=== PATIENT | male | born 1960 | race Caucasian/White ===

== ENCOUNTER 2023-06-09 15:14 | Outpatient (AMB) | payer MEDICARE, MEDICAID, SELFPAY ==
--- NOTE | 2023-06-09 16:18 | HO.SPINEOV ---
Intake Intake Visit Reasons: lower back pain Intake Note: Mr. Smith is here today c/o low back pain. 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 Smith is here today as a follow-up patient carried over from [facility]. He is s/p L5-S1 ALIF performed by Dr. Duvall on 02/05/2022. He reports that he has been attending PT, and is concerned that he continues to have right-sided footdrop. He states that he had shoulder surgery 1 month ago, and fell while ambulating 2 weeks ago. He is concerned that he will re-injury shoulder he continues to fall. He was informed that his previous MRI performed on 06/04/[address] Duvall who suggested the option of a spinal cord stimulator if he continues to have symptoms, as there was no continued nerve compression seen. The patient is agreeable to having a spinal cord stimulator trial, and states that he does not currently see a pain document management consultant. He did state that he is seeing a project management professor at the moment, and has a cardiac ablation surgery scheduled to treat his AFib in July. He stated that he would be agreeable to seeing someone from pain management post cardiac surgery. He was encouraged to reach out to our office for referral to Dr. Ojeda after his cardiac concerns are met. Total amount of time spent in this visit was 35 minutes in discussion of symptoms, MRI imaging results and subsequent plan of care. Dain Duvall MD,PhD [facility] Coding Level of Care Code Tele Est Pt Level 4 (28108) Diagnoses Lumbar radiculopathy M54.16 Time Spent (min) 35
== END 2023-06-09 16:39 | disposition home or self-care (01) ==
PROVIDERS: PCP Family Medicine; Visit Provider Physician Assistant
DX: M54.16 Radiculopathy, lumbar region (principal)
CPT/HCPCS: 99214

== ENCOUNTER → 2023-06-09 15:14 | Outpatient (BNVA) | payer MEDICARE, MEDICAID, SELFPAY | PROVIDERS: PCP Family Medicine; Visit Provider Physician Assistant | DX: M54.16 Radiculopathy, lumbar region (principal) | CPT/HCPCS: 99212 ==

== ENCOUNTER 2023-09-11 14:08 | Outpatient (AMB) | payer MEDICARE, MEDICAID, SELFPAY ==
--- NOTE | 2023-09-11 14:19 | A.SPINEOV_ITS ---
Intake Intake Visit Reasons: follow up from 06/2022 visit Intake Note: Mr Smith is here today for a follow up. Imaging Analyst Required: No Assessment & Plan Assessment & Plan (1) Lumbar radiculopathy: Code(s): M54.16 - Radiculopathy, lumbar region Plan MR Smith is a gentleman well known to us from an L5-S1 fusion done a few years ago. He has had a persistent radiculopathy going down his right leg into his outer thigh, outer calf with weakness of dorsiflexion that never really improved after surgery. Postoperative MRIs have shown no evidence of recurrent compression. He is frustrated with the lack of progress or any progress since his surgery. We had previously discussed the idea of a spinal cord stimulator. Currently he is in the middle of a cardiac workup and is on blood thinners for what sounds like rapid AFib. They cardioverted but it was unsuccessful so now the plan is for some kind of interventional electrophysiology procedure. On my exam he remains about the same with a 4-5 dorsiflexion weakness and hypersensitivity along the L5 dermatome. I will order a new MRI just to evaluate if anything has changed over the last year and a half since his last MRI but I suspect it will not be any different. If this is negative, I can send him for an EMG to confirm chronic radiculopathy suggestive of nerve injury. At that point, we can send him to our interventional specialist who do spinal cord stimulators. Total amount of time spent in this visit was 20 minutes in discussion of symptoms, discussed ordering imaging and subsequent plan of care Bin Duvall MD,PhD [facility] Orders: Orders MR lumbar spine wo/w con Today M54.16 - Radiculopathy, lumbar region Coding Level of Care Code Est Pt Level 3 (37833) Diagnoses Lumbar radiculopathy M54.16
== END 2023-09-11 14:34 | disposition home or self-care (01) ==
PROVIDERS: PCP Family Medicine; Visit Provider Physician Assistant
DX: M54.16 Radiculopathy, lumbar region (principal)
CPT/HCPCS: 99213

== ENCOUNTER → 2023-09-11 14:08 | Outpatient (BNVA) | payer MEDICARE, MEDICAID, SELFPAY | PROVIDERS: PCP Family Medicine; Visit Provider Physician Assistant | DX: M54.16 Radiculopathy, lumbar region (principal) | CPT/HCPCS: 99212 ==

== ENCOUNTER 2023-10-23 08:14 | Outpatient (REF) | payer MEDICARE, MEDICAID, SELFPAY ==
--- NOTE | ~2023-10-23 | MR_ITS ---
EXAMINATION: MR LUMBAR SPINE WITHOUT AND WITH CONTRAST CLINICAL INFORMATION: Radiculopathy COMPARISON: MRI lumbar spine 06/04/2022 TECHNIQUE: MRI of the lumbar spine was obtained using routine sequences before and after intravenous administration of 10 mL Gadavist. FINDINGS: Transitional lumbosacral anatomy with lumbarization of S1 and well-formed S1-S2 disc space. For the purposes of this examination the L5-S1 disc space will be referred to on image 24, series 6. Redemonstrated postsurgical changes following posterior decompression and instrumented posterior interbody fusion at L5-S1. Nondiagnostic assessment of the hardware would be better evaluated on CT. Mild upper lumbar dextrocurvature and lower lumbar levocurvature. Retrolisthesis at L4-L5. Stable mild chronic height loss of several lower thoracic/upper lumbar vertebral bodies. Mild scattered endplate Schmorl's nodes and type II Modic endplate changes. Increased type I Modic endplate changes at L4-L5 and eccentric to the left at L2-L3. Disc desiccation with stable disc height loss, most pronounced and moderate to severe at L1-L2. Multilevel anterior osteophytic spurring is seen.There are multilevel degenerative changes with level by level detail as follows: L1-L2: Annular disc bulge without spinal canal or neural foraminal stenosis. L2-L3: Annular disc bulge with redemonstrated left foraminal/far lateral disc protrusion. Mild bilateral facet arthrosis. No spinal canal stenosis. Stable mild left without right neural foraminal stenosis. L3-L4: Annular disc bulge and mild bilateral facet arthrosis. Prominent left lateral disc osteophyte impinging upon the undersurface of the left psoas muscle. No spinal canal or neural foraminal stenosis. L4-L5: Annular disc bulge with redemonstrated broad-based left paracentral/subarticular disc protrusion. Stable mild spinal canal stenosis and left subarticular zone narrowing impinging upon the traversing left L5 nerve root. Unchanged mild right without left neural foraminal encroachment. L5-S1: Postsurgical changes following right L5 hemilaminectomy/partial facetectomy and instrumented fusion as above. Osteophytic ridging projects into the right greater than left neural foramina. Mild facet arthrosis. There is mild enhancing granulation/scar tissue in the laminectomy bed, right aspect of the spinal canal and right lateral recess encircling the traversing right S1 nerve root. No spinal canal stenosis. Stable presumed severe right neural foraminal stenosis with impingement upon the exiting right L5 nerve root. No left neural foraminal stenosis. S1-S2: No spinal canal or neural foraminal stenosis. The conus medullaris terminates at the level of L2. The distal spinal cord and cauda equina nerve roots appear normal. No pathologic intrathecal enhancement. No epidural fluid collection, hematoma, or mass. Severe fatty atrophy and denervation edema of the lower paraspinal musculature. Limited evaluation of the intra-abdominal structures without significant abnormalities. The abdominal aorta is of normal contour and caliber. MR/MR lumbar spine wo/w con IMPRESSION: 1. Transitional lumbosacral anatomy with lumbarization of S1. 2. Redemonstrated postsurgical changes following posterior decompression and instrumented posterior interbody fusion at L5-S1. Osteophytic ridging projects into the right greater than left neural foramina resulting in stable severe right neural foraminal stenosis with impingement upon the exiting right L5 nerve root. Mild enhancing granulation/scar tissue in the laminectomy bed, right aspect of the spinal canal and right lateral recess encircling the traversing right S1 nerve root. 3. At L4-L5, a broad-based left paracentral/subarticular disc protrusion results in stable mild spinal canal stenosis and left subarticular zone narrowing impinging upon the traversing left L5 nerve root.
[2023-10-23] MEDS: gadobutroL 10 ML VIAL IVPUSH (09:12)
== END 2023-10-23 08:15 | disposition home or self-care (01) ==
LOC: HO.MRI 08:14
PROVIDERS: PCP Family Medicine; Visit Provider Physician Assistant
DX: M54.16 Radiculopathy, lumbar region (principal)
CPT/HCPCS: 72158; A9585

== ENCOUNTER 2024-06-27 13:23 | Outpatient (AMB) | payer OTHER, MEDICAID, SELFPAY ==
--- NOTE | 2024-06-27 13:26 | A.SPINEOV_ITS ---
Intake Visit Reasons: back pain Intake Note: Mr. Smith is here today c/o back pain. Talent Acquisition Project Manager Required: No Allergies No Known Allergies Allergy (Verified 06/27/24 13:44) Assessment & Plan Assessment & Plan (1) Lumbar radiculopathy: Code(s): M54.16 - Radiculopathy, lumbar region Category: Medical Plan Mr Smith is here in follow-up today. This is a gentleman known to us from an L4-5 fusion a number of years ago. He had some decent success in terms of back pain and leg pain but has had residual symptoms that have just never quite gone away. He has a neuropathy in his feet as well as persistent back pain along the paraspinal region the in the lumbar spine. We have seen him numerous times in the office postoperatively in his imaging always shows there is no residual compression of the nerves but there is diffuse spondylosis, Modic endplate changes and facet arthropathy throughout the lumbar spine. His last MRI was done here at [place]. Unfortunately we have no further surgery to offer him. We had been discussing sending him to our interventional pain team for consideration of a spinal cord stimulator. He was in the middle of having a cardiac workup and apparently those issues have been settled and he is here today to ask if he can be referred to the [place] pain management team. I arranged the referral. We would be happy to see him back down the road if anything changes. Total amount of time spent in this visit was 20 minutes in discussion of symptoms, lumbar imaging results and subsequent plan of care Bin Duvall MD,PhD [facility] Orders: Referrals Pain Management Referral M54.16 - Radiculopathy, lumbar region Coding Level of Care Code Est Pt Level 3 (05406) Diagnoses Lumbar radiculopathy M54.16
== END 2024-06-27 14:26 | disposition home or self-care (01) ==
PROVIDERS: PCP Family Medicine; Visit Provider Physician Assistant
DX: M54.16 Radiculopathy, lumbar region (principal)
CPT/HCPCS: 99213

== ENCOUNTER → 2024-06-27 13:23 | Outpatient (BNVA) | payer OTHER, MEDICAID, SELFPAY | PROVIDERS: PCP Family Medicine; Visit Provider Physician Assistant ==

== ENCOUNTER 2024-08-01 09:00 | Outpatient (AMB) | payer OTHER, MEDICAID, SELFPAY ==
--- NOTE | 2024-08-01 09:27 | A.OFFVIS_ITS ---
Vital Signs 08/01/24 09:28 Height 6 ft 2 in Weight 280 lb BMI 35.9 BP 140/94 H Blood Pressure Location Rt brachial Position Sitting Respiration 16 Pulse 67 Pulse Source Pulse Oximeter Pulse Oximetry (%) 97 Oxygen Delivery Method Room Air Intake Visit Reasons: Radiculopathy, lumbar region Allergies No Known Allergies Allergy (Verified 08/01/24 09:30) Medication List - Last Reconciled 08/01/24 by Gege Burgess LPN empagliflozin (Jardiance) 10 mg PO DAILY metoprolol succinate ER 50 mg PO DAILY metronidazole 0.75% appl topical rosuvastatin 10 mg PO BEDTIME sacubitril-valsartan 49-51 mg (Entresto) 1 tab PO BID HPI HPI Radiculopathy, lumbar region: Details: 64-year-old male who presents today to the office for evaluation of lumbar radiculopathy. The patient underwent L4-5 fusion a number of years ago. He had some decent success in terms of back pain and leg pain but has had residual symptoms that have just never quite gone away. He reports neuropathy in his feet as well as persistent back pain along the paraspinal region the in the lumbar spine. He has had a persistent radiculopathy going down his right leg into his outer thigh, outer calf with weakness of dorsiflexion that never really improved after surgery. He has difficulty climbing stairs. His postoperatively imaging always shows there is no residual compression of the nerves but there is diffuse spondylosis, Modic endplate changes and facet arthropathy throughout the lumbar spine. He was taking Eliquis but stopped it. He has no history of DM. [facility] Medical History (Updated 08/29/24 @ 13:15 by Jett Ojeda MD) Lumbar radiculopathy Surgical History (Updated 08/01/24 @ 05:39 by Ronni Vergara) History of lumbar fusion Review of Systems Const All systems reviewed & are unremarkable except as noted in HPI and below Physical Exam Vital Signs: Last Vital Signs Pulse 67 08/01/24 09:28 Resp 16 08/01/24 09:28 BP 140/94 H 08/01/24 09:28 Pulse Ox 97 08/01/24 09:28 Oxygen Delivery Method Room Air 08/01/24 09:28 BMI result Body Mass Index 35.9 General: Appears afebrile. Alert and oriented. Mood and affect appropriate. Follows and participates in conversation appropriately. Respiratory effort is unlabored. Able to transition from sit to stand unassisted. Ambulates with bilaterally normal heel strike and toe off. Results Reviewed Results Reviewed: No imaging is available for review. Assessment & Plan Assessment & Plan (1) Lumbar radiculopathy: Code(s): M54.16 - Radiculopathy, lumbar region Category: Medical (2) Lumbar post-laminectomy syndrome: Code(s): M96.1 - Postlaminectomy syndrome, not elsewhere classified Category: Medical Plan Discussed spinal cord stimulator vs. pain pump as possible treatment options with the patient for post-laminectomy syndrome. Will place a referral for psychology clearance. Once we have received psychology clearance, we will plan for trial of spinal cord stimulator device. The patient will receive a call from [facility] for the psychology assessment. Scribed for Dr. Ojeda by Ronni Vergara, medical and health services manager, on 08/01/2024. I, Dr. Ojeda, have personally reviewed and agree with the information entered by the scribe. Coding Level of Care Code New Pt Level 4 (67010) Diagnoses Lumbar radiculopathy M54.16 Lumbar post-laminectomy syndrome M96.1
[2024-08-01 09:28] VITALS: BP 140/94; PULSE 67; RESP 16; O2SAT 97; BMI 35.9
== END 2024-08-01 09:54 | disposition home or self-care (01) ==
PROVIDERS: PCP Nurse Practitioner Family; Visit Provider Internal Medicine
DX: M54.16 Radiculopathy, lumbar region (principal); M96.1 Postlaminectomy syndrome, not elsewhere classified
CPT/HCPCS: 99204

== ENCOUNTER → 2024-08-01 09:00 | Outpatient (BNVA) | payer OTHER, MEDICAID, SELFPAY | PROVIDERS: PCP Nurse Practitioner Family; Visit Provider Internal Medicine ==

== ENCOUNTER → 2024-08-31 09:20 | Outpatient (BNVA) | payer OTHER, MEDICAID, SELFPAY | PROVIDERS: PCP Nurse Practitioner Family; Visit Provider Internal Medicine | DX: Z01.89 Encounter for other specified special examinations (principal) | CPT/HCPCS: 99211 ==

== ENCOUNTER 2024-09-06 08:28 | Outpatient (AMB) | payer OTHER, MEDICAID, SELFPAY ==
--- NOTE | 2024-09-06 08:35 | MHC.PC.OV ---
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 Germination Testing Manager Required: No Allergies No Known Allergies Allergy (Verified 09/06/24 09:05) Medication List - Last Reconciled 09/06/24 by Jc Myrick CNP empagliflozin (Jardiance) 10 mg PO DAILY metoprolol succinate ER 50 mg PO DAILY metronidazole 0.75% appl topical rosuvastatin 10 mg PO BEDTIME sacubitril-valsartan 49-51 mg (Entresto) 1 tab PO BID testosterone 1 tube topical ONCE Tobacco use date assessed: 09/06/24 Fall risk assessment: 1 Fall in past year Last assessed Fall Risk: 09/06/24 Dental Screening Dental Screen Date: 09/06/24 Did you have a dental visit in the last 12 months?: Yes Did you have a dental problem in the last 6 months where you did not have access to dental care?: No Was dental information given to patient?: Patient has dentist HPI HPI Comments History of Present Illness Details New patient Prior PCP:?[facility] Last office visit/CPE: About 1 year Acute issue(s): HTN -He is on metoprolol succinate ER 50 mg daily, sacubitril-valsartan 49-51 mg 1 tab twice daily, and jardiance daily HLD -He is on rosuvastatin 10 mg at bedtime Low testosterone -He is on transdermal testosterone and followed by Urology Lumbar radiculopathy and bilateral lower extremity neuropathy -He reports chronic low back pain and neuropathy to his lower extremities, right worse than left. He usually uses a cane but did not bring it today. Followed by Dr. Duvall, [facility] [place]. Several nonnarcotic medications, including gabapentin, have not been effective. His water treatment specialist does not want him to be on narcotics He notes that he has not been making healthy dietary choices. He does not exercise. He generally sleeps well PMHx: A-fib, HTN, HLD, Lumbar radiculopathy, BPH, rosacea SurgHx: Lumbar fusion L4-L5, right shoulder rotator cuff repair, cataract surgery both eyes FHx: None SocHx: Nonsmoker. Does not drink alcohol. No recreation drugs Last colonoscopy was in 2008. History of benign polyps. Due for a colonoscopy He has not been vaccinated for pneumonia He is up-to-date on the shingles vaccines He is not up-to-date on COVID and flu vaccines. He does not want to be vaccinated for covid or influenza Last tetanus vaccine was 2 years ago Last eye exam was 2 years ago with [facility]. He will call his eye doctor to schedule an eye exam He is followed by Dr Funk at [facility]iology, Dr Duvall at [facility] neuro spine, Dr Alba at [facility]rology, and [facility]at[facility] Medical History (Updated 09/06/24 @ 10:07 by Jc Myrick CNP) Neuropathy A-fib Lumbar radiculopathy Surgical History (Updated 09/06/24 @ 09:45 by Janneth Nguyen MA) H/O eye surgery History of bladder surgery History of shoulder surgery History of lumbar fusion Social History Housing: House Patient Tobacco Use Status: Never used Tobacco e-Cigarette/Vaping Use: Never Used Second Hand Smoke Exposure: No service: No Current occupational status: retired and disabled Current occupational exposures/hazards: No Cognitive needs: No Hearing needs: No Vision needs: No Questionnaire PHQ-9 Over the last 2 weeks, how often have you been bothered by any of the following problems? 1. Little interest or pleasure in doing things: not at all 2. Feeling down, depressed, or hopeless: not at all 3. Trouble falling or staying asleep, or sleeping too much: not at all 4. Feeling tired or having little energy: not at all 5. Poor appetite or overeating: not at all 6. Feeling bad about yourself - or that you are a failure or have let yourself or your family down: not at all 7. Trouble concentrating on things, such as reading the newspaper or watching television: not at all 8. Moving or speaking so slowly that other people could have noticed. Or the opposite - being so fidgety or restless that you have been moving around a lot more than usual: not at all 9. Thoughts that you would be better off or of hurting yourself in some way: not at all Total score: 0 Depression Screening Interpretation: Negative Depression Screening Done: Yes 53544 - PHQ-9 Billing: Yes Source: Developed by Drs. Juan Toribio, Sheri Colunga, Micheal Escobar and colleagues, with an educational maynor from [employer]. Thrive Questionnaire Date Thrive assessed: 09/06/24 I am a: Patient What is your living situation today?: I have a steady place to live Within the past 12 months, did the food you bought not last and you didn't have the money to get more?: Never true Within the past 12 months, did you worry whether your food would run out before you got money to buy more?: Never true Do you have trouble paying for medicines?: No Do you have trouble getting transportation to medical appointments?: No Do you have trouble paying your heating and electricity bill?: No Do you have trouble taking care of your child, family member or friend?: No Do you have trouble with day-to-day activities such as bathing, preparing meals, shopping, managing finances, etc.?: No Are you currently unemployed and looking for a job?: I choose not to answer this question Are you interested in more education?: No Please select the resources that you would like help with: None Currently or been in a relationship where the following occur: No concerns reported THRIVE Score: 0 AUDIT C Alcohol Use Questionnaire (AUDIT-C) 1. How often do you have a drink containing alcohol?: Never Total Score: 0 Score Reviewed/Action Taken: Yes LESLIE-7 AMB Questionnaire LESLIE-7 Date LESLIE - 7 assessed: 09/06/24 Feeling nervous, anxious, or on edge: 0 = Not at all Not being able to stop or control worryin = Not at all Worrying too much about different things: 0 = Not at all Trouble relaxin = Not at all Being so restless that it is hard to sit still: 0 = Not at all Becoming easily annoyed or irritable: 0 = Not at all Feeling afraid as if something awful might happen: 0 = Not at all Total LESLIE-7 score (0-4 normal; 5-9 mild; 10-14 moderate; 15-21 severe): 0 Source: Developed by Sheri Slade B.W. Keanu, Micheal Escobar and colleagues, with an educational maynor from [employer]. LESLIE-7 Assessment Billing LESLIE-7 Assessment Tool: LESLIE-7 Assessment 08692 Review of Systems Const Details: Denies chills, Denies fatigue, Denies fever(s), Denies headache(s) and Denies weakness HEENT Denies change in vision, Denies dizziness, Denies headache(s), Denies hearing loss, Denies nasal congestion, Denies sinus pain, Denies sinus pressure and Denies sore throat Card Denies chest pain, Denies lightheadedness, Denies dyspnea and Denies other (palpitations) Resp Denies cough, Denies dyspnea and Denies wheezing GI Denies abdominal pain, Denies melena, Denies hematochezia, Denies change in bowel habits, Denies dyspepsia and Denies nausea Denies hematuria and Denies dysuria Musc Reports abnormal gait, Reports low back pain, Reports numbness and tingling both lower extremity Skin/Breast Denies rash, Denies unusual bruising and Denies wounds Neuro Report abnormal gait, Denies dizziness, Denies headache(s), Denies memory loss, Denies numbness, Denies Sensory deficit (Neuro), Denies tingling and Denies weakness Psych Denies anxiety, Denies depression and Denies memory loss Endo Denies cold intolerance, Denies fatigue, Denies heat intolerance, Denies polydipsia and Denies polyuria Danilo/Lymph Denies easy bleeding and Denies easy bruising Aller/Immun Denies wheezing Physical exam (Primary Care) Vital Signs: Last Vital Signs Temp 97.9 F 09/06/24 08:43 Pulse 92 09/06/24 08:43 Resp 16 09/06/24 08:43 BP 120/78 09/06/24 08:43 Pulse Ox 100 09/06/24 08:43 Oxygen Delivery Method Room Air 09/06/24 08:43 BMI result Body Mass Index 35.2 Tobacco/Smoking Status: Tobacco use Status Tobacco use date assessed 09/06/24 09/06/24 08:42 Patient Tobacco Use Status Never used Tobacco 09/06/24 08:42 e-Cigarette/Vaping Use Never Used 09/06/24 08:42 PHQ-9: PHQ-9 Score PHQ-9: Total score 0 09/06/24 14:46 Depression Screening Interpretation: Negative Thrive Assessment: Date of Thrive Assessment Date Thrive assessed 09/06/24 09/06/24 08:42 Currently or been in a relationship where the following occur: No concerns reported Const Other: General: no acute distress, well developed, alert and awake Nutritional Appearance: well nourished Orientation/consciousness: patient oriented x3 HENMT Head: Yes normocephalic and Yes atraumatic Ears: hearing grossly normal bilaterally and TM's normal bilaterally General nose exam: Normal external nose present and Normal nares present Mouth: Normal oral and palatal mucosa present and moist mucous membranes Teeth and gingiva: dentition normal Throat: Yes oropharynx normal Eyes Pupils: Equal, round and reactive pupils present and Pupil accommodation reflex normal EOM: EOMs intact bilaterally Neck Neck: Yes normal visual inspection, Yes no lymphadenopathy and Yes trachea midline Thyroid: Thyroid normal Carotids: no bruits Lymphatic: no lymphadenopathy noted Chest Chest palpation & inspection: normal inspection of the chest Resp Effort & Inspection: normal respiratory effort Auscultation: clear to auscultation bilaterally Cardio Rate: regular rate Rhythm: regular rhythm Heart sounds: S1 normal heart sound present, S2 normal heart sound present, no gallops, no murmurs and no rubs Bruits: no abdominal aortic bruits and no carotid bruits GI Palpation (GI): No Abdominal aortic bruit present, Soft to palpation, nontender, No hepatosplenomegaly present and No Rebound tenderness present Auscultation: normal bowel sounds General: Yes no CVA tenderness Back/Spine/Pelvis Back: no CVA tenderness Cervical Spine: cervical ROM normal and No Cervical spine tenderness Thoracic/Lumbar Spine: thoraco-lumbar ROM normal, No pain with thoraco-lumbar ROM, No thoracic spinal tenderness and No lumbar spinal tenderness Skin General: warm and dry. Normal skin color. Normal skin turgor Lesions: no lesions Rashes: no rashes Trauma: no lacerations or abrasions Wounds: no wounds Nails: normal Neuro General: patient oriented x3, unsteady gait and CN's II-XI intact bilaterally Cranial nerves: Yes Equal, round and reactive pupils present Cognition (Neuro): normal cognition Gait exam (Neuro): Unsteady gait present Motor exam (neuro): 5/5 motor strength present throughout Sensory Exam: No Sensory deficit (Neuro) Deep tendon reflexes (DTR's): Right patellar reflex intensity grade: 2+ and Left patellar reflex intensity grade: 2+ Extrem General: Yes normal to inspection, No edema and No calf tenderness Psych Appearance: grossly normal Affect: normal affect Attitude: cooperative Thought process: Normal thought process present Coding Level of Care Code New Pt Prev Care >65yr (46072) Diagnoses Encounter for routine adult physical exam with abnormal findings Z00.01 Hypertension I10 Lumbar radiculopathy M54.16 Neuropathy involving both lower extremities G57.93 Low testosterone R79.89 Colon cancer screening Z12.11 Obesity (BMI 30-39.9) E66.9 Vaccine counseling Z71.85 Laboratory tests ordered as part of a complete physical exam (CPE) Z00.00 Additional Codes LESLIE-7 Assessment Billing - LESLIE-7 Assessment Tool: LESLIE-7 Assessment 63506 ([id number]) Assessment & Plan Assessment & Plan (1) Encounter for routine adult physical exam with abnormal findings: Code(s): Z00.01 - Encounter for general adult medical examination with abnormal findings Category: Medical Plan: Significant functional limitation with range of motion and ambulation due to chronic lumbar spine pain and neuropathy of his lower extremities Continue current treatment regimen Healthy diet and routine exercise encouraged Continue to follow-up with Cardiology, neuro spine, Urology, and Dermatology as planned Encouraged to get lab work done and follow-up in 1 month for hypertension and labs review Return sooner with symptoms or concerns Verbalized understanding and agreed with the treatment plan (2) Hypertension: Code(s): I10 - Essential (primary) hypertension Category: Medical Plan: Blood pressure is 120/78, within goal of less than 130/80 Continue current treatment regimen Low-sodium diet and routine exercise encouraged Follow-up in 1 month Verbalized understanding and agreed with the treatment plan (3) Lumbar radiculopathy: Code(s): M54.16 - Radiculopathy, lumbar region Category: Medical Plan: Reports chronic low back pain and neuropathy to his lower extremities, right worse than left. He usually uses a cane but did not bring it today Lumbar spine nontender with palpation. He is ambulatory with a limp favoring his right lower extremity He is followed by Dr. Duvall, [facility] neuro spine. Several nonnarcotic medications, including gabapentin, have not been effective. His water treatment specialist does not want him to be on narcotics. Encouraged to use his cane for ambulation at all times. Follow-up with neuro water treatment specialist as planned. Verbalized understanding and agreed with treatment plan. (4) Neuropathy involving both lower extremities: Code(s): G57.93 - Unspecified mononeuropathy of bilateral lower limbs Category: Medical Plan: Plan as above (5) Low testosterone: Code(s): R79.89 - Other specified abnormal findings of blood chemistry Category: Medical Plan: History of low testosterone. On transdermal testosterone. Will check testosterone level. Followed by urology (6) Colon cancer screening: Code(s): Z12.11 - Encounter for screening for malignant neoplasm of colon Category: Medical Plan: Last colonoscopy was in 2008. History of benign polyps. Due for a colonoscopy Referred to [facility] gastroenterology for a colonoscopy (7) Obesity (BMI 30-39.9): Code(s): E66.9 - Obesity, unspecified Category: Medical Plan: He currently weighs 174 lb, BMI is 35.2. He has not been making healthy dietary choices, nor has he been exercising. Healthy diet and routine exercise encouraged. Referred to [facility] dietitian. Follow-up as needed. Verbalized understanding and agreed with the plan (8) Vaccine counseling: Code(s): Z71.85 - Encounter for immunization safety counseling Category: Medical Plan: He has not been vaccinated for pneumonia Instructed on importance of vaccination and encouraged to get vaccinated for pneumonia and influenza. He may get the vaccine from the local pharmacy. Verbalized understanding and agreed with the plan (9) Laboratory tests ordered as part of a complete physical exam (CPE): Code(s): Z00.00 - Encounter for general adult medical examination without abnormal findings Category: Medical Plan: Fasting labs ordered as part of a complete physical exam. Advised to fast for at least 10 hours before getting labs drawn. May drink water Verbalized understanding and agreed with treatment plan. Orders: Orders Complete Blood Count Auto Diff 09/06/24 Z00.00 - Encounter for general adult medical examination without abnormal findings Comprehensive Atkins. Panel Fast 09/06/24 Z00.00 - Encounter for general adult medical examination without abnormal findings TSH reflex Free T4 09/06/24 Z00.00 - Encounter for general adult medical examination without abnormal findings UA CC w/rflx Micro + Cult 09/06/24 Z00.00 - Encounter for general adult medical examination without abnormal findings PSA, Ultra Sensitive 09/06/24 Z00.00 - Encounter for general adult medical examination without abnormal findings Testosterone, Free/Total 09/06/24 R79.89 - Other specified abnormal findings of blood chemistry Lipid Panel 09/06/24 Z00.00 - Encounter for general adult medical examination without abnormal findings Microalbumin, Random (w Creat) Today Z00.00 - Encounter for general adult medical examination without abnormal findings Referrals Nutrition/Dietitian Referral E66.9 - Obesity, unspecified Gastroenterology Referral Z12.11 - Encounter for screening for malignant neoplasm of colon
[2024-09-06 08:43] VITALS: BP 120/78; PULSE 92; RESP 16; TEMP 36.6; O2SAT 100; BMI 35.2
== END 2024-09-06 09:44 | disposition home or self-care (01) ==
LOC: HO.HMCFM 08:29
PROVIDERS: PCP Nurse Practitioner Family; Visit Provider Nurse Practitioner Family
DX: Z00.00 Encounter for general adult medical examination without abnormal findings (principal); I10 Essential (primary) hypertension; E66.9 Obesity, unspecified; Z68.35 Body mass index [BMI] 35.0-35.9, adult; M54.16 Radiculopathy, lumbar region; G57.93 Unspecified mononeuropathy of bilateral lower limbs; R79.89 Other specified abnormal findings of blood chemistry; Z12.11 Encounter for screening for malignant neoplasm of colon; Z71.85 Encounter for immunization safety counseling

== ENCOUNTER → 2024-09-06 08:28 | Outpatient (BNVA) | payer OTHER, MEDICAID, SELFPAY | PROVIDERS: PCP Nurse Practitioner Family; Visit Provider Nurse Practitioner Family | DX: Z00.01 Encounter for general adult medical examination with abnormal findings (principal); I10 Essential (primary) hypertension; M54.16 Radiculopathy, lumbar region; G57.93 Unspecified mononeuropathy of bilateral lower limbs; E29.1 Testicular hypofunction; E66.9 Obesity, unspecified; Z68.35 Body mass index [BMI] 35.0-35.9, adult; Z71.85 Encounter for immunization safety counseling | CPT/HCPCS: 96127 ==

== ENCOUNTER → 2024-09-07 09:54 | Outpatient (BNVA) | payer OTHER, MEDICAID, SELFPAY | PROVIDERS: PCP Nurse Practitioner Family; Visit Provider Internal Medicine ==

== ENCOUNTER 2024-09-07 10:29 | Outpatient (REF) | payer OTHER, SELFPAY ==
[2024-09-07 11:01] LABS: MANUAL DIFF FLAG NO
[2024-09-07 11:22] LABS: Basophils Percent Auto 0.9 % (0-2); Eosinophils Absolute Auto 0.1 X10*3/uL (0.0-0.4); Eosinophils Percent Auto 3.3 % (0-4); Hematocrit 50.3 % (42.0-52.0); Hemoglobin 16.9 g/dl (14.0-18.0); Imm Gran Abs Auto 0.01 X10*3/uL (0.00-0.03); Imm Gran Pct Auto 0.3 % (0.0-0.4); Lymphocytes Absolute Auto 0.9 X10*3/uL (1.2-4.9); Lymphocytes Percent Auto 25.8 % (20-40); Mean Corpuscular HGB Conc 33.6 g/dl (31.0-36.0); Mean Corpuscular Hemoglobin 32.7 pg (27.0-33.0); Mean Corpuscular Volume 97.3 fL (80.0-98.0); Monocytes Absolute Auto 0.3 X10*3/uL (0.1-1.2); Monocytes Percent Auto 9.7 % (2-11); Platelet Count 182 X10*3/uL (160-400); Red Blood Count 5.17 X10*6/uL (4.60-5.80); Red Cell Distribution Width 13.2 % (11.0-16.0); White Blood Count 3.3 X10*3/uL (4.8-10.8)
[2024-09-07 11:53] LABS: Appearance Urine Clear; Color Urine Yellow; Glucose Urine UA >=1000 mg/dL (Negative); Leukocyte Esterase Urine Negative (Negative); Nitrite Urine Negative (Negative); PH 5.5 (5.0-9.0); Specific Gravity - Urine 1.025 (1.005-1.025); UMIC TRIGGER UACC YES; Urine Blood Negative (Negative); Urine Ketones Trace mg/dL (Negative); Urine Protein Trace mg/dL (Neg-Trace)
[2024-09-07 11:55] LABS: Bacteria Urine None Seen (None Seen); RBC Urine 0-2 /HPF (0-2); Squamous Epithelial Cell Urine 0-2 /HPF (0-2); WBC Urine 0-5 /HPF (0-5)
[2024-09-07 12:19] LABS: Creatinine Urine 192.77 mg/dL; Microalbum/Creatinine Ratio Ur 7.7 ug/mg cr (<30)
[2024-09-07 12:56] LABS: Alanine Aminotransferase 18 U/L (0-40); Albumin Level 4.1 g/dL (3.5-5.0); Alkaline Phosphatase 64 U/L (39-117); Anion Gap 16 (12-20); Aspartate Amino Transferase 25 U/L (5-37); Blood Urea Nitrogen 21 mg/dL (9-16); Calcium 9.7 mg/dL (8.4-10.2); Carbon Dioxide 24 mmol/L (22-29); Chloride 104 mmol/L (96-108); Cholesterol 262 mg/dL (<200); Estimated Glomerular Filt Rate > 60; Glucose Fasting 86 mg/dL (60-99); HDL Cholesterol 34 mg/dL (>40); LDL Cholesterol Calculated 195 mg/dL (<100); Potassium 4.6 mmol/L (3.3-5.1); Sodium 139 mmol/L (135-145); Total Protein 7.4 g/dL (6.5-8.0); Triglycerides 166 mg/dL (<150)
[2024-09-07 13:16] LABS: TSH reflex Free T4 0.86 uIU/mL (0.32-4.0)
[2024-09-11 15:48] LABS: Testosterone, Total 306 ng/dL (250-1100)
[2024-09-20 21:33] LABS: PSA, Ultra Sensitive 0.32 ng/mL
== END 2024-09-07 10:30 | disposition home or self-care (01) ==
LOC: HO.LAB 10:29
PROVIDERS: PCP Nurse Practitioner Family; Visit Provider Nurse Practitioner Family
DX: Z00.00 Encounter for general adult medical examination without abnormal findings (principal); R79.89 Other specified abnormal findings of blood chemistry; Z12.5 Encounter for screening for malignant neoplasm of prostate
CPT/HCPCS: 36415; 80053; 80061; 81001; 82043; 82570; 84153; 84402; 84403; 84443; 85025

== ENCOUNTER 2024-09-19 12:23 | Outpatient (AMB) | payer OTHER, MEDICAID, SELFPAY ==
--- NOTE | 2024-09-19 12:35 | A.OFFVIS_ITS ---
VS Expanded 09/19/24 12:36 Height 6 ft 2 in Weight 271 lb 13.279 oz BMI 34.9 Intake Visit Reasons: Obesity Allergies No Known Allergies Allergy (Verified 09/06/24 09:05) Nutrition Presentation Details: Pt presents for MNT for Obesity food frequency fish: 1x/wk fruits not including dairy : 3- 4/day starches > 25/dayf fluids: water/coffee, juices etoh/smoking:denies Pt reports working on reduction to promote weight loss physical activity: sedentary , walks with cane for support, BS Monitoring Most Recent Diabetes Results: Microalb/Creat Ratio 7.7 ug/mg cr (<30) 09/07/24 Cholesterol 262 mg/dL (<200) H 09/07/24 HDL Cholesterol 34 mg/dL (>40) L 09/07/24 Triglycerides 166 mg/dL (<150) H 09/07/24 Creatinine 1.18 mg/dL (0.5-1.4) 09/07/24 Blood Urea Nitrogen 21 mg/dL (9-16) H 09/07/24 Sodium 139 mmol/L (135-145) 09/07/24 Potassium 4.6 mmol/L (3.3-5.1) 09/07/24 Chloride 104 mmol/L (96-108) 09/07/24 Carbon Dioxide 24 mmol/L (22-29) 09/07/24 Calcium 9.7 mg/dL (8.4-10.2) 09/07/24 AST 25 U/L (5-37) 09/07/24 ALT 18 U/L (0-40) 09/07/24 Total Protein 7.4 g/dL (6.5-8.0) 09/07/24 Albumin 4.1 g/dL (3.5-5.0) 09/07/24 FXF-Ripzbjy-At.Jeor Equation Height: 6 ft 2 in Weight: 274 lb Resting Metabolic Rate: 2096.63 Calculated Activity Level: Sedentary Calories Needed to Maintain Weight: 2515.96 Diagnosis Nutrition problem #1: excessive energy intake As related to (etiology) #1: diagnosis As evidenced by (sign/symptom) #1: knowledge deficit of diet [facility] Medical History (Updated 09/09/24 @ 16:15 by Jc Myrick CNP) Neuropathy A-fib Lumbar radiculopathy Surgical History (Updated 09/06/24 @ 09:45 by Janneth Nguyen MA) H/O eye surgery History of bladder surgery History of shoulder surgery History of lumbar fusion Social History Housing: House Patient Tobacco Use Status: Never used Tobacco e-Cigarette/Vaping Use: Never Used Second Hand Smoke Exposure: No service: No Current occupational status: retired and disabled Current occupational exposures/hazards: No Cognitive needs: No Hearing needs: No Vision needs: No Assessment & Plan Assessment & Plan (1) Obesity (BMI 30-39.9): Code(s): E66.9 - Obesity, unspecified Category: Medical Plan: Wt: 124 Kg ( 10/02 ) Est kcal needs as per MSJ: 2500 (40% carb, 30% protein/fat) Est fluid needs as per 25-30 ml/d: 3700 Est prot per day as per 1 g/kg bw: 124 Recommend fiber intake : 8-10 g per day and gradually increase to 25-28 g per day for women and 35-38 g for men or as tolerated Recommend sodium intake per day : g less than 2300 mg Educated patient on: ( R = reviewed V = verbalizes understanding N/R = needs review N/A = not applicable * Food sources of carbohydrate, adequate serving sizes and its role in various health conditions: R * Differences between complex carbohydrates a simple carbohydrates, role of fiber in diet: R * Lean protein sources of foods: R * Differences between types of fats and role in diet (mono on saturated fat fatty acids, saturated fatty acids, trans fats): R V N/R * Food sources of sodium in salt and healthy modifications for heart health in kidney health: R V R/V * Vitamins and minerals: R V N/R * Healthy plate method concept: R V N/R * Physical activity: Benefits a precaution: R V N/R Patient Instructions: Work on reducing on starches by following healthy plate method Choose fiber rich foods (whole grains, vegetables, fruit in place of juices) Drink water with meals/snacks, keeping ydrated Coding Level of Care Code Nutr Indiv Intake (34426) Diagnoses Obesity (BMI 30-39.9) E66.9 Time Spent (min) 30
[2024-09-19 12:36] VITALS: BMI 34.9
[2024-09-20 12:56] VITALS: BMI 35.2
== END 2024-09-19 13:21 | disposition home or self-care (01) ==
PROVIDERS: PCP Nurse Practitioner Family; Visit Provider Dietitian, Registered
DX: E66.9 Obesity, unspecified (principal)

== ENCOUNTER → 2024-09-19 12:23 | Outpatient (BNVA) | payer OTHER, MEDICAID, SELFPAY | PROVIDERS: PCP Nurse Practitioner Family; Visit Provider Dietitian, Registered | DX: E66.9 Obesity, unspecified (principal); Z68.34 Body mass index [BMI] 34.0-34.9, adult; Z71.3 Dietary counseling and surveillance | CPT/HCPCS: 97802 ==

== ENCOUNTER 2024-10-11 09:51 | Outpatient (AMB) | payer OTHER, MEDICAID, SELFPAY ==
--- NOTE | 2024-10-11 09:53 | A.OFFPC_ITS ---
Vital Signs 10/11/24 10:01 Height 6 ft 2 in Weight 276 lb 2 oz BMI 35.4 BP 113/73 Blood Pressure Location Rt brachial Position Sitting Respiration 16 Pulse 78 Pulse Source Pulse Oximeter Temp 97.2 F Temp Source Temporal Artery Scan Pulse Oximetry (%) 98 Oxygen Delivery Method Room Air Intake Visit Reasons: FU HTN, labs review - see comments Intake Note: patient here for follow up on HTN and lab review. Scrummaster Required: No Allergies No Known Allergies Allergy (Verified 10/11/24 10:10) Medication List - Last Reconciled 10/11/24 by Jc Myrick CNP empagliflozin (Jardiance) 10 mg PO DAILY metoprolol succinate ER 50 mg PO DAILY metronidazole 0.75% appl topical rosuvastatin 20 mg PO DAILY 30 days sacubitril-valsartan 49-51 mg (Entresto) 1 tab PO BID testosterone 1 tube topical ONCE Tobacco use date assessed: 10/11/24 Fall risk assessment: No Falls in past year Last assessed Fall Risk: 10/11/24 Dental Screening Dental Screen Date: 10/11/24 Did you have a dental visit in the last 12 months?: Yes Did you have a dental problem in the last 6 months where you did not have access to dental care?: No Was dental information given to patient?: Patient has dentist HPI HPI Comments History of Present Illness Details The patient is a 64-year-old male presenting with a follow-up for hypertension and laboratory review. He has a history of essential hypertension and is actively managing it. His blood pressure was well controlled at the time of the visit, recorded as 113/73 mmHg. The patient's target blood pressure is below 130/80 mmHg. He has leukopenia, with a current white blood cell count of 3.3. The normal range is between 4.8 and 10.8. This is of concern as the patient is a new patient; hence, previous trends are unknown. There is a plan for a repeat complete blood count. If the white blood cell count remains low, the patient will be referred to hematology/oncology for further evaluation. The patient has a history of hyperlipidemia. Recent cholesterol levels indicate triglycerides at 166 mg/dL (desired <150 mg/dL), total cholesterol at 262 mg/dL (desired <200 mg/dL), LDL at 195 mg/dL (desired <100 mg/dL), and HDL at 34 mg/dL (desired >40 mg/dL). The patient's regimen includes rosuvastatin 20 mg daily, which was started in 09/09/2024. There is a history of low back pain, primarily on the right side. The patient describes persistent numbness and pain, exacerbated by certain movements. He is currently awaiting approval for a spinal stimulator procedure. He occasionally uses Tylenol for pain management when necessary. He experiences hypogonadism, currently managed with testosterone cream. His recent testosterone levels was 34.0. The patient also reports having developed varicose veins, especially noticeable in the right leg. Compression stockings modestly help alleviate discomfort. He is inquiring about potential further evaluation due to the growth and associated aching of these varicose veins. Social History - The patient follows a modified diet an d is receiving guidance from a dietitian. - Currently utilizing a low-sodium diet and making dietary changes to lower cholesterol, including limiting red meat, saturated fats, and avoiding trans fats. - Exercise is limited due to back pain a nd pending pain management intervention. - Sees a plastic parts designer annually and antonio huerta regular contact with a urologist for hypogonadism management. PFS Medical History (Updated 10/11/24 @ 10:35 by Jc Myrick CNP) Neuropathy A-fib Lumbar radiculopathy Surgical History (Updated 09/06/24 @ 09:45 by Janneth Nguyen MA) H/O eye surgery History of bladder surgery History of shoulder surgery History of lumbar fusion Social History Housing: House Patient Tobacco Use Status: Never used Tobacco e-Cigarette/Vaping Use: Never Used Second Hand Smoke Exposure: No service: No Current occupational status: retired and disabled Current occupational exposures/hazards: No Cognitive needs: No Hearing needs: No Vision needs: No Questionnaire Thrive Questionnaire Date Thrive assessed: 09/06/24 I am a: Patient What is your living situation today?: I have a steady place to live Within the past 12 months, did the food you bought not last and you didn't have the money to get more?: Never true Within the past 12 months, did you worry whether your food would run out before you got money to buy more?: Never true Do you have trouble paying for medicines?: No Do you have trouble getting transportation to medical appointments?: No Do you have trouble paying your heating and electricity bill?: No Do you have trouble taking care of your child, family member or friend?: No Do you have trouble with day-to-day activities such as bathing, preparing meals, shopping, managing finances, etc.?: No Are you currently unemployed and looking for a job?: I choose not to answer this question Are you interested in more education?: No Please select the resources that you would like help with: None Currently or been in a relationship where the following occur: No concerns reported THRIVE Score: 0 LESLIE-7 AMB Questionnaire LESLIE-7 Date LESLIE - 7 assessed: 09/06/24 Becoming easily annoyed or irritable: 0 = Not at all Source: Developed by Drs. Juan Toribio, Sheri Colunga, Micheal Escobar and colleagues, with an educational maynor from [employer]. Review of Systems Const Details: Const Denies chills, Denies fatigue, Denies fever(s), Denies headache(s) and Denies weakness ENT Denies dizziness and Denies headache(s) Card Denies chest pain, Denies lightheadedness, Denies dyspnea and Denies other (Palpitations) Resp Denies cough, Denies dyspnea, Denies wheezing and Denies other ( shortness of breath) GI Denies abdominal pain, Denies melena, Denies hematochezia, Denies change in bowel habits, Denies dyspepsia and Denies nausea Denies hematuria and Denies dysuria Musc Reports as per HPI Skin/Breast Denies rash, Denies unusual bruising and Denies wounds Neuro Denies abnormal gait, Denies dizziness, Denies headache(s), Denies memory loss, Denies numbness, Denies Sensory deficit (Neuro), Denies tingling and Denies weakness Psych Denies anxiety, Denies depression, Denies memory loss Endo Denies cold intolerance, Denies fatigue, Denies heat intolerance, Denies polydipsia and Denies polyuria Aller/Immun Denies wheezing Physical exam (Primary Care) Vital Signs: Last Vital Signs Temp 97.2 F 10/11/24 10:01 Pulse 78 10/11/24 10:01 Resp 16 10/11/24 10:01 BP 113/73 10/11/24 10:01 Pulse Ox 98 10/11/24 10:01 Oxygen Delivery Method Room Air 10/11/24 10:01 BMI result Body Mass Index 35.4 Tobacco/Smoking Status: Tobacco use Status Tobacco use date assessed 10/11/24 10/11/24 10:04 Patient Tobacco Use Status Never used Tobacco 10/11/24 09:55 e-Cigarette/Vaping Use Never Used 10/11/24 09:55 Thrive Assessment: Date of Thrive Assessment Date Thrive assessed 09/06/24 10/11/24 09:55 Currently or been in a relationship where the following occur: No concerns reported Const Other: General: no acute distress and well developed Nutritional Appearance: well nourished Orientation/consciousness: patient oriented x3 HENMT Head: Yes normocephalic and Yes atraumatic Eyes General: appearance normal, both eyes and all related structures Pupils: Equal, round and reactive pupils present EOM: EOMs intact bilaterally Resp Effort & Inspection: normal respiratory effort Auscultation: clear to auscultation bilaterally Cardio Rate: regular rate Rhythm: regular rhythm Heart sounds: S1 normal heart sound present, S2 normal heart sound present, no gallops, no murmurs and no rubs GI Palpation (GI): No Abdominal aortic bruit present, Soft to palpation, nontender, No hepatosplenomegaly present and No Rebound tenderness present Auscultation: normal bowel sounds General: Yes no CVA tenderness Back/Spine/Pelvis Back: no CVA tenderness Cervical Spine: cervical ROM normal and No Cervical spine tenderness Thoracic/Lumbar Spine: thoraco-lumbar ROM normal, No pain with thoraco-lumbar ROM, No thoracic spinal tenderness and No lumbar spinal tenderness Extrem General: Yes normal to inspection, No edema and No calf tenderness Skin General: warm and dry. Normal skin color. Normal skin turgor. Enlarged vericose veins of bilateral lower extremity, right worse that left Neuro General: patient oriented x3, gait normal and no focal neuro deficit Cranial nerves: Yes Equal, round and reactive pupils present Cognition (Neuro): normal cognition Gait exam (Neuro): Normal gait present Sensory Exam: No Sensory deficit (Neuro) Psych Appearance: grossly normal Affect: normal affect Attitude: cooperative Thought process: Normal thought process present Coding Level of Care Code Est Pt Level 4 (41117) Complex EM visit Add On G2211 Diagnoses Hypertension I10 Hyperlipidemia E78.5 Leukopenia D72.819 Lumbar radiculopathy M54.16 Hypogonadism in male E29.1 Varicose veins of bilateral lower extremities with pain I83.813 Assessment & Plan Assessment & Plan (1) Hypertension: Code(s): I10 - Essential (primary) hypertension Category: Medical Plan: Continue current anti-hypertensive regimen; BP target remains <130/80 mmHg. (2) Hyperlipidemia: Code(s): E78.5 - Hyperlipidemia, unspecified Category: Medical Plan: Continue rosuvastatin 20 mg daily. Recheck fasting lipid profile in one month, two to three days before next follow-up. (3) Leukopenia: Code(s): D72.819 - Decreased white blood cell count, unspecified Category: Medical Plan: Repeat CBC today. If persistently low, referral to hematology/oncology to be considered. (4) Lumbar radiculopathy: Code(s): M54.16 - Radiculopathy, lumbar region Category: Medical Plan: Await spinal stimulator procedure; utilize non-opioid measures such as Tylenol and warm compresses as needed. (5) Hypogonadism in male: Code(s): E29.1 - Testicular hypofunction Category: Medical Plan: Continue testosterone cream as prescribed; follow up with urology as scheduled. (6) Varicose veins of bilateral lower extremities with pain: Code(s): I83.813 - Varicose veins of bilateral lower extremities with pain Category: Medical Plan: Continue wearing compression stockings. Monitor for increased pain or swelling; consider vascular referral if symptoms persist. Plan Today, we discussed the management plan for optimizing hypertension control with the current regimen and maintaining the target blood pressure. I emphasized the importance of monitoring leukopenia through repeated CBC to determine any need for further specialist evaluation. We reviewed lipid management and the importance of dietary modifications alongside continued statin use. The patient will have a fasting lipid re-evaluation at the next appointment. For his chronic low back pain, we discussed non-opioid pain management strategies, considering the pending spinal stimulator procedure. Advised continuation of testosterone cream and urology follow up for hypogonadism. We acknowledged the current non-invasive management of varicose veins with compression stockings and agreed to revisit specialist involvement should symptoms escalate. Orders: Orders Lipid Panel Today E78.5 - Hyperlipidemia, unspecified WBC ONLY Today D72.819 - Decreased white blood cell count, unspecified Patient Instructions: - Continue taking blood pressure and cholesterol medications as prescribed. - Follow dietary recommendations from the dietitian to manage cholesterol levels. - Recheck CBC today and lipid panel two to three days before the next visit. - Use Tylenol and warm compresses for back pain. - Wear compression stockings for varicose veins and monitor symptoms. - Follow up in one month for cholesterol check. Patient was informed and verbally consented to the use of an ambient scribe for clinic note documentation during this visit.
[2024-10-11 10:01] VITALS: BP 113/73; PULSE 78; RESP 16; TEMP 36.2; O2SAT 98; BMI 35.4
== END 2024-10-11 10:26 | disposition home or self-care (01) ==
PROVIDERS: PCP Nurse Practitioner Family; Visit Provider Nurse Practitioner Family
DX: I10 Essential (primary) hypertension (principal); E78.5 Hyperlipidemia, unspecified; D72.819 Decreased white blood cell count, unspecified; M54.16 Radiculopathy, lumbar region; E29.1 Testicular hypofunction; I83.813 Varicose veins of bilateral lower extremities with pain

== ENCOUNTER → 2024-10-11 09:51 | Outpatient (BNVA) | payer OTHER, MEDICAID, SELFPAY | PROVIDERS: PCP Nurse Practitioner Family; Visit Provider Nurse Practitioner Family ==

== ENCOUNTER 2024-10-11 10:31 | Outpatient (REF) | payer OTHER, MEDICAID, SELFPAY ==
[2024-10-11 14:32] LABS: Appearance Urine Clear; Color Urine Yellow; Glucose Urine UA >=1000 mg/dL (Negative); Leukocyte Esterase Urine Negative (Negative); Nitrite Urine Negative (Negative); PH 5.5 (5.0-9.0); Specific Gravity - Urine >= 1.030 (1.005-1.025); UMIC TRIGGER UACC YES; Urine Blood Negative (Negative); Urine Ketones Negative (Negative); Urine Protein Negative (Neg-Trace)
[2024-10-11 14:32] LABS: Neutrophils Absolute Auto 3.3 x10*3/uL (2.0-8.3)
[2024-10-11 14:40] LABS: Bacteria Urine None Seen (None Seen); Hyaline Casts Urine 0-2 /LPF (0-2); RBC Urine 0-2 /HPF (0-2); Squamous Epithelial Cell Urine 0-2 /HPF (0-2); WBC Urine 0-5 /HPF (0-5)
[2024-10-11 15:01] LABS: Cholesterol 168 mg/dL (<200); HDL Cholesterol 51 mg/dL (>40); LDL Cholesterol Calculated 98 mg/dL (<100); Triglycerides 96 mg/dL (<150)
== END 2024-10-11 10:32 | disposition home or self-care (01) ==
LOC: HO.WFDLDS 10:31
PROVIDERS: Visit Provider Nurse Practitioner Family
DX: E78.5 Hyperlipidemia, unspecified (principal); D72.819 Decreased white blood cell count, unspecified
CPT/HCPCS: 36415; 80061; 81001; 85048

== ENCOUNTER 2024-10-24 12:15 | Outpatient (AMB) | payer OTHER, MEDICAID, SELFPAY ==
[2024-10-24 12:23] VITALS: BMI 35.4
--- NOTE | 2024-10-24 12:23 | A.OFFVIS_ITS ---
VS Expanded 10/24/24 12:23 Height 6 ft 2 in Weight 275 lb 12.772 oz BMI 35.4 Intake Visit Reasons: obesity/Confirmed Allergies No Known Allergies Allergy (Verified 10/11/24 10:10) Nutrition Presentation Details: Pt presents for MNT f/u for hyperlipidemia. Pt reports doing well, working on choosing lower fat/high fiber foods. BS Monitoring Most Recent Diabetes Results: Microalb/Creat Ratio 7.7 ug/mg cr (<30) 09/07/24 Cholesterol 168 mg/dL (<200) 10/11/24 HDL Cholesterol 51 mg/dL (>40) 10/11/24 Triglycerides 96 mg/dL (<150) 10/11/24 Creatinine 1.18 mg/dL (0.5-1.4) 09/07/24 Blood Urea Nitrogen 21 mg/dL (9-16) H 09/07/24 Sodium 139 mmol/L (135-145) 09/07/24 Potassium 4.6 mmol/L (3.3-5.1) 09/07/24 Chloride 104 mmol/L (96-108) 09/07/24 Carbon Dioxide 24 mmol/L (22-29) 09/07/24 Calcium 9.7 mg/dL (8.4-10.2) 09/07/24 AST 25 U/L (5-37) 09/07/24 ALT 18 U/L (0-40) 09/07/24 Total Protein 7.4 g/dL (6.5-8.0) 09/07/24 Albumin 4.1 g/dL (3.5-5.0) 09/07/24 [facility] Medical History (Updated 10/11/24 @ 10:35 by Jc Myrick CNP) Neuropathy A-fib Lumbar radiculopathy Surgical History (Updated 09/06/24 @ 09:45 by Janneth Nguyen MA) H/O eye surgery History of bladder surgery History of shoulder surgery History of lumbar fusion Social History Housing: House Patient Tobacco Use Status: Never used Tobacco e-Cigarette/Vaping Use: Never Used Second Hand Smoke Exposure: No service: No Current occupational status: retired and disabled Current occupational exposures/hazards: No Cognitive needs: No Hearing needs: No Vision needs: No Assessment & Plan Assessment & Plan (1) Obesity (BMI 30-39.9): Code(s): E66.9 - Obesity, unspecified Category: Medical Plan: Wt: 124 Kg ( 10/02 ) Est kcal needs as per MSJ: 2500 (40% carb, 30% protein/fat) Est fluid needs as per 25-30 ml/d: 3700 Est prot per day as per 1 g/kg bw: 124 Recommend fiber intake : 8-10 g per day and gradually increase to 25-28 g per day for women and 35-38 g for men or as tolerated Recommend sodium intake per day : g less than 2300 mg Educated patient on: ( R = reviewed V = verbalizes understanding N/R = needs review N/A = not applicable * Food sources of carbohydrate, adequate serving sizes and its role in various health conditions: R * Differences between complex carbohydrates a simple carbohydrates, role of fiber in diet: R * Lean protein sources of foods: R * Differences between types of fats and role in diet (mono on saturated fat fatty acids, saturated fatty acids, trans fats): R * Food sources of sodium in salt and healthy modifications for heart health in kidney health: R V R/V * Vitamins and minerals: R V N/R * Healthy plate method concept: R * Physical activity: Benefits a precaution: R V N/R Patient Instructions: Continue working on diet modifications, high fiber/low saturated fats Try plant base protein foods (tofu/beans as example) see recipes keep hydrated to prevent constipation as you increase in fiber intake. Coding Level of Care Code Nutr Indiv Subseq (63307) Diagnoses Obesity (BMI 30-39.9) E66.9 Time Spent (min) 30
== END 2024-10-24 12:44 | disposition home or self-care (01) ==
PROVIDERS: PCP Nurse Practitioner Family; Visit Provider Dietitian, Registered
DX: E66.9 Obesity, unspecified (principal)

== ENCOUNTER 2024-11-11 08:40 | Outpatient (REF) | payer OTHER, MEDICAID, SELFPAY ==
[2024-11-11 11:13] LABS: Appearance Urine Clear; Color Urine Dark Yellow; Glucose Urine UA >=1000 mg/dL (Negative); Leukocyte Esterase Urine Negative (Negative); Nitrite Urine Negative (Negative); PH 5.5 (5.0-9.0); Specific Gravity - Urine >= 1.030 (1.005-1.025); UMIC TRIGGER UACC YES; Urine Blood Negative (Negative); Urine Ketones Trace mg/dL (Negative); Urine Protein Trace mg/dL (Neg-Trace)
[2024-11-11 11:32] LABS: Cholesterol 192 mg/dL (<200); HDL Cholesterol 46 mg/dL (>40); LDL Cholesterol Calculated 124 mg/dL (<100); Triglycerides 110 mg/dL (<150)
[2024-11-11 11:35] LABS: Bacteria Urine None Seen (None Seen); Hyaline Casts Urine 0-2 /LPF (0-2); RBC Urine 0-2 /HPF (0-2); Squamous Epithelial Cell Urine 0-2 /HPF (0-2); WBC Urine 0-5 /HPF (0-5)
== END 2024-11-11 08:41 | disposition home or self-care (01) ==
LOC: HO.WFDLDS 08:40
PROVIDERS: Visit Provider Nurse Practitioner Family
DX: E78.5 Hyperlipidemia, unspecified (principal)
CPT/HCPCS: 36415; 80061; 81001

== ENCOUNTER 2024-11-15 08:27 | Outpatient (AMB) | payer OTHER, MEDICAID, SELFPAY ==
--- NOTE | 2024-11-15 08:33 | A.OFFPC_ITS ---
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 Allergies No Known Allergies Allergy (Verified 11/15/24 08:53) Medication List - Last Reconciled 11/15/24 by Jc Myrick CNP empagliflozin (Jardiance) 10 mg PO DAILY metoprolol succinate ER 50 mg PO DAILY metronidazole 0.75% appl topical rosuvastatin 20 mg PO DAILY 30 days sacubitril-valsartan 49-51 mg (Entresto) 1 tab PO BID testosterone 1 tube topical ONCE Tobacco use date assessed: 11/15/24 Fall risk assessment: No Falls in past year Last assessed Fall Risk: 11/15/24 Dental Screening Dental Screen Date: 11/15/24 Did you have a dental visit in the last 12 months?: Yes Did you have a dental problem in the last 6 months where you did not have access to dental care?: No Was dental information given to patient?: Patient has dentist HPI HPI Comments History of Present Illness Details 64-year-old male presents for hyperlipid emia follow-up. He admits to taking his medications as prescribed without adverse reactions. His only symptom today is chronic persistent low back pain. His health plan recently approved a spinal stimulator for his lower back. He is followed by [facility] [place] [place] pain management and is awaiting to be contacted to schedule surgery for spinal stimulator procedure. He is not currently taking any medication for his back pain. [facility] Medical History (Updated 10/11/24 @ 10:35 by Jc Myrick CNP) Neuropathy A-fib Lumbar radiculopathy Surgical History (Updated 09/06/24 @ 09:45 by Janneth Nguyen MA) H/O eye surgery History of bladder surgery History of shoulder surgery History of lumbar fusion Social History Housing: House Patient Tobacco Use Status: Never used Tobacco e-Cigarette/Vaping Use: Never Used Second Hand Smoke Exposure: No service: No Current occupational status: retired and disabled Current occupational exposures/hazards: No Cognitive needs: No Hearing needs: No Vision needs: No Questionnaire PHQ-9 Over the last 2 weeks, how often have you been bothered by any of the following problems? 1. Little interest or pleasure in doing things: not at all 2. Feeling down, depressed, or hopeless: not at all 3. Trouble falling or staying asleep, or sleeping too much: not at all 4. Feeling tired or having little energy: not at all 5. Poor appetite or overeating: not at all 6. Feeling bad about yourself - or that you are a failure or have let yourself or your family down: not at all 7. Trouble concentrating on things, such as reading the newspaper or watching television: not at all 8. Moving or speaking so slowly that other people could have noticed. Or the opposite - being so fidgety or restless that you have been moving around a lot more than usual: not at all 9. Thoughts that you would be better off or of hurting yourself in some way: not at all Total score: 0 Depression Screening Interpretation: Negative Depression Screening Done: Yes Source: Developed by Drs. Juan Toribio, Sheri Colunga, Micheal Escobar and colleagues, with an educational maynor from [employer]. Thrive Questionnaire Date Thrive assessed: 09/06/24 I am a: Patient What is your living situation today?: I have a steady place to live Within the past 12 months, did the food you bought not last and you didn't have the money to get more?: Never true Within the past 12 months, did you worry whether your food would run out before you got money to buy more?: Never true Do you have trouble paying for medicines?: No Do you have trouble getting transportation to medical appointments?: No Do you have trouble paying your heating and electricity bill?: No Do you have trouble taking care of your child, family member or friend?: No Do you have trouble with day-to-day activities such as bathing, preparing meals, shopping, managing finances, etc.?: No Are you currently unemployed and looking for a job?: No Are you interested in more education?: No Please select the resources that you would like help with: None Currently or been in a relationship where the following occur: No concerns reported THRIVE Score: 0 AUDIT C Alcohol Use Questionnaire (AUDIT-C) 1. How often do you have a drink containing alcohol?: Never Total Score: 0 LESLIE-7 AMB Questionnaire LESLIE-7 Date LESLIE - 7 assessed: 09/06/24 Feeling nervous, anxious, or on edge: 0 = Not at all Not being able to stop or control worryin = Not at all Worrying too much about different things: 0 = Not at all Trouble relaxin = Not at all Being so restless that it is hard to sit still: 0 = Not at all Becoming easily annoyed or irritable: 0 = Not at all Feeling afraid as if something awful might happen: 0 = Not at all Total LESLIE-7 score (0-4 normal; 5-9 mild; 10-14 moderate; 15-21 severe): 0 Source: Developed by Drs. Juan Toribio, Sheri Colunga, Micheal Escobar and colleagues, with an educational maynor from [employer]. Review of Systems Const Details: Const Denies chills, Denies fatigue, Denies fever(s), Denies headache(s) and Denies weakness ENT Denies dizziness and Denies headache(s) Card Denies chest pain, Denies lightheadedness, Denies dyspnea and Denies other (Palpitations) Resp Denies cough, Denies dyspnea, Denies wheezing and Denies other ( shortness of br eath) GI Denies abdominal pain, Denies melena, Denies hematochezia, Denies change in bowel habits, Denies dyspepsia and Denies nausea Denies hematuria and Denies dysuria Musc Reports chronic low back pain, Denies abnormal gait, Denies numbness and Denies tingling Skin/Breast Denies rash, Denies unusual bruising and Denies wounds Neuro Denies abnormal gait, Denies dizziness, Denies headache(s), Denies memory loss, Denies numbness, Denies Sensory deficit (Neuro), Denies tingling and Denies weakness Psych Denies anxiety, Denies depression, Denies memory loss Endo Denies cold intolerance, Denies fatigue, Denies heat intolerance, Denies polydipsia and Denies polyuria Aller/Immun Denies wheezing Physical exam (Primary Care) Vital Signs: Last Vital Signs Temp 98.4 F 11/15/24 08:36 Pulse 70 11/15/24 08:36 Resp 16 11/15/24 08:36 BP 116/71 11/15/24 08:36 Pulse Ox 98 11/15/24 08:36 Oxygen Delivery Method Room Air 11/15/24 08:36 BMI result Body Mass Index 35.0 Tobacco/Smoking Status: Tobacco use Status Tobacco use date assessed 11/15/24 11/15/24 08:39 Patient Tobacco Use Status Never used Tobacco 11/15/24 08:39 e-Cigarette/Vaping Use Never Used 11/15/24 08:39 PHQ-9: PHQ-9 Score PHQ-9: Total score 0 11/15/24 08:39 Depression Screening Interpretation: Negative Thrive Assessment: Date of Thrive Assessment Date Thrive assessed 09/06/24 11/15/24 08:39 Currently or been in a relationship where the following occur: No concerns reported Const Other: General: no acute distress and well developed Nutritional Appearance: well nourished Orientation/consciousness: patient oriented x3 HENMT Head: Yes normocephalic and Yes atraumatic Eyes General: appearance normal, both eyes and all related structures Pupils: Equal, round and reactive pupils present EOM: EOMs intact bilaterally Resp Effort & Inspection: normal respiratory effort Auscultation: clear to auscultation bilaterally Cardio Rate: regular rate Rhythm: regular rhythm Heart sounds: S1 normal heart sound present, S2 normal heart sound present, no gallops, no murmurs and no rubs GI Palpation (GI): No Abdominal aortic bruit present, Soft to palpation, nontender, No hepatosplenomegaly present and No Rebound tenderness present Auscultation: normal bowel sounds General: Yes no CVA tenderness Back/Spine/Pelvis Back: no CVA tenderness Cervical Spine: cervical ROM normal and No Cervical spine tenderness Thoracic/Lumbar Spine: thoraco-lumbar ROM normal, No pain with thoraco-lumbar ROM, No thoracic spinal tenderness and + lumbar spinal tenderness Extrem General: Yes normal to inspection, No edema and No calf tenderness Skin General: warm and dry. Normal skin color. Normal skin turgor Neuro General: patient oriented x3, gait normal and no focal neuro deficit Cranial nerves: Yes Equal, round and reactive pupils present Cognition (Neuro): normal cognition Gait exam (Neuro): Normal gait present Sensory Exam: No Sensory deficit (Neuro) Psych Appearance: grossly normal Affect: normal affect Attitude: cooperative Thought process: Normal thought process present Coding Level of Care Code Est Pt Level 4 (57681) Diagnoses Hyperlipidemia E78.5 Hypertension I10 Leukopenia D72.819 Lumbar radiculopathy M54.16 Assessment & Plan Assessment & Plan (1) Hyperlipidemia: Code(s): E78.5 - Hyperlipidemia, unspecified Category: Medical Plan: Recent lipid panel level with significant improvement. LDL level is slightly elevated, 124. Triglycerides, total cholesterol and HDL levels are normal. Continue current treatment regimen. Advised to limit foods high in saturated fat and avoid foods high in trans fat. Continue follow-up with [facility] [place] [place] dietitian. Fast for 10-12 hours, may drink water, and get blood work done 2-3 days before next visit. Follow-up in 3 months or sooner with symptoms or concerns. Verbalized understanding and agreed with treatment plan. (2) Hypertension: Code(s): I10 - Essential (primary) hypertension Category: Medical Plan: Blood pressure is 160/71, within goal of less than 140/90. Continue current treatment regimen. Follow-up in 3 months. Verbalized understanding and agreed with treatment plan. (3) Leukopenia: Code(s): D72.819 - Decreased white blood cell count, unspecified Category: Medical Plan: Recent WBC is normal, 5.0. (4) Lumbar radiculopathy: Code(s): M54.16 - Radiculopathy, lumbar region Category: Medical Plan: Chronic, persistent low back pain. Lumbar spine tenderness to palpation. Spinal stimulator was recently approved by his health plan. Is awaiting for management for spinal stimulator procedure by [facility] [place] [place] pain management. May take Tylenol ibuprofen for pain or discomfort. Warm or cold compresses encouraged follow-up with worsening or new symptoms. Verbalized understanding and agreed with treatment plan. Orders: Orders Lipid Panel 3 Months E78.5 - Hyperlipidemia, unspecified
[2024-11-15 08:36] VITALS: BP 116/71; PULSE 70; RESP 16; TEMP 36.9; O2SAT 98; BMI 35.0
== END 2024-11-15 09:00 | disposition home or self-care (01) ==
PROVIDERS: PCP Nurse Practitioner Family; Visit Provider Nurse Practitioner Family
DX: E78.5 Hyperlipidemia, unspecified (principal); I10 Essential (primary) hypertension; D72.819 Decreased white blood cell count, unspecified; M54.16 Radiculopathy, lumbar region

== ENCOUNTER 2024-11-23 12:08 | Day surgery (SDC) | payer OTHER, MEDICAID, SELFPAY ==
--- NOTE | 2024-11-21 15:41 | HO.ANESPROP2 ---
Documented by User: Dariela Flynn NP 11/22/24 12:55 HPI - Anesthesia Eval Consult details Narrative: 64yo M for Spinal Cord Stimulation Trial Follows [facility] for afib (no anticoag), dilated CMP (nml LV function), AAA @ 4.4cm (requested recent echo). Stable at 10/2024 office visit Anesthesia Pre-Procedure Meds Is the patient on any of the following meds?: SGLT2 Inhib PMFSH Active Problems Active Problems: All Active Problems Varicose veins of bilateral lower extremities with pain (Acute) Hypogonadism in male (Acute) Leukopenia (Acute) Hyperlipidemia (Acute) Low testosterone (Acute) Vaccine counseling (Acute) Obesity (BMI 30-39.9) (Acute) Colon cancer screening (Acute) Neuropathy involving both lower extremities (Acute) Hypertension (Acute) Encounter for routine adult physical exam with abnormal findings (Acute) Laboratory tests ordered as part of a complete physical exam (CPE) (Acute) Lumbar post-laminectomy syndrome (Acute) Lumbar radiculopathy (Acute) Past Medical History Medical History (Updated 10/11/24 @ 10:35 by Jc Myrick CNP) Neuropathy A-fib Lumbar radiculopathy Surgical History Surgical History (Updated 09/06/24 @ 09:45 by Janneth Nguyen MA) H/O eye surgery History of bladder surgery History of shoulder surgery History of lumbar fusion Social History Social History Housing: House Patient Tobacco Use Status: Never used Tobacco e-Cigarette/Vaping Use: Never Used Second Hand Smoke Exposure: No Use of substances other than those prescribed or required for medical reasons: No Advance Directives: No Advance Directives Information Provided: Yes service: No Current occupational status: retired and disabled Current occupational exposures/hazards: No Cognitive needs: No Hearing needs: No Vision needs: No Meds Allergies Allergy/AdvReac Type Severity Reaction Status Date / Time No Known Allergies Allergy Verified 11/15/24 08:53 Home Medications ?Medication ?Instructions ?Recorded ?Confirmed ?Last Taken ?Type empagliflozin 10 mg tablet 10 mg PO DAILY 08/01/24 11/23/24 11/19/24 History (Jardiance) metoprolol succinate 50 mg 50 mg PO DAILY 08/01/24 11/23/24 11/23/24 History tablet,extended release 24 hr metronidazole 0.75 % topical cream appl topical 08/01/24 11/15/24 Unknown History sacubitril 49 mg-valsartan 51 mg 1 tab PO BID 08/01/24 11/23/24 Unknown History tablet (Entresto) testosterone 1 % (50 mg/5 gram) 1 tube topical ONCE 09/06/24 11/23/24 Unknown History transdermal gel packet Exam Pertinent Lab Results Pertinent Lab Results: Laboratory Tests 09/07/24 10/11/24 10:59 10:32 WBC 5.0 Hgb 16.9 Hct 50.3 Plt Count 182 Sodium 139 Potassium 4.6 Chloride 104 Carbon Dioxide 24 BUN 21 H Creatinine 1.18 Narrative Narrative: ECHO 07/2024 Contrast used Nml LV chamber size. Borderline conc LVH. Low nml LV sys function. LVEF 50-55%. No focal regional wall motion abnormalities. Nml LV diastolic function. RV is nml in size and sys function. PASP not elevated Mildly dilated LA No hemodynamically signif valve disease Aortic sinus 4.3cm. Asc aorta 4.4cm C/W 2022, aorta similar in size Assessment and Plan Assessment Anesthesia Assessment: Chart Reviewed Documented by User: Carole Vazquez MD 11/23/24 13:45 PMFSH Past Medical History Medical History (Updated 10/11/24 @ 10:35 by Jc Myrick CNP) Neuropathy A-fib Lumbar radiculopathy Family History Family history of problems with anesthesia: No Surgical History Surgical History (Updated 09/06/24 @ 09:45 by Janneth Nguyen MA) H/O eye surgery History of bladder surgery History of shoulder surgery History of lumbar fusion History of Problems with Anesthesia: No Social History Social History Housing: House Patient Tobacco Use Status: Never used Tobacco e-Cigarette/Vaping Use: Never Used Second Hand Smoke Exposure: No Use of substances other than those prescribed or required for medical reasons: No Advance Directives: No Advance Directives Information Provided: Yes service: No Current occupational status: retired and disabled Current occupational exposures/hazards: No Cognitive needs: No Hearing needs: No Vision needs: No Meds Allergies Allergy/AdvReac Type Severity Reaction Status Date / Time No Known Allergies Allergy Verified 11/15/24 08:53 Home Medications ?Medication ?Instructions ?Recorded ?Confirmed ?Last Taken ?Type empagliflozin 10 mg tablet 10 mg PO DAILY 08/01/24 11/23/24 11/19/24 History (Jardiance) metoprolol succinate 50 mg 50 mg PO DAILY 08/01/24 11/23/24 11/23/24 History tablet,extended release 24 hr metronidazole 0.75 % topical cream appl topical 08/01/24 11/15/24 Unknown History sacubitril 49 mg-valsartan 51 mg 1 tab PO BID 08/01/24 11/23/24 Unknown History tablet (Entresto) testosterone 1 % (50 mg/5 gram) 1 tube topical ONCE 09/06/24 11/23/24 Unknown History transdermal gel packet Exam Airway Mallampati Class: II TM Dist: >3cm Neck ROM: Full Partial: Upper and Lower Heart: rrr Lungs: cta Assessment and Plan Assessment Anesthesia Assessment: Anesthesia Plan Discussed Final Anesthetic Review Family History of Problems with Anesthesia: No History of Problems with Anesthesia: No NPO: Yes ASA Class: II Final Preanesthetic Review: No Changes in Pt Med Stat, Meds/Allgs Chart Reviewed and Consent Obtained/Reviewed Patient Risk: Intermediate Procedure Risk: Low Anesthetic Plan Anesthetic Plan: MAC: Disposition: Standard PACU
--- NOTE | ~2024-11-23 | FL_ITS ---
EXAMINATION: FL GUIDANCE ONLY HISTORY: SPINAL CORD STIM TRIAL COMPARISON: None available. TECHNIQUE: Fluoroscopy time: 2 minutes, 19.7 seconds. Cumulative Dose: 85.643 mGy. DAP: 16.063 uGy-m2 (microgray-meter squared). Images: 2. FINDINGS: Images demonstrate placement of a neural stimulator. It is difficult to determine the exact level on the basis of this examination. FL/FL guidance in OR IMPRESSION: Fluoroscopy during procedure. Please see procedure report for additional information. Electronically signed by: Juan Davis MD 11/25/2024 01:33 PM [facility] [place]
[2024-11-23 13:12] VITALS: BMI 34.9
[2024-11-23 13:23] VITALS: BP 134/88; PULSE 75; RESP 16; TEMP 36.4; O2SAT 98
--- NOTE | 2024-11-23 13:37 | MHC.SHP ---
Pre-Procedural Eval Section A - 24 Hr Update-Section A only Date of Service: 11/23/24 The patient is an INPATIENT: No Changes since office visit: Yes Patient answered all questions The patient has been examined within 24 hours of the surgical procedure. The History & Physical has been completed within 30 days and I have reviewed it.: No Section B - Complete if H&P > 30 days Chief Complaint: Postlaminectomy syndrome,Radiculopathy, lumbar reg Relevant Family History (Specify if Yes): No Relevant Social History: None Present Medications: see Short Stay Collaborative assessment Medical History: No relevant PMH History of Previous Operations: No relevant previous surgery Allergies: Allergies Allergy/AdvReac Type Severity Reaction Status Date / Time No Known Allergies Allergy Verified 11/15/24 08:53 Review of Systems Sugical H&P ROS: Negative: Constitution, Cardiovascular and Respiratory Exam Surgical H&P Exam: Normal: HEENT, Normal: Heart and Normal: Lungs Plan Diagnosis/Plan: Unchanged I have reviewed the history and physical and performed a pertinent physical examination on my patient. No changes have occurred unless specified. Proceed with Medtronic lumbar SCS trial. Time Spent With Patient Time: Total time managing care of this patient today ____ minutes.
[2024-11-23] MEDS: Lactated Ringers 1,000 ML 100 ML IVCONT (13:50)
[2024-11-23 15:03] VITALS: BP 104/64; PULSE 64; RESP 16; TEMP 36.4; O2SAT 94
--- NOTE | 2024-11-23 15:04 | P.BOP_ITS ---
Brief Operative Note Date of Service: 11/23/24 Pre-op diagnosis: Postlaminectomy syndrome Post-op diagnosis: same Procedure: Lumbar SCS trial [employer] Surgeon: Jett Ojeda MD Anesthesia: MAC Was an Char Belt Operator used for this Procedure?: No Estimated blood loss (mL): 2 Pathology: none sent Condition: stable Disposition: PACU
--- NOTE | 2024-11-23 15:06 | P.OP_ITS ---
Operative Note Operative Note Date of Service: 11/23/24 Narrative: Percutaneous Spinal Cord Stimulator Trial, Lumbar After obtaining written consent, pre-procedure blood pressure and heart rate were recorded and are in the nursing record for review. A peripheral IV was started. Antibiotics, cefazolin 2 gram, were given intraoperatively. The patient was placed in a prone position.? The patient was sedated by the anesthesiologist. The thoracolumbar area was widely prepped with ChloraPrep, allowed to dry and draped in sterile fashion. Fluoroscopy was used to identify the target interlaminar spaces and appropriate needle insertion sites. The skin and subcutaneous tissue was anesthetized with 0.5% lidocaine. Two separate 14 gauge Epimed epidural needles were then advanced from this point in a paramedian approach to the epidural space opening at T12/L1 interspace, where lost of resistance was found using air. No paresthesias were elicited with needle placement. No CSF or heme was present upon needle placement. A guide wire was then used to confirm placement into the epidural space at each level under live fluoroscopy. The 1x8 stimulator lead wire was then threaded to the top of T8 in the right parasagittal position and bottom of T7 in the left parasagittal posi tion under live fluoroscopy. The leads advanced midline. The patient was woken up and appropriate coverage was confirmed.? The needles were then completely removed under live fluoroscopy. The stimulator wires were then secured with Steri-Strips, gauze and tegaderm for skin dressing. The patient tolerated the procedure well and no complications were encountered. Following the procedure the patient's vital signs were stable. The patient was discharged home in good condition after being given discharge instructions. Time Out: Immediately prior to the procedure, the following was verbally confirm ed that there is a signed consent form and that the correct patient, planned procedure, site and side are consistent with documentation and that necessary equipment and/or blood products are available prior to the start of the case. Complications: none EBL: <2 cc
[2024-11-23 15:18] VITALS: BP 110/77; PULSE 57; RESP 16; O2SAT 97
[2024-11-23 15:33] VITALS: BP 112/70; PULSE 67; RESP 16; O2SAT 97
[2024-11-23 15:48] VITALS: BP 106/76; PULSE 67; RESP 16; TEMP 36.3; O2SAT 99
[2024-11-23 16:15] LABS: MRSA Nasal PCR NEGATIVE (Negative); SA Nasal PCR NEGATIVE (Negative)
== END 2024-11-23 16:12 | disposition home or self-care (01) ==
PROVIDERS: Registered Nurse Emergency; PCP Nurse Practitioner Family; Visit Provider Internal Medicine
PROC: (CPT 63650; principal; 2024-11-23 14:10)
DX: M96.1 Postlaminectomy syndrome, not elsewhere classified (principal); M54.16 Radiculopathy, lumbar region; G62.9 Polyneuropathy, unspecified; I42.8 Other cardiomyopathies; E78.5 Hyperlipidemia, unspecified; I48.19 Other persistent atrial fibrillation; G47.33 Obstructive sleep apnea (adult) (pediatric); Z79.899 Other long term (current) drug therapy
CPT/HCPCS: 63650 ×2; 87640; 87641; C1897; J0690; J2003; J2250; J2371; J2704; J3010

== ENCOUNTER → 2024-11-23 12:08 | Outpatient (BNV) | payer OTHER, MEDICAID, SELFPAY | PROVIDERS: PCP Nurse Practitioner Family; Visit Provider Internal Medicine | DX: M96.1 Postlaminectomy syndrome, not elsewhere classified (principal) | CPT/HCPCS: 63650 ==

== ENCOUNTER → 2024-11-25 09:58 | Outpatient (BNVA) | payer OTHER, MEDICAID, SELFPAY | PROVIDERS: PCP Nurse Practitioner Family; Visit Provider Internal Medicine ==

== ENCOUNTER 2024-11-30 10:51 | Outpatient (AMB) | payer OTHER, MEDICAID, SELFPAY ==
[2024-11-30 10:56] VITALS: BP 114/68; PULSE 78; RESP 16; O2SAT 97; BMI 34.8
--- NOTE | 2024-11-30 10:56 | MHC.OFFVIS ---
Vital Signs 11/30/24 10:56 Height 6 ft 2 in Weight 271 lb BMI 34.8 BP 114/68 Blood Pressure Location Lt brachial Position Sitting Respiration 16 Pulse 78 Pulse Source Pulse Oximeter Pulse Oximetry (%) 97 Oxygen Delivery Method Room Air Intake Visit Reasons: S/p Medtronic SCS Trial 11/23/24 Allergies No Known Allergies Allergy (Verified 11/30/24 10:57) Medication List - Last Reconciled 11/30/24 by Gege Burgess LPN empagliflozin (Jardiance) 10 mg PO DAILY metoprolol succinate ER 50 mg PO DAILY metronidazole 0.75% appl topical rosuvastatin 20 mg PO DAILY 30 days sacubitril-valsartan 49-51 mg (Entresto) 1 tab PO BID testosterone 1 tube topical ONCE HPI HPI S/p Medtronic SCS Trial 11/23/24: Details: History of Present Illness The patient is a 64-year-old male presenting with follow-up after a Medtronic Spinal Cord Stimulator trial. He has a history of postlaminectomy pain syndrome and peripheral neuropathy. The neuropathy is still present, particularly in the right foot, although not as severe as before. The patient reports significant improvement with no pain in the left leg and no pain in the back except at the surgical site. Arthritic pain previously experienced in the upper body has also resolved. He underwent a trial with DTM programming using the bottom two contacts on both leads, experiencing 90% relief from his symptoms. There are no reports of parasthesia in the feet, but a buzz was felt in the lower extremities. The chronic pain mainly impacts his right foot, which continues to have some degree of numbness attributed to nerve damage, possibly due to spinal cord compression. The patient is considering proceeding with a permanent implant given the benefits experienced from the trial. Pain Description - Onset and Timing: Persistent since post-surgery with regular daily pain prior to the trial; significant relief with the SCS trial - Quality and Character: Neuropathic pain and occasional buzzing sensation in lower extremities - Primary Location: Right foot - Areas of Radiation: Experienced a buzz down both legs and to the neck - Exacerbating Factors: Presence of pre-existing nerve damage may affect sensation response - Relieving Factors: SCS trial providing 90% overall relief - Impact on Activities: Previously had difficulty wiggling toes on the right foot, now able to do so following trial Physical Exam Results - Diagnostic tests of impedance measures during trial revealed some fluctuation necessitating adjustments to anodal and cathodal settings Pain Management - Affect: Neuropathy impacting well-being, but improved sense of relief and satisfaction observed - Analgesia: Achieved with SCS trial, significant reduction in pain levels (90% overall relief), no additional pain medications noted - Adverse Effects: None mentioned from the trial - Activities of Daily Living: Improvement in functionality such as toe movement, daily pain relief noted - Aberrant Drug Related Behaviors: None observed PFSH Medical History (Updated 10/11/24 @ 10:35 by Jc Myrick CNP) Neuropathy A-fib Lumbar radiculopathy Surgical History (Updated 09/06/24 @ 09:45 by Janneth Nguyen MA) H/O eye surgery History of bladder surgery History of shoulder surgery History of lumbar fusion Social History Housing: House Patient Tobacco Use Status: Never used Tobacco e-Cigarette/Vaping Use: Never Used Second Hand Smoke Exposure: No service: No Current occupational status: retired and disabled Current occupational exposures/hazards: No Cognitive needs: No Hearing needs: No Vision needs: No Physical Exam Vital Signs: Last Vital Signs Pulse 78 11/30/24 10:56 Resp 16 11/30/24 10:56 BP 114/68 11/30/24 10:56 Pulse Ox 97 11/30/24 10:56 Oxygen Delivery Method Room Air 11/30/24 10:56 BMI result Body Mass Index 34.8 Assessment & Plan Assessment & Plan (1) Lumbar post-laminectomy syndrome: Code(s): M96.1 - Postlaminectomy syndrome, not elsewhere classified Category: Medical Plan Plan Patient was informed and verbally consented to the use of an ambient scribe for clinic note documentation during this visit. I discussed with the patient the favorable outcome from the SCS trial, noting more than 90% relief from his postlaminectomy pain syndrome. We talked about the management and treatment options, including proceeding to a permanent implantation of the SCS device. The procedural risks and benefits were reviewed, and the patient expressed understanding and agreement with the plan. I addressed his concerns regarding potential sensory feedback inconsistencies and explained typical expectations from the device. We will await scheduling from the OR and confirmed existing treatment regimens during interim. Patient Instructions - Continue with current activities as usual, particularly taking showers - Can drive starting today - Await the phone call from the office to schedule implant surgery - Contact the office with any new questions or concerns prior to the next appointment Coding Level of Care Code Est Pt Level 3 (09726) Diagnoses Lumbar post-laminectomy syndrome M96.1
--- OUTSIDE RECORDS SUMMARY | 2024-11-30 12:15 | XMS_ITS | Clinical Summary ---
Author Organization [facility], Address [address] [place] [address] Phone Care Team Providers Care Youtuber Name Role Phone Unavailable Primary Care Provider Unavailabl e Allergies No known active allergies Medications ketorolac (ACULAR) 0.5 % ophthalmic solution INSTILL 1 DROP INTO OPERATIVE EYE THREE TIMES DAILY STARTING TWO DAYS PRIOR TO EACH SURGERY 1 Active testosterone (ANDROGEL) 25 MG/2.5GM (1%) gel Apply daily as directed 8 Active testosterone (ANDROGEL) 50 MG/5GM (1%) gel 2 Active Active Problems Problem Noted Date Diagnosed Date Esophageal dysmotility 05/24/2019 Migraine variants 04/12/2019 Overview (01/07/2022): On propronolol Obese class II 03/14/2019 Obstructive sleep apnea 12/17/2018 Overview (01/07/2022): [facility] Home Polysomnogram: Date 12/14/2018; AHI 19, Unclassified apneas 8; Obstructive apneas 17; Central apneas 3; Mixed apneas 0; hypopneas 43; average oxygen saturation 93% (lowest 79% without saturations <88% for 5% or more of study) - Obstructive Sleep Apnea - moderate; mostly hypopneas and obstructive apneas; without sleep related hypoventilation by 2019 home polysomnogram. Spinal stenosis of cervical region 03/19/2018 Hyperlipidemia 01/04/2018 Overview (01/07/2022): Intol to simvastatin. Prescribed Pravastatin History of polyp of colon 12/25/2017 Lumbar disc prolapse with radiculopathy 09/24/20 17 Overview (01/07/2022): S/p discectomy 2017- Dr Fritz 2019-rtL5- S1-rt laminotomy,discectomy and posterolateral fusion Fibromyalgia 08/06/2017 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 Benign prostatic hyperplasia 07/09/2017 Overview (01/07/2022): S/p TURP 2018- Dr Castillo Neuropathy of lower limb 07/09/2017 Overview (01/07/2022): Worked up by neurologist Neuropathy of upper limb 07/09/2017 Overview (01/07/2022): Bilateral hands, less than feet Immunizations Name Administration Dates Next Due Influenza, MDCK, PF, Quadrivalent 08/09/2020,07/2018 Influenza, MDCK, Quadrivalent, with preservative 08/06/2017 Influenza, Unspecified 08/18/2019 Tdap 08/06/2017 Social History Tobacco Use Types Packs/Day Years Used Date Smoking Tobacco: Never Assessed Sex and Gender Information Value Date Recorded Sex Assigned at Not on file Legal Sex Male 2:47 PM EST Gender Identity Not on file Sexual Orientation Not on file Last Filed Vital Signs Vital Sign Reading Time Taken Comments Blood Pressure 173/114 01/07/2022 2:47 PM EST Pulse 85 01/07/2022 2:47 PM EST Temperature 36 ??C (96.8 ??F) 01/07/2022 2:47 PM EST Respiratory Rate - - Oxygen Saturation - - Inhaled Oxygen Concentration - - Weight 122 kg (270 lb) 01/07/2022 2:47 PM EST Height 188 cm (6' 2 ) 01/07/2022 2:47 PM EST Body Mass Index 34.67 01/07/2022 2:47 PM EST Plan of Treatment Health Maintenance Due Date Last Done Comments Colorectal Cancer Screening: Annual FOBT 2007 Colorectal Cancer Screening: Colonoscopy 2007 Colorectal Cancer Screening: Sigmoidoscopy 2007 Pneumococcal Vaccine: 65+ Years (1 of 1 - PCV) 2023 Influenza Vaccine (#1) 2024 0, 08/18/2019, 09/17/2018, Additional history exists Hepatitis B Vaccine Aged Out No longe r eligible based on patient's age to complete this topic Insurance MEDICARE [place]ICAID [place]
--- OUTSIDE RECORDS SUMMARY | 2024-11-30 12:15 | XMS_ITS | Clinical Summary ---
Author Organization [address] [place] [address] Address [address] [place] [address] Phone Care Team Providers Care Automation Qa Analyst Name Role Phone Jc Myrick RENETTA Primary Care Provider [phone] Allergies No known active allergies Medications Medication Sig Dispensed Refills Start Date End Date Status acetaminophen (TYLENOL 8 HOUR) 650 mg 8 hr tablet Take 1 Tablet by mouth every 8 hours as needed for Pain for up to 30 days. 03/30/2023 Active empagliflozin (Jardiance) 10 mg tablet TAKE 1 TABLET BY MOUTH DAILY 03/22/2024 Active metoprolol succinate (TOPROL-XL) 50 mg 24 hr tablet Take 1 Tablet by mouth daily. 07/08/2024 Active metroNIDAZOLE (METROCREAM) 0.75 % cream Apply topically 2 times daily. Active rosuvastatin (CRESTOR) 10 mg tablet Take 0.5 Tablets by mouth daily. 03/09/2024 Active sacubitriL-valsartan (Entresto) 97-103 mg per tablet Take 1 Tablet by mouth 2 times daily. 12/25/2023 Active testosterone 50 mg/5 gram (1 %) gel Apply daily as directed 09/24/2018 Active Active Problems Problem Noted Date Diagnosed Date Elevated LDL cholesterol level 08/11/2023 Overview (08/24/2024): total cholesterol 272 with an LDL of 206 HDL of 50 and triglycerides of 82 Last Assessment & Plan: Continue efforts at weight loss and improve diet. Try and increase rosuvastatin as tolerated or consider alternatives. Nonischemic cardiomyopathy 04/27/2023 Overview (08/24/2024): Last Assessment & Plan: Nonischemic cardiomyopathy with moderate reduced LVEF. He does have peripheral volume overload inadequately controlled with his current dose of Lasix. He does appear to be mildly volume overloaded and will continue to follow a low-sodium diet. I will reassess his LVEF with intracardiac echocardiography at the time of his ablation. If his LVEF is reduced I will evaluate whether to start him on Entresto and/or spironolactone after discussion with his primary apple thinner. Abnormal EKG 03/11/2023 Persistent atrial fibrillation 03/11/2023 Overview (08/24/2024): Last Assessment & Plan: 63-year-old male with symptomatic persistent atrial fibrillation currently rate controlled with metoprolol and anticoagulated with Eliquis. I went through the pros and cons of ablation. He very much wants to proceed. I discussed the rationale for pulmonary vein isolation and the potential need for substrate modification. I discussed risks of the procedure which include but not limited to venous access complications, cardiac perforation tamponade, phrenic nerve injury, pulmonary vein stenosis, esophageal injury and catheter thrombus related stroke or ND. He understands that he may not necessarily build to come off of anticoagulation even if successful we will base that decision on his [id number] score. I encouraged him to continue efforts at weight loss although he is limited in his activity based on his back pain. I will likely start him on sotalol or Multaq depending on the QT interval at the time of his ablation after we convert him to sinus rhythm. Esophageal dysmotility 05/24/2019 Migraine equivalent syndrome 04/12/2019 Overview (08/24/2024): On propronolol Class 2 obesity 03/14/2019 Obstructive sleep apnea 12/17/2018 Overview (08/24/2024): [facility] Home Polysomnogram: Date 12/14/2018; AHI 19, Unclassified apneas 8; Obstructive apneas 17; Central apneas 3; Mixed apneas 0; hypopneas 43; average oxygen saturation 93% (lowest 79% without saturations <88% for 5% or more of study) - Obstructive Sleep Apnea - moderate; mostly hypopneas and obstructive apneas; without sleep related hypoventilation by 2018 home polysomnogram. Cervical stenosis of spine 03/19/2018 Hyperlipidemia 01/04/2018 Overview (08/24/2024): Intol to simvastatin. Prescribed Pravastatin Lumbar disc disease with radiculopathy 7 Overview (08/24/2024): S/p discectomy 2017- Dr Fritz 2019-rtL5- S1-rt laminotomy,discectomy and posterolateral fusion Last Assessment & Plan: Patient is 1 month s/p L5-S1 ALIF and posterior fusion with pedicle screw fixation, and he had previous noninstrumented fusion??and right L5 decompression in 2019. He came in today for a wound check of the left posterior incision, it is healing well, small scab at the top of the incision, no surrounding erythema, no drainage with palpating the wound. He describes similar right >left leg symptoms as last week. He states the right leg bothers him all day night, is not sleeping well, the left leg flares up by the end of the day. He is trying to wean off the oxycodone, takes approximately 4 pills a day. He denies any fevers, wound drainage. Patient has a follow-up appointment with Dr. Duvall in 1 month with lumbar spine x-rays. We talked about considering gabapentin at bedtime to help with the radiculopathy and sleeping issues. At this time he is not interested in any additional medications. All questions answered. He will call with any concerns prior to his next appointment. Fibromyalgia 08/06/2017 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 Benign prostatic hyperplasia 07/09/2017 Overview (08/24/2024): S/p TURP 2018- Dr Castillo Neuropathy of both feet 07/09/2017 Overview (08/24/2024): Worked up by neurologist Neuropathy of hand 07/09/2017 Overview (08/24/2024): Bilateral hands, less than feet Encounters Date Type Department Care Team Description 10/10/2024 2:30 PM EST Office Visit [facility] [address] [facility] [address] [place] [address] Amador Funk MD Atrial fibrillation, unspecified type (CMS/HCC) (Primary Dx) from Last 3 Months Immunizations Name Administration Dates Next Due Influenza Quadravalent, MDCK , 0.5ml, preservative free (Flucelvax) 6mo and older 08/09/2020,09/17/2018 Influenza Quadravalent, MDCK , 0.5ml, with preservative (Flucelvax) 6mo and older 08/06/2017 Influenza trivalent, 0.5mL, preservative free (Fluarix; FluLaval; Fluzone) ages 6mo and older (Afluria) 3 years and older 08/18/2019 Tdap Tetanus diptheria acell ular pertussis (Boostrix; Adacel) 7yo and older 08/06/2017 Zoster recombinant (Shingrix) 19yo and older 04/2021,11/12/2020 Surgical History Surgery Date Site/Laterality Comments COLONOSCOPY 10/19/2007 PROCEDURE: HISTORICAL COLONOSCOPY; COMMENT: [facility]; [place]; multiple small tubular adenomas. COLONOSCOPY 02/02/2018 PROCEDURE: HISTORICAL COLONOSCOPY; COMMENT: Diminutive colonic polyps ? 3 : all tubular adenomas. OTHER SURGICAL HISTORY 08/2017 PROCEDURE: DECOMPRESS DISC RF LUMBAR; COMMENT: microlumbar discectomy L4-5 Lam TURP / TRANSURETHRAL INCISIO N / DRAINAGE PROSTATE 2017 PROCEDURE: HISTORICAL TURP UPPER GASTROINTESTINAL ENDOSCOPY 04/12/2020 PROCEDURE: MD UPPER GI ENDOSCOPY PERFORMED; COMMENT: normal on famotidine rx. OTHER SURGICAL HISTORY 02/05/2022 PROCEDURE: MD ARTHRODESIS POSTERIOR INTERBODY 1 NTRSPC LUMBAR; COMMENT: L5-S1 ALIF, posterior fusion with pedicle screw fixation, Dr. Duvall ROTATOR CUFF REPAIR 03/30/2023 Right PROCEDURE: HISTORICAL ROTATOR CUFF REPAIR; COMMENT: RCR, subacromial decompression, distal clavicle resection and labral debridement Medical History Medical History Date Comments Benign prostatic hyperplasia 07/09/2017 DX: Benign prostatic hyperplasia Cervical stenosis of spine 03/19/2018 DX:Ce rvical stenosis of spine Fibromyalgia 08/06/2017 DX:Fibromyalgia History of colon polyps 12/25/2017 DX:Histo ry of colon polyps Hyperlipidemia 01/04/2018 DX:Hyperlipidemi a Lumbar disc disease with radiculopathy 7 DX:Lumbar disc disease with radiculopathy; COMMENT: S/p discectomy 2016- Dr Fritz Neuropathy of both feet 07/09/2017 DX:Neuro nathalie of both feet; COMMENT: Worked up by neurologist Neuropathy of hand 07/09/2017 DX:Neuropathy of hand; COMMENT: Bilateral hands, less than feet 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 DX:Psychog enic impotence Esophageal dysmotility 05/24/2019 DX:Esopha geal dysmotility New onset a-fib (CMS/HCC) 03/11/2023 DX:New onset a-fib (HCC) Family History Medical History Relation Name Comments No Known Problems Aunt No Known Problems Brother Colon cancer Father valve disease Macular degeneration Father Other: Other Father tumor behind ey e No Known Problems Maternal Grandfather No Known Problems Maternal Grandmother No Known Problems Mother No Known Problems Other No Known Problems Paternal Grandfather No Known Problems Paternal Grandmother No Known Problems Sister No Known Problems Uncle Blindness Neg Hx Cataracts Neg Hx Glaucoma Neg Hx Strabismus Neg Hx Relation Name Status Comments Aunt Brother Father (Age 83) Maternal Grandfather Maternal Grandmother Mother Alive Other Paternal Grandfather Paternal Grandmother Sister Uncle Social History Tobacco Use Types Packs/Day Years Used Date Smoking Tobacco: Never Smokeless Tobacco: Never Alcohol Use Standard Drinks/Week Comments Not Currently 0 (1 standard drink = 0.6 oz pur e alcohol) Sex and Gender Information Value Date Recorded Sex Assigned at Not on file Gender Identity Not on file Sexual Orientation Not on file Obstetrics History Last Filed Vital Signs Vital Sign Reading Time Taken Comments Blood Pressure 130/76 10/10/2024 2:34 PM EST Pulse 74 10/10/2024 2:34 PM EST Temperature - - Respiratory Rate - - Oxygen Saturation 95% 10/10/2024 2:34 PM EST Inhaled Oxygen Concentration - - Weight 125 kg (275 lb) 10/10/2024 2:34 PM EST Height 188 cm (6' 2 ) 10/10/2024 2:34 PM EST Body Mass Index 35.31 10/10/2024 2:34 PM EST Plan of Treatment Health Maintenance Due Date Last Done Comments RSV Immunization Patients 60+ Years Old (1 - Risk 60-74 years 1-dose series) 2018 Depression Screening 10/18/2022 Medicare Annual Wellness Visit 10/18/2022 Social Influencers of Health Screening 10/18/2022 Colorectal Cancer Screening: Colonoscopy 02/02/2023 02/02/2018 Falls Risk Assessment 2023 COVID-19 Vaccine ( - season) 2024 05/02/2021 Influenza Vaccine (#1) 2024 0, 08/18/2019, 09/17/2018, Additional history exists DTaP,Tdap,and Td Vaccines (2 - Td or Tdap) 08/06/2027 08/06/2017 Cholesterol Screening (Lipid Panel) 12/25/2028 12/25/2023 Hepatitis C Screening Completed 12/25/2017 Zoster Vaccines Completed 01/12/2021, 11/12/2020 Pneumococcal Vaccine: 65+ Years Completed 09/28/2024 HIB Vaccines Aged Out No longer eligi ble based on patient's age to complete this topic HPV Vaccines Aged Out No longer eligi ble based on patient's age to complete this topic Hepatitis A Vaccines Aged Out No long er eligible based on patient's age to complete this topic Hepatitis B Vaccines Aged Out No long er eligible based on patient's age to complete this topic IPV Vaccines Aged Out No longer eligi ble based on patient's age to complete this topic MMR Vaccines Aged Out No longer eligi ble based on patient's age to complete this topic Meningococcal ACWY Vaccine Aged Out N o longer eligible based on patient's age to complete this topic RSV Immunization Patients Under 20 months Aged Out No longer eligible based on patient's age to complete this topic Varicella Vaccines Aged Out No longer eligible based on patient's age to complete this topic Procedures Procedure Name Priority Date/Time Associated Diagnosis Comments LIPID PANEL Routine 12/25/2023 COLONOSCOPY Routine 02/02/2018 HEPATITIS C SCREENING Routine 12/25/2017 from Last 3 Months or Most Recently Relevant to Health Maintenance Results * (ABNORMAL) Lipid panel (12/25/2023) LDL/HDL Ratio 4 0 - 4 Triglycerides 77 0 - 150 mg/dL Cholesterol 207(A) 0 - 200 mg/dL HDL 53 40 mg/dL LDL Cholesterol 139(A) 0 - 100 mg/dL Blood Venous blood specimen / Unknown Historical Provider LAB BLOOD ORDERAB LES * Colonoscopy (02/02/2018) Pathologist [facility] Colonoscopy No Interpretation , Abstracted Anatomical Region Laterality Modality Other Historical Provider HEALTH MAINTENANC E * Hepatitis C Screening (12/25/2017) Pathologist [facility] Hepatitis C Screening Abstracted Historical Provider HEALTH MAINTENANC E from Last 3 Months or Most Recently Relevant to Health Maintenance Care Teams Automation Qa Analyst Relationship Specialty Start Date End Date Jc Myrick FNP [address] [place] [id number] PCP - General Family Medicine 10/10/24
--- OUTSIDE RECORDS SUMMARY | 2024-11-30 12:15 | XMS_ITS | Encounter Summary ---
Author Organization [email or web address] Address [address] [place] [address] 7 [place] [address] Care Team Providers Care Assembler Name Role Phone Unavailable Primary Care Provider Unavailabl e Reason for Visit * Reason Comments Routine Cleaning Dental Exam Encounter Details Date Type Department Care Team (Latest Contact Info) Description 10/14/2024 8:30 AM EST Office Visit [facility] DENTAL [address] [place] [address] Yamel Healy Stage 2 grade B generalized periodontitis per AAP/EFP 2017 classification (Primary Dx); Encounter for dental examination Social History Tobacco Use Types Packs/Day Years Used Date Smoking Tobacco: Never Smokeless Tobacco: Never Tobacco Cessation:Counseling Given: Not Answered Alcohol Use Standard Drinks/Week Comments Never 0 (1 standard drink = 0.6 oz pur e alcohol) Sex and Gender Information Value Date Recorded Sex Assigned at Male 11/05/2022 7:56 AM EST Legal Sex Male 5:35 PM EDT Gender Identity Male 11/05/2022 7:56 AM EST Sexual Orientation Choose not to disclose 2022 9:17 AM EDT documented as of this encounter Progress Notes * Yamel Healy - 10/14/2024 8:30 AM EST Subjective: CC: Pt. Presents to the clinic for routine cleaning. MH: no changes since last visit Objective: Extra oral exam: WNL Intra oral exam: Adult OCS: WNL. IOE: See chart Progression of periodontal problems. Perio Case Type: Type II Generalized. Grade B Oral Hygiene: Fair. Generalized moderate plaque and calculus. X-Rays: None taken Assessment and plan: Light scaling with hand instruments and Cavitron. ultrasonic with Releaf high speed suction Polishing done with handpiece and prophy angle with paste. OHI:tooth brushing with Justice technique and flossing instruction. Advised pt. On brushing habits, use of waterpik and flossing Educational material dispensed: None dispensed. Advised pt. On extraction of #5 and getting a new set of partial dentures since his dentures have been almost 10 years old. Pt. Verbalized understanding of the tx. Plan. Exam by MS TX plan presented with risks, recommendations and alternatives. Referral (s): None given. NV: Extraction?, Hygiene recall NOTES: Patient did great!! Dr. Yamel Healy documented in this encounter Plan of Treatment Upcoming Encounters Date Type Department Care Team (Late st Contact Info) Description 07/26/2025 8:30 AM EDT Office Visit [facility] D[facility]AL [address] [place] [address] Ramandeep Machado Scheduled Orders Name Type Priority Associated Diagnoses Orde r Schedule 5 5 EXTRACTION, ERUPTED TOOTH OR EXPOSED ROOT (ELEVATION AND/OR FORCEPS REMOVAL) Dental Routine 1 Occurrences s tarting 10/14/2024 2,3,4,12,13,14 2,3,4,12,13,14 MAXILLARY PARTIAL DENTURE - RESIN BASE (INCLUDING, RETENTIVE/CLASPING MATERIALS, RESTS, AND TEETH) Dental Routine [address] arting 11/08/2024 19,29,30 19,29,30 MANDIBULAR PARTIAL DENTURE - RESIN BASE (INCLUDING, RETENTIVE/CLASPING MATERIALS, RESTS, AND TEETH) Dental Routine [address] arting 11/08/2024 documented as of this encounter Procedures Procedure Name Priority Date/Time Associated Diagnosis Comments Full PROPHYLAXIS - ADULT Routine 024 8:30 AM EST PERIODIC ORAL EVALUATION - ESTABLISHED PATIENT Routine 10/14/2024 8:30 AM EST ORAL HYGIENE INSTRUCTIONS Routine 2023 8:30 AM EST 19,29,30 PARTIAL DENTURE - RESIN Routine 10/14/2024 12:00 AM EST 2,3,4,12,13,14 PARTIAL DENTURE - RESIN Routine 10/14/2024 12:00 AM EST documented in this encounter Visit Diagnoses Diagnosis Stage 2 grade B generalized periodontitis per AAP/EFP 2017 classification- Primary Encounter for dental examination documented in this encounter
--- OUTSIDE RECORDS SUMMARY | 2024-11-30 12:15 | XMS_ITS | Encounter Summary ---
Author Organization [employer] Address 75 [facility] 7 [place] [address] Care Team Providers Care Nursing Home Director Name Role Phone Unavailable Primary Care Provider Unavailabl e Encounter Details Date Type Department Care Team (Latest Contact Info) Description 12/19/2021 [facility] CONVERSIONS Dental, Provider, DDS Social History Tobacco Use Types Packs/Day Years Used Date Smoking Tobacco: Never Assessed Sex and Gender Information Value Date Recorded Sex Assigned at Male 11/05/2022 7:56 AM EST Legal Sex Male 5:35 PM EDT Gender Identity Male 11/05/2022 7:56 AM EST Sexual Orientation Choose not to disclose 2022 9:17 AM EDT documented as of this encounter Plan of Treatment Upcoming Encounters Date Type Department Care Team (Late st Contact Info) Description 07/26/2025 8:30 AM EDT Office Visit [facility] DENTAL [address] [place] [address] Ramandeep Machado documented as of this encounter Visit Diagnoses Not on filedocumented in this encounter
--- OUTSIDE RECORDS SUMMARY | 2024-11-30 12:15 | XMS_ITS | Encounter Summary ---
Author Organization [employer] Address [address] [facility] 7 [place] [address] Care Team Providers Care Semaphore Operator Name Role Phone Unavailable Primary Care Provider Unavailabl e Encounter Details Date Type Department Care Team (Latest Contact Info) Description 06/03/2019 [facility] CONVERSION[facility] Dental, Provider, DDS Social [...] 07/26/2025 8:30 AM EDT Office Visit [facility] DENTAL [address] [place] [address] Ramandeep Machado documented as of this encounter Visit Diagnoses Not on filedocumented in this encounter
--- OUTSIDE RECORDS SUMMARY | 2024-11-30 12:15 | XMS_ITS | Encounter Summary ---
Author Organization [employer] Address [address] [place] [address] Care Team Providers Care Spearer Name Role Phone Unavailable Primary Care Provider Unavailabl e Encounter Details Date Type Department Care Team (Latest Contact Info) Description 12/09/2019 [facility] CONVERSION[facility] Dental, Provider, DDS Social [...] Description 07/26/2025 8:30 AM EDT Office Visit [facility] DENTAL [address] [place] [address] Ramandeep Machado documented as of this encounter Visit Diagnoses Not on filedocumented in this encounter
--- OUTSIDE RECORDS SUMMARY | 2024-11-30 12:15 | XMS_ITS | Encounter Summary ---
Author Organization [employer] Address 75 [facility] 7 [place] [address] Care Team Providers Care Cadd Drafter Name Role Phone Unavailable Primary Care Provider Unavailabl e Encounter Details Date Type Department Care Team (Latest Contact Info) Description 06/13/2021 [facility] CONVERSION[facility] Dental, Provider, DDS Social [...] Description 07/26/2025 8:30 AM EDT Office Visit [facility] DENTAL [address] [place] [address] Ramandeep Machado documented as of this encounter Visit Diagnoses Not on filedocumented in this encounter
--- OUTSIDE RECORDS SUMMARY | 2024-11-30 12:15 | XMS_ITS | Clinical Summary ---
Author Organization [employer] [facility] Address [address] [facility] 7 [place] [address] Care Team Providers Care Registered Private Duty Nurse Name Role Phone Unavailable Primary Care Provider Unavailabl e Allergies No known active allergies Medications metroNIDAZOLE (Metrocream) 0.75 % cream APPLY TOPICALLY TO FACE TWICE DAILY 3 Active testosterone (Androgel) 25 MG/2.5GM (1%) gel Apply daily as directed 8 Active Encounters Date Type Department Care Team Description 10/14/2024 8:30 AM EST Office Visit [facility] DENTAL [address] [place] [address] Yamel Healy Stage 2 grade B generalized periodontitis per AAP/EFP 2017 classification (Primary Dx); Encounter for dental examination from Last 3 Months Social History Tobacco Use Types Packs/Day Years [...] not to disclose 2022 9:17 AM EDT Plan of Treatment Upcoming Encounters Date Type Department Care Team (Late st Contact Info) Description 07/26/2025 8:30 AM EDT Office Visit [facility] DENTAL [address] [place] [address] Ramandeep Machado Health Maintenance Due Date Last Done Comments CT Colonography 1958 Colonoscopy 1958 Colorectal Cancer Screening 1958 Depression Screening 1958 FIT DNA/Cologuard 1958 FIT 1958 FOBT 1958 Lipid Panel 1958 SDOH Screening 1958 Sigmoidoscopy 1958 Alcohol/Substance Use Screening 1970 Hepatitis C Screening 1976 RSV Patients and Patients Aged 60 years or older (1 - Risk 60-74 years 1-dose series) 2018 Dental X-Ray: Bitewings 06/21/2023 06/20/20, 06/13/2021, 06/03/2019 COVID-19 Vaccine (2 - season) 2024 05/02/2021 Influenza Vaccine (#1) 2024 , 08/18/2019, 09/17/2018, Additional history exists Dental Oral Exam 04/15/2025 10/14/2024, , 01/26/2023, Additional history exists Dental Prophylaxis 04/15/2025 10/14/2024, 0 02/26/2024, 01/26/2023, Additional history exists Dental X-Ray: Full Mouth 06/21/2025 06/20/2022, 05/10 Tobacco Screening 10/14/2025 10/14/2024 DTaP/Tdap/Td Vaccines (2 - Td or Tdap) 08/06/2027 08/06/2017 Zoster Vaccines Completed 01/12/2021, 11/12/2020 Pneumococcal Vaccine: [...] patient's age to complete this topic Meningococcal Vaccine Aged Out No mirtha rocco eligible based on patient's age to complete this topic RSV under 20 months Aged Out No longe r eligible based on patient's age to complete this topic Rotavirus Vaccines Aged Out No longer eligible based on patient's age to complete this topic Procedures Procedure Name Priority Date/Time Associated Diagnosis Comments ORAL HYGIENE INSTRUCTIONS Routine 2023 8:30 AM EST Full PROPHYLAXIS - ADULT Routine 024 8:30 AM EST PERIODIC ORAL EVALUATION - ESTABLISHED PATIENT Routine 10/14/2024 8:30 AM EST 19,29,30 PARTIAL DENTURE - RESIN Routine 10/14/2024 12:00 AM EST 2,3,4,12,13,14 PARTIAL DENTURE - RESIN Routine 10/14/2024 12:00 AM EST DIAGNOSTIC - DIAGNOSTIC IMAGING - INTRAORAL - COMPREHENSIVE SERIES OF RADIOGRAPHIC IMAGES Routine 06/20/2022 12:00 AM EDT from Last 3 Months or Most Recently Relevant to Health Maintenance Insurance [facility] MEDICAID STAND ADULT
== END 2024-11-30 11:20 | disposition home or self-care (01) ==
PROVIDERS: PCP Nurse Practitioner Family; Visit Provider Internal Medicine
DX: M96.1 Postlaminectomy syndrome, not elsewhere classified (principal)
CPT/HCPCS: 99024

== ENCOUNTER → 2024-12-12 12:14 | Outpatient (BNVA) | payer OTHER, MEDICAID, SELFPAY | PROVIDERS: PCP Nurse Practitioner Family; Visit Provider Dietitian, Registered | DX: E66.9 Obesity, unspecified (principal); Z71.3 Dietary counseling and surveillance; Z68.34 Body mass index [BMI] 34.0-34.9, adult | CPT/HCPCS: 97803 ==

== ENCOUNTER 2025-02-02 10:44 | Outpatient (AMB) | payer OTHER, MEDICAID, SELFPAY ==
--- NOTE | 2025-02-02 10:54 | MHC.PC.OV ---
Vital Signs 02/02/25 11:01 Height 6 ft 2 in Weight 276 lb BMI 35.4 BP 119/77 Blood Pressure Location Rt brachial Position Sitting Respiration 16 Pulse 89 Pulse Source Pulse Oximeter Temp 97.9 F Temp Source Oral Pulse Oximetry (%) 97 Oxygen Delivery Method Room Air Intake Visit Reasons: EST/ANKLE PAIN RIGHT Intake Note: patient here c/o ankle pain since Thursday night. Slip Tender Required: No Allergies No Known Allergies Allergy (Verified 02/02/25 11:21) Medication List - Last Reconciled 02/02/25 by Jc Myrick CNP empagliflozin (Jardiance) 10 mg PO DAILY metoprolol succinate ER 50 mg PO DAILY metronidazole 0.75% appl topical rosuvastatin 20 mg PO DAILY 30 days testosterone 1 tube topical ONCE Tobacco use date assessed: 02/02/25 Fall risk assessment: No Falls in past year Last assessed Fall Risk: 02/02/25 Dental Screening Dental Screen Date: 11/15/24 Did you have a dental visit in the last 12 months?: Yes Did you have a dental problem in the last 6 months where you did not have access to dental care?: No Was dental information given to patient?: Patient has dentist HPI HPI Comments History of Present Illness Details 64-year-old male presents with complaints of right lateral malleolus which has been ongoing for the past 4 days. The pain radiates anteriorly and posteriorly to the ankle. He has been applying ice without relief. The pain intensifies with ROM of the ankle. He is able to bear weight on the ankle and has been using his cane. He notes that he woke up with the pain. He denies fall, injury, or trauma. He denies constitutional symptoms. He denies history of gout. [facility] Medical History (Updated 02/02/25 @ 11:35 by Jc Myrick CNP) Neuropathy A-fib Lumbar radiculopathy Surgical History (Updated 09/06/24 @ 09:45 by Janneth Nguyen MA) H/O eye surgery History of bladder surgery History of shoulder surgery History of lumbar fusion Social History Housing: House Patient Tobacco Use Status: Never used Tobacco e-Cigarette/Vaping Use: Never Used Second Hand Smoke Exposure: No service: No Current occupational status: retired and disabled Current occupational exposures/hazards: No Cognitive needs: No Hearing needs: No Vision needs: No Questionnaire Thrive Questionnaire Date Thrive assessed: 11/15/24 LESLIE-7 AMB Questionnaire LESLIE-7 Date LESLIE - 7 assessed: 09/06/24 Source: Developed by Drs. Juan Toribio, Sheri Colunga, Micheal Escobar and colleagues, with an educational maynor from [employer]. Review of Systems Const Details: Const Denies chills, Denies fatigue, Denies fever(s), Denies headache(s) and Denies weakness ENT Denies dizziness and Denies headache(s) Card Denies chest pain, Denies lightheadedness, Denies dyspnea and Denies other (Palpitations) Resp Denies cough, Denies dyspnea, Denies wheezing and Denies other ( shortness of breath) GI Denies abdominal pain, Denies melena, Denies hematochezia, Denies change in bowel habits, Denies dyspepsia and Denies nausea Denies hematuria and Denies dysuria Musc Reports as per HPI Skin/Breast Denies rash, Denies unusual bruising and Denies wounds Neuro Denies abnormal gait, Denies dizziness, Denies headache(s), Denies memory loss, Denies numbness, Denies Sensory deficit (Neuro), Denies tingling and Denies weakness Psych Denies anxiety, Denies depression, Denies memory loss Endo Denies cold intolerance, Denies fatigue, Denies heat intolerance, Denies polydipsia and Denies polyuria Aller/Immun Denies wheezing Physical exam (Primary Care) Vital Signs: Last Vital Signs Temp 97.9 F 02/02/25 11:01 Pulse 89 02/02/25 11:01 Resp 16 02/02/25 11:01 BP 119/77 02/02/25 11:01 Pulse Ox 97 02/02/25 11:01 Oxygen Delivery Method Room Air 02/02/25 11:01 BMI result Body Mass Index 35.4 Tobacco/Smoking Status: Tobacco use Status Tobacco use date assessed 02/02/25 02/02/25 11:02 Patient Tobacco Use Status Never used Tobacco 02/02/25 10:56 e-Cigarette/Vaping Use Never Used 02/02/25 10:56 Thrive Assessment: Date of Thrive Assessment Date Thrive assessed 11/15/24 02/02/25 10:56 Const Other: General: no acute distress and well developed Nutritional Appearance: well nourished Orientation/consciousness: patient oriented x3 [facility] Head: Yes normocephalic and Yes atraumatic Eyes General: appearance normal, both eyes and all related structures Pupils: Equal, round and reactive pupils present EOM: EOMs intact bilaterally Resp Effort & Inspection: normal respiratory effort Auscultation: clear to auscultation bilaterally Cardio Rate: regular rate Rhythm: regular rhythm Heart sounds: S1 normal heart sound present, S2 normal heart sound present, no gallops, no murmurs and no rubs GI Palpation (GI): No Abdominal aortic bruit present, Soft to palpation, nontender, No hepatosplenomegaly present and No Rebound tenderness present Auscultation: normal bowel sounds General: Yes no CVA tenderness Back/Spine/Pelvis Back: no CVA tenderness Cervical Spine: cervical ROM normal and No Cervical spine tenderness Thoracic/Lumbar Spine: thoraco-lumbar ROM normal, No pain with thoraco-lumbar ROM, No thoracic spinal tenderness and No lumbar spinal tenderness Extrem General: Yes normal to inspection, No edema and No calf tenderness. Right malleolus with significant tenderness and moderate erythema and edema, skin is intact, normal sensation, Limited ROM of the ankle joint due to pain Skin General: warm and dry. Normal skin color. Normal skin turgor Neuro General: patient oriented x3, gait normal and no focal neuro deficit Cranial nerves: Yes Equal, round and reactive pupils present Cognition (Neuro): normal cognition Gait exam (Neuro): Normal gait present Sensory Exam: No Sensory deficit (Neuro) Psych Appearance: grossly normal Affect: normal affect Attitude: cooperative Thought process: Normal thought process present Coding Level of Care Code Est Pt Level 3 (84262) Diagnoses Right ankle pain M25.571 Assessment & Plan Assessment & Plan (1) Right ankle pain: Code(s): M25.571 - Pain in right ankle and joints of right foot Category: Medical Plan: Patient presents with right ankle pain x4 days. Right malleolus with significant tenderness and moderate erythema and edema, skin is intact, normal sensation, Limited ROM of the ankle joint due to pain Likely gout Ibuprofen 600 mg every 8 hours as needed ordered; advised to take as prescribed and with food; instructed on the risks, benefits, and potential adverse reactions of the medication. RICE encouraged. Uric acid lab ordered. Will review results and make changes as needed. Follow-up with worsening or new symptoms. Verbalized understanding and agreed with treatment plan. Orders: Orders Uric Acid Today M25.571 - Pain in right ankle and joints of right foot Medications: New ibuprofen Take with food 600 mg PO Q8H PRN 30 tabs 1RF pain
[2025-02-02 11:01] VITALS: BP 119/77; PULSE 89; RESP 16; TEMP 36.6; O2SAT 97; BMI 35.4
--- OUTSIDE RECORDS SUMMARY | 2025-02-02 14:04 | XMS_ITS | Encounter Summary ---
Author Organization [facility] Address [address] [place] [address] Care Team Providers Care Electrical Accessories Ii Assembler Name Role Phone Amy Wilkerson MD Primary Care Provider + [phone] Thierno Duvall MD, PHD Unavailable Unava ilable Lizbeth Parikh PA-C Unavailable [phone] Bin Fowler PA-C Unavailable [phone] Vinicius Fonseca Unavailable Unavailable Amador Funk MD Unavailable [phone] Daryl Dunn NP Unavailable [phone] Timoteo Mcfarland MD Unavailable [phone] Marco Hunt MD Unavailable [phone] Joy Brand NP Unavailable [phone] [facility], Pcp Primary Care Provider Unavailabl e Reason for Visit * Reason Onset Date Comments Hospital Procedure 05/05/2023 Cardioversion .08.31 Encounter Details Date Type Department Care Team Description 05/05/2023 Telephone Cardio PVC POC [address] [place] [address] Daryl Dunn NP [address] [place], [place] [id number] Hospital Procedure (Cardioversion 05.18.23) Social History Tobacco Use Types Packs/Day Years Used Date Smoking Tobacco: Never Passive Smoke Exposure: Never Smokeless Tobacco: Never Alcohol Use Standard Drinks/Week Comments Not Currently 0 (1 standard drink = 0.6 oz pur e alcohol) Sex Assigned at Date Recorded Not on file Job Start Date Occupation Industry Not on file Not on file Not on file COVID-19 Exposure Response Date Recorded In the last 10 days, have yo u been in contact with someone who was confirmed or suspected to have Coronavirus/COVID-19? Unable to assess 05/01/2023 12:19 PM EDT documented as of this encounter Miscellaneous Notes * Telephone Encounter - Maximilian Morfin C.M.A. - 05/06/2023 9:00 AM EDT Spoke with patient about procedure. Scheduled on 05.18.[address] Funk at [facility] at 1pm Mailing packet to patient today Packet mailed to patient includes instructions with medications, follow-up, lab orders, pre/post procedural care and pamphlet for procedure. Confirmed address on file Arrival time 12pm Medication instructions are to hold: LASIX morning of procedure You can take all other medications with some water These instructions are given verbal and written and understood Patient aware of importance of NOT missing any anticoagulation for 4 weeks. Patient aware if they do NOT follow these instructions or show up to procedure they will have to berescheduled to next available which could take up to 6 to 10 weeks Patient will have to be fasting from midnight night before procedure. Patient made aware that they will need to make arrangements for someone to drive to and from the hospital for the procedure Patient is to report to [facility] to the 3rd floor Patient agreed to all inst and date, time and location above via phone while booking procedure. Booking sheet and confirmation received. documented in this encounter Plan of Treatment Not on file documented as of this encounter Visit Diagnoses Not on filedocumented in this encounter Care Teams Electrical Accessories Ii Assembler Relationship Specialty Start Date End Date Amy Wilkerson MD [address] [place] [address] PCP - General Internal Medicine 11/11/21 09/05/24 [facility], Pcp 300 [facility] [address] [place] [address] PCP - General Internal Medicine 09/06/24 Thierno Duvall MD, PHD [address] [place] [address] Surgeon Neurosurgery 02/25/22 Lizbeth Parikh PA-C 175 [facility] [address] [place] [address] Specialist Neurosurgery 02/25/22 Bin Fowler PA-C 175 [facility] [address] [place] [address] Specialist Neurosurgery 02/25/22 Vinicius Fonseca 175 [facility] [address] [place] [address] Dermatology 03/10/23 Amador Funk MD 300 [facility] [address] [place] [address] Ethnoarchaeology Professor Cardiovascular Disease 03/10/23 Daryl Dunn NP 300 [facility] [address] [place] [address] Nurse Practitioner Cardiology 04/27/23 10/19/23 Timoteo Mcfarland MD 175 [facility] [address] [place] [address] ORTHOPEDIC SURGERY 08/24/23 Marco Hunt MD 175 [facility] [address] [place] [address] Specialist Cardiology 10/09/23 Joy Brand NP 300 [facility] [address] [place] [address] Cardiology 10/09/23 [facility] urology Specialist Urology 08/24/23 documented as of this encounter
--- OUTSIDE RECORDS SUMMARY | 2025-02-02 14:04 | XMS_ITS | Encounter Summary ---
Author Organization [facility] Address [address] [place] [address] Care Team Providers Care Finisher Cold Rolling Name Role Phone Papito Mann MD Primary Care Provider Unavailable Amy Wilkerson MD Primary Care Provider [phone] Thierno Duvall MD, PHD Unavailable Unava ilable Lizbeth Parikh PA-C Unavailable [phone] Bin Fowler PA-C Unavailable [phone] Vinicius Fonseca Unavailable Unavailable Amador Funk MD Unavailable [phone] Daryl Dunn NP Unavailable [phone] Timoteo Mcfarland MD Unavailable [phone] Marco Hunt MD Unavailable [phone] Joy Brand NP Unavailable [phone] [facility], Pcp Primary Care Provider Unavailabl e Encounter Details Date Type Department Care Team Description 04/29/2019 Dining Room Tables Set Up Attendant Report Medical Records [address] [place] [address] Rehab., Preet Social History Tobacco Use Types Packs/Day Years Used Date Smoking Tobacco: Never Smokeless Tobacco: Never Alcohol Use Standard Drinks/Week Comments Yes 0 (1 standard drink = 0.6 oz pur e alcohol) occasional beer Sex Assigned at Date Recorded Not on file Job Start Date Occupation Industry Not on file Not on file Not on file documented as of this encounter Plan of Treatment Not on file documented as of this encounter Visit Diagnoses Not on filedocumented in this encounter Care Teams Finisher Cold Rolling Relationship Specialty Start Date End Date Papito Mann MD PCP - General Internal Medicine 06/24/17 11/10/21 Amy Wilkerson MD [address] [place] [address] PCP - General Internal Medicine 11/11/21 09/05/24 [facility], Pcp [address] [address] PCP - General Internal Medicine 09/06/24 Thierno Duvall MD, PHD [address] [place] [address] Surgeon Neurosurgery 02/25/22 Lizbeth Parikh PA-C [address] [address] Specialist Neurosurgery 02/25/22 Bin Fowler PA-C [address] [address] Specialist Neurosurgery 02/25/22 Vinicius Fonseca [address] [address] Dermatology 03/10/23 Amador Funk MD [address] [address] Certified Medical Assistant Cardiovascular Disease 03/10/23 Daryl Dunn NP [address] [address] Nurse Practitioner Cardiology 04/27/23 10/19/23 Timoteo Mcfarland MD [address] [address] ORTHOPEDIC SURGERY 08/24/23 Marco Hunt MD [address] [address] Specialist Cardiology 10/09/23 Joy Brand NP [address] [id number] Cardiology 10/09/23 [facility] urology Specialist Urology 08/24/23 documented as of this encounter
--- OUTSIDE RECORDS SUMMARY | 2025-02-02 14:04 | XMS_ITS | Encounter Summary ---
Author Organization [facility] Address [address] [place] [address] Care Team Providers Care Supervisor Benzene Refining Name Role Phone Amy Wilkerson MD Primary Care Provider + [phone] Thierno Duvall MD, PHD Unavailable Unava ilable Lizbeth Parikh PA-C Unavailable [phone] Bin Fowler PA-C Unavailable [phone] Vinicius Fonseca Unavailable Unavailable Amador Funk MD Unavailable [phone] Daryl Dunn NP Unavailable [phone] Timoteo Mcfarland MD Unavailable [phone] Marco Hunt MD Unavailable [phone] Joy Brand NP Unavailable [phone] [facility], Pcp Primary Care Provider Unavailabl e Encounter Details Date Type Department Care Team Description 11/04/2022 Telephone Internal Medicine [address], [address] [place] [address] Dimitry Silva MD [address] [place] [phone] Social History Tobacco Use Types Packs/Day Years [...] was confirmed or suspected to have Coronavirus/COVID-19? No / Unsure 11/04/2022 2:38 PM EST documented as of this encounter Miscellaneous Notes * Telephone Encounter - Arturo Waterman M.A. - 11/04/2022 3:39 PM EST Called patient regarding dermatology referral that was sent over for patient. No answer did leave amessage with the two offices for dermatology and phone numbers as well. * Telephone Encounter - Dimitry Silva MD - 11/04/2022 3:11 PM EST Please call referal for the dermatology appointment. Ref already made in his last visit. documented in this encounter Plan of Treatment Not on file documented as of this encounter Visit Diagnoses Not on filedocumented in this encounter Care Teams Supervisor Benzene Refining Relationship Specialty Start Date End Date Amy Wilkerson MD [address] [place] [address] PCP - General Internal Medicine 11/11/21 09/05/24 [facility], Pcp [address] [address] PCP - General Internal Medicine 09/06/24 Thierno Duvall MD, PHD [address] [place] [address] Surgeon Neurosurgery 02/25/22 Lizbeth Parikh PA-C [address] [address] Specialist Neurosurgery 02/25/22 Bin Fowler PA-C [address] [address] Specialist Neurosurgery 02/25/22 Vinicius Fonseca [address] [address] Dermatology 03/10/23 Amador Funk MD [address] [address] Director Of Event Marketing Cardiovascular Disease 03/10/23 Daryl Dunn NP 300 [facility] 154 [place] [address] Nurse Practitioner Cardiology 04/27/23 10/19/23 Timoteo Mcfarland MD 175 [facility] 250 [place] [address] ORTHOPEDIC SURGERY 08/24/23 Marco Hunt MD 175 [facility] 250 [place] [address] Specialist Cardiology 10/09/23 Joy Brand, MAREK [address] [place] [address] Cardiology 10/09/23 [facility] urology Specialist Urology 08/24/23 documented as of this encounter
--- OUTSIDE RECORDS SUMMARY | 2025-02-02 14:04 | XMS_ITS | Encounter Summary ---
Author Organization [facility] Address [address] [place] [address] Care Team Providers Care Turkey Pinner Name Role Phone Amy Wilkerson MD Primary Care Provider + [phone] Thierno Duvall MD, PHD Unavailable Unava ilable Lizbeth Parikh PA-C Unavailable [phone] Bin Fowler PA-C Unavailable [phone] Vinicius Fonseca Unavailable Unavailable Amador Funk MD Unavailable [phone] Daryl Dunn NP Unavailable [phone] Timoteo Mcfarland MD Unavailable [phone] Marco Hunt MD Unavailable [phone] Joy Brand NP Unavailable [phone] [facility], Pcp Primary Care Provider Unavailabl e Encounter Details Date Type Department Care Team Description 03/12/2023 SCAN Medical Records [address] [place] [address] [facility] Social History Tobacco Use Types Packs/Day Years [...] suspected to have Coronavirus/COVID-19? No / Unsure 03/12/2023 8:03 AM EDT documented as of this encounter Plan of Treatment Not on file documented as of this encounter Visit Diagnoses Not on filedocumented in this encounter Care Teams Turkey Pinner Relationship Specialty Start Date End Date Amy Wilkerson MD 230 [place] [address] PCP - General Internal Medicine 11/11/21 09/05/24 [facility], Pcp [address] [address] PCP - General Internal Medicine 09/06/24 Thierno Duvall MD, PHD [address] [place] [address] Surgeon Neurosurgery 02/25/22 Lizbeth Parikh PA-C [address] [address] Specialist Neurosurgery 02/25/22 Bin Fowler PA-C [address] [address] Specialist Neurosurgery 02/25/22 Vinicius Fonseca [address] [address] Dermatology 03/10/23 Amador Funk MD [address] [address] Wildlife Conservation Professor Cardiovascular Disease 03/10/23 Daryl Dunn NP [address] [address] Nurse Practitioner Cardiology 04/27/23 10/19/23 Timoteo Mcfarland MD [address] [address] ORTHOPEDIC SURGERY 08/24/23 Marco Hunt MD [address] [address] Specialist Cardiology 10/09/23 Joy Brand NP [address] [phone] Cardiology 10/09/23 [facility] urology Specialist Urology 08/24/23 documented as of this encounter
--- OUTSIDE RECORDS SUMMARY | 2025-02-02 14:04 | XMS_ITS | Encounter Summary ---
Author Organization [facility] Address [address] [place] [address] Care Team Providers Care Fitter Tacker Name Role Phone Amy Wilkerson MD Primary Care Provider + [phone] Thierno Duvall MD, PHD Unavailable Unava ilable Lizbeth Parikh PA-C Unavailable [phone] Bin Fowler PA-C Unavailable [phone] Vinicius Fonseca Unavailable Unavailable Amador Funk MD Unavailable [phone] Daryl Dunn NP Unavailable [phone] Timoteo Mcfarland MD Unavailable [phone] Marco Hunt MD Unavailable [phone] Joy Brand NP Unavailable [phone] [facility], Pcp Primary Care Provider Unavailabl e Reason for Visit * Reason Onset Date Comments Advice 01/13/2023 Fall back/legs, pain/weakness Encounter Details Date Type Department Care Team Description 01/13/2023 Telephone [facility] Neurosurgery [place] [address] [address] Bin Fowler PA-C [address] [address] Advice (Fall back/legs, pain/weakness) Social History Tobacco Use Types Packs/Day Years [...] Recorded In the last 10 days, have naye juares been in contact with someone who was confirmed or suspected to have Coronavirus/COVID-19? No / Unsure 01/16/2023 10:43 AM EST documented as of this encounter Miscellaneous Notes * Telephone Encounter - Leatha Coley - 01/27/2023 3:44 PM EDT Lois, think I already gave you Daren's message to schedule an appmt, but sending this just in case I didn't. * Telephone Encounter - Leatha Coley - 01/13/2023 4:54 PM EST Previous patient, was told if anything was to change to let us know. Had a fall due to back/legs pain/weakness.. Had 3 previous surgeries, last one in February with Dr. Duvall. Will probably have shoulder surgery with Dr. Mcfarland. documented in this encounter Plan of Treatment Not on file documented as of this encounter Visit Diagnoses Not on filedocumented in this encounter Care Teams Fitter Tacker Relationship Specialty Start Date End Date Amy Wilkerson MD 230 [place] [address] PCP - General Internal Medicine 11/11/21 09/05/24 [facility], [address] [address] PCP - General Internal Medicine 09/06/24 Thierno Duvall MD, PHD 230 [place] [address] Surgeon Neurosurgery 02/25/22 Lizbeth Parikh PA-C 175 [facility] [address] [place] [address] Specialist Neurosurgery 02/25/22 Bin Fowler PA-C 175 [facility] [address] [place] [address] Specialist Neurosurgery 02/25/22 Vinicius Fonseca 175 [facility] [address] [place] [address] Dermatology 03/10/23 Amador Funk MD [address] [place] [address] Golf Club Manager Cardiovascular Disease 03/10/23 Daryl Dunn NP 300 [facility] [address] [place] [address] Nurse Practitioner Cardiology 04/27/23 10/19/23 Timoteo Mcfarland MD 175 [facility] [address] [place] [address] ORTHOPEDIC SURGERY 08/24/23 Marco Hunt MD 175 [facility] 250 [place] [address] Specialist Cardiology 10/09/23 Joy Brand NP [address] [place] [address] Cardiology 10/09/23 [facility] urology Specialist Urology 08/24/23 documented as of this encounter
--- OUTSIDE RECORDS SUMMARY | 2025-02-02 14:04 | XMS_ITS | Encounter Summary ---
Author Organization [facility] Address [address] [place] [address] Care Team Providers Care Photographic Supervisor Name Role Phone Papito Mann MD Primary Care Provider Unavailable Amy Wilkerson MD Primary Care Provider + [phone] Thierno Duvall MD, PHD Unavailable Unava ilable Lizbeth Parikh PA-C Unavailable [phone] Bin Fowler PA-C Unavailable [phone] Vinicius Fonseca Unavailable Unavailable Amador Funk MD Unavailable [phone] Daryl Dunn NP Unavailable [phone] Timoteo Mcfarland MD Unavailable Marco Hunt MD Unavailable [phone] Joy Brand NP Unavailable [phone] [facility], [facility] Primary Care Provider Unavailabl e Encounter Details Date Type Department Care Team Description 05/03/2019 Hospital Medical Records [address] [place] [address] Bin Fowler PA-C 175 [facility] [address] [place] [address] Social History Tobacco Use Types Packs/Day Years [...] on filedocumented in this encounter Care Teams Photographic Supervisor Relationship Specialty Start Date End Date Papito Mann MD PCP - General Internal Medicine 06/24/17 11/10/21 Amy Wilkerson MD [address] [place] [address] PCP - General Internal Medicine 11/11/21 09/05/24 [facility], Pcp [address] [address] PCP - General Internal Medicine 09/06/24 Thierno Duvall MD, PHD [address] [place] [address] Surgeon Neurosurgery 02/25/22 Lizbeth Parikh PA-C [address] [address] Specialist Neurosurgery 02/25/22 Bin Fowler PA-C [address] [address] Specialist Neurosurgery 02/25/22 Vinicius Fonseca [address] [address] Dermatology 03/10/23 Amador Funk MD [address] [address] Instructional Systems Designer Cardiovascular Disease 03/10/23 Daryl Dunn NP [address] [address] Nurse Practitioner Cardiology 04/27/23 10/19/23 Timoteo Mcfarland MD [address] [address] ORTHOPEDIC SURGERY 08/24/23 Marco Hunt MD [address] [address] Specialist Cardiology 10/09/23 Joy Brand NP [address] [phone] Cardiology 10/09/23 [facility] urology Specialist Urology 08/24/23 documented as of this encounter
--- OUTSIDE RECORDS SUMMARY | 2025-02-02 14:04 | XMS_ITS | Encounter Summary ---
Author Organization [facility] Address [address] [place] [address] Care Team Providers Care Silk Trimmer Name Role Phone Amy Wilkerson MD Primary Care Provider + [phone] Thierno Duvall MD, PHD Unavailable Unava ilable Lizbeth Parikh PA-C Unavailable [phone] Bin Fowler PA-C Unavailable [phone] Vinicius Fonseca Unavailable Unavailable Amador Funk MD Unavailable Timoteo Mcfarland MD Unavailable [phone] Marco Hunt MD Unavailable [phone] Joy Brand NP Unavailable [phone] [facility], Pcp Primary Care Provider Unavailabl e Reason for Visit * Reason Onset Date Comments LAB WORK 06/07/2024 Encounter Details Date Type Department Care Team Description 06/07/2024 Telephone Cardio PVC POC 154 300 [facility] [address] [place] [address] Joy Brand, MAREK [address] [place] [address] LAB WORK Social History Tobacco Use Types Packs/Day Years Used Date Smoking Tobacco: Never Passive Smoke Exposure: Never Smokeless Tobacco: Never Alcohol Use Standard Drinks/Week Comments Not Currently 0 (1 standard drink = 0.6 oz pur e alcohol) Sex Assigned at Date Recorded Not on file Job Start Date Occupation Industry Not on file Not on file Not on file documented as of this encounter Miscellaneous Notes * Telephone Encounter - Ivonne Sparks - 06/08/2024 8:48 AM EDT I called Kev and informed him of Jose Brand's message below. He verbalized understanding. * Telephone Encounter - Joy Brand NP - 06/07/2024 5:05 PM EDT No Labs thank you * Telephone Encounter - Ivonne Sparks - 06/07/2024 4:49 PM EDT Pt last seen 03/09/24 Pending OV with you 06/15/24 He has a standing order for BMP Last BMP drawn 03/04/24 Would you like him to have any labs drawn prior to the visit? * Telephone Encounter - Meseret Franklin - 06/07/2024 4:21 PM EDT Patient would like to know if he needs to get any blood work done before his appointment on 06/15/24? documented in this encounter Plan of Treatment Not on file documented as of this encounter Visit Diagnoses Not on filedocumented in this encounter Care Teams Silk Trimmer Relationship Specialty Start Date End Date Amy Wilkerson MD [address] [place], [place] PCP - General Internal Medicine 11/11/21 09/05/24 [facility], Pcp [address] [place] [address] [address] [place] [address] PCP - General Internal Medicine 09/06/24 Thierno Duvall MD, PHD [address] [place], [place] Surgeon Neurosurgery 02/25/22 Lizbeth Parikh PA-C [address] [address] Specialist Neurosurgery 02/25/22 Bin Fowler PA-C [address] [address] Specialist Neurosurgery 02/25/22 Vinicius Fonseca 175 [facility] 300 [place] [address] Dermatology 03/10/23 Amador Funk MD 300 [facility] [address] [place] [address] Engineer Remote Control Diesel Cardiovascular Disease 03/10/23 Timoteo Mcfarland MD 175 [facility] 250 [place] [address] ORTHOPEDIC SURGERY 08/24/23 Marco Hunt MD 175 [facility] 250 [place] [address] Specialist Cardiology 10/09/23 Joy Brand NP 300 [facility] [address] [place] [address] Cardiology 10/09/23 [facility] urology Specialist Urology 08/24/23 documented as of this encounter
--- OUTSIDE RECORDS SUMMARY | 2025-02-02 14:04 | XMS_ITS | Clinical Summary ---
Author Organization [facility], Address [address] [place] [address] Phone Care Team Providers Care Mass Spectroscopist Name Role Phone Unavailable Primary Care Provider [...] 03/14/2019 Obstructive sleep apnea 12/17/2018 Overview (01/07/2022): [facility] Home Polysomnogram: Date 12/14/2018; AHI 19, Unclassified [...]
--- OUTSIDE RECORDS SUMMARY | 2025-02-02 14:04 | XMS_ITS | Encounter Summary ---
Author Organization [facility] Address [address] [place] [address] Care Team Providers Care Messenger Copy Name Role Phone Amy Wilkerson MD Primary Care Provider [phone] Thierno Duvall MD, PHD Unavailable Unava ilable Lizbeth Parikh PA-C Unavailable [phone] Bin Fowler PA-C Unavailable [phone] Vinicius Fonseca Unavailable Unavailable Amador Funk MD Unavailable Timoteo Mcfarland MD Unavailable [phone] Marco Hunt MD Unavailable Joy Brand NP Unavailable [phone] [facility], Pcp Primary Care Provider Unavailabl e Encounter Details Date Type Department Care Team Description 05/24/2024 SCAN Medical Records 444 [place] [address] Joy Brand, MAREK [address] [address] Social History Tobacco Use Types Packs/Day Years [...] on filedocumented in this encounter Care Teams Messenger Copy Relationship Specialty Start Date End Date Amy Wilkerson MD 230 [place] [address] PCP - General Internal Medicine 11/11/21 09/05/24 [facility], Pcp [address] [address] PCP - General Internal Medicine 09/06/24 Thierno Duvall MD, PHD [address] [place] [address] Surgeon Neurosurgery 02/25/22 Lizbeth Parikh PA-C [address] [address] Specialist Neurosurgery 02/25/22 Bin Fowler PA-C [address] [address] Specialist Neurosurgery 02/25/22 Vinicius Fonseca [address] [address] Dermatology 03/10/23 Amador Funk MD [address] [address] Product Tester Cardiovascular Disease 03/10/23 Timoteo Mcfarland MD [address] [address] ORTHOPEDIC SURGERY 08/24/23 Marco Hunt MD [address] [address] Specialist Cardiology 10/09/23 Joy Brand, MAREK [address] [phone] Cardiology 10/09/23 [facility] urology Specialist Urology 08/24/23 documented as of this encounter
--- OUTSIDE RECORDS SUMMARY | 2025-02-02 14:04 | XMS_ITS | Encounter Summary ---
Author Organization [facility] Address [address] [place] [address] Care Team Providers Care Accounting System Expert Name Role Phone Amy Wilkerson MD Primary Care Provider + [phone] Thierno Duvall MD, PHD Unavailable Unava ilable Lizbeth Parikh PA-C Unavailable [phone] Bin Fowler PA-C Unavailable [phone] Vinicius Fonseca Unavailable Unavailable Amador Funk MD Unavailable [phone] Daryl Dunn NP Unavailable [phone] Timoteo Mcfarland MD Unavailable [phone] Marco Hunt MD Unavailable [phone] Joy Brand NP Unavailable [phone] [facility], Pcp Primary Care Provider Unavailabl e Encounter Details Date Type Department Care Team Description 12/30/2022 Orders Only Medical Records [address] [place] [address] Abstract, Provider Social History Tobacco Use Types Packs/Day Years [...] suspected to have Coronavirus/COVID-19? No / Unsure 12/10/2022 10:58 AM EST documented as of this encounter Plan of Treatment Not on file documented as of this encounter Visit Diagnoses Not on filedocumented in this encounter Care Teams Accounting System Expert Relationship Specialty Start Date End Date Amy Wilkerson MD 230 [place] [address] PCP - General Internal Medicine 11/11/21 09/05/24 [facility], Pcp [address] [address] PCP - General Internal Medicine 09/06/24 Thierno Duvall MD, PHD 230 [place] [address] Surgeon Neurosurgery 02/25/22 Lizbeth Parikh PA-C [address] [address] Specialist Neurosurgery 02/25/22 Bin Fowler PA-C [address] [address] Specialist Neurosurgery 02/25/22 Vinicius Fonseca [address] [address] Dermatology 03/10/23 Amador Funk MD [address] [address] Commutator Assembler Cardiovascular Disease 03/10/23 Daryl Dunn NP [address] [address] Nurse Practitioner Cardiology 04/27/23 10/19/23 Timoteo Mcfarland MD [address] [address] ORTHOPEDIC SURGERY 08/24/23 Marco Hunt MD [address] [address] Specialist Cardiology 10/09/23 Joy Brand NP [address] [phone] Cardiology 10/09/23 [facility] urology Specialist Urology 08/24/23 documented as of this encounter
--- OUTSIDE RECORDS SUMMARY | 2025-02-02 14:05 | XMS_ITS | Encounter Summary ---
Author Organization [employer] Address [address] [place] [address] Care Team Providers Care Industrial Relations Officer Name Role Phone Unavailable Primary Care Provider [...] Description 07/26/2025 8:30 AM EDT Office Visit [facility] [address] [place] [address] Ramandeep Machado documented as of this encounter Visit Diagnoses Not on filedocumented in this encounter
--- OUTSIDE RECORDS SUMMARY | 2025-02-02 14:05 | XMS_ITS | Encounter Summary ---
Author Organization [facility] Address [address] [place] [address] Care Team Providers Care Food Science Professor Name Role Phone Papito Mann MD Primary Care Provider Unavailable Amy Wilkerson MD Primary Care Provider + [phone] Thierno Duvall MD, PHD Unavailable Unava ilable Lizbeth Parikh PA-C Unavailable [phone] Bin Fowler PA-C Unavailable [phone] Vinicius Fonseca Unavailable Unavailable Amador Funk MD Unavailable [phone] Daryl Dunn NP Unavailable [phone] Timoteo Mcfarland MD Unavailable [phone] Marco Hunt MD Unavailable [phone] Joy Brand NP Unavailable [phone] [facility], Pcp Primary Care Provider Unavailabl e Encounter Details Date Type Department Care Team Description 08/18/2019 Banana Handler Report Medical Records [address] [place] [address] Rehab., Preet Social History Tobacco Use Types [...] on filedocumented in this encounter Care Teams Food Science Professor Relationship Specialty Start Date End Date Papito Mann MD PCP - General Internal Medicine 06/24/17 11/10/21 Amy Wilkerson MD 230 [place] [address] PCP - General Internal Medicine 11/11/21 09/05/24 [facility], Pcp [address] [address] PCP - General Internal Medicine 09/06/24 Thierno Duvall MD, PHD 230 [place] [address] Surgeon Neurosurgery 02/25/22 Lizbeth Parikh PA-C [address] [address] Specialist Neurosurgery 02/25/22 Bin Fowler PA-C [address] [address] Specialist Neurosurgery 02/25/22 Vinicius Fonseca [address] [address] Dermatology 03/10/23 Amador Funk MD [address] [address] Shotgun Shell Assembly Machine Operator Cardiovascular Disease 03/10/23 Daryl Dunn NP [address] [address] Nurse Practitioner Cardiology 04/27/23 10/19/23 Timoteo Mcfarland MD [address] [address] ORTHOPEDIC SURGERY 08/24/23 Marco Hunt MD [address] [address] Specialist Cardiology 10/09/23 Joy Brand NP [address] [phone] Cardiology 10/09/23 [facility] urology Specialist Urology 08/24/23 documented as of this encounter
--- OUTSIDE RECORDS SUMMARY | 2025-02-02 14:05 | XMS_ITS | Encounter Summary ---
Author Organization [facility] Address [address] [place] [address] Care Team Providers Care Ophthalmic Technician Name Role Phone Papito Mann MD Primary Care Provider Unavailable Amy Wilkerson MD Primary Care Provider + [phone] Thierno Duvall MD, PHD Unavailable Unava ilable Lizbeth Parikh PA-C Unavailable [phone] Bin Fowler PA-C Unavailable [phone] Vinicius Fonseca Unavailable Unavailable Amador Funk MD Unavailable [phone] Daryl Dunn NP Unavailable [phone] Timoteo Mcfarland MD Unavailable [phone] Marco Hunt MD Unavailable [phone] Joy Brand NP Unavailable [phone] [facility], Pcp Primary Care Provider Unavailabl e Encounter Details Date Type Department Care Team Description 07/14/2019 Examination Grader Report Medical Records [address] [place] [address] Thierno Duavll MD, PHD Social History Tobacco Use Types Packs/Day Years [...] on filedocumented in this encounter Care Teams Ophthalmic Technician Relationship Specialty Start Date End Date Papito Mann MD PCP - General Internal Medicine 06/24/17 11/10/21 Amy Wilkerson MD [address] [place] [address] PCP - General Internal Medicine 11/11/21 09/05/24 Replaced By [facility], Pcp [address] [address] PCP - General Internal Medicine 09/06/24 Thierno Duvall MD, PHD [address] [place] [address] Surgeon Neurosurgery 02/25/22 Lizbeth Parikh PA-C [address] [address] Specialist Neurosurgery 02/25/22 Bin Fowler PA-C [address] [address] Specialist Neurosurgery 02/25/22 Vinicius Fonseca [address] [address] Dermatology 03/10/23 Amador Funk MD [address] [address] Foreign Service Officer Cardiovascular Disease 03/10/23 Daryl Dunn NP [address] [address] Nurse Practitioner Cardiology 04/27/23 10/19/23 Timoteo Mcfarland MD [address] [address] ORTHOPEDIC SURGERY 08/24/23 Marco Hunt MD [address] [address] Specialist Cardiology 10/09/23 Joy Brand NP [address] [phone] Cardiology 10/09/23 [facility] urology Specialist Urology 08/24/23 documented as of this encounter
--- OUTSIDE RECORDS SUMMARY | 2025-02-02 14:05 | XMS_ITS | Encounter Summary ---
Author Organization [employer] Address 75 [facility] 7 [place] [address] Care Team Providers Care Nurse Quality Name Role Phone Unavailable Primary Care Provider [...] 8:30 AM EDT Office Visit [facility] DENTAL [address] [place] [address] Ramandeep Machado documented as of this encounter Visit Diagnoses Not on filedocumented in this encounter
--- OUTSIDE RECORDS SUMMARY | 2025-02-02 14:05 | XMS_ITS | Encounter Summary ---
Author Organization [facility] Address [address] [place] [address] Care Team Providers Care Machine Stuffer Automatic Name Role Phone Amy Wilkerson MD Primary Care Provider + [phone] Thierno Duvall MD, PHD Unavailable Unava ilable Lizbeth Parikh PA-C Unavailable [phone] Bin Fowler PA-C Unavailable [phone] Vinicius Fonseca Unavailable Unavailable Amador Funk MD Unavailable [phone] Daryl Dunn NP Unavailable [phone] Timoteo Mcfarland MD Unavailable [phone] Marco Hunt MD Unavailable [phone] Joy Brand NP Unavailable [phone] [facility], Pcp Primary Care Provider Unavailabl e Encounter Details Date Type Department Care Team Description 05/18/2023 [facility] Medical Records [address] [place], [place] [address] [place] [address] Social History Tobacco Use Types Packs/Day Years [...] PM EDT documented as of this encounter Plan of Treatment Not on file documented as of this encounter Visit Diagnoses Not on filedocumented in this encounter Care Teams Machine Stuffer Automatic Relationship Specialty Start Date End Date Amy Wilkerson MD 230 [place] [address] PCP - General Internal Medicine 11/11/21 09/05/24 [facility], Pcp [address] [address] PCP - General Internal Medicine 09/06/24 Thierno Duvall MD, PHD 230 [place] [address] Surgeon Neurosurgery 02/25/22 Lizbeth Parikh PA-C [address] [address] Specialist Neurosurgery 02/25/22 Bin Fowler PA-C [address] [address] Specialist Neurosurgery 02/25/22 Vinicius Fonseca [address] [address] Dermatology 03/10/23 Amador Funk MD [address] [address] [facility] Director Cardiovascular Disease 03/10/23 Daryl Dunn NP [address] [address] Nurse Practitioner Cardiology 04/27/23 10/19/23 Timoteo Mcfarland MD [address] [address] ORTHOPEDIC SURGERY 08/24/23 Marco Hunt MD [address] [address] Specialist Cardiology 10/09/23 Joy Brand NP [address] [phone] Cardiology 10/09/23 [facility] urology Specialist Urology 08/24/23 documented as of this encounter
--- OUTSIDE RECORDS SUMMARY | 2025-02-02 14:05 | XMS_ITS | Encounter Summary ---
Author Organization [facility] Address [address] [place] [address] Care Team Providers Care Forestry Fire Aid Name Role Phone Amy Wilkerson MD Primary Care Provider + [phone] Thierno Duvall MD, PHD Unavailable Unava ilable Lizbeth Parikh PA-C Unavailable [phone] Bin Fowler PA-C Unavailable [phone] Vinicius Fonseca Unavailable Unavailable Amador Funk MD Unavailable [phone] Daryl Dunn NP Unavailable [phone] Timoteo Mcfarland MD Unavailable [phone] Marco Hunt MD Unavailable [phone] Joy Brand NP Unavailable [phone] [facility], Pcp Primary Care Provider Unavailabl e Encounter Details Date Type Department Care Team Description 07/08/2023 SCAN [facility] 175 [facility] [address] [place] [address] Timoteo Mcfarland MD 175 [facility] [address] [place], [place] [id number] Social History Tobacco Use Types Packs/Day Years [...] suspected to have Coronavirus/COVID-19? No / Unsure 06/30/2023 11:03 AM EDT documented as of this encounter Plan of Treatment Not on file documented as of this encounter Visit Diagnoses Not on filedocumented in this encounter Care Teams Forestry Fire Aid Relationship Specialty Start Date End Date Amy Wilkerson MD 230 [place] [address] PCP - General Internal Medicine 11/11/21 09/05/24 [facility], Pcp [address] [address] PCP - General Internal Medicine 09/06/24 Thierno Duvall MD, PHD [address] [place] [address] Surgeon Neurosurgery 02/25/22 Lizbeth Parikh PA-C [address] [address] Specialist Neurosurgery 02/25/22 Bin Fowler PA-C [address] [address] Specialist Neurosurgery 02/25/22 Vinicius Fonseca [address] [address] Dermatology 03/10/23 Amador Funk MD [address] [address] Paste Up Worker Cardiovascular Disease 03/10/23 Daryl Dunn NP [address] [address] Nurse Practitioner Cardiology 04/27/23 10/19/23 Timoteo Mcfarland MD [address] [address] ORTHOPEDIC SURGERY 08/24/23 Marco Hunt MD [address] [address] Specialist Cardiology 10/09/23 Joy Brand NP [address] [phone] Cardiology 10/09/23 [facility] urology Specialist Urology 08/24/23 documented as of this encounter
--- OUTSIDE RECORDS SUMMARY | 2025-02-02 14:05 | XMS_ITS | Encounter Summary ---
Author Organization [facility] Address [address] [place] [address] Care Team Providers Care High School Biology Teacher Name Role Phone Amy Wilkerson MD Primary Care Provider + [phone] Thierno Duvall MD, PHD Unavailable Unava ilable Lizbeth Parikh PA-C Unavailable [phone] Bin Fowler PA-C Unavailable [phone] Vinicius Fonseca Unavailable Unavailable Amador Funk MD Unavailable Timoteo Mcfarland MD Unavailable [phone] Marco Hunt MD Unavailable [phone] Joy Brand NP Unavailable [phone] [facility], Pcp Primary Care Provider Unavailabl e Encounter Details Date Type Department Care Team Description 11/04/2023 Orders Only Medical Records [address] [place] [address] Bin Fowler PA-C 175 [facility] [address] [place] [address] Social History Tobacco Use Types Packs/Day Years [...] on file documented as of this encounter Procedures Procedure Name Priority Date/Time Associated Diagnosis Comments OUTSIDE MRI/MRA Routine 10/23/2023 documented in this encounter Results * OUTSIDE MRI/MRA (10/23/2023) Bin Fowler PA-C RADIOLOGY documented in this encounter Visit Diagnoses Not on filedocumented in this encounter Care Teams High School Biology Teacher Relationship Specialty Start Date End Date Amy Wilkerson MD 230 [place] [address] PCP - General Internal Medicine 11/11/21 09/05/24 [facility], Pcp 300 [facility] [address] [place] [address] PCP - General Internal Medicine 09/06/24 Thierno Duvall MD, PHD 230 [place] [address] Surgeon Neurosurgery 02/25/22 Lizbeth Parikh PA-C [address] [address] Specialist Neurosurgery 02/25/22 Bin Fowler PA-C [address] [address] Specialist Neurosurgery 02/25/22 Vinicius Fonseca [address] [address] Dermatology 03/10/23 Amador Funk MD 300 [facility] [address] [place] [address] Rhythmic Gymnastics Coach Cardiovascular Disease 03/10/23 Timoteo Mcfarland MD [address] [address] ORTHOPEDIC SURGERY 08/24/23 Marco Hunt MD [address] [address] Specialist Cardiology 10/09/23 Joy Brand NP 300 [facility] 154 [place] [phone] Cardiology 10/09/23 [facility] urology Specialist Urology 08/24/23 documented as of this encounter
--- OUTSIDE RECORDS SUMMARY | 2025-02-02 14:05 | XMS_ITS | Encounter Summary ---
Author Organization [facility] [place] [facility] Address [address] [place] [address] Care Team Providers Care Remediation Project Engineer Name Role Phone Amy Wilkerson MD Primary Care Provider + [phone] Thierno Duvall MD, PHD Unavailable Unava ilable Lizbeth Parikh PA-C Unavailable [phone] Bin Fowler PA-C Unavailable [phone] Vinicius Fonseca Unavailable Unavailable Amador Funk MD Unavailable [phone] Daryl Dunn NP Unavailable [phone] Timoteo Mcfarland MD Unavailable [phone] Marco Hunt MD Unavailable [phone] Joy Brand NP Unavailable [phone] [facility], Pcp Primary Care Provider Unavailabl e Reason for Visit * Reason Onset Date Comments Hospital Procedure 08/12/2023 Cryo Afib Abl ation 09.23.23 Encounter Details Date Type Department Care Team Description 08/12/2023 Telephone Cardio PVC POC [address] [place] [address] Marco Hunt MD 4 [place], [place] [phone] Hospital Procedure (Cryo Afib Ablation 09.23.23) Social History Tobacco Use Types Packs/Day Years [...] suspected to have Coronavirus/COVID-19? No / Unsure 08/11/2023 9:57 AM EDT documented as of this encounter Miscellaneous Notes * Telephone Encounter - Maximilian Morfin C.M.A. - 08/17/2023 2:17 PM EDT Spoke with patient about procedure. Scheduled on 09.23.[address] Hunt at [facility] at 7:30am Mailing packet to patient today Packet mailed to patient includes instructions with medications, follow-up, lab orders, pre/post procedural care and pamphlet for procedure. Confirmed address on file Arrival time 6:30am Bloodwork to be done week of 09.07.23 at any lab of choice (Labs are not fasting) Patient understands bloodwork needs to be done prior to CTA CTA is on 09/16/23 at 9am at Radiology department 1st floor at [facility] Main Entrance Instructions for CTA at [facility] are fasting 4 hours prior to CTA and arrive 30 min early Medication instructions are to hold: ELIQUIS and LASIX morning of procedure You can take [...] could take up to 6 to 10 weeks. Patient will have to be fasting from midnight night before procedure. Patient made aware that they will need to make arrangements for someone to drive to and from the hospital for the procedure Patient is to report to [facility] to the 3rd floor Patient agreed to all inst and date, time and location above via phone while booking procedure. Booking sheet and confirmation received. documented in this encounter Plan of Treatment Not on file documented as of this encounter Visit Diagnoses Diagnosis Atrial fibrillation, unspecified type (HCC)- Primary documented in this encounter Care Teams Remediation Project Engineer Relationship Specialty Start Date End Date Amy Wilkerson MD [facility] [place] [address] PCP - General Internal Medicine 11/11/21 09/05/24 [facility], Pcp [address] [address] PCP - General Internal Medicine 09/06/24 Thierno Duvall MD, PHD 230 [place] [address] Surgeon Neurosurgery 02/25/22 Lizbeth Parikh PA-C [address] [address] Specialist Neurosurgery 02/25/22 Bin Fowler PA-C [address] [address] Specialist Neurosurgery 02/25/22 Vinicius Fonseca [address] [address] Dermatology 03/10/23 Amador Funk MD [address] [address] [place] [employer] Cardiovascular Disease 03/10/23 Daryl Dunn NP [address] [address] Nurse Practitioner Cardiology 04/27/23 10/19/23 Timoteo Mcfarland MD [address] [address] ORTHOPEDIC SURGERY 08/24/23 Marco Hunt MD [address] [address] Specialist Cardiology 10/09/23 Joy Brand NP [address] [phone] Cardiology 10/09/23 [facility] urology Specialist Urology 08/24/23 documented as of this encounter
--- OUTSIDE RECORDS SUMMARY | 2025-02-02 14:05 | XMS_ITS | Clinical Summary ---
Author Organization [address] [place] [address] Address 300 [place] [address] Phone Care Team Providers Care Wet Cleaner Machine Name Role Phone Jc Myrick RENETTA Primary Care Provider [phone] Allergies No known active allergies Medications acetaminophen (TYLENOL 8 HOUR) 650 mg 8 hr tablet Take 1 Tablet by mouth every 8 hours as needed for Pain for up to 30 days. 3 Active empagliflozin (Jardiance) 10 mg tablet TAKE 1 TABLET BY MOUTH DAILY 4 Active metoprolol succinate (TOPROL-XL) 50 mg 24 hr tablet Take 1 Tablet by mouth daily. 4 Active metroNIDAZOLE (METROCREAM) 0.75 % cream Apply topically 2 times daily. Active rosuvastatin (CRESTOR) 10 mg tablet Take 0.5 Tablets by mouth daily. 4 Active sacubitriL-vals melva (Entresto) 97-103 mg per tablet Take 1 Tablet by mouth 2 times daily. 4 Active testosterone 50 mg/5 gram (1 %) gel Apply daily as directed 8 Active Active Problems Problem Noted Date Diagnosed [...] and/or spironolactone after discussion with his primary etl bi developer. Abnormal EKG 03/11/2023 Persistent atrial fibrillation 03/11/2023 [...] injury and catheter thrombus related stroke or [place]. He understands that he may not necessarily build to come off of anticoagulation even if successful we will base that decision on his [id number] score. 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 [address] [place] [address] Jc Myrick FNP Medical Records from Last 3 Months Immunizations Name Administration [...] Comments COLONOSCOPY 10/19/2007 PROCEDURE: HISTORICAL COLONOSCOPY; COMMENT: [facility]; [place]; multiple small tubular adenomas. COLONOSCOPY 02/02/2018 PROCEDURE: HISTORICAL COLONOSCOPY; COMMENT: Diminutive colonic polyps ? 3 : all tubular adenomas. OTHER SURGICAL HISTORY 08/2017 PROCEDURE: DECOMPRESS DISC RF LUMBAR; COMMENT: microlumbar discectomy L4-5 Lam TURP / TRANSURETHRAL INCISIO N / DRAINAGE PROSTATE 2017 PROCEDURE: HISTORICAL TURP UPPER GASTROINTESTINAL ENDOSCOPY 04/12/2020 PROCEDURE: MS UPPER GI ENDOSCOPY PERFORMED; COMMENT: normal on famotidine rx. OTHER SURGICAL HISTORY 02/05/2022 PROCEDURE: MS ARTHRODESIS POSTERIOR INTERBODY 1 NTRSPC LUMBAR; COMMENT: [...] disc disease with radiculopathy; COMMENT: S/p discectomy 2017- Dr Fritz Neuropathy of both feet 07/09/2017 [...] at Not on file Legal Sex Male 1:35 AM EST Gender Identity Not on file Sexual [...] Falls Risk Assessment 2023 COVID-19 Vaccine ( season) 2024 05/02/2021 Influenza Vaccine (#1) 2024 0, 08/18/2019, 09/17/2018, Additional history exists DTaP,Tdap,and Td Vaccines (2 - Td or Tdap) 08/06/2027 08/06/2017 Cholesterol Screening (Lipid Panel) 12/25/2028 12/25/2023 Hepatitis C Screening Completed 12/25/2017 Zoster Vaccines Completed 01/12/2021, 11/12/2020 Pneumococcal Vaccine: 50+ Years Completed 09/28/2024 HIB Vaccines Aged Out [...] patient's age to complete this topic Meningococcal B Vacine Aged Out No lo nger eligible based on patient's age to complete [...] 207(A) 0 - 200 mg/dL HDL 53 >=40 mg/dL LDL Cholesterol 139(A) 0 - 100 mg/dL Blood Venous blood specimen / Unknown Historical Provider LAB BLOOD ORDERABLES Natalya l Result * Colonoscopy (02/02/2018) Colonoscopy No Interpretation , Abstracted Anatomical Region Laterality Modality Other Historical Provider HEALTH MAINTENANCE Final Result * Hepatitis C Screening (12/25/2017) Hepatitis C Screening Abstracted Historical Provider HEALTH MAINTENANCE Final Result from Last 3 Months or Most Recently Relevant to Health Maintenance Insurance [employer] MEDICARE Care Teams Wet Cleaner Machine Relationship Specialty Start Date End Date Jc Myrick FNP PCP - General Family Medicine 10/10/24
--- OUTSIDE RECORDS SUMMARY | 2025-02-02 14:05 | XMS_ITS | Encounter Summary ---
Author Organization [facility] Address [address] [place] [address] Care Team Providers Care Nursing Scheduler Name Role Phone Amy Wilkerson MD Primary Care Provider + [phone] Thierno Duvall MD, PHD Unavailable Unava ilable Lizbeth Parikh PA-C Unavailable [phone] Bin Fowler PA-C Unavailable [phone] Vinicius Fonseca Unavailable Unavailable Amador Funk MD Unavailable [phone] Daryl Dunn NP Unavailable [phone] Timoteo Mcfarland MD Unavailable [phone] Marco Hunt MD Unavailable [phone] Joy Brand NP Unavailable [phone] [facility], Pcp Primary Care Provider Unavailabl e Encounter Details Date Type Department Care Team Description 04/29/2023 SCAN [facility] 175 [facility] [address] [place] [address] Timoteo Mcfarland MD 175 [facility] [address] [place], [place] [id number] Social History Tobacco Use Types Packs/Day Years [...] on filedocumented in this encounter Care Teams Nursing Scheduler Relationship Specialty Start Date End Date Amy Wilkerson MD 230 [place] [address] PCP - General Internal Medicine 11/11/21 09/05/24 [facility], Pcp [address] [address] PCP - General Internal Medicine 09/06/24 Thierno Duvall MD, PHD 230 [place] [address] Surgeon Neurosurgery 02/25/22 Lizbeth Parikh PA-C [address] [address] Specialist Neurosurgery 02/25/22 Bin Fowler PA-C [address] [address] Specialist Neurosurgery 02/25/22 Vinicius Fonseca [address] [address] Dermatology 03/10/23 Amador Funk MD [address] [address] Experienced Truck Driver Cardiovascular Disease 03/10/23 Daryl Dunn NP [address] [address] Nurse Practitioner Cardiology 04/27/23 10/19/23 Timoteo Mcfarland MD [address] [address] ORTHOPEDIC SURGERY 08/24/23 Marco Hunt MD [address] [address] Specialist Cardiology 10/09/23 Joy Brand NP [address] [phone] Cardiology 10/09/23 [facility] urology Specialist Urology 08/24/23 documented as of this encounter
--- OUTSIDE RECORDS SUMMARY | 2025-02-02 14:05 | XMS_ITS | Encounter Summary ---
Author Organization [employer] Address 75 [facility] 7 [place] [address] Care Team Providers Care Astronomy Professor Name Role Phone Unavailable Primary Care Provider [...] Upcoming Encounters Date Type Department Care Team ( st Contact Info) Description 07/26/2025 8:30 AM EDT Office Visit [facility] DENTAL [address] [place] [address] Ramandeep Machado documented as of this encounter Visit Diagnoses Not on filedocumented in this encounter
--- OUTSIDE RECORDS SUMMARY | 2025-02-02 14:05 | XMS_ITS | Encounter Summary ---
Author Organization [facility] Address [address] [place] [address] Care Team Providers Care Spinner Continuous Name Role Phone Papito Mann MD Primary Care Provider Unavailable Amy Wilkerson MD Primary Care Provider + [phone] Thierno Duvall MD, PHD Unavailable Unava ilable Lizbeth Parikh PA-C Unavailable [phone] Bin Fowler PA-C Unavailable [phone] Vinicius Fonseca Unavailable Unavailable Amador Funk MD Unavailable [phone] Daryl Dunn NP Unavailable [phone] Timoteo Mcfarland MD Unavailable [phone] Marco Hunt MD Unavailable [phone] Joy Brand NP Unavailable [phone] [facility], Pcp Primary Care Provider Unavailabl e Encounter Details Date Type Department Care Team Description 04/12/2020 Hospital Medical Records [address] [place] [address] Timoteo Lopez MD Social History Tobacco Use Types Packs/Day Years [...] on filedocumented in this encounter Care Teams Spinner Continuous Relationship Specialty Start Date End Date Papito Mann MD PCP - General Internal Medicine 06/24/17 11/10/21 Amy Wilkerson MD [address] [place] [address] PCP - General Internal Medicine 11/11/21 09/05/24 [facility], Pcp [address] [address] PCP - General Internal Medicine 09/06/24 Thierno Duvall MD, PHD [address] [place] [address] Surgeon Neurosurgery 02/25/22 Lizbeth Parikh PA-C [address] [address] Specialist Neurosurgery 02/25/22 Bin Fowler PA-C [address] [address] Specialist Neurosurgery 02/25/22 Vinicius Fonseca [address] [address] Dermatology 03/10/23 Amador Funk MD [address] [address] Wire Spinner Cardiovascular Disease 03/10/23 Daryl Dunn NP [address] [address] Nurse Practitioner Cardiology 04/27/23 10/19/23 Timoteo Mcfarland MD [address] [address] ORTHOPEDIC SURGERY 08/24/23 Marco Hunt MD [address] [address] Specialist Cardiology 10/09/23 Joy Brand NP [address] [phone] Cardiology 10/09/23 [facility] urology Specialist Urology 08/24/23 documented as of this encounter
--- OUTSIDE RECORDS SUMMARY | 2025-02-02 14:05 | XMS_ITS | Encounter Summary ---
Author Organization [facility] Address [address] [place] [address] Care Team Providers Care Process Trainer Name Role Phone Papito Mann MD Primary Care Provider Unavailable Amy Wilkerson MD Primary Care Provider + [phone] Thierno Duvall MD, PHD Unavailable Unava ilable Lizbeth ParikhC Unavailable [phone] Bin Fowler PA-C Unavailable [phone] Vinicius Fonseca Unavailable Unavailable Amador Funk MD Unavailable [phone] Daryl Dunn NP Unavailable [phone] Timoteo Mcfarland MD Unavailable [phone] Marco Hunt MD Unavailable [phone] Joy Brand NP Unavailable [phone] [facility], Pcp Primary Care Provider Unavailabl e Reason for Visit * Reason Onset Date Comments Medication 01/14/2018 Encounter Details Date Type Department Care Team Description 01/14/2018 Telephone Gastroenterology - [address] [phone] Timoteo Lopez MD Medication Social History Tobacco Use Types Packs/Day Years Used Date Smoking Tobacco: Never Alcohol Use Standard Drinks/Week Comments Yes 0 (1 standard drink = 0.6 oz pur e alcohol) occasional beer Sex Assigned at Date Recorded Not on file Job Start Date Occupation Industry Not on file Not on file Not on file documented as of this encounter Miscellaneous Notes * Telephone Encounter - Dexter Ugalde MD - 01/14/2018 4:15 PM EST Prescribed * Telephone Encounter - Leatha Silva - 01/14/2018 4:13 PM EST Patient has scheduled a procedure, please prescribe prep in Dr Serrano absence. Thank you! documented in this encounter Plan of Treatment Not on file documented as of this encounter Visit Diagnoses Not on filedocumented in this encounter Care Teams Process Trainer Relationship Specialty Start Date End Date Papito Mann MD PCP - General Internal Medicine 06/24/17 11/10/21 Amy Wilkerson MD 230 [place] [address] PCP - General Internal Medicine 11/11/21 09/05/24 [facility], Pcp [address] [address] PCP - General Internal Medicine 09/06/24 Thierno Duvall MD, PHD 230 [place] [address] Surgeon Neurosurgery 02/25/22 Lizbeth Parikh PA-C [address] [address] Specialist Neurosurgery 02/25/22 Bin Fowler PA-C [address] [address] Specialist Neurosurgery 02/25/22 Vinicius Fonseca 175 [facility] 300 [place] [address] Dermatology 03/10/23 Amador Funk MD 300 [facility] [address] [place] [address] Tank Tender Cardiovascular Disease 03/10/23 Daryl Dunn NP 300 [facility] [address] [place] [address] Nurse Practitioner Cardiology 04/27/23 10/19/23 Timoteo Mcfarland MD [address] [address] ORTHOPEDIC SURGERY 08/24/23 Marco Hunt MD 175 [facility] [address] [place] [address] Specialist Cardiology 10/09/23 Joy Brand NP 300 [facility] [address] [place] [address] Cardiology 10/09/23 [facility] urology Specialist Urology 08/24/23 documented as of this encounter
--- OUTSIDE RECORDS SUMMARY | 2025-02-02 14:05 | XMS_ITS | Encounter Summary ---
Author Organization [facility] Address [address] [place] [address] Care Team Providers Care Geoscience Technician Name Role Phone Papito Mann MD Primary Care Provider Unavailable Amy Wilkerson MD Primary Care Provider + [phone] Thierno Duvall MD, PHD Unavailable Unava ilable Lizbeth Parikh PA-C Unavailable [phone] Bin Fowler PA-C Unavailable [phone] Vinicius Fonseca Unavailable Unavailable Amador Funk MD Unavailable [phone] Daryl Dunn NP Unavailable [phone] Timoteo Mcfarland MD Unavailable [phone] Marco Hunt MD Unavailable [phone] Joy Brand NP Unavailable [phone] [facility], Pcp Primary Care Provider Unavailabl e Encounter Details Date Type Department Care Team Description 07/29/2017 [employer] Sales Representative Report Medical Records [address] [place] [address] Saul Fritz MD Social History Tobacco Use Types Packs/Day [...] on filedocumented in this encounter Care Teams Geoscience Technician Relationship Specialty Start Date End Date Papito Mann MD PCP - General Internal Medicine 06/24/17 11/10/21 Amy Wilkerson MD 230 [place], [place] [id number] PCP - General Internal Medicine 11/11/21 09/05/24 [facility], Pcp [address] [address] PCP - General Internal Medicine 09/06/24 Thierno Duvall MD, PHD [address] [place] [address] Surgeon Neurosurgery 02/25/22 Lizbeth Parikh PA-C [address] [address] Specialist Neurosurgery 02/25/22 Bin Fowler PA-C [address] [address] Specialist Neurosurgery 02/25/22 Vinicius Fonseca [address] [address] Dermatology 03/10/23 Amador Funk MD [address] [address] Assistant Chief Nursing Officer Cardiovascular Disease 03/10/23 Daryl Dunn NP [address] [address] Nurse Practitioner Cardiology 04/27/23 10/19/23 Timoteo Mcfarland MD [address] [address] ORTHOPEDIC SURGERY 08/24/23 Marco Hunt MD [address] [address] Specialist Cardiology 10/09/23 Joy Brand NP [address] [phone] Cardiology 10/09/23 [facility] urology Specialist Urology 08/24/23 documented as of this encounter
--- OUTSIDE RECORDS SUMMARY | 2025-02-02 14:05 | XMS_ITS | Encounter Summary ---
Author Organization [facility] Address [address] [place] [address] Care Team Providers Care Button Tufter Name Role Phone Amy Wilkerson MD Primary Care Provider + [phone] Thierno Duvall MD, PHD Unavailable Unava ilable Lizbeth Parikh PA-C Unavailable [phone] Bin Fowler PA-C Unavailable [phone] Vinicius Fonseca Unavailable Unavailable Amador Funk MD Unavailable Daryl Dunn NP Unavailable [phone] Timoteo Mcfarland MD Unavailable [phone] Marco Hunt MD Unavailable Joy Brand NP Unavailable [phone] [facility], Pcp Primary Care Provider Unavailabl e Encounter Details Date Type Department Care Team Description 04/30/2023 SCAN [facility] 175 [facility] [address] [place] [address] Timoteo Mcfarland MD 175 [facility] [address] [place], [place] [id number] Social History Tobacco Use Types Packs/Day Years [...] on filedocumented in this encounter Care Teams Button Tufter Relationship Specialty Start Date End Date Amy Wilkerson MD 230 [place] [address] PCP - General Internal Medicine 11/11/21 09/05/24 [facility], Pcp [address] [address] PCP - General Internal Medicine 09/06/24 Thierno Duvall MD, PHD 230 [place] [address] Surgeon Neurosurgery 02/25/22 Lizbeth Parikh PA-C [address] [address] Specialist Neurosurgery 02/25/22 Bin Fowler PA-C [address] [address] Specialist Neurosurgery 02/25/22 Vinicius Fonseca [address] [address] Dermatology 03/10/23 Amador Funk MD [address] [address] Community Arts Officer Cardiovascular Disease 03/10/23 Daryl Dunn NP [address] [address] Nurse Practitioner Cardiology 04/27/23 10/19/23 Timoteo Mcfarland MD [address] [address] ORTHOPEDIC SURGERY 08/24/23 Marco Hunt MD [address] [address] Specialist Cardiology 10/09/23 Joy Brand NP [address] [phone] Cardiology 10/09/23 [facility] urology Specialist Urology 08/24/23 documented as of this encounter
--- OUTSIDE RECORDS SUMMARY | 2025-02-02 14:05 | XMS_ITS | Encounter Summary ---
Author Organization [facility] Address [address] [place] [address] Care Team Providers Care Sausage Smoker Name Role Phone Amy Wilkerson MD Primary Care Provider + [phone] Thierno Duvall MD, PHD Unavailable Unava ilable Lizbeth Parikh PA-C Unavailable [phone] Bin Fowler PA-C Unavailable [phone] Vinicius Fonseca Unavailable Unavailable Amador Funk MD Unavailable [phone] Daryl Dunn NP Unavailable [phone] Timoteo Mcfarland MD Unavailable [phone] Marco Hunt MD Unavailable [phone] Joy Brand NP Unavailable [phone] [facility], Pcp Primary Care Provider Unavailabl e Encounter Details Date Type Department Care Team Description 09/10/2023 SCAN Medical Records [address] [place] [address] Abstract, Provider Social History Tobacco Use Types [...] suspected to have Coronavirus/COVID-19? No / Unsure 09/01/2023 6:42 AM EDT documented as of this encounter Plan of Treatment Not on file documented as of this encounter Procedures Procedure Name Priority Date/Time Associated Diagnosis Comments OUTSIDE LAB Routine 09/10/2023 documented in this encounter Results * OUTSIDE LAB (09/10/2023) Provider Default LAB documented in this encounter Visit Diagnoses Not on filedocumented in this encounter Care Teams Sausage Smoker Relationship Specialty Start Date End Date Amy Wilkerson MD 230 [place] [address] PCP - General Internal Medicine 11/11/21 09/05/24 [facility], Pcp [address] [address] PCP - General Internal Medicine 09/06/24 Thierno Duvall MD, PHD [address] [place] [address] Surgeon Neurosurgery 02/25/22 Lizbeth Parikh PA-C [address] [address] Specialist Neurosurgery 02/25/22 Bin Fowler PA-C [address] [address] Specialist Neurosurgery 02/25/22 Vinicius Fonseca [address] [address] Dermatology 03/10/23 Amador Funk MD [address] [address] Panelboard Operator Cardiovascular Disease 03/10/23 Daryl Dunn NP [address] [address] Nurse Practitioner Cardiology 04/27/23 10/19/23 Timoteo Mcfarland MD [address] [address] ORTHOPEDIC SURGERY 08/24/23 Marco Hunt MD [address] [address] Specialist Cardiology 10/09/23 Joy Brand NP 300 [facility] [address] [place] [phone] Cardiology 10/09/23 [facility] urology Specialist Urology 08/24/23 documented as of this encounter
--- OUTSIDE RECORDS SUMMARY | 2025-02-02 14:05 | XMS_ITS | Encounter Summary ---
Author Organization [facility] Address [address] [place] [address] Care Team Providers Care Raisin Separator Operator Name Role Phone Amy Wilkerson MD Primary Care Provider + [phone] Thierno Duvall MD, PHD Unavailable Unava ilable Lizbeth Parikh PA-C Unavailable [phone] Bin Fowler PA-C Unavailable [phone] Vinicius Fonseca Unavailable Unavailable Amador Funk MD Unavailable [phone] Daryl Dunn NP Unavailable [phone] Timoteo Mcfarland MD Unavailable [phone] Marco Hunt MD Unavailable [phone] Joy Brand NP Unavailable [phone] [facility], Pcp Primary Care Provider Unavailabl e Encounter Details Date Type Department Care Team Description 06/09/2023 Cinder Man Report Medical Records [address] [place] [address] Bin Fowler PA-C 175 [facility] [address] [place], [place] [id number] Social History Tobacco Use Types Packs/Day Years [...] on filedocumented in this encounter Care Teams Raisin Separator Operator Relationship Specialty Start Date End Date Amy Wilkerson MD 230 [place] [address] PCP - General Internal Medicine 11/11/21 09/05/24 [facility], Pcp [address] [address] PCP - General Internal Medicine 09/06/24 Thierno Duvall MD, PHD [address] [place] [address] Surgeon Neurosurgery 02/25/22 Lizbeth Parikh PA-C [address] [address] Specialist Neurosurgery 02/25/22 Bin Fowler PA-C [address] [address] Specialist Neurosurgery 02/25/22 Vinicius Fonseca [address] [address] Dermatology 03/10/23 Amador Funk MD [address] [address] Transportation Supervisor Cardiovascular Disease 03/10/23 Daryl Dunn NP [address] [address] Nurse Practitioner Cardiology 04/27/23 10/19/23 Timoteo Mcfarland MD [address] [address] ORTHOPEDIC SURGERY 08/24/23 Marco Hunt MD [address] [address] Specialist Cardiology 10/09/23 Joy Brand NP [address] [phone] Cardiology 10/09/23 [facility] urology Specialist Urology 08/24/23 documented as of this encounter
--- OUTSIDE RECORDS SUMMARY | 2025-02-02 14:05 | XMS_ITS | Encounter Summary ---
Author Organization [facility] Address [address] [place] [address] Care Team Providers Care Plumber Assistant Name Role Phone Papito Mann MD Primary Care Provider Unavailable Amy Wilkerson MD Primary Care Provider + [phone] Thierno Duvall MD, PHD Unavailable Unava ilable Lizbeth Parikh PA-C Unavailable [phone] Bin FowlerC Unavailable [phone] Vinicius Fonseca Unavailable Unavailable Amador Funk MD Unavailable [phone] Daryl Dunn NP Unavailable Timoteo Mcfarland MD Unavailable [phone] Marco Hunt MD Unavailable Joy Brand NP Unavailable [phone] [facility], Pcp Primary Care Provider Unavailabl e Reason for Referral * EXTERNAL (Urgent) - Authorized/Booked Specialty Diagnoses / Procedures Referred By Contac t Referred To Contact Physical Therapy Procedures REFERRAL TO PHYSICAL THERAPY Papito Mann MD 230 [place], [place] [address] Referral ID Status Reason Start Date Expiration Date V isits Requested Visits Authorized SEE NOTE Authorized/B ooked 10/06/2017 01/06/2018 1 1 Reason for Visit * Reason Onset Date Comments Master Automotive Glass Technician Feedback 10/06/2017 Physical Therapy Encounter Details Date Type Department Care Team Description 10/06/2017 Telephone Adult Medicine - [place] [facility] [address] [place] [address] Papito Mann MD Master Automotive Glass Technician Feedback (Physical Therapy) Social History Tobacco Use Types Packs/Day Years Used Date Smoking Tobacco: Never Alcohol Use Standard Drinks/Week Comments Yes 0 (1 standard drink = 0.6 oz pur e alcohol) occasional beer Sex Assigned at Date Recorded Not on file Job Start Date Occupation Industry Not on file Not on file Not on file documented as of this encounter Miscellaneous Notes * Telephone Encounter - Emiliano Lewis - 10/06/2017 10:59 AM EST Please review this patients new referral request. The referral has been pended. Please complete thefollowing: If approved> sign order If denied>please give instructions and route to your practice nursing pool. Practice nurse should inform referrals and the patient if denied. * Telephone Encounter - Francia Guzman - 10/06/2017 10:52 AM EST Patient has appt 10/06/17 at [facility] * Telephone Encounter - Dariela Alarcon - 10/06/2017 10:32 AM EST What insurance does the patient have today? [employer] Effective 08/09/09: [facility] will not retro referral requests over 90 days. If request is for this please instruct patient to call the 800# on their insurance card to appeal. Do not submit a request. Referrals cannot be processed if the insurance is not accurate. If the insurance listed above in red is NO BILLING INFORMATION FOUND FOR THIS ENCOUTNER The patients correct insurance must be obtained and registered in [facility] or their referral can not be processed. Is this a retro request? NO. If yes for what date of service do you need the retro referral? N/A Who is calling to request this referral? Patient If the caller is not the patient, what is their name? N/A Ask the patient WHO referred them to this specialty: Patient was seen by external specialst Saul Fritz who has now referred them to this specialty FIRST and LAST NAME of SPECIALIST PATIENT is seeing: [facility] What specialty is this? Physical Therapy DIAGNOSIS Patient is being seen for (Not a body part or a procedure): Back and Neck pain Have you seen this SPECIALIST for this PROBLEM/DX before?NO If YES, when: Have you checked REVIEW or the APPT DESK to see if this referral has already been done or has visits left? YES Is this visit:Initial Visit Address of Specialist:[address] [facility] [address] Phone # of Specialist:[phone] Fax #: (if applicable):[phone] Does patient have an appointment scheduled?: YES Date of appointment- (including a retro-request): Is this appointment related to: Not MVA, WC or Surgery related documented in this encounter Plan of Treatment Not on file documented as of this encounter Visit Diagnoses Not on filedocumented in this encounter Care Teams Plumber Assistant Relationship Specialty Start Date End Date Papito Mann MD PCP - General Internal Medicine 06/24/17 11/10/21 Amy Wilkerson MD [address] [place] [address] PCP - General Internal Medicine 11/11/21 09/05/24 [facility], Pcp [address] [place] [address] PCP - General Internal Medicine 09/06/24 Thierno Duvall MD, PHD [address] [place] [address] Surgeon Neurosurgery 02/25/22 Lizbeth Parikh PA-C [address] [address] Specialist Neurosurgery 02/25/22 Bin Fowler PA-C [address] [address] Specialist Neurosurgery 02/25/22 Vinicius Fonseca [address] [address] Dermatology 03/10/23 Amador Funk MD 300 [facility] [address] [place] [address] Delivery Truck Driver Heavy Cardiovascular Disease 03/10/23 Daryl Dunn NP [address] [place] [address] Nurse Practitioner Cardiology 04/27/23 10/19/23 Timoteo Mcfarland MD 175 [facility] [address] [place] [address] ORTHOPEDIC SURGERY 08/24/23 Marco Hunt MD 175 [facility] [address] [place] [address] Specialist Cardiology 10/09/23 Joy Brand NP [address] [facility] [address] [place] [address] Cardiology 10/09/23 [facility] urology Specialist Urology 08/24/23 documented as of this encounter
--- OUTSIDE RECORDS SUMMARY | 2025-02-02 14:05 | XMS_ITS | Encounter Summary ---
Author Organization [employer] Address [address] [facility] 7 [place] [address] Care Team Providers Care Laminator Hand Name Role Phone Unavailable Primary Care Provider [...] Description 07/26/2025 8:30 AM EDT Office Visit [facility] DENTAL [address] [place] [address] Ramandeep Machado documented as of this encounter Visit Diagnoses Not on filedocumented in this encounter
--- OUTSIDE RECORDS SUMMARY | 2025-02-02 14:05 | XMS_ITS | Encounter Summary ---
Author Organization [facility] Address [address] [place] [address] Care Team Providers Care Human Resources Operations Manager Name Role Phone [facility], Pcp Primary Care Provider Unavailabl e Papito Mann MD Primary Care Provider Unavailable Amy Wilkerson MD Primary Care Provider Thierno Duvall MD, PHD Unavailable Unava ilable Lizbeth ParikhC Unavailable [phone] Bin FowlerC Unavailable [phone] Vinicius Fonseca Unavailable Unavailable Amador Funk MD Unavailable [phone] Daryl Dunn NP Unavailable [phone] Timoteo Mcfarland MD Unavailable [phone] Marco Hunt MD Unavailable Joy Brand NP Unavailable [phone] [facility], Pcp Primary Care Provider Unavailabl e Encounter Details Date Type Department Care Team Description 06/19/2010 SCAN Medical Records [address] [place] [address] Abstract, Provider Social History Tobacco Use Types Packs/Day Years Used Date Smoking Tobacco: Never Assessed Sex Assigned at Date Recorded Not on file Job Start Date Occupation Industry Not on file Not on file Not on file documented as of this encounter Plan of Treatment Not on file documented as of this encounter Procedures Procedure Name Priority Date/Time Associated Diagnosis Comments OUTSIDE VASCULAR STUDY Routine 06/19/2010 documented in this encounter Results * OUTSIDE VASCULAR STUDY (06/19/2010) Provider Default CARDIOLOGY documented in this encounter Visit Diagnoses Not on filedocumented in this encounter Care Teams Human Resources Operations Manager Relationship Specialty Start Date End Date [facility], Pcp PCP - General Internal Medicine 06/23/17 06/23/17 Papito Mann MD PCP - General Internal Medicine 06/24/17 11/10/21 Amy Wilkerson MD 230 [place] [address] PCP - General Internal Medicine 11/11/21 09/05/24 [facility], Pcp PCP - General Internal Medicine 09/06/24 Thierno Duvall MD, PHD [address] [place] [address] Surgeon Neurosurgery 02/25/22 Lizbeth Parikh PA-C [address] [address] Specialist Neurosurgery 02/25/22 Bin Fowler PA-C [address] [address] Specialist Neurosurgery 02/25/22 Vinicius Fonseca [address] [address] Dermatology 03/10/23 Amador Funk MD 300 [facility] [address] [place] [address] Hot Room Attendant Cardiovascular Disease 03/10/23 Daryl Dunn NP 300 [facility] [address] [place] [address] Nurse Practitioner Cardiology 04/27/23 10/19/23 Timoteo Mcfarland MD 175 [facility] [address] [place] [address] ORTHOPEDIC SURGERY 08/24/23 Marco Hunt MD [address] [address] Specialist Cardiology 10/09/23 Joy Brand NP [address] [facility] [address] [place] [address] Cardiology 10/09/23 [facility] urology Specialist Urology 08/24/23 documented as of this encounter
--- OUTSIDE RECORDS SUMMARY | 2025-02-02 14:05 | XMS_ITS | Encounter Summary ---
Author Organization [facility] Address [address] [place] [address] Care Team Providers Care Dough Sheeter Name Role Phone Amy Wilkerson MD Primary Care Provider + [phone] Thierno Duvall MD, PHD Unavailable Unava ilable Lizbeth Parikh PA-C Unavailable [phone] Bin Fowler PA-C Unavailable [phone] Vinicius Fonseca Unavailable Unavailable Amador Funk MD Unavailable [phone] Daryl Dunn NP Unavailable [phone] Timoteo Mcfarland MD Unavailable [phone] Marco Hunt MD Unavailable [phone] Joy Brand NP Unavailable [phone] [facility], Pcp Primary Care Provider Unavailabl e Encounter Details Date Type Department Care Team Description 05/25/2023 Orders Only Medical Records [address] [place] [address] Abstract, Provider Social History Tobacco Use Types [...] Name Priority Date/Time Associated Diagnosis Comments OUTSIDE SLEEP STUDY Routine 05/04/2023 documented in this encounter Results * OUTSIDE SLEEP STUDY (05/04/2023) Provider Abstract PULMONOLOGY documented in this encounter Visit Diagnoses Not on filedocumented in this encounter Care Teams Dough Sheeter Relationship Specialty Start Date End Date Amy Wilkerson MD 230 [place] [address] PCP - General Internal Medicine 11/11/21 09/05/24 [facility], Pcp [address] [address] PCP - General Internal Medicine 09/06/24 Thierno Duvall MD, PHD [address] [place] [address] Surgeon Neurosurgery 02/25/22 Lizbeth Parikh PA-C [address] [address] Specialist Neurosurgery 02/25/22 Bin Fowler PA-C [address] [address] Specialist Neurosurgery 02/25/22 Vinicius Fonseca [address] [address] Dermatology 03/10/23 Amador Funk MD [address] [address] Relish Blender Cardiovascular Disease 03/10/23 Daryl Dunn NP [address] [address] Nurse Practitioner Cardiology 04/27/23 10/19/23 Timoteo Mcfarland MD [address] [address] ORTHOPEDIC SURGERY 08/24/23 Marco Hunt MD [address] [address] Specialist Cardiology 10/09/23 Joy Brand NP 300 [facility] 154 [place] [address] Cardiology 10/09/23 [facility] urology Specialist Urology 08/24/23 documented as of this encounter
--- OUTSIDE RECORDS SUMMARY | 2025-02-02 14:05 | XMS_ITS | Encounter Summary ---
Author Organization [facility] Address [address] [place] [address] Care Team Providers Care Aquarium Specialist Name Role Phone Papito Mann MD Primary Care Provider Unavailable Amy Wilkerson MD Primary Care Provider + [phone] Thierno Duvall MD, PHD Unavailable Unava ilable Lizbeth Parikh PA-C Unavailable [phone] Bin Fowler PA-C Unavailable [phone] Vinicius Fonseca Unavailable Unavailable Amador Funk MD Unavailable Daryl Dunn NP Unavailable [phone] Timoteo Mcfarland MD Unavailable [phone] Marco Hunt MD Unavailable Joy Brand NP Unavailable [phone] [facility], Pcp Primary Care Provider Unavailabl e Encounter Details Date Type Department Care Team Description 08/05/2017 Release of Information Medical Records [address] [place] [address] Abstract, Provider Social History Tobacco Use Types [...] on filedocumented in this encounter Care Teams Aquarium Specialist Relationship Specialty Start Date End Date Papito Mann MD PCP - General Internal Medicine 06/24/17 11/10/21 Amy Wilkerson MD 230 [place], [place] [phone] PCP - General Internal Medicine 11/11/21 09/05/24 [facility], Pcp [address] [address] PCP - General Internal Medicine 09/06/24 Thierno Duvall MD, PHD 230 [place] [address] Surgeon Neurosurgery 02/25/22 Lizbeth Parikh PA-C [address] [address] Specialist Neurosurgery 02/25/22 Bin Fowler PA-C [address] [address] Specialist Neurosurgery 02/25/22 Vinicius Fonseca [address] [address] Dermatology 03/10/23 Amador Funk MD [address] [address] Shampooer Cardiovascular Disease 03/10/23 Daryl Dunn NP [address] [address] Nurse Practitioner Cardiology 04/27/23 10/19/23 Timoteo Mcfarland MD [address] [address] ORTHOPEDIC SURGERY 08/24/23 Marco Hunt MD [address] [address] Specialist Cardiology 10/09/23 Joy Brand NP [address] [phone] Cardiology 10/09/23 [facility] urology Specialist Urology 08/24/23 documented as of this encounter
--- OUTSIDE RECORDS SUMMARY | 2025-02-02 14:06 | XMS_ITS | Clinical Summary ---
Author Organization [employer] Address [address] [facility] 7 [place] [address] Care Team Providers Care River Captain Name Role Phone Unavailable Primary Care Provider Unavailabl e Allergies No known active allergies Medications metroNIDAZOLE (Metrocream) 0.75 % cream APPLY TOPICALLY TO FACE TWICE DAILY 3 Active testosterone (Androgel) 25 MG/2.5GM (1%) gel Apply daily as directed 8 Active Social History Tobacco Use Types Packs/Day Years [...] Description 07/26/2025 8:30 AM EDT Office Visit [facility] DENTAL [address] [place] [address] Ramandeep Machado Health Maintenance Due Date Last Done Comments CT Colonography 1958 Colonoscopy 1958 Colorectal Cancer Screening 1958 Depression Screening 1958 FIT DNA/Cologuard 1958 FIT 1958 FOBT 1958 Lipid Panel 1958 SDOH Screening 1958 Sigmoidoscopy 1958 Alcohol/Substance Use Screening 1970 Hepatitis C Screening 1976 Dental X-Ray: Bitewings 06/21/2023 06/20/20 22, 06/13/2021, 06/03/2019 COVID-19 Vaccine ( season) 2024 05/02/2021 Influenza Vaccine (#1) 2024 , 08/18/2019, 09/17/2018, Additional history exists Dental Oral Exam 04/15/2025 10/14/2024, , 01/26/2023, Additional history exists Dental Prophylaxis 04/15/2025 10/14/2024, 0 02/26/2024, 01/26/2023, Additional history exists Dental X-Ray: Full Mouth 06/21/2025 06/20/2022, 05/10 Tobacco Screening 10/14/2025 10/14/2024 DTaP/Tdap/Td Vaccines (2 - Td or Tdap) 08/06/2027 08/06/2017 RSV Patients and Patients Aged 60 years or older (1 - 1-dose 75+ series) 2033 Zoster Vaccines Completed 01/12/2021, 11/12/2020 Pneumococcal Vaccine: [...] ESTABLISHED PATIENT Routine 10/14/2024 8:30 AM EST INTRAORAL - COMPLETE SERIES OF RADIOGRAPHIC IMAGES Routine 06/20/2022 12:00 AM EDT from Last 3 Months or Most Recently Relevant to Health Maintenance Insurance [place]
--- OUTSIDE RECORDS SUMMARY | 2025-02-02 14:06 | XMS_ITS | Encounter Summary ---
Author Organization [facility] Address [address] [place] [address] Care Team Providers Care Comic Artist Name Role Phone Papito Mann MD Primary Care Provider Unavailable Amy Wilkerson MD Primary Care Provider + [phone] Thierno Duvall MD, PHD Unavailable Unava ilable Lizbeth Parikh PA-C Unavailable [phone] Bin Fowler PA-C Unavailable +[phone] Vinicius Fonseca Unavailable Unavailable Amador Funk MD Unavailable [phone] Daryl Dunn NP Unavailable [phone] Timoteo Mcfarland MD Unavailable [phone] Marco Hunt MD Unavailable [phone] Joy Brand NP Unavailable [phone] [facility], Pcp Primary Care Provider Unavailabl e Encounter Details Date Type Department Care Team Description 07/05/2021 Consulting Services Associate Report Medical Records [address] [place] [address] Elbert Alba Social History Tobacco Use Types Packs/Day Years [...] on filedocumented in this encounter Care Teams Comic Artist Relationship Specialty Start Date End Date Papito Mann MD PCP - General Internal Medicine 06/24/17 11/10/21 Amy Wilkerson MD 230 [place], [place] [id number] PCP - General Internal Medicine 11/11/21 09/05/24 [facility], Pcp [address] [phone] PCP - General Internal Medicine 09/06/24 Thierno Duvall MD, PHD 230 [place] [address] Surgeon Neurosurgery 02/25/22 Lizbeth Parikh PA-C [address] [address] Specialist Neurosurgery 02/25/22 Bin Fowler PA-C [address] [address] Specialist Neurosurgery 02/25/22 Vinicius Fonseca [address] [address] Dermatology 03/10/23 Amador Funk MD [address] [address] Research Test Engine Evaluator Cardiovascular Disease 03/10/23 Daryl Dunn NP [address] [address] Nurse Practitioner Cardiology 04/27/23 10/19/23 Timoteo Mcfarland MD [address] [address] ORTHOPEDIC SURGERY 08/24/23 Marco Hunt MD [address] [address] Specialist Cardiology 10/09/23 Joy Brand NP [address] [phone] Cardiology 10/09/23 [facility] urology Specialist Urology 08/24/23 documented as of this encounter
--- OUTSIDE RECORDS SUMMARY | 2025-02-02 14:06 | XMS_ITS | Encounter Summary ---
Author Organization [facility] Address [address] [place] [address] Care Team Providers Care Lease Operator Name Role Phone Amy Wilkerson MD Primary Care Provider + [phone] Thierno Duvall MD, PHD Unavailable Unava ilable Lizbeth Parikh PA-C Unavailable +[phone] Bin Fowler PA-C Unavailable [phone] Vinicius Fonseca Unavailable Unavailable Amador Funk MD Unavailable [phone] Daryl Dunn NP Unavailable [phone] Timoteo Mcfarland MD Unavailable [phone] Marco Hunt MD Unavailable Joy Brand NP Unavailable [phone] [facility], Pcp Primary Care Provider Unavailabl e Encounter Details Date Type Department Care Team Description 02/06/2022 [facility] Neurosurgery [address] [place] [address] Thierno Duvall MD, PHD Social History Tobacco Use Types [...] on filedocumented in this encounter Care Teams Lease Operator Relationship Specialty Start Date End Date Amy Wilkerson MD 230 [place] [address] PCP - General Internal Medicine 11/11/21 09/05/24 [facility], Pcp 300 [facility] [address] [place] [address] PCP - General Internal Medicine 09/06/24 Thierno Duvall MD, PHD 230 [place] [address] Surgeon Neurosurgery 02/25/22 Lizbeth Parikh PA-C [address] [address] Specialist Neurosurgery 02/25/22 Bin Fowler PA-C [address] [address] Specialist Neurosurgery 02/25/22 Vinicius Fonseca [address] [address] Dermatology 03/10/23 Amador Funk MD [address] [address] Cyber Instructor Cardiovascular Disease 03/10/23 Daryl Dunn NP [address] [address] Nurse Practitioner Cardiology 04/27/23 10/19/23 Timoteo Mcfarland MD [address] [address] ORTHOPEDIC SURGERY 08/24/23 Marco Hunt MD [address] [address] Specialist Cardiology 10/09/23 Joy Brand NP [address] [phone] Cardiology 10/09/23 [facility] urology Specialist Urology 08/24/23 documented as of this encounter
--- OUTSIDE RECORDS SUMMARY | 2025-02-02 14:06 | XMS_ITS | Encounter Summary ---
Author Organization [facility] Address [address] [place] [address] Care Team Providers Care Charter [employer] Executive Director Name Role Phone Amy Wilkerson MD Primary Care Provider + [phone] Thierno Duvall MD, PHD Unavailable Unava ilable Lizbeth Parikh PA-C Unavailable [phone] Bin Fowler PA-C Unavailable [phone] Vinicius Fonseca Unavailable Unavailable Amador Funk MD Unavailable Timoteo Mcfarland MD Unavailable [phone] Marco Hunt MD Unavailable [phone] Joy Brand NP Unavailable [phone] [facility], Pcp Primary Care Provider Unavailabl e Reason for Visit * Reason Comments E-prescribe Rx Request Jardiance Encounter Details Date Type Department Care Team Description 02/23/2024 Refill Cardio PVC POC 154 300 [facility] [address] [place] [address] Joy Brand NP [address] [facility] [address] [place] [address] E-prescribe Rx Request (Jardiance ) Social History Tobacco Use Types Packs/Day Years [...] * Telephone Encounter - Ivonne Sparks - 02/24/2024 11:45 AM EDT PADMAJA 10/20/23. Pending OV 03/09/24. Labs 01/01/24. Jardiance 10 mg daily was prescribed 01/29/24. Would you like him to have a BMP drawn prior to sending additional refills for Jardiance? documented in this encounter Plan of Treatment Not on file documented as of this encounter Visit Diagnoses Not on filedocumented in this encounter Care Teams Charter [employer] Executive Director Relationship Specialty Start Date End Date Amy Wilkerson MD 230 [place] [address] PCP - General Internal Medicine 11/11/21 09/05/24 [facility], Pcp [address] [address] PCP - General Internal Medicine 09/06/24 Thierno Duvlal MD, PHD [address] [place] [address] Surgeon Neurosurgery 02/25/22 Lizbeth Parikh PA-C [address] [address] Specialist Neurosurgery 02/25/22 Bin Fowler PA-C [address] [address] Specialist Neurosurgery 02/25/22 Vinicius Fonseca 175 [facility] 300 [place] [address] Dermatology 03/10/23 Amador Funk MD 300 [facility] 154 [place] [address] Health And Human Performance Professor Cardiovascular Disease 03/10/23 Timoteo Mcfarland MD 175 [facility] 250 [place] [address] ORTHOPEDIC SURGERY 08/24/23 Marco Hunt MD 175 [facility] 250 [place] [address] Specialist Cardiology 10/09/23 Joy Brand NP [address] [address] Cardiology 10/09/23 [facility] urology Specialist Urology 08/24/23 documented as of this encounter
--- OUTSIDE RECORDS SUMMARY | 2025-02-02 14:06 | XMS_ITS | Encounter Summary ---
Author Organization [facility] Address [address] [place] [address] Care Team Providers Care Magician/Illusionist Name Role Phone Papito Mann MD Primary Care Provider Unavailable Amy Wilkerson MD Primary Care Provider + [phone] Thierno Duvall MD, PHD Unavailable Unava ilable Lizbeth Parikh PA-C Unavailable [phone] Bin Fowler PA-C Unavailable [phone] Vinicius Fonseca Unavailable Unavailable Amador Funk MD Unavailable [phone] Daryl Dunn NP Unavailable [phone] Timoteo Mcfarland MD Unavailable [phone] Marco Hunt MD Unavailable [phone] Joy Brand NP Unavailable [phone] [facility], Pcp Primary Care Provider Unavailabl e Encounter Details Date Type Department Care Team Description 08/23/2018 Transfer Records Medical Records [address] [place] [address] [facility] Social History Tobacco Use Types Packs/Day [...] on filedocumented in this encounter Care Teams Magician/Illusionist Relationship Specialty Start Date End Date Papito Mann MD PCP - General Internal Medicine 06/24/17 11/10/21 Amy Wilkerson MD [address] [place] [id number] PCP - General Internal Medicine 11/11/21 09/05/24 [facility], Pcp [address] [phone] PCP - General Internal Medicine 09/06/24 Thierno Duvall MD, PHD 230 [place] [address] Surgeon Neurosurgery 02/25/22 Lizbeth Parikh PA-C [address] [address] Specialist Neurosurgery 02/25/22 Bin Fowler PA-C [address] [address] Specialist Neurosurgery 02/25/22 Vinicius Fonseca [address] [address] Dermatology 03/10/23 Amador Funk MD [address] [address] Food Crops Farm Hand Cardiovascular Disease 03/10/23 Daryl Dunn NP [address] [address] Nurse Practitioner Cardiology 04/27/23 10/19/23 Timoteo Mcfarland MD [address] [address] ORTHOPEDIC SURGERY 08/24/23 Marco Hunt MD [address] [address] Specialist Cardiology 10/09/23 Joy Brand NP [address] [phone] Cardiology 10/09/23 [facility] urology Specialist Urology 08/24/23 documented as of this encounter
--- OUTSIDE RECORDS SUMMARY | 2025-02-02 14:06 | XMS_ITS | Encounter Summary ---
Author Organization [facility] Address [address] [place] [address] Care Team Providers Care Supervisor In Charge Name Role Phone Papito Mann MD Primary Care Provider Unavailable Amy Wilkerson MD Primary Care Provider + [phone] Thierno Duvall MD, PHD Unavailable Unava ilable Lizbeth Parikh PA-C Unavailable [phone] Bin Fowler PA-C Unavailable [phone] Vinicius Fnoseca Unavailable Unavailable Amador Funk MD Unavailable [phone] Daryl Dunn NP Unavailable [phone] Timoteo Mcfarland MD Unavailable [phone] Marco Hunt MD Unavailable [phone] Joy Brand NP Unavailable [phone] [facility], Pcp Primary Care Provider Unavailabl e Encounter Details Date Type Department Care Team Description 01/08/2021 Old Medical Records Medical Records [address] [place] [address] Abstract, Provider Social History Tobacco Use Types [...] filedocumented in this encounter Care Teams Supervisor In Charge Relationship Specialty Start Date End Date Papito Mann MD PCP - General Internal Medicine 06/24/17 11/10/21 Amy Wilkerson MD [address] [place] [id number] PCP - General Internal Medicine 11/11/21 09/05/24 [facility], Pcp [address] [address] PCP - General Internal Medicine 09/06/24 Thierno Duvall MD, PHD 230 [place] [address] Surgeon Neurosurgery 02/25/22 Lizbeth Parikh PA-C [address] [address] Specialist Neurosurgery 02/25/22 Bin Fowler PA-C [address] [address] Specialist Neurosurgery 02/25/22 Vinicius Fonseca [address] [address] Dermatology 03/10/23 Amador Funk MD [address] [address] Auto Repair Technician Cardiovascular Disease 03/10/23 Daryl Dunn NP [address] [address] Nurse Practitioner Cardiology 04/27/23 10/19/23 Timoteo Mcfarland MD [address] [address] ORTHOPEDIC SURGERY 08/24/23 Marco Hunt MD [address] [address] Specialist Cardiology 10/09/23 Joy Brand NP [address] [phone] Cardiology 10/09/23 [facility] urology Specialist Urology 08/24/23 documented as of this encounter
--- OUTSIDE RECORDS SUMMARY | 2025-02-02 14:06 | XMS_ITS | Encounter Summary ---
Author Organization [facility] Address [address] [place] [address] Care Team Providers Care Rehabilitation Coordinator Name Role Phone Amy Wilkerson MD Primary Care Provider + [phone] Thierno Duvall MD, PHD Unavailable Unava ilable Lizbeth Parikh PA-C Unavailable +[phone] Bin Fowler PA-C Unavailable [phone] Vinicius Fonseca Unavailable Unavailable Amador Funk MD Unavailable [phone] Daryl Dunn NP Unavailable [phone] Timoteo Mcfarland MD Unavailable [phone] Marco Hunt MD Unavailable [phone] Joy Brand NP Unavailable [phone] [facility], [facility] Primary Care Provider Unavailabl e Encounter Details Date Type Department Care Team Description 02/05/2022 [facility] Medical Records [address] [place] [address] Thierno Duvall MD, PHD Social History Tobacco [...] on filedocumented in this encounter Care Teams Rehabilitation Coordinator Relationship Specialty Start Date End Date Amy Wilkerson MD 230 [place] [address] PCP - General Internal Medicine 11/11/21 09/05/24 [facility] Pcp [address] [address] PCP - General Internal Medicine 09/06/24 Thierno Duvall MD, PHD [address] [place] [address] Surgeon Neurosurgery 02/25/22 Lizbeth Parikh PA-C [address] [address] Specialist Neurosurgery 02/25/22 Bin Fowler PA-C [address] [address] Specialist Neurosurgery 02/25/22 Vinicius Fonseca [address] [address] Dermatology 03/10/23 Amador Funk MD [address] [address] Overlock Hemmer Cardiovascular Disease 03/10/23 Daryl Dunn NP [address] [address] Nurse Practitioner Cardiology 04/27/23 10/19/23 Timoteo Mcfarland MD [address] [address] ORTHOPEDIC SURGERY 08/24/23 Marco Hunt MD [address] [address] Specialist Cardiology 10/09/23 Joy Brand NP [address] [phone] Cardiology 10/09/23 [facility] urology Specialist Urology 08/24/23 documented as of this encounter
--- OUTSIDE RECORDS SUMMARY | 2025-02-02 14:06 | XMS_ITS | Encounter Summary ---
Author Organization [facility] Address [address] [place] [address] Care Team Providers Care Steam Gigger Name Role Phone Papito Mann MD Primary Care Provider Unavailable Amy Wilkerson MD Primary Care Provider + [phone] Thierno Duvall MD, PHD Unavailable Unava ilable Lizbeth Parikh PA-C Unavailable [phone] Bin Fowler PA-C Unavailable [phone] Vinicius Fonseca Unavailable Unavailable Amador Funk MD Unavailable [phone] Daryl Dunn NP Unavailable [phone] Timoteo Mcfarland MD Unavailable [phone] Marco Hunt MD Unavailable [phone] Joy Brand NP Unavailable [phone] [facility], Pcp Primary Care Provider Unavailabl e Encounter Details Date Type Department Care Team Description 12/17/2018 Orders Only Medical Records [address] [place] [address] Papito Mann MD Social History Tobacco Use Types Packs/Day [...] Associated Diagnosis Comments OUTSIDE SLEEP STUDY Routine 12/14/2018 documented in this encounter Results * OUTSIDE SLEEP STUDY (12/14/2018) Papito Mann MD PULMONOLOGY documented in this encounter Visit Diagnoses Not on filedocumented in this encounter Care Teams Steam Gigger Relationship Specialty Start Date End Date Papito Mann MD PCP - General Internal Medicine 06/24/17 11/10/21 Amy Wilkerson MD 230 [place] [address] PCP - General Internal Medicine 11/11/21 09/05/24 [facility], Pcp [address] [address] PCP - General Internal Medicine 09/06/24 Thierno Duvall MD, PHD 230 [place] [address] Surgeon Neurosurgery 02/25/22 Lizbeth Parikh PA-C [address] [address] Specialist Neurosurgery 02/25/22 Bin Fowler PA-C [address] [address] Specialist Neurosurgery 02/25/22 Vinicius Fonseca [address] [address] Dermatology 03/10/23 Amador Funk MD [address] [address] Supervisor Pile Driving Cardiovascular Disease 03/10/23 Daryl Dunn NP 300 [facility] 154 [place] [address] Nurse Practitioner Cardiology 04/27/23 10/19/23 Timoteo Mcfarland MD [address] [address] ORTHOPEDIC SURGERY 08/24/23 Marco Hunt MD [address] [address] Specialist Cardiology 10/09/23 Joy Brand NP 300 [facility] [address] [place] [phone] Cardiology 10/09/23 [facility] urology Specialist Urology 08/24/23 documented as of this encounter
--- OUTSIDE RECORDS SUMMARY | 2025-02-02 14:06 | XMS_ITS | Encounter Summary ---
Author Organization [facility] Address [address] [place] [address] Care Team Providers Care Skate Boarder Name Role Phone Amy Wilkerson MD Primary Care Provider + [phone] Thierno Duvall MD, PHD Unavailable Unava ilable Lizbeth Parikh PA-C Unavailable +[phone] Bin Fowler PA-C Unavailable [phone] Vinicius Fonseca Unavailable Unavailable Amador Funk MD Unavailable Daryl Dunn NP Unavailable [phone] Timoteo Mcfarland MD Unavailable [phone] Marco Hunt MD Unavailable [phone] Joy Brand NP Unavailable [phone] [facility], Pcp Primary Care Provider Unavailabl e Encounter Details Date Type Department Care Team Description 06/05/2022 [facility] Neurosurgery [place] [address] [place] [address] Thierno Duvall MD, PHD Social [...] on filedocumented in this encounter Care Teams Skate Boarder Relationship Specialty Start Date End Date Amy Wilkerson MD 230 [place] [address] PCP - General Internal Medicine 11/11/21 09/05/24 [facility], Pcp [address] [address] PCP - General Internal Medicine 09/06/24 Thierno Duvall MD, PHD [address] [place] [address] Surgeon Neurosurgery 02/25/22 Lizbeth Parikh PA-C [address] [address] Specialist Neurosurgery 02/25/22 Bin Fowler PA-C [address] [address] Specialist Neurosurgery 02/25/22 Vinicius Fonseca [address] [address] Dermatology 03/10/23 Amador Funk MD [address] [address] Crane Hoist Or Lift Operator Cardiovascular Disease 03/10/23 Daryl Dunn NP [address] [address] Nurse Practitioner Cardiology 04/27/23 10/19/23 Timoteo Mcfarland MD [address] [address] ORTHOPEDIC SURGERY 08/24/23 Marco Hunt MD [address] [address] Specialist Cardiology 10/09/23 Joy Brand NP [address] [phone] Cardiology 10/09/23 [facility] urology Specialist Urology 08/24/23 documented as of this encounter
--- OUTSIDE RECORDS SUMMARY | 2025-02-02 14:06 | XMS_ITS | Encounter Summary ---
Author Organization [facility] Address [address] [place] [address] Care Team Providers Care Solvent Process Extractor Operator Name Role Phone Papito Mann MD Primary Care Provider Unavailable Amy Wilkerson MD Primary Care Provider + [phone] Thierno Duvall MD, PHD Unavailable Unava ilable Lizbeth Parikh PA-C Unavailable +[phone] Bin Fowler PA-C Unavailable [phone] Vinicius Fonseca Unavailable Unavailable Amador Funk MD Unavailable [phone] Daryl Dunn NP Unavailable [phone] Timoteo Mcfarland MD Unavailable [phone] Marco Hunt MD Unavailable [phone] Joy Brand NP Unavailable [phone] [facility], Pcp Primary Care Provider Unavailabl e Encounter Details Date Type Department Care Team Description 02/11/2019 Clinical Assistant Report Medical Records [address] [place] [address] Lm Gomez, PA-C Social History Tobacco Use Types Packs/Day Years [...] on filedocumented in this encounter Care Teams Solvent Process Extractor Operator Relationship Specialty Start Date End Date Papito Mann MD PCP - General Internal Medicine 06/24/17 11/10/21 Amy Wilkerson MD 230 [place] [address] PCP - General Internal Medicine 11/11/21 09/05/24 [facility], Pcp [address] [address] PCP - General Internal Medicine 09/06/24 Thierno Duvall MD, PHD 230 [place] [address] Surgeon Neurosurgery 02/25/22 Lizbeth Parikh PA-C [address] [address] Specialist Neurosurgery 02/25/22 Bin Fowler PA-C [address] [address] Specialist Neurosurgery 02/25/22 Vinicius Fonseca [address] [address] Dermatology 03/10/23 Amador Funk MD [address] [address] Recreational Resort Manager Cardiovascular Disease 03/10/23 Daryl Dunn NP [address] [address] Nurse Practitioner Cardiology 04/27/23 10/19/23 Timoteo Mcfarland MD [address] [address] ORTHOPEDIC SURGERY 08/24/23 Marco Hunt MD [address] [address] Specialist Cardiology 10/09/23 Joy Brand NP [address] [phone] Cardiology 10/09/23 [facility] urology Specialist Urology 08/24/23 documented as of this encounter
--- OUTSIDE RECORDS SUMMARY | 2025-02-02 14:06 | XMS_ITS | Encounter Summary ---
Author Organization [facility] Address [address] [place] [address] Care Team Providers Care Veterinary Technician Instructor Name Role Phone Papito Mann MD Primary Care Provider Unavailable Amy Wilkerson MD Primary Care Provider + [phone] Thierno Duvall MD, PHD Unavailable Unava ilable Lizbeth Parikh PA-C Unavailable +[phone] Bin Fowler PA-C Unavailable [phone] Vinicius Fonseca Unavailable Unavailable Amador Funk MD Unavailable [phone] Daryl Dunn NP Unavailable [phone] Timoteo Mcfarland MD Unavailable [phone] Marco Hunt MD Unavailable [phone] Joy Brand NP Unavailable [facility], Pcp Primary Care Provider Unavailabl e Encounter Details Date Type Department Care Team Description 10/27/2018 Program Developer Report Medical Records [address] [place] [address] Alex Baez MD Social History Tobacco Use Types Packs/Day [...] on filedocumented in this encounter Care Teams Veterinary Technician Instructor Relationship Specialty Start Date End Date Papito Mann MD PCP - General Internal Medicine 06/24/17 11/10/21 Amy Wilkerson MD 230 [place] [address] PCP - General Internal Medicine 11/11/21 09/05/24 [facility], Pcp [address] [address] PCP - General Internal Medicine 09/06/24 Thierno Duvall MD, PHD 230 [place] [address] Surgeon Neurosurgery 02/25/22 Lizbeth Parikh PA-C [address] [address] Specialist Neurosurgery 02/25/22 Bin Fowler PA-C [address] [address] Specialist Neurosurgery 02/25/22 Vinicius Fonseca [address] [address] Dermatology 03/10/23 Amador Funk MD [address] [address] Retail Loan Officer Cardiovascular Disease 03/10/23 Daryl Dunn NP [address] [address] Nurse Practitioner Cardiology 04/27/23 10/19/23 Timoteo Mcfarland MD [address] [address] ORTHOPEDIC SURGERY 08/24/23 Marco Hunt MD [address] [address] Specialist Cardiology 10/09/23 Joy Brand NP [address] [phone] Cardiology 10/09/23 [facility] urology Specialist Urology 08/24/23 documented as of this encounter
--- OUTSIDE RECORDS SUMMARY | 2025-02-02 14:06 | XMS_ITS | Encounter Summary ---
Author Organization [facility] Address [address] [place] [address] Care Team Providers Care Concrete Stone Fabricator Name Role Phone Papito Mann MD Primary Care Provider Unavailable Amy Wilkerson MD Primary Care Provider + [phone] Thierno Duvall MD, PHD Unavailable Unava ilable Lizbeth Parikh PA-C Unavailable +[phone] Bin Fowler PA-C Unavailable +[phone] Vinicius Fonseca Unavailable Unavailable Amador Funk MD Unavailable [phone] Daryl Dunn NP Unavailable [phone] Timoteo Mcfarland MD Unavailable [phone] Marco Hunt MD Unavailable [phone] Joy Brand NP Unavailable [phone] [facility], Pcp Primary Care Provider Unavailabl e Encounter Details Date Type Department Care Team Description 03/04/2018 Knife Blade Polisher Report Medical Records [address] [place] [address] Henry Castillo MD Social History Tobacco Use Types Packs/Day [...] on filedocumented in this encounter Care Teams Concrete Stone Fabricator Relationship Specialty Start Date End Date Papito Mann MD PCP - General Internal Medicine 06/24/17 11/10/21 Amy Wilkerson MD 230 [place] [address] PCP - General Internal Medicine 11/11/21 09/05/24 [facility], Pcp [address] [address] PCP - General Internal Medicine 09/06/24 Thierno Duvall MD, PHD 230 [place] [address] Surgeon Neurosurgery 02/25/22 Lizbeth Parikh PA-C [address] [address] Specialist Neurosurgery 02/25/22 Bin Fowler PA-C [address] [address] Specialist Neurosurgery 02/25/22 Vinicius Fonseca [address] [address] Dermatology 03/10/23 Amador Funk MD [address] [address] Rotary Furnace Tender Cardiovascular Disease 03/10/23 Daryl Dunn NP [address] [address] Nurse Practitioner Cardiology 04/27/23 10/19/23 Timoteo Mcfarland MD [address] [address] ORTHOPEDIC SURGERY 08/24/23 Marco Hunt MD [address] [address] Specialist Cardiology 10/09/23 Joy Brand NP [address] [phone] Cardiology 10/09/23 [facility] urology Specialist Urology 08/24/23 documented as of this encounter
--- OUTSIDE RECORDS SUMMARY | 2025-02-02 14:06 | XMS_ITS | Encounter Summary ---
Author Organization [facility] Address [address] [place] [address] Care Team Providers Care Bar Supervisor Name Role Phone Papito Mann MD Primary Care Provider Unavailable Amy Wilkerson MD Primary Care Provider + [phone] Thierno Duvall MD, PHD Unavailable Unava ilable Lizbeth Parikh PA-C Unavailable [phone] Bin Fowler PA-C Unavailable +[phone] Vinicius Fonseca Unavailable Unavailable Amador Funk MD Unavailable +[phone] aDryl Dunn NP Unavailable [phone] Timoteo Mcfarland MD Unavailable [phone] Marco Hunt MD Unavailable [phone] Joy Brand NP Unavailable [facility], Pcp Primary Care Provider Unavailabl e Encounter Details Date Type Department Care Team Description 08/29/2018 Dial Buffer Report Medical Records [address] [place] [address] Henry Castillo MD Social History Tobacco Use [...] on filedocumented in this encounter Care Teams Bar Supervisor Relationship Specialty Start Date End Date Papito Mann MD PCP - General Internal Medicine 06/24/17 11/10/21 Amy Wilkerson MD 230 [place] [address] PCP - General Internal Medicine 11/11/21 09/05/24 [facility], Pcp [address] [address] PCP - General Internal Medicine 09/06/24 Thierno Duvall MD, PHD 230 [place] [address] Surgeon Neurosurgery 02/25/22 Lizbeth Parikh PA-C [address] [address] Specialist Neurosurgery 02/25/22 Bin Fowler PA-C [address] [address] Specialist Neurosurgery 02/25/22 Vinicius Fonseca [address] [address] Dermatology 03/10/23 Amador Funk MD [address] [address] Sausage Linker Cardiovascular Disease 03/10/23 Daryl Dunn NP [address] [address] Nurse Practitioner Cardiology 04/27/23 10/19/23 Timoteo Mcfarland MD [address] [address] ORTHOPEDIC SURGERY 08/24/23 Marco Hunt MD [address] [address] Specialist Cardiology 10/09/23 Joy Brand NP [address] [phone] Cardiology 10/09/23 [facility] urology Specialist Urology 08/24/23 documented as of this encounter
--- OUTSIDE RECORDS SUMMARY | 2025-02-02 14:06 | XMS_ITS | Encounter Summary ---
Author Organization [facility] Address [address] [place] [address] Care Team Providers Care Housekeeping Laundry Worker Name Role Phone Amy Wilkerson MD Primary Care Provider + [phone] Thierno Duvall MD, PHD Unavailable Unava ilable Lizbeth Parikh PA-C Unavailable +[phone] Bin Fowler PA-C Unavailable [phone] Vinicius Fonseca Unavailable Unavailable Amador Funk MD Unavailable Daryl Dunn NP Unavailable Timoteo Mcfarland MD Unavailable Marco Hunt MD Unavailable [phone] Joy Brand NP Unavailable [phone] [facility]cp Primary Care Provider Unavailabl e Encounter Details Date Type Department Care Team Description 02/24/2022 SCAN [facility] Neurosurgery [place] [address] [place] [address] Thierno Duvall MD, PHD Social [...] on filedocumented in this encounter Care Teams Housekeeping Laundry Worker Relationship Specialty Start Date End Date Amy Wilkerson MD 230 [place] [address] PCP - General Internal Medicine 11/11/21 09/05/24 [facility] Pcp [address] [address] PCP - General Internal Medicine 09/06/24 Thierno Duvall MD, PHD [address] [place] [address] Surgeon Neurosurgery 02/25/22 Lizbeth Parikh PA-C [address] [address] Specialist Neurosurgery 02/25/22 Bin Fowler PA-C [address] [address] Specialist Neurosurgery 02/25/22 Vinicius Fonseca [address] [address] Dermatology 03/10/23 Amador Funk MD [address] [address] School Photographs Detailer Cardiovascular Disease 03/10/23 Daryl Dunn NP [address] [address] Nurse Practitioner Cardiology 04/27/23 10/19/23 Timoteo Mcfarland MD [address] [address] ORTHOPEDIC SURGERY 08/24/23 Marco Hunt MD [address] [address] Specialist Cardiology 10/09/23 Joy Brand NP [address] [phone] Cardiology 10/09/23 [facility] urology Specialist Urology 08/24/23 documented as of this encounter
--- OUTSIDE RECORDS SUMMARY | 2025-02-02 14:06 | XMS_ITS | Encounter Summary ---
Author Organization [facility] Address [address] [place] [address] Care Team Providers Care Tender Coordinator Name Role Phone Papito Mann MD Primary Care Provider Unavailable Amy Wilkerson MD Primary Care Provider + [phone] Thierno Duvall MD, PHD Unavailable Unava ilable Lizbeth Parikh PA-C Unavailable [phone] Bin Fowler PA-C Unavailable [phone] Vinicius Fonseca Unavailable Unavailable Amador Funk MD Unavailable [phone] Daryl Dunn NP Unavailable [phone] Timoteo Mcfarland MD Unavailable [phone] Marco Hunt MD Unavailable [phone] Joy Brand NP Unavailable [phone] [facility], Pcp Primary Care Provider Unavailabl e Encounter Details Date Type Department Care Team Description 11/05/2018 Hot Dip Plating Supervisor Report Medical Records [address] [place] [address] Lm Gomez, PA-C Social History Tobacco Use [...] on filedocumented in this encounter Care Teams Tender Coordinator Relationship Specialty Start Date End Date Papito Mann MD PCP - General Internal Medicine 06/24/17 11/10/21 Amy Wilkerson MD [address] [place] [address] PCP - General Internal Medicine 11/11/21 09/05/24 [facility], Pcp [address] [address] PCP - General Internal Medicine 09/06/24 Thierno Duvall MD, PHD [address] [place] [address] Surgeon Neurosurgery 02/25/22 Lizbeth Parikh PA-C [address] [address] Specialist Neurosurgery 02/25/22 Bin Fowler PA-C [address] [address] Specialist Neurosurgery 02/25/22 Vinicius Fonseca [address] [address] Dermatology 03/10/23 Amador Funk MD [address] [address] Mrp Controller Cardiovascular Disease 03/10/23 Daryl Dunn NP [address] [address] Nurse Practitioner Cardiology 04/27/23 10/19/23 Timoteo Mcfarland MD [address] [address] ORTHOPEDIC SURGERY 08/24/23 Marco Hunt MD [address] [address] Specialist Cardiology 10/09/23 Joy Brand NP [address] [phone] Cardiology 10/09/23 [facility] urology Specialist Urology 08/24/23 documented as of this encounter
--- OUTSIDE RECORDS SUMMARY | 2025-02-02 14:06 | XMS_ITS | Encounter Summary ---
Author Organization [facility] Address [address] [place] [address] Care Team Providers Care Egg Producer Name Role Phone Amy Wilkerson MD Primary Care Provider + [phone] Thierno Duvall MD, PHD Unavailable Unava ilable Lizbeth Parikh PA-C Unavailable +[phone] Bin Fowler PA-C Unavailable [phone] Vinicius Fonseca Unavailable Unavailable Amador Funk MD Unavailable [phone] Daryl Dunn NP Unavailable [phone] Timoteo Mcfarland MD Unavailable [phone] Marco Hunt MD Unavailable Joy Brand NP Unavailable [phone] [facility], Pcp Primary Care Provider Unavailabl e Encounter Details Date Type Department Care Team Description 02/06/2022 SCAN [facility] Neurosurgery [place] [address] [place] [address] Thierno Duvall MD, PHD Social [...] on filedocumented in this encounter Care Teams Egg Producer Relationship Specialty Start Date End Date Amy Wilkerson MD 230 [place] [address] PCP - General Internal Medicine 11/11/21 09/05/24 [facility], Pcp [address] [address] PCP - General Internal Medicine 09/06/24 Thierno Duvall MD, PHD [address] [place] [address] Surgeon Neurosurgery 02/25/22 Lizbeth Parikh PA-C [address] [address] Specialist Neurosurgery 02/25/22 Bin Fowler PA-C [address] [address] Specialist Neurosurgery 02/25/22 Vinicius Fonseca [address] [address] Dermatology 03/10/23 Amador Funk MD [address] [address] Program Evaluation Consultant Cardiovascular Disease 03/10/23 Daryl Dunn NP [address] [address] Nurse Practitioner Cardiology 04/27/23 10/19/23 Timoteo Mcfarland MD [address] [address] ORTHOPEDIC SURGERY 08/24/23 Marco Hunt MD [address] [address] Specialist Cardiology 10/09/23 Joy Brand NP [address] [phone] Cardiology 10/09/23 [facility] urology Specialist Urology 08/24/23 documented as of this encounter
--- OUTSIDE RECORDS SUMMARY | 2025-02-02 14:06 | XMS_ITS | Encounter Summary ---
Author Organization [facility] Address [address] [place] [address] Care Team Providers Care Mortgage Operations Manager Name Role Phone Papito Mann MD Primary Care Provider Unavailable Amy Wilkerson MD Primary Care Provider + [phone] Thierno Duvall MD, PHD Unavailable Unava ilable Lizbeth Parikh PA-C Unavailable +[phone] Bin Fowler PA-C Unavailable [phone] Vinicius Fonseca Unavailable Unavailable Amador Funk MD Unavailable [phone] Daryl Dunn NP Unavailable [phone] Timoteo Mcfarland MD Unavailable [phone] Marco Hunt MD Unavailable [phone] Joy Brand NP Unavailable [phone] [facility], Pcp Primary Care Provider Unavailabl e Encounter Details Date Type Department Care Team Description 03/02/2019 Release of Information Medical Records [address] [place] [id number] Abstract, Provider Social History Tobacco Use Types [...] on filedocumented in this encounter Care Teams Mortgage Operations Manager Relationship Specialty Start Date End Date Papito Mann MD PCP - General Internal Medicine 06/24/17 11/10/21 Amy Wilkerson MD [address] [place], [place] [address] PCP - General Internal Medicine 11/11/21 09/05/24 [facility], Pcp [address] [address] PCP - General Internal Medicine 09/06/24 Thierno Duvall MD, PHD [address] [place] [address] Surgeon Neurosurgery 02/25/22 Lizbeth Parikh PA-C [address] [address] Specialist Neurosurgery 02/25/22 Bin Fowler PA-C [address] [address] Specialist Neurosurgery 02/25/22 Vinicius Fonseca [address] [address] Dermatology 03/10/23 Amador Funk MD [address] [address] Cloth Finishing Range Tender Cardiovascular Disease 03/10/23 Daryl Dunn NP [address] [address] Nurse Practitioner Cardiology 04/27/23 10/19/23 Timoteo Mcfarland MD [address] [address] ORTHOPEDIC SURGERY 08/24/23 Marco Hunt MD [address] [address] Specialist Cardiology 10/09/23 Joy Brand NP [address] [phone] Cardiology 10/09/23 [facility] urology Specialist Urology 08/24/23 documented as of this encounter
--- OUTSIDE RECORDS SUMMARY | 2025-02-02 14:06 | XMS_ITS | Encounter Summary ---
Author Organization [facility] Address [address] [place] [address] Care Team Providers Care Geological Manager Name Role Phone Amy Wilkerson MD Primary Care Provider + [phone] Thierno Duvall MD, PHD Unavailable Unava ilable Lizbeth Parikh PA-C Unavailable +[phone] Bin Fowler PA-C Unavailable [phone] Vinicius Fonseca Unavailable Unavailable Amador Funk MD Unavailable [phone] Daryl Dunn NP Unavailable [phone] Timoteo Mcfarland MD Unavailable [phone] Marco Hunt MD Unavailable [phone] Joy Brand NP Unavailable [phone] [facility], Pcp Primary Care Provider Unavailabl e Encounter Details Date Type Department Care Team Description 02/03/2022 [facility] Medical Records [address] [place] [address] Bin Fowler PA-C 175 [facility] [address] [place], [place] [address] Social History Tobacco Use Types Packs/Day Years [...] on filedocumented in this encounter Care Teams Geological Manager Relationship Specialty Start Date End Date Amy Wilkerson MD 230 [place] [address] PCP - General Internal Medicine 11/11/21 09/05/24 [facility], Pcp [address] [address] PCP - General Internal Medicine 09/06/24 Thierno Duvall MD, PHD [address] [place] [address] Surgeon Neurosurgery 02/25/22 Lizbeth Parikh PA-C [address] [address] Specialist Neurosurgery 02/25/22 Bin Fowler PA-C [address] [address] Specialist Neurosurgery 02/25/22 Vinicius Fonseca [address] [address] Dermatology 03/10/23 Amador Funk MD [address] [address] Charm Filter Operator Helper Cardiovascular Disease 03/10/23 Daryl Dunn NP [address] [address] Nurse Practitioner Cardiology 04/27/23 10/19/23 Timoteo Mcfarland MD [address] [address] ORTHOPEDIC SURGERY 08/24/23 Marco Hunt MD [address] [address] Specialist Cardiology 10/09/23 Joy Brand NP [address] [phone] Cardiology 10/09/23 [facility] urology Specialist Urology 08/24/23 documented as of this encounter
--- OUTSIDE RECORDS SUMMARY | 2025-02-02 14:06 | XMS_ITS | Encounter Summary ---
Author Organization [facility] Address [address] [place] [address] Care Team Providers Care Workforce Planner Name Role Phone Amy Wilkerson MD Primary Care Provider + [phone] Thierno Duvall MD, PHD Unavailable Unava ilable Lizbeth Parikh PA-C Unavailable +[phone] Bin Fowler PA-C Unavailable [phone] Vinicius Fonseca Unavailable Unavailable Amador Funk MD Unavailable Timoteo Mcfarland MD Unavailable [phone] Marco Hunt MD Unavailable [phone] oJy Brand NP Unavailable [phone] [facility], Pcp Primary Care Provider Unavailabl e Reason for Visit * Reason Onset Date Comments Testing 03/31/2024 VENOUS BILAT ON 04/19/24 Encounter Details Date Type Department Care Team Description 03/31/2024 Telephone Cardio [facility] Diag Testing 101 300 [facility] [address] [place] [address] Joy Brand NP [address] [facility] [address] [place] [address] Testing (VENOUS BILAT ON 04/19/24) Social History Tobacco Use Types Packs/Day Years [...] encounter Miscellaneous Notes * Telephone Encounter - Joy Brand NP - 04/08/2024 4:25 PM EDT Great, new order entered - I was prohibited from discontinuing the original order * Telephone Encounter - Jannet Abraham - 04/08/2024 12:21 PM EDT Good afternoon, Yes! R60.0 is covered. Please if you can update the current order or place a new order with the updated covered dx please. Thank you! * Telephone Encounter - Joy Brand NP - 04/06/2024 4:59 PM EDT How about R60.0? * Telephone Encounter - Jannet Abrahma - 03/31/2024 8:21 AM EDT I am reaching out because you have placed an order for this patient to have a Venous Ultrasound andthe appointment is scheduled for 04/19/24. The order has an associated diagnosis of Venous insufficiency [I87.2]. This diagnosis is not considered to support medical necessity for the test ordered according to insurance guidelines. Please review to see if there is another diagnosis, including signs/symptoms, that is appropriate to be associated with this test and update the current order, or place a new order. If there is not a covered diagnosis associated with this test, the patient will be notified they will need to sign a waiver accepting responsibility for payment if their insurance denies it. This mayresult in a cancellation. Thank you, [facility] Scheduling documented in this encounter Plan of Treatment Not on file documented as of this encounter Visit Diagnoses Not on filedocumented in this encounter Care Teams Workforce Planner Relationship Specialty Start Date End Date Amy Wilkerson MD [facility] [place] [address] PCP - General Internal Medicine 11/11/21 09/05/24 [facility], Pcp [address] [address] PCP - General Internal Medicine 09/06/24 Thierno Duvall MD, PHD [address] [place] [address] Surgeon Neurosurgery 02/25/22 Lizbeth Parikh PA-C [address] [address] Specialist Neurosurgery 02/25/22 Bin Fowler PA-C [address] [address] Specialist Neurosurgery 02/25/22 Vinicius Fonseca [address] [address] Dermatology 03/10/23 Amador Funk MD [address] [address] Crew Leader Gluing Cardiovascular Disease 03/10/23 Timoteo Mcfarland MD [address] [address] ORTHOPEDIC SURGERY 08/24/23 Marco Hunt MD [address] [address] Specialist Cardiology 10/09/23 Joy Brand, MAREK [address] [phone] Cardiology 10/09/23 [facility] urology Specialist Urology 08/24/23 documented as of this encounter
--- OUTSIDE RECORDS SUMMARY | 2025-02-02 14:06 | XMS_ITS | Encounter Summary ---
Author Organization [facility] Address [address] [place] [address] Care Team Providers Care Light Equipment Operator Name Role Phone Papito Mann MD Primary Care Provider Unavailable Amy Wilkerson MD Primary Care Provider + [phone] Thierno Duvall MD, PHD Unavailable Unava ilable Lizbeth Parikh PA-C Unavailable +[phone] Bin Fowler PA-C Unavailable [phone] Vinicius Fonseca Unavailable Unavailable Amador Funk MD Unavailable [phone] Daryl Dunn NP Unavailable [phone] Timoteo Mcfarland MD Unavailable [phone] Marco Hunt MD Unavailable [phone] Joy Brand NP Unavailable [phone] [facility], Pcp Primary Care Provider Unavailabl e Encounter Details Date Type Department Care Team Description 09/24/2018 Flight Test Supervisor Report Medical Records [address] [place] [address] Lm Gomez, PA-C Social History Tobacco Use [...] on filedocumented in this encounter Care Teams Light Equipment Operator Relationship Specialty Start Date End Date Papito Mann MD PCP - General Internal Medicine 06/24/17 11/10/21 Amy Wilkerson MD 230 [place] [address] PCP - General Internal Medicine 11/11/21 09/05/24 [facility], Pcp [address] [address] PCP - General Internal Medicine 09/06/24 Thierno Duvall MD, PHD 230 [place] [address] Surgeon Neurosurgery 02/25/22 Lizbeth Parikh PA-C [address] [address] Specialist Neurosurgery 02/25/22 Bin Fowler PA-C [address] [address] Specialist Neurosurgery 02/25/22 Vinicius Fonseca [address] [address] Dermatology 03/10/23 Amador Funk MD [address] [address] Cable Assembler And Swager Cardiovascular Disease 03/10/23 Daryl Dunn NP [address] [address] Nurse Practitioner Cardiology 04/27/23 10/19/23 Timoteo Mcfarland MD [address] [address] ORTHOPEDIC SURGERY 08/24/23 Marco Hunt MD [address] [address] Specialist Cardiology 10/09/23 Joy Brand NP [address] [phone] Cardiology 10/09/23 [facility] urology Specialist Urology 08/24/23 documented as of this encounter
== END 2025-02-02 11:39 | disposition home or self-care (01) ==
LOC: HO.HMCFM 10:44
PROVIDERS: PCP Nurse Practitioner Family; Visit Provider Nurse Practitioner Family
DX: M25.571 Pain in right ankle and joints of right foot (principal)

== ENCOUNTER → 2025-02-02 10:44 | Outpatient (BNVA) | payer OTHER, SELFPAY | PROVIDERS: PCP Nurse Practitioner Family; Visit Provider Nurse Practitioner Family ==

== ENCOUNTER 2025-02-02 11:55 | Outpatient (REF) | payer OTHER, SELFPAY ==
[2025-02-02 14:24] LABS: Uric Acid 4.1 mg/dL (3.4-7.0)
== END 2025-02-02 11:56 | disposition home or self-care (01) ==
LOC: HO.WFDLDS 11:55
PROVIDERS: Visit Provider Nurse Practitioner Family
DX: M25.571 Pain in right ankle and joints of right foot (principal)
CPT/HCPCS: 36415; 84550

== ENCOUNTER 2025-02-10 12:54 | Outpatient (REF) | payer OTHER, SELFPAY ==
--- OUTSIDE RECORDS SUMMARY | 2025-02-10 14:44 | XMS_ITS | Clinical Summary ---
Author Organization [employer] Address [address] [facility] 7 [place] [address] Care Team Providers Care Motorized Squad Captain Name Role Phone Unavailable Primary Care [...] 8:30 AM EDT Office Visit [facility] DENTAL [address] [place] [address] Ramandeep Machado Health Maintenance Due Date Last [...]
--- OUTSIDE RECORDS SUMMARY | 2025-02-10 14:44 | XMS_ITS | Encounter Summary ---
Author Organization [employer] Address 75 [facility] 7 [place] [address] Care Team Providers Care Interstate Planner Name Role Phone Unavailable Primary Care Provider [...] Description 07/26/2025 8:30 AM EDT Office Visit [facility] DENTAL [address] [place] [address] Ramandeep Machado documented as of this encounter Visit Diagnoses Not on filedocumented in this encounter
--- OUTSIDE RECORDS SUMMARY | 2025-02-10 14:44 | XMS_ITS | Encounter Summary ---
Author Organization [employer] Address [address] [facility] 7 [place] [address] Care Team Providers Care Bottle Capper Name Role Phone Unavailable Primary Care Provider [...] 07/26/2025 8:30 AM EDT Office Visit [facility] DENTAL [address] [place] [address] Ramandeep Machado documented as of this encounter Visit Diagnoses Not on filedocumented in this encounter
--- OUTSIDE RECORDS SUMMARY | 2025-02-10 14:44 | XMS_ITS | Encounter Summary ---
Author Organization [employer] Address [address] [place] [address] Care Team Providers Care Teller Head Name Role Phone Unavailable Primary Care Provider [...] Description 07/26/2025 8:30 AM EDT Office Visit [facility] DENTAL [address] [place] [address] Ramandeep Machado documented as of this encounter Visit Diagnoses Not on filedocumented in this encounter
--- OUTSIDE RECORDS SUMMARY | 2025-02-10 14:44 | XMS_ITS | Clinical Summary ---
Author Organization [facility], Address [address] [place] [address] Phone Care Team Providers Care Storage Management Consultant Name Role Phone Unavailable Primary Care Provider [...] 03/14/2019 Obstructive sleep apnea 12/17/2018 Overview (01/07/2022): [facility] Home Polysomnogram: Date 12/14/2018; AHI 19, Unclassified [...] of 1 - PCV) 2023 Influenza Vaccine (Season Ended) 2025 08/09/2020, 08/18/2019, 09/17/2018, Additional history exists Hepatitis B Vaccine Aged Out No longe r eligible based on patient's age to complete this topic Insurance MEDICARE [place]ICAID [place]
--- OUTSIDE RECORDS SUMMARY | 2025-02-10 14:44 | XMS_ITS | Encounter Summary ---
Author Organization [employer] Address [address] [facility] 7 [place] [address] Care Team Providers Care Ibm Bpm Developer Name Role Phone Unavailable Primary Care Provider [...] 8:30 AM EDT Office Visit [facility] DENTAL [address] [place] [address] Ramandeep Machado documented as of this encounter Visit Diagnoses Not on filedocumented in this encounter
--- OUTSIDE RECORDS SUMMARY | 2025-02-10 14:44 | XMS_ITS | Clinical Summary ---
Author Organization [address] [place] [address] Address [address] [place] [address] Phone Care Team Providers Care Leaf Stamper Name Role Phone Jc Myrick RENETTA Primary Care Provider [phone] Allergies No known active allergies Medications acetaminophen [...] and/or spironolactone after discussion with his primary career technical education teacher. Abnormal EKG 03/11/2023 Persistent atrial fibrillation 03/11/2023 [...] injury and catheter thrombus related stroke or NV. He understands that he may not necessarily build to come off of anticoagulation even if successful we will base that decision on his [id number] score. I encouraged him to continue efforts [...] 03/14/2019 Obstructive sleep apnea 12/17/2018 Overview (08/24/2024): [facility] Home Polysomnogram: Date 12/14/2018; AHI 19, [...] Type Department Care Team Description 11/21/2024 Telephone [facility] Cardiology [facility] Dr [address] [facility] [address] [place] [address] Jc Myrick FNP Medical Records [...] Comments COLONOSCOPY 10/19/2007 PROCEDURE: HISTORICAL COLONOSCOPY; COMMENT: [facility]; [place]; multiple small tubular adenomas. COLONOSCOPY 02/02/2018 PROCEDURE: HISTORICAL COLONOSCOPY; COMMENT: Diminutive colonic polyps ? 3 : all tubular adenomas. OTHER SURGICAL HISTORY 08/2017 PROCEDURE: DECOMPRESS DISC RF LUMBAR; COMMENT: microlumbar discectomy L4-5 Lam TURP / TRANSURETHRAL INCISIO N / DRAINAGE PROSTATE 2017 PROCEDURE: HISTORICAL TURP UPPER GASTROINTESTINAL ENDOSCOPY 04/12/2020 PROCEDURE: [place] UPPER GI ENDOSCOPY PERFORMED; COMMENT: normal on famotidine rx. OTHER SURGICAL HISTORY 02/05/2022 PROCEDURE: NM ARTHRODESIS POSTERIOR INTERBODY 1 NTRSPC LUMBAR; COMMENT: [...] Due Date Last Done Comments RSV Immunization Adult Patients (1 - Risk 60-74 years 1-dose series) 2018 Depression Screening 10/18/2022 Medicare Annual Wellness Visit 10/18/2022 Social Influencers of Health Screening 10/18/2022 Colorectal Cancer Screening: Colonoscopy 02/02/2023 02/02/2018 Falls Risk Assessment 2023 COVID-19 Vaccine (2 - season) 2024 05/02/2021 [...] Maintenance Insurance [employer] MEDICARE Care Teams Leaf Stamper Relationship Specialty Start Date End Date Jc Myrick FNP PCP - General Family Medicine 10/10/24
[2025-02-10 14:49] LABS: Cholesterol 156 mg/dL (<200); HDL Cholesterol 50 mg/dL (>40)
[2025-02-10 15:16] LABS: LDL Cholesterol Calculated 92 mg/dL (<100); Triglycerides 74 mg/dL (<150)
== END 2025-02-10 12:55 | disposition home or self-care (01) ==
LOC: HO.WFDLDS 12:54
PROVIDERS: Visit Provider Nurse Practitioner Family
DX: E78.5 Hyperlipidemia, unspecified (principal)
CPT/HCPCS: 36415; 80061

== ENCOUNTER 2025-02-14 08:34 | Outpatient (AMB) | payer OTHER, MEDICAID, SELFPAY ==
--- NOTE | 2025-02-14 08:35 | A.OFFPC_ITS ---
Vital Signs 02/14/25 08:43 Height 6 ft 2 in Weight 274 lb 4 oz BMI 35.2 BP 118/68 Blood Pressure Location Rt brachial Position Sitting Respiration 14 Pulse 68 Pulse Source Pulse Oximeter Temp 98.2 F Temp Source Oral Pulse Oximetry (%) 98 Oxygen Delivery Method Room Air Intake Visit Reasons: 3 mos HLD, HTN Intake Note: Luis presents in the office this moring for a follow up to hyperlipidemia and hypertension. Heating Fixture Tender Required: No Allergies No Known Allergies Allergy (Verified 02/14/25 08:50) Medication List - Last Reconciled 02/14/25 by Jc Myrick CNP empagliflozin (Jardiance) 10 mg PO DAILY ibuprofen 600 mg PO Q8H PRN metoprolol succinate ER 50 mg PO DAILY metronidazole 0.75% appl topical rosuvastatin 20 mg PO DAILY 30 days sacubitril-valsartan 97-103 mg (Entresto) 1 tab PO BID testosterone 1 tube topical ONCE Tobacco use date assessed: 02/14/25 Fall risk assessment: No Falls in past year Last assessed Fall Risk: 02/14/25 Dental Screening Dental Screen Date: 02/14/25 Did you have a dental visit in the last 12 months?: Yes Did you have a dental problem in the last 6 months where you did not have access to dental care?: No Was dental information given to patient?: Patient has dentist HPI HPI Comments History of Present Illness Details 64-year-old male presents for hypertensi on and hyperlipidemia follow- up. He admits to taking his medications as prescribed without adverse reactions. He is excited that he has surgery schedule for a spinal stimulator for chronic low back pain and bilateral lower extremity pain. No acute symptoms at this time. [facility] Medical History (Updated 02/02/25 @ 11:35 by Jc Myrick CNP) Neuropathy A-fib Lumbar radiculopathy Surgical History (Updated 09/06/24 @ 09:45 by Janneth Nguyen MA) H/O eye surgery History of bladder surgery History of shoulder surgery History of lumbar fusion Social History (Updated 02/14/25 @ 08:40 by Sofy Martines MA) Housing: House Alcohol intake: former Patient Tobacco Use Status: Never used Tobacco e-Cigarette/Vaping Use: Never Used Second Hand Smoke Exposure: No service: No Current occupational status: retired and disabled Current occupational exposures/hazards: No Cognitive needs: No Hearing needs: No Vision needs: No Questionnaire PHQ-9 Over the last 2 weeks, how often have you been bothered by any of the following problems? 1. Little interest or pleasure in doing things: not at all 2. Feeling down, depressed, or hopeless: not at all 3. Trouble falling or staying asleep, or sleeping too much: several days 4. Feeling tired or having little energy: not at all 5. Poor appetite or overeating: several days 6. Feeling bad about yourself - or that you are a failure or have let yourself or your family down: not at all 7. Trouble concentrating on things, such as reading the newspaper or watching television: not at all 8. Moving or speaking so slowly that other people could have noticed. Or the opposite - being so fidgety or restless that you have been moving around a lot more than usual: not at all 9. Thoughts that you would be better off or of hurting yourself in some way: not at all Total score: 2 Depression Screening Interpretation: Negative Depression Screening Done: Yes [address]4300 - PHQ-9 Billing: Patient declined-do not bill Source: Developed by Drs. Juan Toribio, Sheri Colunga, Micheal Escobar and colleagues, with an educational maynor from [facility]. Thrive Questionnaire Date Thrive assessed: 02/14/25 What is your living situation today?: I have a steady place to live Within the past 12 months, did the food you bought not last and you didn't have the money to get more?: Never true Within the past 12 months, did you worry whether your food would run out before you got money to buy more?: Never true Do you have trouble paying for medicines?: No Do you have trouble getting transportation to medical appointments?: No Do you have trouble paying your heating and electricity bill?: No Do you have trouble taking care of your child, family member or friend?: No Do you have trouble with day-to-day activities such as bathing, preparing meals, shopping, managing finances, etc.?: I choose not to answer this question Are you currently unemployed and looking for a job?: I choose not to answer this question Are you interested in more education?: I choose not to answer this question Please select the resources that you would like help with: None THRIVE Score: 0 LESLIE-7 AMB Questionnaire LESLIE-7 Date LESLIE - 7 assessed: 02/14/25 Feeling nervous, anxious, or on edge: 0 = Not at all Not being able to stop or control worryin = Not at all Worrying too much about different things: 0 = Not at all Trouble relaxin = Not at all Being so restless that it is hard to sit still: 0 = Not at all Becoming easily annoyed or irritable: 0 = Not at all Feeling afraid as if something awful might happen: 0 = Not at all Total LESLIE-7 score (0-4 normal; 5-9 mild; 10-14 moderate; 15-21 severe): 0 Source: Developed by Drs. Juan Toribio, Sheri Colunga, Micheal Escobar and colleagues, with an educational maynor from [facility]. LESLIE-7 Assessment Billing LESLIE-7 Assessment Tool: LESLIE-7 Assessment 04429 Review of Systems Const Details: Const Denies chills, Denies fatigue, Denies fever(s), Denies headache(s) and Denies weakness ENT Denies dizziness and Denies headache(s) Card Denies chest pain, Denies lightheadedness, Denies dyspnea and Denies other (Palpitations) Resp Denies cough, Denies dyspnea, Denies wheezing and Denies other ( shortness of breath) GI Denies abdominal pain, Denies melena, Denies hematochezia, Denies change in bowel habits, Denies dyspepsia and Denies nausea Denies hematuria and Denies dysuria Musc Reports chronic back pain and bilateral lower extremity pain Skin/Breast Denies rash, Denies unusual bruising and Denies wounds Neuro Denies abnormal gait, Denies dizziness, Denies headache(s), Denies memory loss, Denies numbness, Denies Sensory deficit (Neuro), Denies tingling and Denies weakness Psych Denies anxiety, Denies depression, Denies memory loss Endo Denies cold intolerance, Denies fatigue, Denies heat intolerance, Denies polydipsia and Denies polyuria Aller/Immun Denies wheezing Physical exam (Primary Care) Vital Signs: Last Vital Signs Temp 98.2 F 02/14/25 08:43 Pulse 68 02/14/25 08:43 Resp 14 02/14/25 08:43 BP 118/68 02/14/25 08:43 Pulse Ox 98 02/14/25 08:43 Oxygen Delivery Method Room Air 02/14/25 08:43 BMI result Body Mass Index 35.2 Tobacco/Smoking Status: Tobacco use Status Tobacco use date assessed 02/14/25 02/14/25 08:46 Patient Tobacco Use Status Never used Tobacco 02/14/25 08:40 e-Cigarette/Vaping Use Never Used 02/14/25 08:40 PHQ-9: PHQ-9 Score PHQ-9: Total score 2 02/14/25 09:05 Depression Screening Interpretation: Negative Thrive Assessment: Date of Thrive Assessment Date Thrive assessed 11/15/24 02/14/25 11:05 Const Other: General: no acute distress and well developed Nutritional Appearance: well nourished Orientation/consciousness: patient oriented x3 HENMT Head: Yes normocephalic and Yes atraumatic Eyes General: appearance normal, both eyes and all related structures Pupils: Equal, round and reactive pupils present EOM: EOMs intact bilaterally Resp Effort & Inspection: normal respiratory effort Auscultation: clear to auscultation bilaterally Cardio Rate: regular rate Rhythm: regular rhythm Heart sounds: S1 normal heart sound present, S2 normal heart sound present, no gallops, no murmurs and no rubs GI Palpation (GI): No Abdominal aortic bruit present, Soft to palpation, nontender, No hepatosplenomegaly present and No Rebound tenderness present Auscultation: normal bowel sounds General: Yes no CVA tenderness Back/Spine/Pelvis Back: no CVA tenderness Cervical Spine: cervical ROM normal and No Cervical spine tenderness Thoracic/Lumbar Spine: thoraco-lumbar ROM normal, No pain with thoraco-lumbar ROM, No thoracic spinal tenderness and No lumbar spinal tenderness Extrem General: Yes normal to inspection, No edema and No calf tenderness Skin General: warm and dry. Normal skin color. Normal skin turgor Neuro General: patient oriented x3, gait normal and no focal neuro deficit Cranial nerves: Yes Equal, round and reactive pupils present Cognition (Neuro): normal cognition Gait exam (Neuro): Normal gait present Sensory Exam: No Sensory deficit (Neuro) Psych Appearance: grossly normal Affect: normal affect Attitude: cooperative Thought process: Normal thought process present Coding Level of Care Code Est Pt Level 3 (01166) Diagnoses Hypertension I10 Hyperlipidemia E78.5 Lumbar radiculopathy M54.16 Neuropathy involving both lower extremities G57.93 Additional Codes LESLIE-7 Assessment Billing - LESLIE-7 Assessment Tool: LESLIE-7 Assessment 49200 ([id number]) Assessment & Plan Assessment & Plan (1) Hypertension: Code(s): I10 - Essential (primary) hypertension Category: Medical Plan: Blood pressure is 118/68, within goal of less than 140/90. Continue current treatment regimen. Follow-up in 3 months or sooner with symptoms or concerns. Verbalized understanding and agreed with the plan. (2) Hyperlipidemia: Code(s): E78.5 - Hyperlipidemia, unspecified Category: Medical Plan: Recent lipid panel level is normal. Continue to take rosuvastatin as prescribed. Advised to limit foods high in saturated fat and avoid foods high in trans fat. Routine exercise encouraged. Will recheck lipid panel levels in 3 months. Verbalized understanding and agreed with the plan. (3) Lumbar radiculopathy: Code(s): M54.16 - Radiculopathy, lumbar region Category: Medical Plan: He is followed by [facility] neuro spine and pain management and has surgery for a spinal stimulator schedule later this month. (4) Neuropathy involving both lower extremities: Code(s): G57.93 - Unspecified mononeuropathy of bilateral lower limbs Category: Medical Plan: Plan as above. Orders: Orders Lipid Panel 3 Months E78.5 - Hyperlipidemia, unspecified
[2025-02-14 08:43] VITALS: BP 118/68; PULSE 68; RESP 14; TEMP 36.8; O2SAT 98; BMI 35.2
--- OUTSIDE RECORDS SUMMARY | 2025-02-14 08:53 | XMS_ITS | Encounter Summary ---
Author Organization [employer] Address [address] [facility] 7 [place] [address] Care Team Providers Care Graphotype Operator Name Role Phone Unavailable Primary Care [...] Description 07/26/2025 8:30 AM EDT Office Visit [facility] DENTAL [address] [place] [address] Ramandeep Machado documented as of this encounter Visit Diagnoses Not on filedocumented in this encounter
--- OUTSIDE RECORDS SUMMARY | 2025-02-14 08:53 | XMS_ITS | Encounter Summary ---
Author Organization [employer] Address [address] [facility] 7 [place] [address] Care Team Providers Care Branch Credit Counselor Name Role Phone Unavailable Primary Care Provider [...] Description 07/26/2025 8:30 AM EDT Office Visit [facility] DENTAL [address] [place] [address] Ramandeep Machado documented as of this encounter Visit Diagnoses Not on filedocumented in this encounter
--- OUTSIDE RECORDS SUMMARY | 2025-02-14 08:53 | XMS_ITS | Clinical Summary ---
Author Organization [employer] Address [address] [facility] 7 [place] [address] Care Team Providers Care Pug Machine Operator Name Role Phone Unavailable Primary Care [...] Description 07/26/2025 8:30 AM EDT Office Visit [facility] DENTAL [address] [place] [address] Ramandeep Machado Health Maintenance Due Date Last [...]
--- OUTSIDE RECORDS SUMMARY | 2025-02-14 08:53 | XMS_ITS | Clinical Summary ---
Author Organization [address] [place] [address] Address [address] [place] [address] Phone Care Team Providers Care Drain Technician Name Role Phone Jc Myrick RENETTA Primary Care Provider [phone] Allergies No known active allergies Medications acetaminophen [...] and/or spironolactone after discussion with his primary division roadmaster. Abnormal EKG 03/11/2023 Persistent atrial fibrillation 03/11/2023 [...] injury and catheter thrombus related stroke or ID. He understands that he may not necessarily build to come off of anticoagulation even if successful we will base that decision on his [id number] score. I encouraged him to continue efforts [...] 03/14/2019 Obstructive sleep apnea 12/17/2018 Overview (08/24/2024): [facility] Home Polysomnogram: Date 12/14/2018; AHI 19, [...] Type Department Care Team Description 11/21/2024 Telephone [facility] Cardiology [facility] Dr Rosales [facility] Center [address] [place] [address] Jc Myrick FNP Medical Records [...] Comments COLONOSCOPY 10/19/2007 PROCEDURE: HISTORICAL COLONOSCOPY; COMMENT: [facility]; [place]; multiple small tubular adenomas. COLONOSCOPY 02/02/2018 PROCEDURE: HISTORICAL COLONOSCOPY; COMMENT: Diminutive colonic polyps ? 3 : all tubular adenomas. OTHER SURGICAL HISTORY 08/2017 PROCEDURE: DECOMPRESS DISC RF LUMBAR; COMMENT: microlumbar discectomy L4-5 Lam TURP / TRANSURETHRAL INCISIO N / DRAINAGE PROSTATE 2017 PROCEDURE: HISTORICAL TURP UPPER GASTROINTESTINAL ENDOSCOPY 04/12/2020 PROCEDURE: [place] UPPER GI ENDOSCOPY PERFORMED; COMMENT: normal on famotidine rx. OTHER SURGICAL HISTORY 02/05/2022 PROCEDURE: [place] ARTHRODESIS POSTERIOR INTERBODY 1 NTRSPC LUMBAR; COMMENT: [...] ( - season) 2024 05/02/2021 Influenza Vaccine (Season Ended) 2025 08/09/2020, 08/18/2019, 09/17/2018, Additional history exists DTaP,Tdap,and Td [...] age to complete this topic Meningococcal B Vaccine Aged Out No l onger eligible based on patient's age to complete [...] to Health Maintenance Insurance [employer] [address] Care Teams Drain Technician Relationship Specialty Start Date End Date Jc Myrick FNP PCP - General Family Medicine 10/10/24
--- OUTSIDE RECORDS SUMMARY | 2025-02-14 08:53 | XMS_ITS | Encounter Summary ---
Author Organization [employer] Address [address] [facility] 7 [place] [address] Care Team Providers Care Sign Out Clerk Name Role Phone Unavailable Primary Care Provider [...] 07/26/2025 8:30 AM EDT Office Visit [facility] DENTAL [address] [place] [address] Ramandeep Machado documented as of this encounter Visit Diagnoses Not on filedocumented in this encounter
--- OUTSIDE RECORDS SUMMARY | 2025-02-14 08:53 | XMS_ITS | Encounter Summary ---
Author Organization [employer] Address [address] [facility] 7 [place] [address] Care Team Providers Care Property Technician Name Role Phone Unavailable Primary Care Provider [...] Office Visit [facility] DENTAL [address] [place] [address] Ramandeep Machado documented as of this encounter Visit Diagnoses Not on filedocumented in this encounter
--- OUTSIDE RECORDS SUMMARY | 2025-02-14 08:53 | XMS_ITS | Clinical Summary ---
Author Organization [facility], Address [address] [place] [address] Phone Care Team Providers Care Team Otr Truck Driver Name Role Phone Unavailable Primary Care Provider [...] 03/14/2019 Obstructive sleep apnea 12/17/2018 Overview (01/07/2022): [facility] Home Polysomnogram: Date 12/14/2018; AHI 19, [...]
== END 2025-02-14 08:57 | disposition home or self-care (01) ==
LOC: HO.HMCFM 08:34
PROVIDERS: PCP Nurse Practitioner Family; Visit Provider Nurse Practitioner Family
DX: I10 Essential (primary) hypertension (principal); E78.5 Hyperlipidemia, unspecified; M54.16 Radiculopathy, lumbar region; G57.93 Unspecified mononeuropathy of bilateral lower limbs

== ENCOUNTER → 2025-02-14 08:34 | Outpatient (BNVA) | payer OTHER, SELFPAY | PROVIDERS: PCP Nurse Practitioner Family; Visit Provider Nurse Practitioner Family | DX: I10 Essential (primary) hypertension (principal); E78.5 Hyperlipidemia, unspecified; M54.16 Radiculopathy, lumbar region; M79.662 Pain in left lower leg; M79.661 Pain in right lower leg; G89.29 Other chronic pain; Z79.899 Other long term (current) drug therapy | CPT/HCPCS: 96127 ==

== ENCOUNTER 2025-03-01 10:12 | Day surgery (SDC) | payer OTHER, MEDICAID, SELFPAY ==
[2025-02-24 09:38] VITALS: BMI 35.2
--- NOTE | 2025-02-24 13:20 | P.CONAN_ITS ---
Documented by User: Dariela Flynn NP 02/24/25 13:25 HPI - Anesthesia Eval Consult details Narrative: 64yo M for Spinal Cord Stimulation Implant s/p trial 11/2024 with TIVA Follows [facility] for afib (no anticoag), dilated CMP (nml LV function), AAA @ 4.4cm (requested recent echo). Stable at 10/2024 office visit Anesthesia Pre-Procedure Meds Is the patient on any of the following meds?: SGLT2 Inhib PMFSH Active Problems Active Problems: All Active Problems Right ankle pain (Acute) Varicose veins of bilateral lower extremities with pain (Acute) Hypogonadism in male (Acute) Leukopenia (Acute) Hyperlipidemia (Acute) Low testosterone (Acute) Vaccine counseling (Acute) Obesity (BMI 30-39.9) (Acute) Colon cancer screening (Acute) Neuropathy involving both lower extremities (Acute) Hypertension (Acute) Encounter for routine adult physical exam with abnormal findings (Acute) Laboratory tests ordered as part of a complete physical exam (CPE) (Acute) Lumbar post-laminectomy syndrome (Acute) Lumbar radiculopathy (Acute) Past Medical History Medical History (Updated 02/24/25 @ 11:22 by Rosalva Pollard RN) Neuropathy Lumbar disc disease Cervical spinal stenosis BPH (benign prostatic hyperplasia) Ascending aorta dilation Hyperlipidemia HTN (hypertension) NELLY (obstructive sleep apnea) Dilated cardiomyopathy Neuropathy A-fib Lumbar radiculopathy Family History Family history of problems with anesthesia: No Surgical History Surgical History (Updated 02/24/25 @ 11:22 by Rosalva Pollard RN) Status post cryoablation S/P placement of nerve stimulator H/O eye surgery History of bladder surgery History of shoulder surgery History of lumbar fusion History of Problems with Anesthesia: No Social History Social History (Updated 02/14/25 @ 08:40 by Sofy Martines MA) Housing: House Alcohol intake: former Patient Tobacco Use Status: Never used Tobacco e-Cigarette/Vaping Use: Never Used Second Hand Smoke Exposure: No Use of substances other than those prescribed or required for medical reasons: No Are you DNR?: No Advance Directives: No Advance Directives Information Provided: Yes Poor oral hygiene: No service: No Current occupational status: retired and disabled Current occupational exposures/hazards: No Cognitive needs: No Hearing needs: No Vision needs: No Meds Allergies Allergy/AdvReac Type Severity Reaction Status Date / Time No Known Allergies Allergy Verified 02/14/25 08:50 Home Medications ?Medication ?Instructions ?Recorded ?Confirmed ?Last Taken ?Type empagliflozin 10 mg tablet 10 mg PO DAILY 08/01/24 03/01/25 02/26/25 History (Jardiance) metoprolol succinate 50 mg 50 mg PO DAILY 08/01/24 02/24/25 03/01/25 History tablet,extended release 24 hr metronidazole 0.75 % topical cream 1 appl topical DAILY 08/01/24 02/24/25 Unknown History testosterone 1 % (50 mg/5 gram) 1 tube topical ONCE 09/06/24 02/24/25 Unknown History transdermal gel packet sacubitril 97 mg-valsartan 103 mg 1 tab PO BID 02/14/25 02/24/25 Unknown History tablet (Entresto) Exam Height,Weight and Vital Signs: Height 6 ft 2 in Weight 124.284 kg Pertinent Lab Results Pertinent Lab Results: Laboratory Tests 09/07/24 10/11/24 10:59 10:32 WBC 5.0 Hgb 16.9 Hct 50.3 Plt Count 182 Sodium 139 Potassium 4.6 Chloride 104 Carbon Dioxide 24 BUN 21 H Creatinine 1.18 Narrative Narrative: ECHO 07/2024 Contrast used Nml LV chamber size. Borderline conc LVH. Low nml LV sys function. LVEF 50-55%. No focal regional wall motion abnormalities. Nml LV diastolic function. RV is nml in size and sys function. PASP not elevated Mildly dilated LA No hemodynamically signif valve disease Aortic sinus 4.3cm. Asc aorta 4.4cm C/W 2022, aorta similar in size Assessment and Plan Assessment Anesthesia Assessment: Chart Reviewed Final Anesthetic Review Family History of Problems with Anesthesia: No History of Problems with Anesthesia: No Documented by User: Kleber Sheldon MD 03/01/25 11:02 [facility] Past Medical History Medical History (Updated 02/24/25 @ 11:22 by Rosalva Pollard RN) Neuropathy Lumbar disc disease Cervical spinal stenosis BPH (benign prostatic hyperplasia) Ascending aorta dilation Hyperlipidemia HTN (hypertension) NELLY (obstructive sleep apnea) Dilated cardiomyopathy Neuropathy A-fib Lumbar radiculopathy Surgical History Surgical History (Updated 02/24/25 @ 11:22 by Rosalva Pollard RN) Status post cryoablation S/P placement of nerve stimulator H/O eye surgery History of bladder surgery History of shoulder surgery History of lumbar fusion Social History Social History (Updated 02/14/25 @ 08:40 by Sofy Martines MA) Housing: House Alcohol intake: former Patient Tobacco Use Status: Never used Tobacco e-Cigarette/Vaping Use: Never Used Second Hand Smoke Exposure: No Use of substances other than those prescribed or required for medical reasons: No Are you DNR?: No Advance Directives: No Advance Directives Information Provided: Yes Poor oral hygiene: No service: No Current occupational status: retired and disabled Current occupational exposures/hazards: No Cognitive needs: No Hearing needs: No Vision needs: No Meds Allergies Allergy/AdvReac Type Severity Reaction Status Date / Time No Known Allergies Allergy Verified 02/14/25 08:50 Home Medications ?Medication ?Instructions ?Recorded ?Confirmed ?Last Taken ?Type empagliflozin 10 mg tablet 10 mg PO DAILY 08/01/24 03/01/25 02/26/25 History (Jardiance) metoprolol succinate 50 mg 50 mg PO DAILY 08/01/24 02/24/25 03/01/25 History tablet,extended release 24 hr metronidazole 0.75 % topical cream 1 appl topical DAILY 08/01/24 02/24/25 Unknown History testosterone 1 % (50 mg/5 gram) 1 tube topical ONCE 09/06/24 02/24/25 Unknown History transdermal gel packet sacubitril 97 mg-valsartan 103 mg 1 tab PO BID 02/14/25 02/24/25 Unknown History tablet (Entresto) Exam Narrative Narrative: nECHO 07/2024 Contrast used Nml LV chamber size. Borderline conc LVH. Low nml LV sys function. LVEF 50-55%. No focal regional wall motion abnormalities. Nml LV diastolic function. RV is nml in size and sys function. PASP not elevated Mildly dilated LA No hemodynamically signif valve disease Aortic sinus 4.3cm. Asc aorta 4.4cm C/W 2022, aorta similar in size Airway Mallampati Class: III TM Dist: >3cm Neck ROM: Full Assessment and Plan Assessment Anesthesia Assessment: Anesthesia Plan Discussed Final Anesthetic Review NPO: Yes ASA Class: III Final Preanesthetic Review: No Changes in Pt Med Stat, Meds/Allgs Chart Reviewed, Consent Obtained/Reviewed and Anes Risks/Benef Reviewed Patient Risk: Intermediate Procedure Risk: Low Anesthetic Plan Anesthetic Plan: TIVA Disposition: Standard PACU
--- NOTE | ~2025-03-01 | FL_ITS ---
EXAMINATION: FL GUIDANCE ONLY HISTORY: spinal cord stim implant COMPARISON: None available. TECHNIQUE: Fluoroscopy time: 4 minutes, 35 seconds. Cumulative Dose: 102.89 mGy. DAP: 15.908 mGym2 Images: 6. FINDINGS: This demonstrate placement of a spinal cord stimulator with the tip of the lead at the T8 level. FL/FL guidance in OR IMPRESSION: Fluoroscopy during procedure. Please see procedure report for additional information. Electronically signed by: Juan Davis MD 03/03/2025 08:41 AM EDT
[2025-03-01 10:34] VITALS: BMI 35.3
[2025-03-01 10:45] VITALS: BP 101/74; PULSE 111; RESP 16; TEMP 36.6; O2SAT 94
[2025-03-01] MEDS: Lactated Ringers 1,000 ML 100 ML IVCONT (11:03)
--- NOTE | 2025-03-01 11:06 | PC.NURSE ---
MD ROJO BY BEDSIDE EVALUATING PATIENT REGARDING HIS AFIB/ASYMPTOMATIC.
--- NOTE | 2025-03-01 11:52 | MHC.SHP ---
Pre-Procedural Eval Section A - 24 Hr Update-Section A only Date of Service: 03/01/25 The patient is an INPATIENT: No Changes since office visit: Yes Patient answered all questions The patient has been examined within 24 hours of the surgical procedure. The History & Physical has been completed within 30 days and I have reviewed it.: No Section B - Complete if H&P > 30 days Chief Complaint: Postlaminectomy syndrome, not elsewhere classified Relevant Family History (Specify if Yes): No Relevant Social History: None Present Medications: see Short Stay Collaborative assessment Medical History: No relevant PMH History of Previous Operations: No relevant previous surgery Allergies: Allergies Allergy/AdvReac Type Severity Reaction Status Date / Time No Known Allergies Allergy Verified 02/14/25 08:50 Review of Systems Sugical H&P ROS: Negative: Constitution, Cardiovascular and Respiratory Exam Surgical H&P Exam: Normal: HEENT, Normal: Heart and Normal: Lungs Plan Diagnosis/Plan: Unchanged I have reviewed the history and physical and performed a pertinent physical examination on my patient. No changes have occurred unless specified. Time Spent With Patient Time: Total time managing care of this patient today ____ minutes.
[2025-03-01] MEDS: ceFAZolin Sodium/Dextrose,Iso 2 GM/50 ML PIGGYBACK IV (12:02)
[2025-03-01 12:05] LABS: MRSA Nasal PCR NEGATIVE (Negative); SA Nasal PCR NEGATIVE (Negative)
--- NOTE | 2025-03-01 14:22 | P.BOP_ITS ---
Brief Operative Note Date of Service: 03/01/25 Pre-op diagnosis: Postlaminectomy syndrome Post-op diagnosis: same Procedure: Spinal cord stimulator implant, lumbar Implants: Medtronic Intellis adaptive stim IPG, leads Surgeon: Jett Ojeda MD Anesthesia: MAC Was an Drapery And Upholstery Estimator used for this Procedure?: No Estimated blood loss (mL): 30 Pathology: none sent Condition: stable Disposition: PACU
[2025-03-01 14:23] VITALS: BP 89/56; PULSE 80; RESP 16; TEMP 37.1
[2025-03-01 14:25] VITALS: BP 85/53; PULSE 76; RESP 16; O2SAT 94
--- NOTE | 2025-03-01 14:26 | W.PM.OPN ---
Operative Note Operative Note Date of Service: 03/01/25 Narrative: Preop Diagnosis: Post-laminectomy syndrome, lumbar Postop Diagnosis: Same Lumbar SCS Implant, Medtronic Intellis After proper identification, the patient was brought to the operating room. After prone positioning, patient was sedated under anesthesia. Care was taken during positioning to protect and pad all pressure points. Cefazolin 3gm was given as preoperative antibiotic prophylaxis. The back was prepped and draped in the usual sterile fashion using Chloroprep. The fluoroscope unit was sterilely draped and brought into field, the vertebral target and the L1/L2 interspace was localized with fluoroscopy after the skin was anesthetized with 0.25% bupivicaine with 1:200,000 epinephrine and 1% lidocaine using a 25-gauge needle. A 6 cm incision was then made in the midline back with a 15 blade between the L2 and L3 spinous processes. Electrocautery was used to dissect down to the prevertebral fascia. Two 14-gauge introducer Tuohy needles were advanced using AP and contralateral oblique fluoroscopy views to the target interspace from the left side at a shallow angle. Upon loss of resistance, a flexible stylet was advanced and verified to be in the epidural space.? The left electrode was then threaded up to the bottom of T8 vertebral body. The right electrode was threaded to the middle of T8 vertebral body. With the needles covering the leads, we placed 2 sets of Tycron sutures per electrode for the anchor stitches. We then backed out the needle under live fluoroscopy, verifying that the electrodes were in the correct position and we then used the anchors to secure the electrodes down to the prevertebral fascia, tying them down with the Tycron sutures. At this point, a pocket for the generator was made in the left iliac fossa. With the skin and subcutaneous tissues anesthetized with 0.25% bupivicaine with 1:200,000 epinephrine and 1% lidocaine, a horizontal 2-inch incision was made using a 15 blade and combination of sharp dissection, blunt dissection and electrocautery was used. A pocket was created about half an inch below the skin. The pocket was then irrigated with normal saline containing vancomycin. Hemostasis was attained with electrocautery. We then tunneled the electrodes from the back into the pocket using the tunneling device. The electrodes were then connected to the generator. A single Tycron suture was thrown across the floor of the pocket and through the medial anchor hold of the generator. After interrogation with impedance check the generator was placed into the subcutaneous pocket and the anchoring suture tied. Care was taken not to get fluid in the generator connector block. The excess lead was closed beneath the generator creating a loop of strain relief as well. The neurostimulator generator was placed parallel to the skin at a depth of half an inch along for successful telemetry and impedence. The pocket was reirrigated and closed with the generator name facing out. Final electronic analysis was performed to ensure proper functioning. Positioning of the leads were rechecked and confirmed with fluoroscopy and images saved. Both incisions were closed with a deep layer of 2-0 Vicryl sutures, the deep dermal layer with 3-0 Vicryl sutures, simple interrupted and a running 4-0 Monocryl for the subcutaneous layer. We then secured the incision with Dermabond, steristrips, mastisol and tegaderm over both incisions. The patient tolerated the procedure well. The patient was then flipped back into the supine position, woken up and brought to the PACU in stable condition. Complications: None EBL: 30 mL
[2025-03-01 14:30] VITALS: BP 89/59; PULSE 75; RESP 16; O2SAT 94
[2025-03-01 14:45] VITALS: BP 96/56; PULSE 76; RESP 20; O2SAT 97
[2025-03-01 15:00] VITALS: BP 98/59; PULSE 75; RESP 18; TEMP 36.2; O2SAT 97
== END 2025-03-01 15:45 | disposition home or self-care (01) ==
PROVIDERS: Registered Nurse Emergency; PCP Nurse Practitioner Family; Visit Provider Internal Medicine
PROC: (CPT 63685; principal; 2025-03-01 12:00)
DX: M96.1 Postlaminectomy syndrome, not elsewhere classified (principal); G89.29 Other chronic pain; M54.16 Radiculopathy, lumbar region; Z98.1 Arthrodesis status; G62.9 Polyneuropathy, unspecified; G47.33 Obstructive sleep apnea (adult) (pediatric); I48.91 Unspecified atrial fibrillation; Z79.84 Long term (current) use of oral hypoglycemic drugs; Z79.899 Other long term (current) drug therapy
CPT/HCPCS: 63685; 63650 ×2; 87640; 87641; C1778; C1820; J0131; J0690; J2003; J2371; J2704; J3010; J3370

== ENCOUNTER → 2025-03-01 10:12 | Outpatient (BNV) | payer OTHER, MEDICAID, SELFPAY | PROVIDERS: PCP Nurse Practitioner Family; Visit Provider Internal Medicine | DX: M96.1 Postlaminectomy syndrome, not elsewhere classified (principal) | CPT/HCPCS: 63650; 63685 ==

== ENCOUNTER 2025-03-08 10:31 | Outpatient (AMB) | payer OTHER, MEDICAID, SELFPAY ==
--- NOTE | 2025-03-08 10:42 | MHC.OFFVIS ---
Vital Signs 03/08/25 10:43 Height 6 ft 2 in Weight 271 lb BMI 34.8 BP 114/76 Blood Pressure Location Lt brachial Position Sitting Respiration 16 Pulse 73 Pulse Source Pulse Oximeter Pulse Oximetry (%) 97 Oxygen Delivery Method Room Air Intake Visit Reasons: S/p Medtronic SCS Implant 03/01/25 Rf Design Engineer Required: No Allergies No Known Allergies Allergy (Verified 03/17/25 10:42) Medication List - Last Reconciled 03/08/25 by Gege Burgess LPN empagliflozin (Jardiance) 10 mg PO DAILY ibuprofen 600 mg PO Q8H PRN metoprolol succinate ER 50 mg PO DAILY metronidazole 0.75% 1 appl topical DAILY rosuvastatin 20 mg PO DAILY 30 days sacubitril-valsartan 97-103 mg (Entresto) 1 tab PO BID testosterone 1 tube topical ONCE HPI HPI S/p Medtronic SCS Implant 03/01/25: Details: History of Present Illness The patient is a 64-year-old male presenting for a follow-up after the implantation of a spinal portion immunolator. Last Thursday, he underwent surgery to manage chronic pain and has experienced complete pain relief since the procedure. Despite the relief, he has noticed soreness and tenderness at the incision sites. The midline incision site is particularly tender upon palpation. Currently, the incision sites are healing well, though there is some dried blood present on the steri-strips. The patient is advised against showering for another week to aid the healing process. He is already using an abdominal binder for additional support to promote healing. The patient acknowledges the care plan and the need to return for reassessment of the incision sites next week for potential clearance to resume showering. Pain Description - 100% pain relief of usual pain following spinal implant - Soreness and tenderness present at incision sites - Tenderness noted at midline incision on palpation - Incision site soreness characterized by minimal dry blood presence Physical Exam - Skin- Incisions well-healed with presence of some dry blood on steri-strips - Musculoskeletal- Tenderness to palpation at midline incision site Pain Management - Affect: Pain relief has positively impacted psychological wellbeing - Analgesia: 100% pain relief post-spinal implant; no pain medications currently indicated - Adverse Effects: No adverse effects concerning pain relief reported - Activities of Daily Living: Continues normal activities cautiously, following postoperative instructions - Aberrant Drug Related Behaviors: No evidence of medication misuse or abuse [facility] Medical History (Updated 02/24/25 @ 11:22 by Rosalva Pollard RN) Neuropathy Lumbar disc disease Cervical spinal stenosis BPH (benign prostatic hyperplasia) Ascending aorta dilation Hyperlipidemia HTN (hypertension) NELLY (obstructive sleep apnea) Dilated cardiomyopathy Neuropathy A-fib Lumbar radiculopathy Surgical History (Updated 02/24/25 @ 11:22 by Rosalva Pollard RN) Status post cryoablation S/P placement of nerve stimulator H/O eye surgery History of bladder surgery History of shoulder surgery History of lumbar fusion Social History (Updated 02/14/25 @ 08:40 by Sofy Martines MA) Housing: House Alcohol intake: former Patient Tobacco Use Status: Never used Tobacco e-Cigarette/Vaping Use: Never Used Second Hand Smoke Exposure: No service: No Current occupational status: retired and disabled Current occupational exposures/hazards: No Cognitive needs: No Hearing needs: No Vision needs: No Physical Exam Vital Signs: Last Vital Signs Pulse 73 03/08/25 10:43 Resp 16 03/08/25 10:43 BP 114/76 03/08/25 10:43 Pulse Ox 97 03/08/25 10:43 Oxygen Delivery Method Room Air 03/08/25 10:43 BMI result Body Mass Index 34.8 Assessment & Plan Assessment & Plan (1) Lumbar post-laminectomy syndrome: Code(s): M96.1 - Postlaminectomy syndrome, not elsewhere classified Category: Medical Plan Plan - Cleaned and redressed incision sites with Chloraprep and upside dressings. - Continue with the abdominal binder for support. - Abstain from showering for one more week to allow incision healing. - Return to clinic in one week for incision reevaluation and possible clearance for showering. Patient was informed and verbally consented to the use of an ambient scribe for clinic note documentation during this visit. Discussion Notes During our consultation, I discussed with the patient the positive outcome of his spinal portion immunolator implantation and the achievement of total pain relief. We reviewed the postoperative soreness and tenderness at the incision sites. I explained the importance of continued use of the abdominal binder and abstaining from showering to facilitate proper healing of the surgical sites. The patient was informed about our plan to reassess his incisions at the follow-up visit next week to determine if he can resume showering. He demonstrated an understanding of these recommendations and agreed to adhere to the plan. Patient Instructions - Keep using the abdominal binder for support. - Do not shower for about another week. - Return in one week for a check-up. - If you notice any changes or worsening, please call the office. Coding Level of Care Code Est Pt Level 3 (70356) Diagnoses Lumbar post-laminectomy syndrome M96.1
[2025-03-08 10:43] VITALS: BP 114/76; PULSE 73; RESP 16; O2SAT 97; BMI 34.8
--- OUTSIDE RECORDS SUMMARY | 2025-03-08 11:54 | XMS_ITS | Encounter Summary ---
Author Organization [facility] Address [address] [place] [address] Care Team Providers Care Senior Linux Administrator Name Role Phone Papito Mann MD Primary Care Provider Unavailable Amy Wilkerson MD Primary Care Provider + [phone] Thierno Duvall MD, PHD Unavailable Unava ilable Lizbeth Parikh PA-C Unavailable [phone] Bin Fowler PA-C Unavailable [phone] Vinicius Fonseca Unavailable Unavailable Amador Funk MD Unavailable [phone] Daryl Dunn NP Unavailable [phone] Timoteo Mcfarland MD Unavailable [phone] Marco Hunt MD Unavailable [phone] Joy Brand NP Unavailable [phone] [facility], Pcp Primary Care Provider Unavailabl e Encounter Details Date Type Department Care Team Description 01/23/2021 Old Medical Records Medical Records [address] [place] [address] Abstract, Provider Social History Tobacco Use Types [...] on filedocumented in this encounter Care Teams Senior Linux Administrator Relationship Specialty Start Date End Date Papito Mann MD PCP - General Internal Medicine 06/24/17 11/10/21 Amy Wilkerson MD [address] [place] [id number] PCP - General Internal Medicine 11/11/21 09/05/24 [facility], Pcp [address] [phone] PCP - General Internal Medicine 09/06/24 Thierno Duvall MD, PHD [address] [place] [address] Surgeon Neurosurgery 02/25/22 Lizbeth Parikh PA-C [address] [address] Specialist Neurosurgery 02/25/22 Bin Fowler PA-C [address] [address] Specialist Neurosurgery 02/25/22 Vinicius Fonseca [address] [address] Dermatology 03/10/23 Amador Funk MD [address] [address] Soft Sugar Cutter Cardiovascular Disease 03/10/23 Daryl Dunn NP [address] [address] Nurse Practitioner Cardiology 04/27/23 10/19/23 Timoteo Mcfarland MD [address] [address] ORTHOPEDIC SURGERY 08/24/23 Marco Hunt MD [address] [address] Specialist Cardiology 10/09/23 Joy Brand NP [address] [phone] Cardiology 10/09/23 [facility] urology Specialist Urology 08/24/23 documented as of this encounter
--- OUTSIDE RECORDS SUMMARY | 2025-03-08 11:54 | XMS_ITS | Encounter Summary ---
Author Organization [facility] Address [address] [place] [address] Care Team Providers Care Household Appliances Service Technician Name Role Phone Amy Wilkerson MD Primary Care Provider + [phone] Thierno Duvall MD, PHD Unavailable Unava ilable Lizbeth Parikh PA-C Unavailable [phone] Bin Fowler PA-C Unavailable [phone] Vinicius Fonseca Unavailable Unavailable Amador Funk MD Unavailable [phone] Daryl Dunn NP Unavailable [phone] Timoteo Mcfarland MD Unavailable [phone] Marco Hunt MD Unavailable [phone] Joy Brand NP Unavailable [phone] [facility], Pcp Primary Care Provider Unavailabl e Encounter Details Date Type Department Care Team Description 12/30/2022 Orders Only Medical Records [address] [place] [id number] Abstract, Provider Social History Tobacco Use Types [...] on filedocumented in this encounter Care Teams Household Appliances Service Technician Relationship Specialty Start Date End Date Amy Wilkerson MD [address] [place] [address] PCP - General Internal Medicine 11/11/21 09/05/24 [facility], Pcp [address] [phone] PCP - General Internal Medicine 09/06/24 Thierno Duvall MD, PHD [address] [place] [address] Surgeon Neurosurgery 02/25/22 Lizbeth Parikh PA-C [address] [address] Specialist Neurosurgery 02/25/22 Bin Fowler PA-C [address] [address] Specialist Neurosurgery 02/25/22 Vinicius Fonseca [address] [address] Dermatology 03/10/23 Amador Funk MD [address] [address] Meter Repair Shop Supervisor Cardiovascular Disease 03/10/23 Daryl Dunn NP [address] [address] Nurse Practitioner Cardiology 04/27/23 10/19/23 Timoteo Mcfarland MD [address] [address] ORTHOPEDIC SURGERY 08/24/23 Marco Hunt MD [address] [address] Specialist Cardiology 10/09/23 Joy Brand NP [address] [phone] Cardiology 10/09/23 [facility] urology Specialist Urology 08/24/23 documented as of this encounter
--- OUTSIDE RECORDS SUMMARY | 2025-03-08 11:54 | XMS_ITS | Encounter Summary ---
Author Organization [facility] Address [address] [place] [address] Care Team Providers Care Transitional Kindergarten Teacher Name Role Phone Papito Mann MD Primary Care Provider Unavailable Amy Wilkerson MD Primary Care Provider + [phone] Thierno Duvall MD, PHD Unavailable Unava ilable Lizbeth Parikh PA-C Unavailable +[phone] Bin Fowler PA-C Unavailable +[phone] Vinicius Fonseca Unavailable Unavailable Amador Funk MD Unavailable [phone] Daryl Dunn NP Unavailable [phone] Timoteo Mcfarland MD Unavailable [phone] Marco Hunt MD Unavailable [phone] Joy Brand NP Unavailable [phone] [facility], Pcp Primary Care Provider Unavailabl e Encounter Details Date Type Department Care Team Description 06/10/2019 Merchandising Professor Report Medical Records [address] [place] [address] Rehab., Preet Social History Tobacco Use Types [...] on filedocumented in this encounter Care Teams Transitional Kindergarten Teacher Relationship Specialty Start Date End Date Papito Mann MD PCP - General Internal Medicine 06/24/17 11/10/21 Amy Wilkerson MD [address] [place] [address] PCP - General Internal Medicine 11/11/21 09/05/24 [facility], Pcp [address] [address] PCP - General Internal Medicine 09/06/24 Thierno Duvall MD, PHD [address] [place] [address] Surgeon Neurosurgery 02/25/22 Lizbeth Parikh PA-C [address] [address] Specialist Neurosurgery 02/25/22 Bin Fowler PA-C [address] [address] Specialist Neurosurgery 02/25/22 Vinicius Fonseca [address] [address] Dermatology 03/10/23 Amador Funk MD [address] [address] Chief Quality Officer Cardiovascular Disease 03/10/23 Daryl Dunn NP [address] [address] Nurse Practitioner Cardiology 04/27/23 10/19/23 Timoteo Mcfarland MD [address] [address] ORTHOPEDIC SURGERY 08/24/23 Marco Hunt MD [address] [address] Specialist Cardiology 10/09/23 Joy Brand NP [address] [phone] Cardiology 10/09/23 [facility] urology Specialist Urology 08/24/23 documented as of this encounter
--- OUTSIDE RECORDS SUMMARY | 2025-03-08 11:54 | XMS_ITS | Encounter Summary ---
Author Organization [facility] Address [address] [place] [address] Care Team Providers Care Electronics Tech Name Role Phone Papito Mann MD Primary Care Provider Unavailable Amy Wilkerson MD Primary Care Provider + [phone] Thierno Duvall MD, PHD Unavailable Unava ilable Lizbeth Parikh PA-C Unavailable +[phone] Bin Fowler PA-C Unavailable [phone] Vinicius Fonseca Unavailable Unavailable Amador Funk MD Unavailable [phone] Daryl Dunn NP Unavailable [phone] Timoteo Mcfarland MD Unavailable [phone] Marco Hunt MD Unavailable [phone] Joy Brand NP Unavailable [phone] [facility], Pcp Primary Care Provider Unavailabl e Encounter Details Date Type Department Care Team Description 08/18/2019 Sales Representative Education Courses Report Medical Records [address] [place] [address] Rehab., Preet Social History Tobacco Use Types [...] on filedocumented in this encounter Care Teams Electronics Tech Relationship Specialty Start Date End Date Papito Mann MD PCP - General Internal Medicine 06/24/17 11/10/21 Amy Wilkerson MD 230 [place] [address] PCP - General Internal Medicine 11/11/21 09/05/24 [facility], Pcp [address] [address] PCP - General Internal Medicine 09/06/24 Thierno Duvall MD, PHD [address] [place] [address] Surgeon Neurosurgery 02/25/22 Lizbeth Parikh PA-C [address] [address] Specialist Neurosurgery 02/25/22 Bin Fowler PA-C [address] [address] Specialist Neurosurgery 02/25/22 Vinicius Fonseca [address] [address] Dermatology 03/10/23 Amador Funk MD [address] [address] Solar Sales Cardiovascular Disease 03/10/23 Daryl Dunn NP [address] [address] Nurse Practitioner Cardiology 04/27/23 10/19/23 Timoteo Mcfarland MD [address] [address] ORTHOPEDIC SURGERY 08/24/23 Marco Hunt MD [address] [address] Specialist Cardiology 10/09/23 Joy Brand NP [address] [phone] Cardiology 10/09/23 [facility] urology Specialist Urology 08/24/23 documented as of this encounter
--- OUTSIDE RECORDS SUMMARY | 2025-03-08 11:54 | XMS_ITS | Encounter Summary ---
Author Organization [facility] Address [address] [place] [address] Care Team Providers Care Banana Room Cutter Name Role Phone Papito Mann MD Primary Care Provider Unavailable Amy Wilkerson MD Primary Care Provider + [phone] Thierno Duvall MD, PHD Unavailable Unava ilable Lizbeth Parikh PA-C Unavailable [phone] Bin Fowler PA-C Unavailable [phone] Vinicius Fonseca Unavailable Unavailable Amador Funk MD Unavailable [phone] Daryl Dunn NP Unavailable [phone] Timoteo Mcfarland MD Unavailable [phone] Marco Hunt MD Unavailable [phone] Joy Brand NP Unavailable [phone] [facility], Pcp Primary Care Provider Unavailabl e Encounter Details Date Type Department Care Team Description 01/04/2021 Liquified Natural Gas Specialist Report Medical Records [address] [place] [address] Krish Lopez PA-C Social History Tobacco Use Types Packs/Day [...] on filedocumented in this encounter Care Teams Banana Room Cutter Relationship Specialty Start Date End Date Papito Mann MD PCP - General Internal Medicine 06/24/17 11/10/21 Amy Wilkerson MD 230 [place] [address] PCP - General Internal Medicine 11/11/21 09/05/24 [facility], Pcp [address] [address] PCP - General Internal Medicine 09/06/24 Thierno Duvall MD, PHD [address] [place] [address] Surgeon Neurosurgery 02/25/22 Lizbeth Parikh PA-C [address] [address] Specialist Neurosurgery 02/25/22 Bin Fowler PA-C [address] [address] Specialist Neurosurgery 02/25/22 Vinicius Fonseca [address] [address] Dermatology 03/10/23 Amador Funk MD [address] [address] Snow Plow Tractor Operator Cardiovascular Disease 03/10/23 Daryl Dunn NP [address] [address] Nurse Practitioner Cardiology 04/27/23 10/19/23 Timoteo Mcfarland MD [address] [address] ORTHOPEDIC SURGERY 08/24/23 Marco Hunt MD [address] [address] Specialist Cardiology 10/09/23 Joy Brand NP [address] [phone] Cardiology 10/09/23 [facility] urology Specialist Urology 08/24/23 documented as of this encounter
--- OUTSIDE RECORDS SUMMARY | 2025-03-08 11:54 | XMS_ITS | Encounter Summary ---
Author Organization [facility] Address [address] [place] [address] Care Team Providers Care Core Machine Operator Name Role Phone Amy Wilkerson MD Primary Care Provider Thierno Duvall MD, PHD Unavailable Unava ilable Lizbteh Parikh PA-C Unavailable [phone] Bin Fowler PA-C Unavailable [phone] Vinicius Fosneca Unavailable Unavailable Amador Funk MD Unavailable [phone] Timoteo Mcfarland MD Unavailable [phone] Marco Hunt MD Unavailable [phone] Joy Brand NP Unavailable [phone] [facility], Pcp Primary Care Provider Unavailabl e Reason for Visit * Reason Comments E-prescribe Rx Request Encounter Details Date Type Department Care Team Description 07/06/2024 Refill Adult Medicine - [place] [address] [place] [address] Alex Martinez PA 230 [place] [address] E-prescribe Rx Request Social History Tobacco Use Types Packs/Day Years [...] encounter Miscellaneous Notes * Telephone Encounter - Shaista Han M.A. - 07/06/2024 2:11 PM EDT PADMAJA 12/25/23 NOV none Rx pended Lab Results Component Value Date CHOL 207 12/25/2023 LDL 139 12/25/2023 HDL 53 12/25/2023 TRIG 77 12/25/2023 * Telephone Encounter - Tyrel Davis - 07/06/2024 11:13 AM EDT Patient is stating he has a new outside PCP and has his first appointment with them on 09/06/2024. Patient is asking for last 90 days refill. He is all put at this time documented in this encounter Plan of Treatment Not on file documented as of this encounter Visit Diagnoses Diagnosis Mixed hyperlipidemia documented in this encounter Care Teams Core Machine Operator Relationship Specialty Start Date End Date Amy Wilkerson MD 230 [place] [address] PCP - General Internal Medicine 11/11/21 09/05/24 [facility], Pcp [address] [address] PCP - General Internal Medicine 09/06/24 Thierno Duvall MD, PHD [address] [place] [address] Surgeon Neurosurgery 02/25/22 Lizbeth Parikh PA-C [address] [address] Specialist Neurosurgery 02/25/22 Bin Fowler PA-C [address] [address] Specialist Neurosurgery 02/25/22 Vinicius Fonseca [address] [address] Dermatology 03/10/23 Amador Funk MD 300 [facility] [address] [place] [address] Acting Section Chief Cardiovascular Disease 03/10/23 Timoteo Mcfarland MD [address] [address] ORTHOPEDIC SURGERY 08/24/23 Marco Hunt MD 175 [facility] [address] [place] [address] Specialist Cardiology 10/09/23 Joy Brand NP 300 [facility] [address] [place] [address] Cardiology 10/09/23 [facility] urology Specialist Urology 08/24/23 documented as of this encounter
--- OUTSIDE RECORDS SUMMARY | 2025-03-08 11:54 | XMS_ITS | Encounter Summary ---
Author Organization [facility] Address [address] [place] [address] Care Team Providers Care Food Counter Worker Name Role Phone Papito Mann MD Primary Care Provider Unavailable Amy Wilkerson MD Primary Care Provider + [phone] Thierno Duvall MD, PHD Unavailable Unava ilable Lizbeth Parikh PA-C Unavailable [phone] Bin Fowler PA-C Unavailable [phone] Vinicius Fonseca Unavailable Unavailable Amador Fnuk MD Unavailable [phone] Daryl Dunn NP Unavailable [phone] Timoteo Mcfarland MD Unavailable [phone] Marco Hunt MD Unavailable [phone] Joy Brand NP Unavailable [phone] [facility], Pcp Primary Care Provider Unavailabl e Encounter Details Date Type Department Care Team Description 07/14/2019 Elevator Inspector Report Medical Records [address] [place] [address] Thierno Duvall MD, PHD Social History Tobacco [...] filedocumented in this encounter Care Teams Food Counter Worker Relationship Specialty Start Date End Date Papito Mann MD PCP - General Internal Medicine 06/24/17 11/10/21 Amy Wilkerson MD 230 [place] [address] PCP - General Internal Medicine 11/11/21 09/05/24 [facility], Pcp [address] [address] PCP - General Internal Medicine 09/06/24 Thierno Duvall MD, PHD [address] [place] [address] Surgeon Neurosurgery 02/25/22 Lizbeth Parikh PA-C [address] [address] Specialist Neurosurgery 02/25/22 Bin Fowler PA-C [address] [address] Specialist Neurosurgery 02/25/22 Vinicius Fonseca [address] [address] Dermatology 03/10/23 Amador Funk MD [address] [address] Rawhide Bone Roller Cardiovascular Disease 03/10/23 Daryl Dunn NP [address] [address] Nurse Practitioner Cardiology 04/27/23 10/19/23 Timoteo Mcfarland MD [address] [address] ORTHOPEDIC SURGERY 08/24/23 Marco Hunt MD [address] [address] Specialist Cardiology 10/09/23 Joy Brand NP [address] [phone] Cardiology 10/09/23 [facility] urology Specialist Urology 08/24/23 documented as of this encounter
--- OUTSIDE RECORDS SUMMARY | 2025-03-08 11:54 | XMS_ITS | Encounter Summary ---
Author Organization [facility] Address [address] [place] [address] Care Team Providers Care Jig And Fixture Builder Apprentice Name Role Phone Amy Wilkerson MD Primary Care Provider + [phone] Thierno Duvall MD, PHD Unavailable Unava ilable Lizbeth Parikh PA-C Unavailable [phone] Bin Fowler PA-C Unavailable [phone] Vinicius Fonseca Unavailable Unavailable Amador Funk MD Unavailable [phone] Daryl Dunn NP Unavailable [phone] Timoteo Mcfarland MD Unavailable [phone] Marco Hunt MD Unavailable [phone] Joy Brand NP Unavailable [phone] [facility], Pcp Primary Care Provider Unavailabl e Encounter Details Date Type Department Care Team Description 05/25/2023 Orders Only Medical Records [address] [place] [address] Abstract, Provider Social History Tobacco Use Types [...] on filedocumented in this encounter Care Teams Jig And Fixture Builder Apprentice Relationship Specialty Start Date End Date Amy Wilkerson MD 230 [place] [address] PCP - General Internal Medicine 11/11/21 09/05/24 [facility], Pcp [address] [address] PCP - General Internal Medicine 09/06/24 Thierno Duvall MD, PHD 230 [place] [address] Surgeon Neurosurgery 02/25/22 Lizbeth Parikh PA-C [address] [address] Specialist Neurosurgery 02/25/22 Bin Fowler PA-C [address] [address] Specialist Neurosurgery 02/25/22 Vinicius Fonseca [address] [address] Dermatology 03/10/23 Amador Funk MD [address] [address] Instructional Writer Cardiovascular Disease 03/10/23 Daryl Dunn NP [address] [address] Nurse Practitioner Cardiology 04/27/23 10/19/23 Timoteo Mcfarland MD [address] [address] ORTHOPEDIC SURGERY 08/24/23 Marco Hunt MD [address] [address] Specialist Cardiology 10/09/23 Joy Brand NP 300 [facility] [address] [place] [phone] Cardiology 10/09/23 [facility] urology Specialist Urology 08/24/23 documented as of this encounter
--- OUTSIDE RECORDS SUMMARY | 2025-03-08 11:54 | XMS_ITS | Encounter Summary ---
Author Organization [facility] Address [address] [place] [address] Care Team Providers Care Climatology Teacher Name Role Phone Papito Mann MD Primary Care Provider Unavailable Amy Wilkerson MD Primary Care Provider + [phone] Thierno Duvall MD, PHD Unavailable Unava ilable Lizbeth Parikh PA-C Unavailable [phone] Bin Fowler PA-C Unavailable [phone] Vinicius Fonseca Unavailable Unavailable Amador Funk MD Unavailable Daryl Dunn NP Unavailable Timoteo Mcfarland MD Unavailable [phone] Marco Hunt MD Unavailable Joy Brand NP Unavailable [facility], Pcp Primary Care Provider Unavailabl e Encounter Details Date Type Department Care Team Description 08/05/2017 Release of Information Medical Records [address] [place] [address] Abstract, Provider Social History Tobacco Use Types [...] on filedocumented in this encounter Care Teams Climatology Teacher Relationship Specialty Start Date End Date Papito Mann MD PCP - General Internal Medicine 06/24/17 11/10/21 Amy Wilkerson MD 230 [place], [place] [address] PCP - General Internal Medicine 11/11/21 09/05/24 [facility], Pcp [address] [address] PCP - General Internal Medicine 09/06/24 Thierno Duvall MD, PHD 230 [place] [address] Surgeon Neurosurgery 02/25/22 Lizbeth Parikh PA-C [address] [address] Specialist Neurosurgery 02/25/22 Bin Fowler PA-C [address] [address] Specialist Neurosurgery 02/25/22 Vinicius Fonseca [address] [address] Dermatology 03/10/23 Amador Funk MD [address] [address] County Demonstrator Cardiovascular Disease 03/10/23 Daryl Dunn NP [address] [address] Nurse Practitioner Cardiology 04/27/23 10/19/23 Timoteo Mcfarland MD [address] [address] ORTHOPEDIC SURGERY 08/24/23 Marco Hunt MD [address] [address] Specialist Cardiology 10/09/23 Joy Brand NP [address] [phone] Cardiology 10/09/23 [facility] urology Specialist Urology 08/24/23 documented as of this encounter
--- OUTSIDE RECORDS SUMMARY | 2025-03-08 11:54 | XMS_ITS | Encounter Summary ---
Author Organization [facility] Address [address] [place] [address] Care Team Providers Care Syrup Mixer Assistant Name Role Phone Amy Wilkerson MD Primary Care Provider [phone] Thierno Duvall MD, PHD Unavailable Unava ilable Lizbeth Parikh PA-C Unavailable [phone] Bin Fowler PA-C Unavailable [phone] Vinicius Fonseca Unavailable Unavailable Amador Funk MD Unavailable [phone] Timoteo Mcfarland MD Unavailable [phone] Marco Hunt MD Unavailable Joy Brand NP Unavailable [phone] [facility], Pcp Primary Care Provider Unavailabl e Encounter Details Date Type Department Care Team Description 05/24/2024 SCAN Medical Records [address] [place] [address] Joy Brand, MAREK [address] [address] Social History Tobacco Use Types [...] on filedocumented in this encounter Care Teams Syrup Mixer Assistant Relationship Specialty Start Date End Date Amy Wilkerson MD 230 [place] [address] PCP - General Internal Medicine 11/11/21 09/05/24 [facility], Pcp [address] [address] PCP - General Internal Medicine 09/06/24 Thierno Duvall MD, PHD [address] [place] [address] Surgeon Neurosurgery 02/25/22 Lizbeth Parikh PA-C [address] [address] Specialist Neurosurgery 02/25/22 Bin Fowler PA-C [address] [address] Specialist Neurosurgery 02/25/22 Vinicius Fonseca [address] [address] Dermatology 03/10/23 Amador Funk MD [address] [address] Stock Tracer Cardiovascular Disease 03/10/23 Timoteo Mcfarland MD [address] [address] ORTHOPEDIC SURGERY 08/24/23 Marco Hunt MD [address] [address] Specialist Cardiology 10/09/23 Joy Brnad, MAREK [address] [phone] Cardiology 10/09/23 [facility] urology Specialist Urology 08/24/23 documented as of this encounter
--- OUTSIDE RECORDS SUMMARY | 2025-03-08 11:54 | XMS_ITS | Encounter Summary ---
Author Organization [facility] Address [address] [place] [address] Care Team Providers Care Holistic Nutritionist Name Role Phone Papito Mann MD Primary Care Provider Unavailable Amy Wilkerson MD Primary Care Provider + [phone] Thierno Duvall MD, PHD Unavailable Unava ilable Lizbeth Parikh PA-C Unavailable [phone] Bin Fowler PA-C Unavailable [phone] Vinicius Fonseca Unavailable Unavailable Amador Funk MD Unavailable [phone] Daryl Dunn NP Unavailable [phone] Timoteo Mcfarland MD Unavailable [phone] Marco Hunt MD Unavailable [phone] Joy Brand NP Unavailable [phone] [facility], Pcp Primary Care Provider Unavailabl e Reason for Visit * Reason Onset Date Comments Provider Call Back 08/02/2019 abdominal dis comfort , sour taste Encounter Details Date Type Department Care Team Description 08/02/2019 Telephone [address] [place] [phone] Timoteo Lopez MD Provider Call Back (abdominal discomfort , sour taste) Social History Tobacco Use Types Packs/Day Years [...] encounter Miscellaneous Notes * Telephone Encounter - Dulce Barakat - 08/02/2019 12:24 PM EDT Called patient, offered 08/03/19 appointment, he could not take it because he does not have a ride. He will call to check for cancelations and we will keep an eye out as well. * Telephone Encounter - Papito Mann MD - 08/02/2019 12:21 PM EDT Thank you for the update. * Telephone Encounter - Timoteo Lopez MD - 08/02/2019 12:13 PM EDT I spoke with him just now. After discontinuing the Protonix he began to experience about 3 episodesof heartburn per week. However he also indicates that he has a constant sense of sour acid taste inhis mouth. No dysphagia or vomiting. At this time I recommended that he initiate treatment with famotidine 20 mg twice a day, I sent in a prescription for this. We will go ahead and get him on the schedule for an upper GI endoscopy. * Telephone Encounter - Denise Samuel M.A. - 08/02/2019 10:47 AM EDT Please review and advise/map * Telephone Encounter - Skye Maldonado - 08/02/2019 10:12 AM EDT Caller requesting call back from provider: Is the caller the patient? YES If caller is not the patient, what is the callers name? N/A Callers relationship to patient? N/A If person calling is not the patient themselves, is there a verbal release in FYI or permanent comments for this person: NO Reason for call back: Patient came in to office today because when he saw Dr. Lopez on 9/9/19 they stated to him to stop taking the Protonix and to call the doctor after one to two weeks of stopping. He states that its been two weeks and he is still having small discomfort. Not as bad as before, but does have the heart burn and acid sour taste Caller offered to speak with the nurse for assistance: YES Response: Patient offered to speak with nurse for assistance and patient agreed. Message forwarded to nurse. documented in this encounter Plan of Treatment Not on file documented as of this encounter Visit Diagnoses Diagnosis Heartburn- Primary Chronic cough Cough documented in this encounter Care Teams Holistic Nutritionist Relationship Specialty Start Date End Date Papito Mann MD PCP - General Internal Medicine 06/24/17 11/10/21 Amy Wilkerson MD 230 [place] [address] PCP - General Internal Medicine 11/11/21 09/05/24 [facility], Pcp [address] [address] PCP - General Internal Medicine 09/06/24 Thierno Duvall MD, PHD [address] [place] [address] Surgeon Neurosurgery 02/25/22 Lizbeth Parikh PA-C [address] [address] Specialist Neurosurgery 02/25/22 Bin Fowler PA-C [address] [address] Specialist Neurosurgery 02/25/22 Vinicius Fonseca [address] [address] Dermatology 03/10/23 Amador Funk MD 300 [facility] [address] [place] [address] Bead Forming Machine Set Up Operator Cardiovascular Disease 03/10/23 Daryl Dunn NP 300 [facility] [address] [place] [address] Nurse Practitioner Cardiology 04/27/23 10/19/23 Timoteo Mcfarland MD 175 [address] [address] [place] [address] ORTHOPEDIC SURGERY 08/24/23 Marco Hunt MD 175 [facility] [address] [place] [address] Specialist Cardiology 10/09/23 Joy Brand NP [address] [phone] Cardiology 10/09/23 [facility] urology Specialist Urology 08/24/23 documented as of this encounter
--- OUTSIDE RECORDS SUMMARY | 2025-03-08 11:54 | XMS_ITS | Encounter Summary ---
Author Organization [employer] Address [address] [facility] 7 [place] [address] Care Team Providers Care Technical Applications Scientist Name Role Phone Unavailable Primary Care Provider [...] Care Team ( st Contact Info) Description 04/19/2025 8:30 AM EDT Office Visit [facility] [address] [place] [address] Yamel Healy documented as of this encounter Visit Diagnoses Not on filedocumented in this encounter
--- OUTSIDE RECORDS SUMMARY | 2025-03-08 11:54 | XMS_ITS | Encounter Summary ---
Author Organization [facility] Address [address] [place] [address] Care Team Providers Care Footwear Production Machine Operator Name Role Phone Papito Mann MD Primary Care Provider Unavailable Amy Wilkerson MD Primary Care Provider + [phone] Thierno Duvall MD, PHD Unavailable Unava ilable Lizbeth Parikh PA-C Unavailable +[phone] Bin Fowler PA-C Unavailable +[phone] Vinicius Fonseca Unavailable Unavailable Amador Funk MD Unavailable [phone] Daryl Dunn NP Unavailable [phone] Timoteo Mcfarland MD Unavailable [phone] Marco Hunt MD Unavailable [phone] Joy Brand NP Unavailable [phone] [facility], Pcp Primary Care Provider Unavailabl e Encounter Details Date Type Department Care Team Description 01/04/2021 Applications Support Analyst Report Medical Records [address] [place] [address] Krish Lopez PA-C Social History Tobacco Use [...] on filedocumented in this encounter Care Teams Footwear Production Machine Operator Relationship Specialty Start Date End Date Papito Mann MD PCP - General Internal Medicine 06/24/17 11/10/21 Amy Wilkerson MD 230 [place] [address] PCP - General Internal Medicine 11/11/21 09/05/24 [facility], Pcp [address] [address] PCP - General Internal Medicine 09/06/24 Thierno Duvall MD, PHD [address] [place] [address] Surgeon Neurosurgery 02/25/22 Lizbeth Parikh PA-C [address] [address] Specialist Neurosurgery 02/25/22 Bin Fowler PA-C [address] [address] Specialist Neurosurgery 02/25/22 Vinicius Fonseca [address] [address] Dermatology 03/10/23 Amador Funk MD [address] [address] Vice President Pharmacy Cardiovascular Disease 03/10/23 Daryl Dunn NP [address] [address] Nurse Practitioner Cardiology 04/27/23 10/19/23 Timoteo Mcfarland MD [address] [address] ORTHOPEDIC SURGERY 08/24/23 Marco Hunt MD [address] [address] Specialist Cardiology 10/09/23 Joy Brand NP [address] [phone] Cardiology 10/09/23 [facility] urology Specialist Urology 08/24/23 documented as of this encounter
--- OUTSIDE RECORDS SUMMARY | 2025-03-08 11:54 | XMS_ITS | Encounter Summary ---
Author Organization [facility] Address [address] [place] [address] Care Team Providers Care Final Inspector Shuttle Name Role Phone Amy Wilkerson MD Primary Care Provider + [phone] Thierno Duvall MD, PHD Unavailable Unava ilable Lizbeth Parikh PA-C Unavailable +[phone] Bin Fowler PA-C Unavailable [phone] Vinicius Fonseca Unavailable Unavailable Amador Funk MD Unavailable [phone] Daryl Dnun NP Unavailable [phone] Timoteo Mcfarland MD Unavailable [phone] Marco Hunt MD Unavailable [phone] Joy Brand NP Unavailable [phone] [facility], Pcp Primary Care Provider Unavailabl e Encounter Details Date Type Department Care Team Description 03/27/2023 Telephone Cardio PVC POC [address] [address] Amador Funk MD [address] [id number] Social History Tobacco Use Types Packs/Day Years [...] suspected to have Coronavirus/COVID-19? No / Unsure 03/26/2023 1:54 PM EDT documented as of this encounter Miscellaneous Notes * Telephone Encounter - Joseph Rosenbaum C.M.A. - 03/31/2023 1:00 PM EDT Pt came in asking about starting Eliquis. Went to [facility] and she wanted me to call Dr Mcfarland and see if it was safe from a surgical stand point to start Eliquis. Dr Mcfarland said it was ok to start tomorrow. Per Lars Eliquis 5 mg. Called pt and let him know. * Telephone Encounter - Amador Funk MD - 03/27/2023 1:47 PM EDT Spoke with Dr. Mcfarland re: patient. No ischemia on nuclear stress testing though HRs were still running high. We recently increased he metoprolol to try and get better rate control with HRs ~90-100s bpm. [place] if HR was staying <100 at time of surgery I think he would be ok to proceed though I would leave this in part to the discretion of the anesthesiologists at that time. Although he has a mod erate cardiomyopathy I suspect it is related at least in part to his prior rapid heart rates and his overall risk of perioperative NH is low based on stress testing. Therefore recommend continuing metoprolol for rate control and if HRs reasonable on day of surgery should be ok to proceed. After surgery would recommend starting on eliquis when safe from surgical stand point as I would like to try a rhythm control strategy given some of the difficulty with just rate control. documented in this encounter Plan of Treatment Not on file documented as of this encounter Visit Diagnoses Not on filedocumented in this encounter Care Teams Final Inspector Shuttle Relationship Specialty Start Date End Date Amy Wilkerson MD [address] [place] [address] PCP - General Internal Medicine 11/11/21 09/05/24 [facility], Pcp [address] [place] [address] PCP - General Internal Medicine 09/06/24 Thierno Duvall MD, PHD [address] [place] [address] Surgeon Neurosurgery 02/25/22 Lizbeth Parikh PA-C [address] [address] Specialist Neurosurgery 02/25/22 Bin Fowler PA-C [address] [address] Specialist Neurosurgery 02/25/22 Vinicius Fonseca [address] [address] Dermatology 03/10/23 Amador Funk MD 300 [facility] 154 [place] [address] Letterpress Setter Cardiovascular Disease 03/10/23 Daryl Dunn NP 300 [facility] 154 [place] [address] Nurse Practitioner Cardiology 04/27/23 10/19/23 Timoteo Mcfarland MD [address] [address] ORTHOPEDIC SURGERY 08/24/23 Marco Hunt MD [address] [address] Specialist Cardiology 10/09/23 Joy Brand NP 300 [facility] 154 [place] [address] Cardiology 10/09/23 [facility] urology Specialist Urology 08/24/23 documented as of this encounter
--- OUTSIDE RECORDS SUMMARY | 2025-03-08 11:54 | XMS_ITS | Encounter Summary ---
Author Organization [employer] Address [address] [place] [address] Care Team Providers Care Audiovisual Tech Name Role Phone Unavailable Primary Care Provider [...] Care Team (Late st Contact Info) Description 04/19/2025 8:30 AM EDT Office Visit [facility] [address] [place] [address] Yamel Healy documented as of this encounter Visit Diagnoses Not on filedocumented in this encounter
--- OUTSIDE RECORDS SUMMARY | 2025-03-08 11:54 | XMS_ITS | Encounter Summary ---
Author Organization [employer] Address 75 [facility] 7 [place] [address] Care Team Providers Care Child Nutrition Manager Name Role Phone Unavailable Primary Care Provider [...] Office Visit [facility] [address] [place] [address] Yamel Healy documented as of this encounter Visit Diagnoses Not on filedocumented in this encounter
--- OUTSIDE RECORDS SUMMARY | 2025-03-08 11:54 | XMS_ITS | Encounter Summary ---
Author Organization [facility] Address [address] [place] [address] Care Team Providers Care Model Dresser Name Role Phone Amy Wilkerson MD Primary Care Provider + [phone] Thierno Duvall MD, PHD Unavailable Unava ilable Lizbeth Parikh PA-C Unavailable [phone] Bin Fowler PA-C Unavailable [phone] Vinicius Fonseca Unavailable Unavailable Amador Funk MD Unavailable [phone] Daryl Dunn NP Unavailable [phone] Timoteo Mcfarland MD Unavailable [phone] Marco Hunt MD Unavailable [phone] Joy Brand NP Unavailable [phone] [facility], Pcp Primary Care Provider Unavailabl e Encounter Details Date Type Department Care Team Description 09/16/2023 SCAN Medical Records [address] [place] [address] Abstract, Provider Social History Tobacco Use Types [...] suspected to have Coronavirus/COVID-19? No / Unsure 09/16/2023 11:10 AM EST documented as of this encounter Plan of Treatment Not on file documented as of this encounter Procedures Procedure Name Priority Date/Time Associated Diagnosis Comments OUTSIDE CT Routine 09/16/2023 documented in this encounter Results * OUTSIDE CT (09/16/2023) Provider Default RADIOLOGY documented in this encounter Visit Diagnoses Not on filedocumented in this encounter Care Teams Model Dresser Relationship Specialty Start Date End Date Amy Wilkerson MD [address] [place] [address] PCP - General Internal Medicine 11/11/21 09/05/24 [facility], Pcp [address] [address] PCP - General Internal Medicine 09/06/24 Thierno Duvall MD, PHD [address] [place] [address] Surgeon Neurosurgery 02/25/22 Lizbeth Parikh PA-C [address] [address] Specialist Neurosurgery 02/25/22 Bin Fowler PA-C [address] [address] Specialist Neurosurgery 02/25/22 Vinicius Fonseca [address] [address] Dermatology 03/10/23 Amador Funk MD [address] [address] Test Bore Helper Cardiovascular Disease 03/10/23 Daryl Dunn NP 300 [facility] 154 [place] [address] Nurse Practitioner Cardiology 04/27/23 10/19/23 Timoteo Mcfarland MD [address] [address] ORTHOPEDIC SURGERY 08/24/23 Marco Hunt MD [address] [address] Specialist Cardiology 10/09/23 Joy Brand NP 300 [facility] 154 [place] [address] Cardiology 10/09/23 [facility] urology Specialist Urology 08/24/23 documented as of this encounter
--- OUTSIDE RECORDS SUMMARY | 2025-03-08 11:54 | XMS_ITS | Encounter Summary ---
Author Organization [facility] Address [address] [place] [address] Care Team Providers Care Custom Furrier Name Role Phone Amy Wilkerson MD Primary Care Provider + [phone] Thierno Duvall MD, PHD Unavailable Unava ilable Lizbeth Parikh PA-C Unavailable [phone] Bin Fowler PA-C Unavailable [phone] Vinicius Fonseca Unavailable Unavailable Amador Funk MD Unavailable [phone] Daryl Dunn NP Unavailable [phone] Timoteo Mcfarland MD Unavailable [phone] Marco Hunt MD Unavailable [phone] Joy Brand NP Unavailable [phone] [facility], Pcp Primary Care Provider Unavailabl e Encounter Details Date Type Department Care Team Description 05/25/2023 SCAN [facility] 175 [facility] [address] [place] [address] Timoteo Mcfarland MD 175 [facility] [address] [place], [place] [phone] Social History Tobacco Use Types Packs/Day Years [...] on filedocumented in this encounter Care Teams Custom Furrier Relationship Specialty Start Date End Date Amy Wilkerson MD 230 [place] [address] PCP - General Internal Medicine 11/11/21 09/05/24 [facility], Pcp [address] [address] PCP - General Internal Medicine 09/06/24 Thierno Duvall MD, PHD [address] [place] [address] Surgeon Neurosurgery 02/25/22 Lizbeth Parikh PA-C [address] [address] Specialist Neurosurgery 02/25/22 Bin Fowler PA-C [address] [address] Specialist Neurosurgery 02/25/22 Vinicius Fonseca [address] [address] Dermatology 03/10/23 Amador Funk MD [address] [address] Casino Worker Cardiovascular Disease 03/10/23 Daryl Dunn NP [address] [address] Nurse Practitioner Cardiology 04/27/23 10/19/23 Timoteo Mcfarland MD [address] [address] ORTHOPEDIC SURGERY 08/24/23 Marco Hunt MD [address] [address] Specialist Cardiology 10/09/23 Joy Brand NP [address] [phone] Cardiology 10/09/23 [facility] urology Specialist Urology 08/24/23 documented as of this encounter
--- OUTSIDE RECORDS SUMMARY | 2025-03-08 11:54 | XMS_ITS | Encounter Summary ---
Author Organization [facility] Address [address] [place] [address] Care Team Providers Care Dietitian Therapeutic Name Role Phone Amy Wilkerson MD Primary Care Provider + [phone] Thierno Duvall MD, PHD Unavailable Unava ilable Lizbeth Parikh PA-C Unavailable [phone] Bin Fowler PA-C Unavailable [phone] Vinicius Fonseca Unavailable Unavailable Amador Funk MD Unavailable [phone] Daryl Dunn NP Unavailable [phone] Timoteo Mcfarland MD Unavailable [phone] Marco Hunt MD Unavailable [phone] Joy Brand NP Unavailable [phone] [facility], Pcp Primary Care Provider Unavailabl e Encounter Details Date Type Department Care Team Description 04/29/2023 SCAN [facility] 175 [facility] [address] [place] [address] Timoteo Mcfarland MD 175 [facility] [address] [place], [place] [id number] Social History Tobacco Use Types Packs/Day Years [...] on filedocumented in this encounter Care Teams Dietitian Therapeutic Relationship Specialty Start Date End Date Amy Wilkerson MD 230 [place] [address] PCP - General Internal Medicine 11/11/21 09/05/24 [facility], Pcp [address] [address] PCP - General Internal Medicine 09/06/24 Thierno Duvall MD, PHD [address] [place] [address] Surgeon Neurosurgery 02/25/22 Lizbeth Parikh PA-C [address] [address] Specialist Neurosurgery 02/25/22 Bin Fowler PA-C [address] [address] Specialist Neurosurgery 02/25/22 Vinicius Fonseca [address] [address] Dermatology 03/10/23 Amador Funk MD [address] [address] Retinal Surgeon Cardiovascular Disease 03/10/23 Daryl Dunn NP [address] [address] Nurse Practitioner Cardiology 04/27/23 10/19/23 Timoteo Mcfarland MD [address] [address] ORTHOPEDIC SURGERY 08/24/23 Marco Hunt MD [address] [address] Specialist Cardiology 10/09/23 Joy Brand NP [address] [phone] Cardiology 10/09/23 [facility] urology Specialist Urology 08/24/23 documented as of this encounter
--- OUTSIDE RECORDS SUMMARY | 2025-03-08 11:54 | XMS_ITS | Encounter Summary ---
Author Organization [facility] Address [address] [place] [address] Care Team Providers Care Medical Massage Therapist Name Role Phone [facility], Pcp Primary Care Provider Unavailabl e Papito Mann MD Primary Care Provider Unavailable Amy Wilkerson MD Primary Care Provider [phone] Thierno Duvall MD, PHD Unavailable Unava ilable Lizbeth ParikhC Unavailable [phone] Bin FowlerC Unavailable [phone] Vinicius Fonseca Unavailable Unavailable Amador Funk MD Unavailable [phone] Daryl Dunn NP Unavailable Timoteo Mcfarland MD Unavailable [phone] Marco Hunt MD Unavailable Joy Brand NP Unavailable [phone] [facility], Pcp Primary Care Provider Unavailabl e Encounter Details Date Type Department Care Team Description 06/19/2010 SCAN Medical Records [address] [place] [address] Abstract, Provider Social History Tobacco Use Types [...] on filedocumented in this encounter Care Teams Medical Massage Therapist Relationship Specialty Start Date End Date [facility], Pcp PCP - General Internal Medicine 06/23/17 06/23/17 Papito Mann MD PCP - General Internal Medicine 06/24/17 11/10/21 Amy Wilkerson MD 230 [place] [address] PCP - General Internal Medicine 11/11/21 09/05/24 [facility], Pcp PCP - General Internal Medicine 09/06/24 Thierno Duvall MD, PHD 230 [place] [address] Surgeon Neurosurgery 02/25/22 Lizbeth Parikh PA-C [address] [address] Specialist Neurosurgery 02/25/22 Bin Fowler PA-C [address] [address] Specialist Neurosurgery 02/25/22 Vinicius Fonseca [address] [address] Dermatology 03/10/23 Amador Funk MD 300 [facility] 154 [place] [address] Chief Deputy Cardiovascular Disease 03/10/23 Daryl Dunn NP 300 [facility] 154 [place] [address] Nurse Practitioner Cardiology 04/27/23 10/19/23 Timoteo Mcfarland MD 175 [facility] [address] [place] [address] ORTHOPEDIC SURGERY 08/24/23 Marco Hunt MD [address] [address] Specialist Cardiology 10/09/23 Joy Brand NP [address] [facility] [address] [place] [address] Cardiology 10/09/23 [facility] urology Specialist Urology 08/24/23 documented as of this encounter
--- OUTSIDE RECORDS SUMMARY | 2025-03-08 11:54 | XMS_ITS | Encounter Summary ---
Author Organization [facility] Address [address] [place] [address] Care Team Providers Care Line Palletizer Name Role Phone Amy Wilkerson MD Primary Care Provider + [phone] Thierno Duvall MD, PHD Unavailable Unava ilable Lizbeth Parikh PA-C Unavailable +[phone] Bin Fowler PA-C Unavailable [phone] Vinciius Fonseca Unavailable Unavailable Amador Funk MD Unavailable [phone] Daryl Dunn NP Unavailable [phone] Timoteo Mcfarland MD Unavailable [phone] Marco Hunt MD Unavailable [phone] Joy Brand NP Unavailable [phone] [facility], Pcp Primary Care Provider Unavailabl e Encounter Details Date Type Department Care Team Description 03/10/2023 SCAN Medical Records [address] [place] [address] Abstract, Provider Social History Tobacco Use Types [...] Name Priority Date/Time Associated Diagnosis Comments OUTSIDE EKG Routine 03/10/2023 documented in this encounter Results * OUTSIDE EKG (03/10/2023) Provider Abstract CARDIOLOGY documented in this encounter Visit Diagnoses Not on filedocumented in this encounter Care Teams Line Palletizer Relationship Specialty Start Date End Date Amy Wilkerson MD 230 [place] [address] PCP - General Internal Medicine 11/11/21 09/05/24 [facility], Pcp [address] [address] PCP - General Internal Medicine 09/06/24 Thierno Duvall MD, PHD [address] [place] [address] Surgeon Neurosurgery 02/25/22 Lizbeth Parikh PA-C [address] [address] Specialist Neurosurgery 02/25/22 Bin Fowler PA-C [address] [address] Specialist Neurosurgery 02/25/22 Vinicius Fonseca [address] [address] Dermatology 03/10/23 Amador Funk MD [address] [address] Bank Accountant Cardiovascular Disease 03/10/23 Daryl Dunn NP [address] [address] Nurse Practitioner Cardiology 04/27/23 10/19/23 Timoteo Mcfarland MD [address] [address] ORTHOPEDIC SURGERY 08/24/23 Marco Hunt MD [address] [address] Specialist Cardiology 10/09/23 Joy Brand NP [address] [phone] Cardiology 10/09/23 [facility] urology Specialist Urology 08/24/23 documented as of this encounter
--- OUTSIDE RECORDS SUMMARY | 2025-03-08 11:54 | XMS_ITS | Encounter Summary ---
Author Organization [facility] Address [address] [place] [address] Care Team Providers Care Pricing Specialist Name Role Phone Papito Mann MD Primary Care Provider Unavailable Amy Wilkerson MD Primary Care Provider + [phone] Thierno Duvall MD, PHD Unavailable Unava ilable Lizbeth Parikh PA-C Unavailable [phone] Bin Fowler PA-C Unavailable [phone] Vinicius Fonseca Unavailable Unavailable Amador Funk MD Unavailable [phone] Daryl Dunn NP Unavailable [phone] Timoteo Mcfarland MD Unavailable [phone] Marco Hunt MD Unavailable [phone] Joy Brand NP Unavailable [phone] [facility], Pcp Primary Care Provider Unavailabl e Encounter Details Date Type Department Care Team Description 10/06/2017 [facility] Report Medical Records [address] [place] [address] Saul Fritz MD Social History Tobacco Use [...] on filedocumented in this encounter Care Teams Pricing Specialist Relationship Specialty Start Date End Date Papito Mann MD PCP - General Internal Medicine 06/24/17 11/10/21 Amy Wilkerson MD 230 [place], [place] [address] PCP - General Internal Medicine 11/11/21 09/05/24 [facility], Pcp [address] [address] PCP - General Internal Medicine 09/06/24 Thierno Duvall MD, PHD [address] [place] [address] Surgeon Neurosurgery 02/25/22 Lizbeth Parikh PA-C [address] [address] Specialist Neurosurgery 02/25/22 Bin Fowler PA-C [address] [address] Specialist Neurosurgery 02/25/22 Vinicius Fonseca [address] [address] Dermatology 03/10/23 Amador Funk MD [address] [address] Graduate Rn Cardiovascular Disease 03/10/23 Daryl Dunn NP [address] [address] Nurse Practitioner Cardiology 04/27/23 10/19/23 Timoteo Mcfarland MD [address] [address] ORTHOPEDIC SURGERY 08/24/23 Marco Hunt MD [address] [address] Specialist Cardiology 10/09/23 Joy Brand NP [address] [phone] Cardiology 10/09/23 [facility] urology Specialist Urology 08/24/23 documented as of this encounter
--- OUTSIDE RECORDS SUMMARY | 2025-03-08 11:54 | XMS_ITS | Encounter Summary ---
Author Organization [facility] Address [address] [place] [address] Care Team Providers Care Field Supervisor Seed Production Name Role Phone Papito Mann MD Primary Care Provider Unavailable Amy Wilkerson MD Primary Care Provider + [phone] Thierno Duvall MD, PHD Unavailable Unava ilable Lizbeth Parikh PA-C Unavailable [phone] Bin Fowler PA-C Unavailable [phone] Vinicius Fonseca Unavailable Unavailable Amador Funk MD Unavailable [phone] Daryl Dunn NP Unavailable [phone] Timoteo Mcfarland MD Unavailable [phone] Marco Hunt MD Unavailable [phone] Joy Brand NP Unavailable [phone] [facility], Pcp Primary Care Provider Unavailabl e Encounter Details Date Type Department Care Team Description 05/04/2019 Hospital Medical Records [address] [place] [address] Thierno Duvall MD, PHD Social History Tobacco [...] on filedocumented in this encounter Care Teams Field Supervisor Seed Production Relationship Specialty Start Date End Date Papito Mann MD PCP - General Internal Medicine 06/24/17 11/10/21 Amy Wilkerson MD 230 [place] [address] PCP - General Internal Medicine 11/11/21 09/05/24 [facility], Pcp [address] [address] PCP - General Internal Medicine 09/06/24 Thierno Duvall MD, PHD [address] [place] [address] Surgeon Neurosurgery 02/25/22 Lizbeth Parikh PA-C [address] [address] Specialist Neurosurgery 02/25/22 Bin Fowler PA-C [address] [address] Specialist Neurosurgery 02/25/22 Vinicius Fonseca [address] [address] Dermatology 03/10/23 Amador Funk MD [address] [address] Toy Packer Cardiovascular Disease 03/10/23 Daryl Dunn NP [address] [address] Nurse Practitioner Cardiology 04/27/23 10/19/23 Timoteo Mcfarland MD [address] [address] ORTHOPEDIC SURGERY 08/24/23 Marco Hunt MD [address] [address] Specialist Cardiology 10/09/23 Joy Brand NP [address] [phone] Cardiology 10/09/23 [facility] urology Specialist Urology 08/24/23 documented as of this encounter
--- OUTSIDE RECORDS SUMMARY | 2025-03-08 11:54 | XMS_ITS | Encounter Summary ---
Author Organization [facility] Address [address] [place] [address] Care Team Providers Care Basketball Player Name Role Phone Community, Pcp Primary Care Provider Unavailabl e Papito Mann MD Primary Care Provider Unavailable Amy Wilkerson MD Primary Care Provider [phone] Thierno Duvall MD, PHD Unavailable Unava ilable Lizbeth ParikhC Unavailable +[phone] Bin FowlerC Unavailable Vinicius Fonseca Unavailable Unavailable Amador Funk MD Unavailable Daryl Dunn NP Unavailable [phone] Timoteo Mcfarland MD Unavailable [phone] Marco Hunt MD Unavailable [phone] Joy Brand NP Unavailable [phone] [facility], Pcp Primary Care Provider Unavailabl e Encounter Details Date Type Department Care Team Description 08/02/2010 SCAN Medical Records [address] [place] [address] Abstract, Provider Social History Tobacco Use Types [...] Associated Diagnosis Comments OUTSIDE VASCULAR STUDY Routine 08/02/2010 documented in this encounter Results * OUTSIDE VASCULAR STUDY (08/02/2010) Provider Default CARDIOLOGY documented in this encounter Visit Diagnoses Not on filedocumented in this encounter Care Teams Basketball Player Relationship Specialty Start Date End Date Community, Pcp PCP - General Internal Medicine 06/23/17 06/23/17 Papito Mann MD PCP - General Internal Medicine 06/24/17 11/10/21 Amy Wilkerson MD [address] [place] [address] PCP - General Internal Medicine 11/11/21 09/05/24 [facility], Pcp PCP - General Internal Medicine 09/06/24 Thierno Duvall MD, PHD [address] [place] [address] Surgeon Neurosurgery 02/25/22 Lizbeth Parikh PA-C [address] [address] Specialist Neurosurgery 02/25/22 Bin Fowler PA-C [address] [address] Specialist Neurosurgery 02/25/22 Vinicius Fonseca [address] [address] Dermatology 03/10/23 Amador Funk MD 300 [facility] [address] [place] [address] Corporate Director Talent Assessment Cardiovascular Disease 03/10/23 Daryl Dunn NP 300 [facility] [address] [place] [address] Nurse Practitioner Cardiology 04/27/23 10/19/23 Timoteo Mcfarland MD 175 [facility] [address] [place] [address] ORTHOPEDIC SURGERY 08/24/23 Marco Hunt MD [address] [address] Specialist Cardiology 10/09/23 Joy Brand NP [address] [facility] [address] [place] [address] Cardiology 10/09/23 [facility] urology Specialist Urology 08/24/23 documented as of this encounter
--- OUTSIDE RECORDS SUMMARY | 2025-03-08 11:54 | XMS_ITS | Encounter Summary ---
Author Organization [facility] Address [address] [place] [address] Care Team Providers Care Saddle And Side Wire Stitcher Name Role Phone Amy Wilkerson MD Primary Care Provider + [phone] Thierno Duvall MD, PHD Unavailable Unava ilable Lizbeth Parikh PA-C Unavailable +[phone] Bin Fowler PA-C Unavailable [phone] Vinicius Fonseca Unavailable Unavailable Amador Funk MD Unavailable [phone] Daryl Dunn NP Unavailable [phone] Timoteo Mcfarland MD Unavailable [phone] Marco Hunt MD Unavailable [phone] Joy Brand NP Unavailable [phone] [facility], Pcp Primary Care Provider Unavailabl e Encounter Details Date Type Department Care Team Description 05/18/2023 [facility] Medical Records [address] [place], [place] [id number] [place] [address] Social History Tobacco Use Types Packs/Day Years [...] on filedocumented in this encounter Care Teams Saddle And Side Wire Stitcher Relationship Specialty Start Date End Date Amy Wilkerson MD [address] [place] [address] PCP - General Internal Medicine 11/11/21 09/05/24 [facility], Pcp [address] [address] PCP - General Internal Medicine 09/06/24 Thierno Duvall MD, PHD [address] [place] [address] Surgeon Neurosurgery 02/25/22 Lizbeth Parikh PA-C [address] [address] Specialist Neurosurgery 02/25/22 Bin Fowler PA-C [address] [address] Specialist Neurosurgery 02/25/22 Vinicius Fonseca [address] [address] Dermatology 03/10/23 Amador Funk MD [address] [address] Will Call Order Clerk Cardiovascular Disease 03/10/23 Daryl Dunn NP [address] [address] Nurse Practitioner Cardiology 04/27/23 10/19/23 Timoteo Mcfarland MD [address] [address] ORTHOPEDIC SURGERY 08/24/23 Marco Hunt MD [address] [address] Specialist Cardiology 10/09/23 Joy Brand NP [address] [phone] Cardiology 10/09/23 [facility] urology Specialist Urology 08/24/23 documented as of this encounter
--- OUTSIDE RECORDS SUMMARY | 2025-03-08 11:54 | XMS_ITS | Encounter Summary ---
Author Organization [facility] Address [address] [place] [address] Care Team Providers Care Sewer Pipe Layer Name Role Phone Papito Mann MD Primary Care Provider Unavailable Amy Wilkerson MD Primary Care Provider + [phone] Thierno Duvall MD, PHD Unavailable Unava ilable Lizbeth Parikh PA-C Unavailable [phone] Bin FowlerC Unavailable [phone] Vinicius Fonseca Unavailable Unavailable Amador Funk MD Unavailable [phone] Daryl Dunn NP Unavailable Timoteo Mcfarland MD Unavailable [phone] Marco Hunt MD Unavailable [phone] Joy Brand NP Unavailable [phone] [facility], Pcp Primary Care Provider Unavailabl e Reason for Referral * EXTERNAL (Urgent) - Authorized/Booked Specialty Diagnoses / Procedures Referred By Contac t Referred To Contact Physical Therapy Procedures REFERRAL TO PHYSICAL THERAPY Papito Mann MD [address] [place], [place] [address] Referral ID Status Reason Start Date Expiration Date V isits Requested Visits Authorized SEE NOTE Authorized/B ooked 10/06/2017 01/06/2018 1 1 Reason for Visit * Reason Onset Date Comments Engineering Group Leader Feedback 10/06/2017 Physical Therapy Encounter Details Date Type Department Care Team Description 10/06/2017 Telephone Adult Medicine - [place] [address] [place] [address] Papito Mann MD Engineering Group Leader Feedback (Physical Therapy) Social History Tobacco Use [...] AM EST Patient has appt 10/06/17 at [facility] * Telephone Encounter - Dariela Alarcon - 10/06/2017 10:32 AM EST What insurance does the patient have today? [employer] Effective 08/09/09: [facility] will not retro referral requests over 90 [...] insurance must be obtained and registered in [facility] or their referral can not be [...] LAST NAME of SPECIALIST PATIENT is seeing: [facility] What specialty is this? Physical Therapy DIAGNOSIS [...] Is this visit:Initial Visit Address of Specialist:[address] [facility] [address] Phone # of Specialist:[phone] Fax #: (if applicable):[phone] Does patient have an appointment scheduled?: YES Date of appointment- (including a retro-request): Is this appointment related to: Not MVA, WC or Surgery related documented in this encounter Plan of Treatment Not on file documented as of this encounter Visit Diagnoses Not on filedocumented in this encounter Care Teams Sewer Pipe Layer Relationship Specialty Start Date End Date Papito Mann MD PCP - General Internal Medicine 06/24/17 11/10/21 Amy Wilkerson MD 230 [place] [address] PCP - General Internal Medicine 11/11/21 09/05/24 [facility], Pcp [address] [place] [address] PCP - General Internal Medicine 09/06/24 Thierno Duvall MD, PHD [address] [place] [address] Surgeon Neurosurgery 02/25/22 Lizbeth Parikh PA-C [address] [address] Specialist Neurosurgery 02/25/22 Bin Fowler PA-C [address] [address] Specialist Neurosurgery 02/25/22 Vinicius Fonseca [address] [address] Dermatology 03/10/23 Amador Funk MD 300 [facility] 154 [place] [address] Chief Accounting Officer Cardiovascular Disease 03/10/23 Daryl Dunn NP [address] [place] [address] Nurse Practitioner Cardiology 04/27/23 10/19/23 Timoteo Mcfarland MD 175 [facility] [address] [place] [address] ORTHOPEDIC SURGERY 08/24/23 Marco Hunt MD 175 [facility] [address] [place] [address] Specialist Cardiology 10/09/23 Joy Brand NP [address] [facility] [address] [place] [address] Cardiology 10/09/23 [facility] urology Specialist Urology 08/24/23 documented as of this encounter
--- OUTSIDE RECORDS SUMMARY | 2025-03-08 11:54 | XMS_ITS | Encounter Summary ---
Author Organization [facility] Address [address] [place] [address] Care Team Providers Care Log Sorter Name Role Phone Amy Wilkerson MD Primary Care Provider + [phone] Thierno Duvall MD, PHD Unavailable Unava ilable Lizbeth Parikh PA-C Unavailable [phone] Bin Folwer PA-C Unavailable [phone] Vinicius Fonseca Unavailable Unavailable Amador Funk MD Unavailable [phone] Daryl Dunn NP Unavailable [phone] Timoteo Mcfarland MD Unavailable [phone] Marco Hunt MD Unavailable [phone] Joy Brand NP Unavailable [phone] [facility], Pcp Primary Care Provider Unavailabl e Encounter Details Date Type Department Care Team Description 09/10/2023 SCAN Medical Records [address] [place] [address] Abstract, Provider Social History Tobacco Use Types [...] on filedocumented in this encounter Care Teams Log Sorter Relationship Specialty Start Date End Date Amy Wilkerson MD 230 [place] [address] PCP - General Internal Medicine 11/11/21 09/05/24 [facility], Pcp [address] [address] PCP - General Internal Medicine 09/06/24 Thierno Duvall MD, PHD [address] [place] [address] Surgeon Neurosurgery 02/25/22 Lizbeth Parikh PA-C [address] [address] Specialist Neurosurgery 02/25/22 Bin Fowler PA-C [address] [address] Specialist Neurosurgery 02/25/22 Vinicius Fonseca [address] [address] Dermatology 03/10/23 Amador Funk MD [address] [address] Manager Store Cardiovascular Disease 03/10/23 Daryl Dunn NP [address] [address] Nurse Practitioner Cardiology 04/27/23 10/19/23 Timoteo Mcfarland MD [address] [address] ORTHOPEDIC SURGERY 08/24/23 Marco Hunt MD [address] [address] Specialist Cardiology 10/09/23 Joy Brand NP 300 [facility] [address] [place] [address] Cardiology 10/09/23 [facility] urology Specialist Urology 08/24/23 documented as of this encounter
--- OUTSIDE RECORDS SUMMARY | 2025-03-08 11:54 | XMS_ITS | Encounter Summary ---
Author Organization [facility] Address [address] [place] [address] Care Team Providers Care Laborer Shaft Sinking Name Role Phone Papito Mann MD Primary Care Provider Unavailable Amy Wilkerson MD Primary Care Provider + [phone] Thierno Duvall MD, PHD Unavailable Unava ilable Lizbeth Parikh PA-C Unavailable [phone] Bin Fowler PA-C Unavailable [phone] Vinicius Fonseca Unavailable Unavailable Amador Funk MD Unavailable [phone] Daryl Dunn NP Unavailable [phone] Timoteo Mcfarland MD Unavailable [phone] Marco Hunt MD Unavailable [phone] Joy Brand NP Unavailable [phone] [facility], Pcp Primary Care Provider Unavailabl e Encounter Details Date Type Department Care Team Description 07/05/2020 Interior Decorator Paperhanging Report Medical Records [address] [place] [address] Henry Castillo MD Social History Tobacco Use [...] on filedocumented in this encounter Care Teams Laborer Shaft Sinking Relationship Specialty Start Date End Date Papito Mann MD PCP - General Internal Medicine 06/24/17 11/10/21 Amy Wilkerson MD 230 [place] [address] PCP - General Internal Medicine 11/11/21 09/05/24 [facility] [address] [facility], Pcp [address] [address] PCP - General Internal Medicine 09/06/24 Thierno Duvall MD, PHD [address] [place] [address] Surgeon Neurosurgery 02/25/22 Lizbeth Parikh PA-C [address] [address] Specialist Neurosurgery 02/25/22 Bin Fowler PA-C [address] [address] Specialist Neurosurgery 02/25/22 Vinicius Fonseca [address] [address] Dermatology 03/10/23 Amador Funk MD [address] [address] Dry Wall Installations Mechanic Cardiovascular Disease 03/10/23 Daryl Dunn NP [address] [address] Nurse Practitioner Cardiology 04/27/23 10/19/23 Timoteo Mcfarland MD [address] [address] ORTHOPEDIC SURGERY 08/24/23 Marco Hunt MD [address] [address] Specialist Cardiology 10/09/23 Joy Brand NP [address] [phone] Cardiology 10/09/23 [facility] urology Specialist Urology 08/24/23 documented as of this encounter
--- OUTSIDE RECORDS SUMMARY | 2025-03-08 11:54 | XMS_ITS | Encounter Summary ---
Author Organization [facility] Address [address] [place] [address] Care Team Providers Care Speeder Operator Name Role Phone Amy Wilkerson MD Primary Care Provider + [phone] Thierno Duvall MD, PHD Unavailable Unava ilable Lizbeth Parikh PA-C Unavailable +[phone] Bin Fowler PA-C Unavailable [phone] Vinicius Fonseca Unavailable Unavailable Amador Funk MD Unavailable [phone] Daryl Dunn NP Unavailable [phone] Timoteo Mcfarland MD Unavailable [phone] Marco Hunt MD Unavailable [phone] Joy Brand NP Unavailable [phone] [facility], Pcp Primary Care Provider Unavailabl e Encounter Details Date Type Department Care Team Description 09/23/2023 [facility] Medical Records [address] [place], [place] [address] [place] [address] Social History Tobacco Use Types Packs/Day Years [...] on filedocumented in this encounter Care Teams Speeder Operator Relationship Specialty Start Date End Date Amy Wilkerson MD 230 [place] [address] PCP - General Internal Medicine 11/11/21 09/05/24 [facility], Pcp [address] [address] PCP - General Internal Medicine 09/06/24 Thierno Duvall MD, PHD 230 [place] [address] Surgeon Neurosurgery 02/25/22 Lizbeth Parikh PA-C [address] [address] Specialist Neurosurgery 02/25/22 Bin Fowler PA-C [address] [address] Specialist Neurosurgery 02/25/22 Vinicius Fonseca [address] [address] Dermatology 03/10/23 Amador Funk MD [address] [address] Pathology Secretary Cardiovascular Disease 03/10/23 Daryl Dunn NP [address] [address] Nurse Practitioner Cardiology 04/27/23 10/19/23 Timoteo Mcfarland MD [address] [address] ORTHOPEDIC SURGERY 08/24/23 Marco Hunt MD [address] [address] Specialist Cardiology 10/09/23 Joy Brand NP [address] [phone] Cardiology 10/09/23 [facility] urology Specialist Urology 08/24/23 documented as of this encounter
--- OUTSIDE RECORDS SUMMARY | 2025-03-08 11:54 | XMS_ITS | Encounter Summary ---
Author Organization [facility] Address [address] [place] [address] Care Team Providers Care Cyberathlete Name Role Phone Unavailable Primary Care Provider [...] Description 04/19/2025 8:30 AM EDT Office Visit [facility] [address] [place] [address] Yamel Healy documented as of this encounter Visit Diagnoses Not on filedocumented in this encounter
--- OUTSIDE RECORDS SUMMARY | 2025-03-08 11:54 | XMS_ITS | Encounter Summary ---
Author Organization [facility] Address [address] [place] [address] Care Team Providers Care Lmsw Name Role Phone Amy Wilkerson MD Primary Care Provider + [phone] Thierno Duvall MD, PHD Unavailable Unava ilable Lizbeth Parikh PA-C Unavailable [phone] Bin Fowler PA-C Unavailable [phone] Vinicius Fonseca Unavailable Unavailable Amador Funk MD Unavailable Timoteo Mcfarland MD Unavailable [phone] Marco Hunt MD Unavailable Joy Brand NP Unavailable [phone] [facility], Pcp Primary Care Provider Unavailabl e Encounter Details Date Type Department Care Team Description 11/18/2023 Orders Only Cardio PVCA Diag Testing 101 300 [facility] [address] [place], [place] [id number] Joy Brand NP [address] [place] [address] Social History Tobacco Use Types Packs/Day [...] on filedocumented in this encounter Care Teams Lmsw Relationship Specialty Start Date End Date Amy Wilkerson MD 230 [place] [address] PCP - General Internal Medicine 11/11/21 09/05/24 [facility], Pcp [address] [address] PCP - General Internal Medicine 09/06/24 Thierno Duvall MD, PHD [address] [place] [address] Surgeon Neurosurgery 02/25/22 Lizbeth Parikh PA-C [address] [address] Specialist Neurosurgery 02/25/22 Bin Fowler PA-C [address] [address] Specialist Neurosurgery 02/25/22 Vinicius Fonseca [address] [address] Dermatology 03/10/23 Amador Funk MD [address] [address] Principal Product Manager Cardiovascular Disease 03/10/23 Timoteo Mcfarland MD [address] [address] ORTHOPEDIC SURGERY 08/24/23 Marco Hunt MD [address] [address] Specialist Cardiology 10/09/23 Joy Brand NP [address] [phone] Cardiology 10/09/23 [facility] urology Specialist Urology 08/24/23 documented as of this encounter
--- OUTSIDE RECORDS SUMMARY | 2025-03-08 11:54 | XMS_ITS | Encounter Summary ---
Author Organization [facility] Address [address] [place] [address] Care Team Providers Care Cooler Man Name Role Phone Amy Wilkerson MD Primary Care Provider + [phone] Thierno Duvall MD, PHD Unavailable Unava ilable Lizbeth Parikh PA-C Unavailable +[phone] Bin Fowler PA-C Unavailable [phone] Vinicius Fonseca Unavailable Unavailable Amador Funk MD Unavailable [phone] Daryl Dunn NP Unavailable [phone] Timoteo Mcfarland MD Unavailable [phone] Marco Hunt MD Unavailable [phone] Joy Brand NP Unavailable [phone] [facility], Pcp Primary Care Provider Unavailabl e Reason for Visit * Reason Onset Date Comments Orders Call 12/11/2022 MRI Encounter Details Date Type Department Care Team Description 12/11/2022 Telephone [facility] 175 [facility] [address] [place] [address] Timoteo Mcfarland MD 175 [facility] [address] [place], [place] [phone] Orders Call (MRI) Social History Tobacco Use Types Packs/Day Years [...] encounter Miscellaneous Notes * Telephone Encounter - Kendra Streeter M.A. - 12/11/2022 8:37 AM EST MRI order done. Faxed to MRI dept. Waiting for an appointment date and time. documented in this encounter Plan of Treatment Not on file documented as of this encounter Visit Diagnoses Not on filedocumented in this encounter Care Teams Cooler Man Relationship Specialty Start Date End Date Amy Wilkerson MD 230 [place] [address] PCP - General Internal Medicine 11/11/21 09/05/24 [facility], Pcp [address] [address] PCP - General Internal Medicine 09/06/24 Thierno Duvall MD, PHD [address] [place] [address] Surgeon Neurosurgery 02/25/22 Lizbeth Parikh PA-C [address] [address] Specialist Neurosurgery 02/25/22 Bin Fowler PA-C [address] [address] Specialist Neurosurgery 02/25/22 Vinicius Fonseca [address] [address] Dermatology 03/10/23 Amador Funk MD [address] [address] Char Filter Tank Tender Head Cardiovascular Disease 03/10/23 Daryl Dunn NP [address] [address] Nurse Practitioner Cardiology 04/27/23 10/19/23 Timoteo Mcfarland MD [address] [address] ORTHOPEDIC SURGERY 08/24/23 Marco Hunt MD 175 [facility] [address] [place] [address] Specialist Cardiology 10/09/23 Joy Brand NP 300 [facility] [address] [place] [address] Cardiology 10/09/23 [facility] urology Specialist Urology 08/24/23 documented as of this encounter
--- OUTSIDE RECORDS SUMMARY | 2025-03-08 11:54 | XMS_ITS | Encounter Summary ---
Author Organization [facility] Address [address] [place] [address] Care Team Providers Care Patient Registration Clerk Name Role Phone Papito Mann MD Primary Care Provider Unavailable Amy Wilkerson MD Primary Care Provider + [phone] Thierno Duvall MD, PHD Unavailable Unava ilable Lizbeth Parikh PA-C Unavailable +[phone] Bin Fowler PA-C Unavailable [phone] Vinicius Fonseca Unavailable Unavailable Amador Funk MD Unavailable [phone] Daryl Dunn NP Unavailable [phone] Timoteo Mcfarland MD Unavailable [phone] Marco Hunt MD Unavailable [phone] Joy Brand NP Unavailable [phone] [facility], Pcp Primary Care Provider Unavailabl e Encounter Details Date Type Department Care Team Description 07/29/2017 Paper Machine Tender Report Medical Records [address] [place] [address] Saul Fritz MD Social History Tobacco Use [...] on filedocumented in this encounter Care Teams Patient Registration Clerk Relationship Specialty Start Date End Date Papito Mann MD PCP - General Internal Medicine 06/24/17 11/10/21 Amy Wilkerson MD 230 [place], [place] [address] PCP - General Internal Medicine 11/11/21 09/05/24 [facility], Pcp [address] [address] PCP - General Internal Medicine 09/06/24 Thierno Duvall MD, PHD [address] [place] [address] Surgeon Neurosurgery 02/25/22 Lizbeth Parikh PA-C [address] [address] Specialist Neurosurgery 02/25/22 Bin Fowler PA-C [address] [address] Specialist Neurosurgery 02/25/22 Vinicius Fonseca [address] [address] Dermatology 03/10/23 Amador Funk MD [address] [address] Scientific Research Associate Cardiovascular Disease 03/10/23 Daryl Dunn NP [address] [address] Nurse Practitioner Cardiology 04/27/23 10/19/23 Timoteo Mcfarland MD [address] [address] ORTHOPEDIC SURGERY 08/24/23 Marco Hunt MD [address] [address] Specialist Cardiology 10/09/23 Joy Brand NP [address] [phone] Cardiology 10/09/23 [facility] urology Specialist Urology 08/24/23 documented as of this encounter
--- OUTSIDE RECORDS SUMMARY | 2025-03-08 11:54 | XMS_ITS | Encounter Summary ---
Author Organization [facility] Address [address] [place] [address] Care Team Providers Care Membership Counselor Name Role Phone Amy Wilkerson MD Primary Care Provider + [phone] Thierno Duvall MD, PHD Unavailable Unava ilable Lizbeth Parikh PA-C Unavailable [phone] Bin Fowler PA-C Unavailable [phone] Vinicius Fonseca Unavailable Unavailable Amador Funk MD Unavailable [phone] Daryl Dunn NP Unavailable [phone] Timoteo Mcfarland MD Unavailable [phone] Marco Hunt MD Unavailable [phone] Joy Brand NP Unavailable [phone] [facility], Pcp Primary Care Provider Unavailabl e Encounter Details Date Type Department Care Team Description 07/10/2023 [facility] 175 [facility] [address] [place] [address] Timoteo Mcfarland MD 175 [facility] [address] [place], [place] [id number] Social History Tobacco Use Types Packs/Day Years [...] on filedocumented in this encounter Care Teams Membership Counselor Relationship Specialty Start Date End Date Amy Wilkerosn MD 230 [place] [address] PCP - General Internal Medicine 11/11/21 09/05/24 [facility], Pcp [address] [address] PCP - General Internal Medicine 09/06/24 Thierno Duvall MD, PHD [address] [place] [address] Surgeon Neurosurgery 02/25/22 Lizbeth Parikh PA-C [address] [address] Specialist Neurosurgery 02/25/22 Bin Fowler PA-C [address] [address] Specialist Neurosurgery 02/25/22 Vinicius Fonseca [address] [address] Dermatology 03/10/23 Amador Funk MD [address] [address] Citizenship Teacher Cardiovascular Disease 03/10/23 Daryl Dunn NP [address] [address] Nurse Practitioner Cardiology 04/27/23 10/19/23 Timoteo Mcfarland MD [address] [address] ORTHOPEDIC SURGERY 08/24/23 Marco Hunt MD [address] [address] Specialist Cardiology 10/09/23 Joy Brand NP [address] [phone] Cardiology 10/09/23 [facility] urology Specialist Urology 08/24/23 documented as of this encounter
--- OUTSIDE RECORDS SUMMARY | 2025-03-08 11:54 | XMS_ITS | Encounter Summary ---
Author Organization [facility] Address [address] [place] [address] Care Team Providers Care Mouse Breeder Name Role Phone Papito Mann MD Primary Care Provider Unavailable Amy Wilkerson MD Primary Care Provider + [phone] Thierno Duvall MD, PHD Unavailable Unava ilable Lizbeth Parikh PA-C Unavailable [phone] Bin Fowler PA-C Unavailable [phone] Vinicius Fonseca Unavailable Unavailable Amador Funk MD Unavailable [phone] Daryl Dunn NP Unavailable [phone] Timoteo Mcfarland MD Unavailable [phone] Marco Hunt MD Unavailable [phone] Joy Brand NP Unavailable [phone] [facility], Pcp Primary Care Provider Unavailabl e Encounter Details Date Type Department Care Team Description 04/29/2019 Life Insurance Agent Report Medical Records [address] [place] [address] Rehab., Preet Social History Tobacco Use Types [...] on filedocumented in this encounter Care Teams Mouse Breeder Relationship Specialty Start Date End Date Papito Mann MD PCP - General Internal Medicine 06/24/17 11/10/21 Amy Wilkerson MD 230 [place] [address] PCP - General Internal Medicine 11/11/21 09/05/24 [facility], Pcp [address] [address] PCP - General Internal Medicine 09/06/24 Thierno Duvall MD, PHD 230 [place] [address] Surgeon Neurosurgery 02/25/22 Lizbeth Parikh PA-C [address] [address] Specialist Neurosurgery 02/25/22 Bin Fowler PA-C [address] [address] Specialist Neurosurgery 02/25/22 Vinicius Fonseca [address] [address] Dermatology 03/10/23 Amador Funk MD [address] [address] Boarding Machine Operator Cardiovascular Disease 03/10/23 Daryl Dunn NP [address] [address] Nurse Practitioner Cardiology 04/27/23 10/19/23 Timoteo Mcfarland MD [address] [address] ORTHOPEDIC SURGERY 08/24/23 Marco Hunt MD [address] [address] Specialist Cardiology 10/09/23 Joy Brand NP [address] [phone] Cardiology 10/09/23 [facility] urology Specialist Urology 08/24/23 documented as of this encounter
--- OUTSIDE RECORDS SUMMARY | 2025-03-08 11:54 | XMS_ITS | Clinical Summary ---
Author Organization [address] [place] [address] Address [address] [place] [address] Phone Care Team Providers Care Apprenticeship Consultant Name Role Phone Jc Myrick RIGGING LOFT REPAIRER Primary Care Provider Allergies No known active allergies Medications acetaminophen [...] as tolerated or consider alternatives. Nonischemic cardiomyopathy (CMS/HCC V24, CMS/HCC V28) 04/27/2023 Overview (08/24/2024): Last Assessment & Plan: [...] and/or spironolactone after discussion with his primary canned food reconditioning inspector. Abnormal EKG 03/11/2023 Persistent atrial fibrillation (CMS/HCC V24, CMS /HCC V28) 03/11/2023 Overview (08/24/2024): Last Assessment & Plan: [...] injury and catheter thrombus related stroke or OR. He understands that he may not necessarily build to come off of anticoagulation even if successful we will base that decision on his [id number] score. I encouraged him to continue efforts [...] 03/14/2019 Obstructive sleep apnea 12/17/2018 Overview (08/24/2024): [facility] Home Polysomnogram: Date 12/14/2018; AHI 19, [...] Encounters Date Type Department Care Team Description 03/03/2025 10:30 AM EDT Ancillary Procedure [facility] [address] [place] [address] Abnormal EKG (Primary Dx) 03/01/2025 Telephone [facility] [address] [facility] [address] [place] [address] Amador Funk MD OTHER (Patient currently in afib) 02/23/2025 Telephone [facility] - [address] [place] [address] Jc Myrick FNP Medical Records [...] Comments COLONOSCOPY 10/19/2007 PROCEDURE: HISTORICAL COLONOSCOPY; COMMENT: [facility]; [place]; multiple small tubular adenomas. COLONOSCOPY 02/02/2018 PROCEDURE: HISTORICAL COLONOSCOPY; COMMENT: Diminutive colonic polyps ? 3 : all tubular adenomas. OTHER SURGICAL HISTORY 08/2017 PROCEDURE: DECOMPRESS DISC RF LUMBAR; COMMENT: microlumbar discectomy L4-5 Lam TURP / TRANSURETHRAL INCISIO N / DRAINAGE PROSTATE 2017 PROCEDURE: HISTORICAL TURP UPPER GASTROINTESTINAL ENDOSCOPY 04/12/2020 PROCEDURE: CA UPPER GI ENDOSCOPY PERFORMED; COMMENT: normal on famotidine rx. 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 DX:Psychog enic impotence Esophageal dysmotility 05/24/2019 DX:Esopha geal dysmotility New onset a-fib (CMS/HCC V24 , CMS/HCC V28) 03/11/2023 DX:New onset a-fib (HCC) Family History [...] Procedure Name Priority Date/Time Associated Diagnosis Comments ECG 12-LEAD Routine 03/03/2025 10:42 AM EDT Abnormal EKG LIPID PANEL Routine 12/25/2023 COLONOSCOPY Routine 02/02/2018 HEPATITIS C SCREENING Routine 12/25/2017 from Last 3 Months or Most Recently Relevant to Health Maintenance Results * ECG 12 lead (03/03/2025 10:42 AM EDT) [facility] Ventricular Rate ECG 74 BPM GEMUSE Atrial Rate 74 BPM GEMUSE P-R Interval 164 ms GEMUSE QRS Duration 92 ms GEMUSE Q-T Interval 390 ms GEMUSE QTc 432 ms GEMUSE P Wave Elkins 63 degrees GEMUSE R Elkins -28 degrees GEMUSE T Elkins 1 degrees GEMUSE ECG Interpretation Normal sinus rhythm Normal ECG When compared with ECG of 03-FEB-2022 08:00, Incomplete right bundle branch block is no longer Present Confirmed by MD Good, Amador ([id number]) on 03/03/2025 11:46:04 AM GEMUSE 03/03/2025 10:4 2 AM EDT 03/03/2025 11:46 AM EDT Amador Funk MD ECG ORDERABLES Final Res ult GEMUSE * (ABNORMAL) Lipid panel (12/25/2023) [facility] LDL/HDL Ratio 4 0 - 4 Triglycerides 77 0 - 150 mg/dL Cholesterol 207(A) 0 - 200 mg/dL HDL 53 >=40 mg/dL LDL Cholesterol 139(A) 0 - 100 mg/dL Blood Venous blood specimen / Unknown [facility] Provider LAB BLOOD ORDERABLES Natalya l Result * Colonoscopy (02/02/2018) Pathologist [facility] Colonoscopy No Interpretation , Abstracted Anatomical Region Laterality Modality Other Historical Provider HEALTH MAINTENANCE Final Result * Hepatitis C Screening (12/25/2017) Pathologist [facility] Hepatitis C Screening Abstracted Historical Provider HEALTH MAINTENANCE Final Result from Last 3 Months or Most Recently Relevant to Health Maintenance Insurance [employer] MEDICARE [facility] [place] [id number] Care Teams Apprenticeship Consultant Relationship Specialty Start Date End Date Jc Myrick FNP PCP - General Family Medicine 10/10/24
--- OUTSIDE RECORDS SUMMARY | 2025-03-08 11:54 | XMS_ITS | Clinical Summary ---
Author Organization [facility], Address [address] [place] [address] Phone Care Team Providers Care Home Health Care Respiratory Therapist Name Role Phone Unavailable Primary Care Provider [...] 03/14/2019 Obstructive sleep apnea 12/17/2018 Overview (01/07/2022): [facility] Home Polysomnogram: Date 12/14/2018; AHI [...] (01/07/2022): Bilateral hands, less than feet Immunizations Immunization Administration Dates Next Due Influenza, MDCK, PF, [...] Colorectal Cancer Screening: Sigmoidoscopy 2007 Pneumococcal Vaccine: 50+ Years (1 of 1 - PCV) 2008 Influenza Vaccine (Season Ended) 2025 08/09/2020, 08/18/2019, 09/17/2018, Additional history exists Hepatitis B Vaccine Aged Out No longe r eligible based on patient's age to complete this topic Insurance Medicare Medicaid [place]
--- OUTSIDE RECORDS SUMMARY | 2025-03-08 11:55 | XMS_ITS | Encounter Summary ---
Author Organization [facility] Address [address] [place] [address] Care Team Providers Care Obstetrician And Gynaecologist Name Role Phone Jc Myrick Primary Care Provider [phone] Reason for Visit * Reason Onset Date Comments Medical Records 02/23/2025 Encounter Details Date Type Department Care Team (Late st Contact Info) Description 02/23/2025 Telephone [facility] Cardiology [facility] [address] [place] [address] Jc Myrick FNP [address] [place] [address] Medical Records Social History Tobacco Use Types Packs/Day Years Used Date Smoking Tobacco: Never Smokeless Tobacco: Never Alcohol Use Standard Drinks/Week Comments Not Currently 0 (1 standard drink = 0.6 oz pur e alcohol) Sex and Gender Information Value Date Recorded Sex Assigned at Not on file Legal Sex Male 1:35 AM EST Gender Identity Not on file Sexual Orientation Not on file documented as of this encounter Progress Notes * Dayanara Richardson - 03/07/2025 1:31 PM EDT Faxed 10/10/2024 Office Note, EKG, 07/27/2024 Echo report and Event Monitor to [facility] Att: Laura at [phone] on 02/23/2025 documented in this encounter Plan of Treatment Not on file documented as of this encounter Visit Diagnoses Not on filedocumented in this encounter Care Teams Obstetrician And Gynaecologist Relationship Specialty Start Date End Date Jc Myrick FNP PCP - General Family Medicine 10/10/24 documented as of this encounter
--- OUTSIDE RECORDS SUMMARY | 2025-03-08 11:55 | XMS_ITS | Encounter Summary ---
Author Organization [facility] Address [address] [place] [address] Care Team Providers Care Liquid Waste Treatment Plant Operator Name Role Phone Papito Mann MD Primary Care Provider Unavailable Amy Wilkerson MD Primary Care Provider + [phone] Thierno Duvall MD, PHD Unavailable Unava ilable Lizbeth Parikh PA-C Unavailable [phone] Bin Fowler PA-C Unavailable [phone] Vinicius Fonseca Unavailable Unavailable Amador Funk MD Unavailable [phone] Daryl Dunn NP Unavailable [phone] Timoteo Mcfarland MD Unavailable [phone] Marco Hunt MD Unavailable [phone] Joy Brand NP Unavailable [phone] [facility], Pcp Primary Care Provider Unavailabl e Encounter Details Date Type Department Care Team Description 10/27/2018 Warp Doffer Report Medical Records [address] [place] [address] Alex Baez MD Social History Tobacco Use [...] on filedocumented in this encounter Care Teams Liquid Waste Treatment Plant Operator Relationship Specialty Start Date End Date Papito Mann MD PCP - General Internal Medicine 06/24/17 11/10/21 Amy Wilkerson MD [address] [place] [address] PCP - General Internal Medicine 11/11/21 09/05/24 [facility] Pcp [address] [address] PCP - General Internal Medicine 09/06/24 Thierno Duvall MD, PHD [address] [place] [address] Surgeon Neurosurgery 02/25/22 Lizbeth Parikh PA-C [address] [address] Specialist Neurosurgery 02/25/22 Bin Fowler PA-C [address] [address] Specialist Neurosurgery 02/25/22 Vinicius Fonseca [address] [address] Dermatology 03/10/23 Amador Funk MD [address] [address] Bromination Equipment Operator Cardiovascular Disease 03/10/23 Daryl Dunn NP [address] [address] Nurse Practitioner Cardiology 04/27/23 10/19/23 Timoteo Mcfarland MD [address] [address] ORTHOPEDIC SURGERY 08/24/23 Marco Hunt MD [address] [address] Specialist Cardiology 10/09/23 Joy Brand NP [address] [phone] Cardiology 10/09/23 [facility] urology Specialist Urology 08/24/23 documented as of this encounter
--- OUTSIDE RECORDS SUMMARY | 2025-03-08 11:55 | XMS_ITS | Encounter Summary ---
Author Organization [facility] Address [address] [place] [address] Care Team Providers Care Dinkey Locomotive Engineer Name Role Phone Amy Wilkerson MD Primary Care Provider + [phone] Thierno Duvall MD, PHD Unavailable Unava ilable Lizbeth Parikh PA-C Unavailable [phone] Bin Fowler PA-C Unavailable [phone] Vinicius Fonseca Unavailable Unavailable Amador Funk MD Unavailable Timoteo Mcfarland MD Unavailable [phone] Marco Hunt MD Unavailable [phone] Joy Brand NP Unavailable [phone] Replaced By [facility], Pcp Primary Care Provider Unavailabl e Reason for Visit * Reason Onset Date Comments Testing 03/31/2024 VENOUS BILAT ON 04/19/24 Encounter Details Date Type Department Care Team Description 03/31/2024 Telephone Cardio PVCA Diag Testing [address] [facility] [address] [place] [address] Joy Brand NP [address] [facility] [address] [place] [address] Testing (VENOUS BILAT ON 04/19/24) [...] about R60.0? * Telephone Encounter - Jannet Abraham - 03/31/2024 8:21 AM EDT I am [...] on filedocumented in this encounter Care Teams Dinkey Locomotive Engineer Relationship Specialty Start Date End Date Amy Wilkerson MD [facility] [place] [address] PCP - General Internal Medicine 11/11/21 09/05/24 Replaced By [facility], Pcp [address] [address] PCP - General Internal Medicine 09/06/24 Thierno Duvall MD, PHD [address] [place] [address] Surgeon Neurosurgery 02/25/22 Lizbeth Parikh PA-C [address] [address] Specialist Neurosurgery 02/25/22 Bin Fowler PA-C [address] [address] Specialist Neurosurgery 02/25/22 Vinicius oFnseca [address] [address] Dermatology 03/10/23 Amador Funk MD [address] [address] Aged Or Disabled Care Worker Cardiovascular Disease 03/10/23 Timoteo Mcfarland MD [address] [address] ORTHOPEDIC SURGERY 08/24/23 Marco Hunt MD [address] [address] Specialist Cardiology 10/09/23 Joy Brand, MAREK [address] [phone] Cardiology 10/09/23 [facility] urology Specialist Urology 08/24/23 documented as of this encounter
--- OUTSIDE RECORDS SUMMARY | 2025-03-08 11:55 | XMS_ITS | Encounter Summary ---
Author Organization [facility] Address [address] [place] [address] Care Team Providers Care Lead Electrician Name Role Phone Papito Mann MD Primary Care Provider Unavailable Amy Wilkerson MD Primary Care Provider + [phone] Thierno Duvall MD, PHD Unavailable Unava ilable Lizbeth Parikh PA-C Unavailable [phone] Bin Fowler PA-C Unavailable [phone] Vinicius Fonseca Unavailable Unavailable Amador Funk MD Unavailable [phone] Daryl Dunn NP Unavailable [phone] Timoteo Mcfarland MD Unavailable Marco Hunt MD Unavailable [phone] Joy Brand NP Unavailable [phone] [facility], Pcp Primary Care Provider Unavailabl e Encounter Details Date Type Department Care Team Description 02/21/2019 Instructor Flying Report Medical Records [address] [place] [address] Saul Fritz MD Social History Tobacco Use [...] on filedocumented in this encounter Care Teams Lead Electrician Relationship Specialty Start Date End Date Papito Mann MD PCP - General Internal Medicine 06/24/17 11/10/21 Amy Wilkerson MD 230 [place] [address] PCP - General Internal Medicine 11/11/21 09/05/24 [facility] Pcp [address] [address] PCP - General Internal Medicine 09/06/24 Thierno Duvall MD, PHD [address] [place] [address] Surgeon Neurosurgery 02/25/22 Lizbeth Parikh PA-C [address] [address] Specialist Neurosurgery 02/25/22 Bin Fowler PA-C [address] [address] Specialist Neurosurgery 02/25/22 Vinicius Fonseca [address] [address] Dermatology 03/10/23 Amador Funk MD [address] [address] Early Interventionist Cardiovascular Disease 03/10/23 Daryl Dunn NP [address] [address] Nurse Practitioner Cardiology 04/27/23 10/19/23 Timoteo Mcfarland MD [address] [address] ORTHOPEDIC SURGERY 08/24/23 Marco Hunt MD [address] [address] Specialist Cardiology 10/09/23 Joy Brand NP [address] [phone] Cardiology 10/09/23 [facility] urology Specialist Urology 08/24/23 documented as of this encounter
--- OUTSIDE RECORDS SUMMARY | 2025-03-08 11:55 | XMS_ITS | Encounter Summary ---
Author Organization [facility] Address [address] [place] [address] Care Team Providers Care [place] Purse Seine Name Role Phone Amy Wilkerson MD Primary Care Provider + [phone] Thierno Duvall MD, PHD Unavailable Unava ilable Lizbeth Parikh PA-C Unavailable [phone] Bin Fowler PA-C Unavailable [phone] Vinicius Fonseca Unavailable Unavailable Amador Funk MD Unavailable Daryl Dunn NP Unavailable Timoteo Mcfarland MD Unavailable [phone] Marco Hunt MD Unavailable Joy Brand NP Unavailable [phone] [facility], Pcp Primary Care Provider Unavailabl e Encounter Details Date Type Department Care Team Description 02/04/2022 SCAN [facility] Neurosurgery [place] [address] [place] [address] Thierno Duvall MD, PHD Social [...] on filedocumented in this encounter Care Teams [place] Purse Seine Relationship Specialty Start Date End Date Amy Wilkerson MD 230 [place] [address] PCP - General Internal Medicine 11/11/21 09/05/24 [facility], Pcp [address] [address] PCP - General Internal Medicine 09/06/24 Thierno Duvall MD, PHD [address] [place] [address] Surgeon Neurosurgery 02/25/22 Lizbeth Parikh PA-C [address] [address] Specialist Neurosurgery 02/25/22 Bin Fowler PA-C [address] [address] Specialist Neurosurgery 02/25/22 Vinicius Fonseca [address] [address] Dermatology 03/10/23 Amador Funk MD [address] [address] Unit Manager Cardiovascular Disease 03/10/23 Daryl Dunn NP [address] [address] Nurse Practitioner Cardiology 04/27/23 10/19/23 Timoteo Mcfarland MD [address] [address] ORTHOPEDIC SURGERY 08/24/23 Marco [place] MD [address] [address] Specialist Cardiology 10/09/23 Joy Brand NP [address] [phone] Cardiology 10/09/23 [facility] urology Specialist Urology 08/24/23 documented as of this encounter
--- OUTSIDE RECORDS SUMMARY | 2025-03-08 11:55 | XMS_ITS | Encounter Summary ---
Author Organization [facility] Address [address] [place] [address] Care Team Providers Care Principal Trainer Name Role Phone Papito Mann MD Primary Care Provider Unavailable Amy Wilkerson MD Primary Care Provider + [phone] Thierno Duvall MD, PHD Unavailable Unava ilable Lizbeth Parikh PA-C Unavailable [phone] Bin Fowler PA-C Unavailable [phone] Vinicius Fonseca Unavailable Unavailable Amador Funk MD Unavailable [phone] Daryl Dunn NP Unavailable [phone] Timoteo Mcfarland MD Unavailable [phone] Marco Hunt MD Unavailable [phone] Joy Brand NP Unavailable [facility], Pcp Primary Care Provider Unavailabl e Encounter Details Date Type Department Care Team Description 12/17/2018 Orders Only Medical Records [address] [place] [address] Papito Mann MD Social History Tobacco Use [...] on filedocumented in this encounter Care Teams Principal Trainer Relationship Specialty Start Date End Date Papito Mann MD PCP - General Internal Medicine 06/24/17 11/10/21 Amy Wilkerson MD [address] [place] [address] PCP - General Internal Medicine 11/11/21 09/05/24 [facility], Pcp [address] [address] PCP - General Internal Medicine 09/06/24 Thierno Duvall MD, PHD [address] [place] [address] Surgeon Neurosurgery 02/25/22 Lizbeth Parikh PA-C [address] [address] Specialist Neurosurgery 02/25/22 Bin Fowler PA-C [address] [address] Specialist Neurosurgery 02/25/22 Vinicius Fonseca [address] [address] Dermatology 03/10/23 Amador Funk MD [address] [address] Wool Puller Cardiovascular Disease 03/10/23 Daryl Dunn NP 300 [facility] [address] [place] [address] Nurse Practitioner Cardiology 04/27/23 10/19/23 Timoteo Mcfarland MD [address] [address] ORTHOPEDIC SURGERY 08/24/23 Marco [place] MD [address] [address] Specialist Cardiology 10/09/23 Joy Brand NP 300 [facility] [address] [place] [address] Cardiology 10/09/23 [facility] urology Specialist Urology 08/24/23 documented as of this encounter
--- OUTSIDE RECORDS SUMMARY | 2025-03-08 11:55 | XMS_ITS | Encounter Summary ---
Author Organization [facility] Address [address] [place] [address] Care Team Providers Care Accredited Legal Secretary Name Role Phone Papito Mann MD Primary Care Provider Unavailable Amy Wilkerson MD Primary Care Provider + [phone] Thierno Duvall MD, PHD Unavailable Unava ilable Lizbeth Parikh PA-C Unavailable +[phone] Bin Fowler PA-C Unavailable +[phone] Vinicius Fonseca Unavailable Unavailable Amador Funk MD Unavailable [phone] Daryl Dunn NP Unavailable +[phone] Timoteo Mcfarland MD Unavailable +[phone] aMrco Hunt MD Unavailable [phone] Joy Brand NP Unavailable [phone] [facility], Pcp Primary Care Provider Unavailabl e Encounter Details Date Type Department Care Team Description 02/11/2019 Caddie Supervisor Report Medical Records [address] [place] [address] Lm Gomez, PA-C Social History Tobacco Use [...] on filedocumented in this encounter Care Teams Accredited Legal Secretary Relationship Specialty Start Date End Date Papito Mann MD PCP - General Internal Medicine 06/24/17 11/10/21 Amy Wilkerson MD 230 [place] [address] PCP - General Internal Medicine 11/11/21 09/05/24 [facility], Pcp [address] [address] PCP - General Internal Medicine 09/06/24 Thierno Duvall MD, PHD 230 [place] [address] Surgeon Neurosurgery 02/25/22 Lizbeth Parikh PA-C [address] [address] Specialist Neurosurgery 02/25/22 Bin Fowler PA-C [address] [address] Specialist Neurosurgery 02/25/22 Vinicius Fonseca [address] [address] Dermatology 03/10/23 Amador Funk MD [address] [address] Gun Stocker Cardiovascular Disease 03/10/23 Daryl Dunn NP [address] [address] Nurse Practitioner Cardiology 04/27/23 10/19/23 Timoteo Mcfarland MD [address] [address] ORTHOPEDIC SURGERY 08/24/23 Marco Hunt MD [address] [address] Specialist Cardiology 10/09/23 Joy Brand NP [address] [phone] Cardiology 10/09/23 [facility] urology Specialist Urology 08/24/23 documented as of this encounter
--- OUTSIDE RECORDS SUMMARY | 2025-03-08 11:55 | XMS_ITS | Encounter Summary ---
Author Organization [facility] Address [address] [place] [address] Care Team Providers Care Control Room Agent Name Role Phone Amy Wilkerson MD Primary Care Provider + [phone] Thierno Duvall MD, PHD Unavailable Unava ilable Lizbeth Parikh PA-C Unavailable +[phone] Bin Fowler PA-C Unavailable +[phone] Vinicius Fonseca Unavailable Unavailable Amador Funk MD Unavailable [phone] Daryl Dunn NP Unavailable [phone] Timoteo Mcfarland MD Unavailable [phone] Marco Hunt MD Unavailable [phone] Joy Brand NP Unavailable [phone] [facility], Pcp Primary Care Provider Unavailabl e Encounter Details Date Type Department Care Team Description 02/06/2022 [facility] Neurosurgery [address] [place] [address] Thierno Duvall MD, PHD Social [...] on filedocumented in this encounter Care Teams Control Room Agent Relationship Specialty Start Date End Date Amy Wilkerson MD 230 [place] [address] PCP - General Internal Medicine 11/11/21 09/05/24 [facility], Pcp 300 [facility] [address] [place] [address] PCP - General Internal Medicine 09/06/24 Thierno Duvall MD, PHD 230 [place] [address] Surgeon Neurosurgery 02/25/22 Lizbeth Parikh PA-C [address] [address] Specialist Neurosurgery 02/25/22 Bin Fowler PA-C [address] [address] Specialist Neurosurgery 02/25/22 Vinicius Fonseca [address] [address] Dermatology 03/10/23 Amador Funk MD [address] [address] Medical Clinic Manager Cardiovascular Disease 03/10/23 Daryl Dunn NP [address] [address] Nurse Practitioner Cardiology 04/27/23 10/19/23 Timoteo Mcfarland MD [address] [address] ORTHOPEDIC SURGERY 08/24/23 Marco Hunt MD [address] [address] Specialist Cardiology 10/09/23 Joy Brand NP [address] [phone] Cardiology 10/09/23 [facility] urology Specialist Urology 08/24/23 documented as of this encounter
--- OUTSIDE RECORDS SUMMARY | 2025-03-08 11:55 | XMS_ITS | Encounter Summary ---
Author Organization [facility] Address [address] [place] [address] Care Team Providers Care Hadoop Software Engineer Name Role Phone Amy Wilkerson MD Primary Care Provider + [phone] Thierno Duvall MD, PHD Unavailable Unava ilable Lizbeth Parikh PA-C Unavailable +[phone] Bin Fowler PA-C Unavailable [phone] Vinicius Fonseca Unavailable Unavailable Amador Funk MD Unavailable [phone] Daryl Dunn NP Unavailable Timoteo Mcfarland MD Unavailable [phone] Marco Hunt MD Unavailable Joy Brand NP Unavailable [phone] [facility], Pcp Primary Care Provider Unavailabl e Encounter Details Date Type Department Care Team Description 02/06/2022 [facility] Neurosurgery [place] [address] [place] [address] Thierno Duvall MD, PHD Social [...] on filedocumented in this encounter Care Teams Hadoop Software Engineer Relationship Specialty Start Date End Date Amy Wilkerson MD 230 [place] [address] PCP - General Internal Medicine 11/11/21 09/05/24 [facility], Pcp [address] [address] PCP - General Internal Medicine 09/06/24 Thierno Duvall MD, PHD 230 [place] [address] Surgeon Neurosurgery 02/25/22 Lizbeth Parikh PA-C [address] [address] Specialist Neurosurgery 02/25/22 Bin Fowler PA-C [address] [address] Specialist Neurosurgery 02/25/22 Vinicius Fonseca [address] [address] Dermatology 03/10/23 Amador Funk MD [address] [address] Chief Design Drafter Cardiovascular Disease 03/10/23 Daryl Dunn NP [address] [address] Nurse Practitioner Cardiology 04/27/23 10/19/23 Timoteo Mcfarland MD [address] [address] ORTHOPEDIC SURGERY 08/24/23 Marco Hunt MD [address] [address] Specialist Cardiology 10/09/23 Joy Brand NP [address] [phone] Cardiology 10/09/23 [facility] urology Specialist Urology 08/24/23 documented as of this encounter
--- OUTSIDE RECORDS SUMMARY | 2025-03-08 11:55 | XMS_ITS | Encounter Summary ---
Author Organization [facility] Address [address] [place] [address] Care Team Providers Care Saw Handle Assembler Name Role Phone Papito Mann MD Primary Care Provider Unavailable Amy Wilkerson MD Primary Care Provider + [phone] Thierno Duvall MD, PHD Unavailable Unava ilable Lizbeth Parikh PA-C Unavailable [phone] Bin Fowler PA-C Unavailable [phone] Vinicius Fonseca Unavailable Unavailable Aamdor Funk MD Unavailable [phone] Daryl Dunn NP Unavailable [phone] Timoteo Mcfarland MD Unavailable Marco Hunt MD Unavailable [phone] Joy Brand NP Unavailable [phone] [facility], Pcp Primary Care Provider Unavailabl e Encounter Details Date Type Department Care Team Description 08/15/2021 Optical Effects Camera Operator Report Medical Records 444 [place] [address] Brain Chase DO Social History Tobacco Use Types Packs/Day Years [...] on filedocumented in this encounter Care Teams Saw Handle Assembler Relationship Specialty Start Date End Date Papito Mann MD PCP - General Internal Medicine 06/24/17 11/10/21 Amy Wilkerson MD 230 [place] [address] PCP - General Internal Medicine 11/11/21 09/05/24 [facility], Pcp [address] [address] PCP - General Internal Medicine 09/06/24 Thierno Duvall MD, PHD [address] [place] [address] Surgeon Neurosurgery 02/25/22 Lizbeth Parikh PA-C [address] [address] Specialist Neurosurgery 02/25/22 Bin Fowler PA-C [address] [address] Specialist Neurosurgery 02/25/22 Vinicius Fonseca [address] [address] Dermatology 03/10/23 Amador Funk MD [address] [address] Oil Burner Technician Cardiovascular Disease 03/10/23 Daryl Dunn NP [address] [address] Nurse Practitioner Cardiology 04/27/23 10/19/23 Timoteo Mcfarland MD [address] [address] ORTHOPEDIC SURGERY 08/24/23 Marco Hunt MD [address] [address] Specialist Cardiology 10/09/23 Joy Brand NP [address] [phone] Cardiology 10/09/23 [facility] urology Specialist Urology 08/24/23 documented as of this encounter
--- OUTSIDE RECORDS SUMMARY | 2025-03-08 11:55 | XMS_ITS | Encounter Summary ---
Author Organization [facility] Address [address] [place] [address] Care Team Providers Care Infection Control Nurse Name Role Phone Amy Wilkerson MD Primary Care Provider + [phone] Thierno Duvall MD, PHD Unavailable Unava ilable Lizbeth Parikh PA-C Unavailable +[phone] Bin Fowler PA-C Unavailable [phone] Vinicius Fonseca Unavailable Unavailable Amador Funk MD Unavailable [phone] Daryl Dunn NP Unavailable [phone] Timoteo Mcfarland MD Unavailable [phone] Marco Hunt MD Unavailable [phone] Joy Brand NP Unavailable [phone] [facility], Pcp Primary Care Provider Unavailabl e Encounter Details Date Type Department Care Team Description 06/11/2022 SCAN Medical Records [address] [place] [address] Abstract, Provider Social History Tobacco Use Types [...] Date/Time Associated Diagnosis Comments OUTSIDE LAB Routine 06/11/2022 documented in this encounter Results * OUTSIDE LAB (06/11/2022) Provider Abstract LAB documented in this encounter Visit Diagnoses Not on filedocumented in this encounter Care Teams Infection Control Nurse Relationship Specialty Start Date End Date Amy Wilkerson MD 230 [place] [address] PCP - General Internal Medicine 11/11/21 09/05/24 [facility], Pcp [address] [address] PCP - General Internal Medicine 09/06/24 Thierno Duvall MD, PHD 230 [place] [address] Surgeon Neurosurgery 02/25/22 Lizbeth Parikh PA-C [address] [address] Specialist Neurosurgery 02/25/22 Bin Fowler PA-C [address] [address] Specialist Neurosurgery 02/25/22 Vinicius Fonseca [address] [address] Dermatology 03/10/23 Amador Funk MD [address] [address] Resource Teacher Cardiovascular Disease 03/10/23 Daryl Dunn NP [address] [address] Nurse Practitioner Cardiology 04/27/23 10/19/23 Timoteo Mcfarland MD [address] [address] ORTHOPEDIC SURGERY 08/24/23 Marco Hunt MD [address] [address] Specialist Cardiology 10/09/23 Joy Brand NP [address] [phone] Cardiology 10/09/23 [facility] urology Specialist Urology 08/24/23 documented as of this encounter
--- OUTSIDE RECORDS SUMMARY | 2025-03-08 11:55 | XMS_ITS | Encounter Summary ---
Author Organization [facility] Address [address] [place] [address] Care Team Providers Care Geography Head Name Role Phone Amy Wilkerson MD Primary Care Provider + [phone] Thierno Duvall MD, PHD Unavailable Unava ilable Lizbeth Parikh PA-C Unavailable +[phone] Bin Fowler PA-C Unavailable [phone] Vinicius Fonseca Unavailable Unavailable Amador Funk MD Unavailable [phone] Daryl Dunn NP Unavailable [phone] Timoteo Mcfarland MD Unavailable [phone] Marco Hunt MD Unavailable [phone] Joy Brand NP Unavailable [phone] [facility] Primary Care Provider Unavailabl e Encounter Details Date Type Department Care Team Description 02/05/2022 [facility] Medical Records [address] [place] [address] Thierno Duvall MD, PHD Social History Tobacco [...] on filedocumented in this encounter Care Teams Geography Head Relationship Specialty Start Date End Date Amy Wilkerson MD 230 [place] [address] PCP - General Internal Medicine 11/11/21 09/05/24 [facility] Pcp [address] [address] PCP - General Internal Medicine 09/06/24 Thierno Duvall MD, PHD [address] [place] [address] Surgeon Neurosurgery 02/25/22 Lizbeth Parikh PA-C [address] [address] Specialist Neurosurgery 02/25/22 Bin Fowler PA-C [address] [address] Specialist Neurosurgery 02/25/22 Vinicius Fonseca [address] [address] Dermatology 03/10/23 Amador Funk MD [address] [address] Professor Of Voice Cardiovascular Disease 03/10/23 Daryl Dunn NP [address] [address] Nurse Practitioner Cardiology 04/27/23 10/19/23 Timoteo Mcfarland MD [address] [address] ORTHOPEDIC SURGERY 08/24/23 Marco Hunt MD [address] [address] Specialist Cardiology 10/09/23 Joy Brand NP [address] [phone] Cardiology 10/09/23 [facility] urology Specialist Urology 08/24/23 documented as of this encounter
--- OUTSIDE RECORDS SUMMARY | 2025-03-08 11:55 | XMS_ITS | Encounter Summary ---
Author Organization [facility] Address [address] [place] [address] Care Team Providers Care Hydropress Operator Name Role Phone Papito Mann MD Primary Care Provider Unavailable Amy Wilkerson MD Primary Care Provider + [phone] Thierno Duvall MD, PHD Unavailable Unava ilable Lizbeth Parikh PA-C Unavailable +[phone] Bin Fowler PA-C Unavailable [phone] Vinicius Fonseca Unavailable Unavailable Amador Funk MD Unavailable +[phone] Daryl Dunn NP Unavailable [phone] Timoteo Mcfarland MD Unavailable [phone] Marco Hunt MD Unavailable [phone] Joy Brand NP Unavailable [phone] [facility], Pcp Primary Care Provider Unavailabl e Encounter Details Date Type Department Care Team Description 08/23/2018 Transfer Records Medical Records [address] [place] [address] [facility] Social History Tobacco Use Types Packs/Day Years [...] on filedocumented in this encounter Care Teams Hydropress Operator Relationship Specialty Start Date End Date aPpito Mann MD PCP - General Internal Medicine 06/24/17 11/10/21 Amy Wilkerson MD [address] [place] [id number] PCP - General Internal Medicine 11/11/21 09/05/24 [facility], Pcp [address] [address] PCP - General Internal Medicine 09/06/24 Thierno Duvall MD, PHD [address] [place] [address] Surgeon Neurosurgery 02/25/22 Lizbeth Parikh PA-C [address] [address] Specialist Neurosurgery 02/25/22 Bin Fowler PA-C [address] [address] Specialist Neurosurgery 02/25/22 Vinicius Fonseca [address] [address] Dermatology 03/10/23 Amador Funk MD [address] [address] Party Plan Sales Director Cardiovascular Disease 03/10/23 Daryl Dunn NP [address] [address] Nurse Practitioner Cardiology 04/27/23 10/19/23 Timoteo Mcfarland MD [address] [address] ORTHOPEDIC SURGERY 08/24/23 Marco Hunt MD [address] [address] Specialist Cardiology 10/09/23 Joy Brand NP [address] [phone] Cardiology 10/09/23 [facility] urology Specialist Urology 08/24/23 documented as of this encounter
--- OUTSIDE RECORDS SUMMARY | 2025-03-08 11:55 | XMS_ITS | Encounter Summary ---
Author Organization [facility] Address [address] [place] [address] Care Team Providers Care Journeyman Apprentice Electricians Name Role Phone Amy Wilkerson MD Primary Care Provider [phone] Thierno Duvall MD, PHD Unavailable Unava ilable Lizbeth Parikh PA-C Unavailable +[phone] Bin Fowler PA-C Unavailable [phone] Vinicius Fonseca Unavailable Unavailable Amador Funk MD Unavailable [phone] Daryl Dunn NP Unavailable Timoteo Mcfarland MD Unavailable [phone] Marco Hunt MD Unavailable Joy Brand NP Unavailable [phone] [facility], Pcp Primary Care Provider Unavailabl e Encounter Details Date Type Department Care Team Description 02/24/2022 SCAN [facility] Neurosurgery [place] [address] [place] [address] Thierno Duvall MD, PHD Social [...] on filedocumented in this encounter Care Teams Journeyman Apprentice Electricians Relationship Specialty Start Date End Date Amy Wilkerson MD 230 [place] [address] PCP - General Internal Medicine 11/11/21 09/05/24 [facility], Pcp [address] [phone] PCP - General Internal Medicine 09/06/24 Thierno Duvall MD, PHD 230 [place] [address] Surgeon Neurosurgery 02/25/22 Lizbeth Parikh PA-C [address] [address] Specialist Neurosurgery 02/25/22 Bin Fowler PA-C [address] [address] Specialist Neurosurgery 02/25/22 Vinicius Fonseca [address] [address] Dermatology 03/10/23 Amador Funk MD [address] [address] Last Sorter Cardiovascular Disease 03/10/23 Daryl Dunn NP [address] [address] Nurse Practitioner Cardiology 04/27/23 10/19/23 Timoteo Mcfarland MD [address] [address] ORTHOPEDIC SURGERY 08/24/23 Marco Hunt MD [address] [address] Specialist Cardiology 10/09/23 Joy Brand NP [address] [phone] Cardiology 10/09/23 [facility] urology Specialist Urology 08/24/23 documented as of this encounter
--- OUTSIDE RECORDS SUMMARY | 2025-03-08 11:55 | XMS_ITS | Encounter Summary ---
Author Organization [facility] Address [address] [place] [address] Care Team Providers Care Director Of Field Service Name Role Phone Amy Wilkerson MD Primary Care Provider + [phone] Thierno Duvall MD, PHD Unavailable Unava ilable Lizbeth Parikh PA-C Unavailable +[phone] Bin Fowler PA-C Unavailable +[phone] Vinicius Fonseca Unavailable Unavailable Amador Funk MD Unavailable +[phone] Daryl Dunn NP Unavailable [phone] Timoteo Mcfarland MD Unavailable [phone] Marco Hunt MD Unavailable [phone] Joy Brand NP Unavailable [phone] [facility], Pcp Primary Care Provider Unavailabl e Encounter Details Date Type Department Care Team Description 02/06/2022 [facility] Medical Records [address] [place] [address] Bin Fowler PA-C 175 [facility] [address] [place], [place] [id number] Social History Tobacco Use Types Packs/Day Years [...] on filedocumented in this encounter Care Teams Director Of Field Service Relationship Specialty Start Date End Date Amy Wilkerson MD 230 [place] [address] PCP - General Internal Medicine 11/11/21 09/05/24 [facility], Pcp [address] [address] PCP - General Internal Medicine 09/06/24 Thierno Duvall MD, PHD 230 [place] [address] Surgeon Neurosurgery 02/25/22 Lizbeth Parkih PA-C [address] [address] Specialist Neurosurgery 02/25/22 Bin Fowler PA-C [address] [address] Specialist Neurosurgery 02/25/22 Vinicius Fonseca [address] [address] Dermatology 03/10/23 Amador Funk MD [address] [address] Beef Cattle Farmer Cardiovascular Disease 03/10/23 Daryl Dunn NP [address] [address] Nurse Practitioner Cardiology 04/27/23 10/19/23 Timoteo Mcfarland MD [address] [address] ORTHOPEDIC SURGERY 08/24/23 Marco Hunt MD [address] [address] Specialist Cardiology 10/09/23 Joy Brand NP [address] [phone] Cardiology 10/09/23 [facility] urology Specialist Urology 08/24/23 documented as of this encounter
--- OUTSIDE RECORDS SUMMARY | 2025-03-08 11:55 | XMS_ITS | Encounter Summary ---
Author Organization [facility] Address [address] [place] [address] Care Team Providers Care Block Tester Name Role Phone Amy Wilkerson MD Primary Care Provider + [phone] Thierno Duvall MD, PHD Unavailable Unava ilable Lizbeth Parikh PA-C Unavailable +[phone] Bin Fowler PA-C Unavailable +[phone] Vinicius Fonseca Unavailable Unavailable Amador Funk MD Unavailable [phone] Timoteo Mcfarland MD Unavailable [phone] Marco Hunt MD Unavailable [phone] Joy Brand NP Unavailable [phone] [facility], Pcp Primary Care Provider Unavailabl e Reason for Visit * Reason Comments E-prescribe Rx Request Jardiance Encounter Details Date Type Department Care Team Description 02/23/2024 Refill Cardio PVC POC 154 300 [facility] [address] [place] [address] Joy Brand NP [address] [facility] [address] [place] [address] E-prescribe Rx Request (Jardiance ) [...] on filedocumented in this encounter Care Teams Block Tester Relationship Specialty Start Date End Date Amy Wilkerson MD [address] [place] [address] PCP - General Internal Medicine 11/11/21 09/05/24 [facility], Pcp [address] [address] PCP - General Internal Medicine 09/06/24 Thierno Duvall MD, PHD [address] [place] [address] Surgeon Neurosurgery 02/25/22 Lizbeth Parikh PA-C [address] [address] Specialist Neurosurgery 02/25/22 Bin Fowler PA-C [address] [address] Specialist Neurosurgery 02/25/22 Vinicius Fonseca 175 [facility] 300 [place] [address] Dermatology 03/10/23 Amador Funk MD 300 [facility] 154 [place] [address] Facility Technician Cardiovascular Disease 03/10/23 Timoteo Mcfarland MD 175 [facility] 250 [place] [address] ORTHOPEDIC SURGERY 08/24/23 Marco Hunt MD 175 [facility] 250 [place] [address] Specialist Cardiology 10/09/23 Joy Brand NP [address] [address] Cardiology 10/09/23 [facility] urology Specialist Urology 08/24/23 documented as of this encounter
--- OUTSIDE RECORDS SUMMARY | 2025-03-08 11:55 | XMS_ITS | Encounter Summary ---
Author Organization [facility] Address [address] [place] [address] Care Team Providers Care Treasury Specialist Name Role Phone Amy Wilkerson MD Primary Care Provider + [phone] Thierno Duvall MD, PHD Unavailable Unava ilable Lizbeth Parikh PA-C Unavailable +[phone] Bin Fowler PA-C Unavailable [phone] Vinicius Fonseca Unavailable Unavailable Amador Funk MD Unavailable [phone] Daryl Dunn NP Unavailable Timoteo Mcfarland MD Unavailable [phone] Marco Hunt MD Unavailable [phone] Joy Brand NP Unavailable [phone] [facility], Pcp Primary Care Provider Unavailabl e Encounter Details Date Type Department Care Team Description 02/06/2022 SCAN [facility] Neurosurgery [place] [address] [place] [address] Thierno Duvall MD, PHD Social [...] on filedocumented in this encounter Care Teams Treasury Specialist Relationship Specialty Start Date End Date Amy Wilkerson MD 230 [place] [address] PCP - General Internal Medicine 11/11/21 09/05/24 [facility], Pcp [address] [address] PCP - General Internal Medicine 09/06/24 Thierno Duvall MD, PHD 230 [place] [address] Surgeon Neurosurgery 02/25/22 Lizbeth Parikh PA-C [address] [address] Specialist Neurosurgery 02/25/22 Bin Fowler PA-C [address] [address] Specialist Neurosurgery 02/25/22 Vinicius Fonseca [address] [address] Dermatology 03/10/23 Amador Funk MD [address] [address] Manga Artist Cardiovascular Disease 03/10/23 Daryl Dunn NP [address] [address] Nurse Practitioner Cardiology 04/27/23 10/19/23 Timoteo Mcfarland MD [address] [address] ORTHOPEDIC SURGERY 08/24/23 Marco Hunt MD [address] [address] Specialist Cardiology 10/09/23 Joy Brand NP [address] [phone] Cardiology 10/09/23 [facility] urology Specialist Urology 08/24/23 documented as of this encounter
--- OUTSIDE RECORDS SUMMARY | 2025-03-08 11:55 | XMS_ITS | Clinical Summary ---
Author Organization [employer] Address 75 [facility] 7 [place] [address] Care Team Providers Care Electronic Systems Technician Name Role Phone Unavailable Primary Care [...] 04/19/2025 8:30 AM EDT Office Visit [facility] DENTAL [address] [place] [address] Yamel Healy Health Maintenance Due Date Last Done Comments [...] 2024 0, 08/18/2019, 09/17/2018, Additional history exists Dental Oral [...] topic Meningococcal Vaccine Aged Out No mirtha rococ eligible based on patient's age to complete [...]
--- OUTSIDE RECORDS SUMMARY | 2025-03-08 11:55 | XMS_ITS | Encounter Summary ---
Author Organization [facility] Address [address] [place] [address] Care Team Providers Care Psychometrician Name Role Phone Jc Myrick RENETTA Primary Care Provider [phone] Reason for Visit * Reason Comments Other (Add RFV) EKG visit Encounter Details Date Type Department Care Team (Latest Contact Info) Description 03/03/2025 10:30 AM EDT Ancillary Procedure [facility] [address] [place] [address] Abnormal EKG (Primary Dx) Social History Tobacco Use Types Packs/Day Years [...] Routine 03/03/2025 10:42 AM EDT Abnormal EKG documented in this encounter Results * ECG 12 lead (03/03/2025 10:42 AM EDT) Ventricular Rate ECG 74 BPM GEMUSE Atrial Rate 74 BPM GEMUSE P-R Interval 164 ms GEMUSE QRS Duration 92 ms GEMUSE Q-T Interval 390 ms GEMUSE QTc 432 ms GEMUSE P Wave [place] 63 degrees GEMUSE R [place] -28 degrees GEMUSE T [place] 1 degrees GEMUSE ECG Interpretation Normal sinus rhythm Normal ECG When compared with ECG of 03-FEB-2022 08:00, Incomplete right bundle branch block is no longer Present Confirmed by MD Good, Amador ([id number]) on 03/03/2025 11:46:04 AM GEMUSE 03/03/2025 10:4 2 AM EDT 03/03/2025 11:46 AM EDT us Amador Funk MD ECG ORDERABLES Final Res ult GEMUSE documented in this encounter Visit Diagnoses Diagnosis Abnormal EKG- Primary Nonspecific abnormal electrocardiogram (ECG) (EKG) documented in this encounter Care Teams Psychometrician Relationship Specialty Start Date End Date Jc Myrick FNP PCP - General Family Medicine 10/10/24 documented as of this encounter
== END 2025-03-08 11:33 | disposition home or self-care (01) ==
LOC: HO.PMC 10:31
PROVIDERS: PCP Nurse Practitioner Family; Visit Provider Internal Medicine
DX: M96.1 Postlaminectomy syndrome, not elsewhere classified (principal)
CPT/HCPCS: 99024

== ENCOUNTER → 2025-03-08 10:31 | Outpatient (BNVA) | payer OTHER, SELFPAY | PROVIDERS: PCP Nurse Practitioner Family; Visit Provider Internal Medicine ==

== ENCOUNTER 2025-03-17 10:21 | Outpatient (AMB) | payer OTHER, SELFPAY ==
--- NOTE | 2025-03-17 10:40 | MHC.OFFVIS ---
Vital Signs 03/17/25 10:41 Height 6 ft 2 in Weight 273 lb BMI 35.0 BP 130/77 Blood Pressure Location Lt brachial Position Sitting Respiration 16 Pulse 62 Pulse Source Pulse Oximeter Pulse Oximetry (%) 96 Oxygen Delivery Method Room Air Intake Visit Reasons: S/p Medtronic SCS Implant (2nd Visit) 03/01/25 Clarifier Operator Helper Required: No Allergies No Known Allergies Allergy (Verified 03/17/25 10:42) Medication List - Last Reconciled 03/17/25 by Gege Burgess LPN empagliflozin (Jardiance) 10 mg PO DAILY ibuprofen 600 mg PO Q8H PRN metoprolol succinate ER 50 mg PO DAILY metronidazole 0.75% 1 appl topical DAILY rosuvastatin 20 mg PO DAILY 30 days sacubitril-valsartan 97-103 mg (Entresto) 1 tab PO BID testosterone 1 tube topical ONCE HPI HPI S/p Medtronic SCS Implant (2nd Visit) 03/01/25: Details: History of Present Illness The patient is a 64-year-old male presenting with post-surgical wound evaluation and management. Two weeks post-surgery, the patient is undergoing a follow-up to assess the healing of surgical incisions. One incision site shows mild dehiscence, with a small area remaining unhealed. The patient's discomfort at the site is mild, and there are no exacerbating factors beyond pressure. Showering is endorsed as part of hygiene management. Pain Description - Onset: Post-surgical - Quality: Mild discomfort, especially upon pressure - Location: Surgical incision sites - Exacerbating Factors: Application of pressure - Relieving Factors: Use of sturdy strips and protection for healing - Impact: Minimal interference with activities Physical Exam - Skin- Surgical incision sites mostly healed; the IPG incision site is mildly tender with one spot showing mild dehiscence Results Pain Management - Affect: No significant impact on mood indicated - Analgesia: Pain relief from the initial surgical pain is satisfactory - Adverse Effects: No adverse effects reported from any treatment - Activities of Daily Living: Slight interference during the healing process but no major impediments to daily routines - Aberrant Drug Related Behaviors: None reported [facility] Medical History (Updated 02/24/25 @ 11:22 by Rosalva Pollard RN) Neuropathy Lumbar disc disease Cervical spinal stenosis BPH (benign prostatic hyperplasia) Ascending aorta dilation Hyperlipidemia HTN (hypertension) NELLY (obstructive sleep apnea) Dilated cardiomyopathy Neuropathy A-fib Lumbar radiculopathy Surgical History (Updated 03/28/25 @ 08:58 by Jett Ojeda MD) S/P insertion of spinal cord stimulator Status post cryoablation S/P placement of nerve stimulator H/O eye surgery History of bladder surgery History of shoulder surgery History of lumbar fusion Social History (Updated 02/14/25 @ 08:40 by Sofy Martines MA) Housing: House Alcohol intake: former Patient Tobacco Use Status: Never used Tobacco e-Cigarette/Vaping Use: Never Used Second Hand Smoke Exposure: No service: No Current occupational status: retired and disabled Current occupational exposures/hazards: No Cognitive needs: No Hearing needs: No Vision needs: No Physical Exam Vital Signs: Last Vital Signs Pulse 62 03/17/25 10:41 Resp 16 03/17/25 10:41 BP 130/77 03/17/25 10:41 Pulse Ox 96 03/17/25 10:41 Oxygen Delivery Method Room Air 03/17/25 10:41 BMI result Body Mass Index 35.0 Assessment & Plan Assessment & Plan (1) Lumbar post-laminectomy syndrome: Code(s): M96.1 - Postlaminectomy syndrome, not elsewhere classified Category: Medical (2) S/P insertion of spinal cord stimulator: Comment: [employer] Code(s): Z96.89 - Presence of other specified functional implants Category: Surgical Plan Plan - Apply steri strips to the open incision area to aid in healing. - Approved for showering; maintain hygiene around healing sites. - Scheduled follow-up for wound assessment in two weeks. Patient was informed and verbally consented to the use of an ambient scribe for clinic note documentation during this visit. Discussion Notes I discussed the current status of the patient's surgical incisions, emphasizing the importance of continued care and attention to the healing areas, particularly the mildly open site. I explained the purpose of the added sturdy strips, which help maintain closure and facilitate healing. Follow-up care is scheduled for two weeks to monitor healing progression, with no need for a formal appointment. I ensured the patient understood they could shower but advised caution around the incision sites. Lastly, I addressed logistics for billing considerations and confirmed no copay obligation for the follow-up, verifying insurance coverage. Patient Instructions - Use steristrips as instructed to maintain incision site support. - Showering is permitted; ensure incision sites are handled gently. - Observe incision site for signs of infection or worsening and report any changes. - Follow up on the at 10:00 AM for a wound evaluation without requiring an appointment. - Maintain communication for any unexpected issues or questions regarding the care provided. Coding Level of Care Code Est Pt Level 3 (62942) Diagnoses Lumbar post-laminectomy syndrome M96.1 S/P insertion of spinal cord stimulator Z96.89
[2025-03-17 10:41] VITALS: BP 130/77; PULSE 62; RESP 16; O2SAT 96; BMI 35.0
--- OUTSIDE RECORDS SUMMARY | 2025-03-17 10:50 | XMS_ITS | Encounter Summary ---
Author Organization [facility] Address [address] [place] [address] Care Team Providers Care Crop Specialist Name Role Phone Papito Mann MD Primary Care Provider Unavailable Amy Wilkerson MD Primary Care Provider + [phone] Thierno Duvall MD, PHD Unavailable Unava ilable Lizbeth Parikh PA-C Unavailable [phone] Bin Fowler PA-C Unavailable [phone] Vinicius Fonseca Unavailable Unavailable Amador Funk MD Unavailable [phone] Daryl Dunn NP Unavailable [phone] Timoteo Mcfarland MD Unavailable [phone] Marco Hunt MD Unavailable [phone] Joy Brand NP Unavailable [phone] [facility], Pcp Primary Care Provider Unavailabl e Encounter Details Date Type Department Care Team Description 12/12/2019 Glass Lined Tank Repairer Report Medical Records [address] [place] [address] Bin Fowler PA-C 175 [facility] [address] [place] [address] Social History Tobacco Use Types Packs/Day Years [...] on filedocumented in this encounter Care Teams Crop Specialist Relationship Specialty Start Date End Date Papito Mann MD PCP - General Internal Medicine 06/24/17 11/10/21 Amy Wilkerson MD [address] [place] [address] PCP - General Internal Medicine 11/11/21 09/05/24 [facility], Pcp [address] [address] PCP - General Internal Medicine 09/06/24 Thierno Duvall MD, PHD [address] [place] [address] Surgeon Neurosurgery 02/25/22 Lizbeth Parikh PA-C [address] [address] Specialist Neurosurgery 02/25/22 Bin Fowler PA-C [address] [address] Specialist Neurosurgery 02/25/22 Vinicius Fonseca [address] [address] Dermatology 03/10/23 Amador Funk MD [address] [address] Pulper Tender Cardiovascular Disease 03/10/23 Daryl Dunn NP [address] [address] Nurse Practitioner Cardiology 04/27/23 10/19/23 Timoteo Mcfarland MD [address] [address] ORTHOPEDIC SURGERY 08/24/23 Marco Hunt MD [address] [address] Specialist Cardiology 10/09/23 Joy Brand NP [address] [address] Cardiology 10/09/23 [facility] urology Specialist Urology 08/24/23 documented as of this encounter
--- OUTSIDE RECORDS SUMMARY | 2025-03-17 10:50 | XMS_ITS | Encounter Summary ---
Author Organization [facility] Address [address] [place] [address] Care Team Providers Care Larriman Name Role Phone Amy Wilkerson MD Primary Care Provider + [phone] Thierno Duvall MD, PHD Unavailable Unava ilable Lizbeth Parikh PA-C Unavailable [phone] Bin Fowler PA-C Unavailable [phone] Vinicius Fonseca Unavailable Unavailable Amador Funk MD Unavailable [phone] Daryl Dunn NP Unavailable [phone] Timoteo Mcfarland MD Unavailable [phone] Marco Hunt MD Unavailable [phone] Joy Brand NP Unavailable [phone] [facility], Pcp Primary Care Provider Unavailabl e Encounter Details Date Type Department Care Team Description 03/10/2023 SCAN Medical Records [address] [place] [address] Abstract, Provider Social History Tobacco Use Types [...] on filedocumented in this encounter Care Teams Larriman Relationship Specialty Start Date End Date Amy Wilkerson MD [address] [place] [address] PCP - General Internal Medicine 11/11/21 09/05/24 [facility], Pcp [address] [address] PCP - General Internal Medicine 09/06/24 Thierno Duvall MD, PHD [address] [place] [address] Surgeon Neurosurgery 02/25/22 Lizbeth Parikh PA-C [address] [address] Specialist Neurosurgery 02/25/22 Bin Fowler PA-C [address] [address] Specialist Neurosurgery 02/25/22 Vinicius Fonseca [address] [address] Dermatology 03/10/23 Amador Funk MD [address] [address] 3D Designer Cardiovascular Disease 03/10/23 Daryl Dunn NP [address] [address] Nurse Practitioner Cardiology 04/27/23 10/19/23 Timoteo Mcfarland MD [address] [address] ORTHOPEDIC SURGERY 08/24/23 Marco Hunt MD [address] [address] Specialist Cardiology 10/09/23 Joy Brand NP [address] [phone] Cardiology 10/09/23 [facility] urology Specialist Urology 08/24/23 documented as of this encounter
--- OUTSIDE RECORDS SUMMARY | 2025-03-17 10:50 | XMS_ITS | Encounter Summary ---
Author Organization [facility] Address [address] [place] [address] Care Team Providers Care Thickener Operator Name Role Phone Papito Mann MD Primary Care Provider Unavailable Amy Wilkerson MD Primary Care Provider + [phone] Thierno Duvall MD, PHD Unavailable Unava ilable Lizbeth Parikh PA-C Unavailable [phone] Bin Fowler PA-C Unavailable [phone] Vinicius Fonseca Unavailable Unavailable Amador Funk MD Unavailable [phone] Daryl Dunn NP Unavailable [phone] Timoteo Mcfarland MD Unavailable [phone] Marco Hunt MD Unavailable [phone] Joy Brand NP Unavailable [phone] [facility], Pcp Primary Care Provider Unavailabl e Encounter Details Date Type Department Care Team Description 06/10/2019 Outreach Librarian Report Medical Records [address] [place] [address] Rehab., Preet Social History Tobacco Use Types [...] on filedocumented in this encounter Care Teams Thickener Operator Relationship Specialty Start Date End Date Papito Mann MD PCP - General Internal Medicine 06/24/17 11/10/21 Amy Wilkerson MD 230 [place] [address] PCP - General Internal Medicine 11/11/21 09/05/24 [facility], Pcp [address] [address] PCP - General Internal Medicine 09/06/24 Thierno Duvall MD, PHD [address] [place] [address] Surgeon Neurosurgery 02/25/22 Lizbeth Parikh PA-C [address] [address] Specialist Neurosurgery 02/25/22 Bin Fowler PA-C [address] [address] Specialist Neurosurgery 02/25/22 Vinicius Fonseca [address] [address] Dermatology 03/10/23 Amador Funk MD [address] [address] Billboard Installer Cardiovascular Disease 03/10/23 Daryl Dunn NP [address] [address] Nurse Practitioner Cardiology 04/27/23 10/19/23 Timoteo Mcfarland MD [address] [address] ORTHOPEDIC SURGERY 08/24/23 Marco Hunt MD [address] [address] Specialist Cardiology 10/09/23 Joy Brand NP [address] [phone] Cardiology 10/09/23 [facility] urology Specialist Urology 08/24/23 documented as of this encounter
--- OUTSIDE RECORDS SUMMARY | 2025-03-17 10:50 | XMS_ITS | Encounter Summary ---
Author Organization [facility] Address [address] [place] [address] Care Team Providers Care Crab Fisher Name Role Phone Amy Wilkerson MD Primary Care Provider [phone] Thierno Duvall MD, PHD Unavailable Unava ilable Lizbeth Parikh PA-C Unavailable [phone] Bin Fowler PA-C Unavailable [phone] Vinicius Fonseca Unavailable Unavailable Amador Funk MD Unavailable Timoteo Mcfarland MD Unavailable [phone] Marco Hunt MD Unavailable Joy Brand NP Unavailable [phone] [facility], Pcp Primary Care Provider Unavailabl e Encounter Details Date Type Department Care Team Description 05/24/2024 SCAN Medical Records [address] [place] [address] Joy Brand, MAREK [address] [address] Social History Tobacco Use Types [...] on filedocumented in this encounter Care Teams Crab Fisher Relationship Specialty Start Date End Date Amy Wilkerson MD [address] [place] [address] PCP - General Internal Medicine 11/11/21 09/05/24 [facility], Pcp [address] [address] PCP - General Internal Medicine 09/06/24 Thierno Duvall MD, PHD [address] [place] [address] Surgeon Neurosurgery 02/25/22 Lizbeth Parikh PA-C [address] [address] Specialist Neurosurgery 02/25/22 Bin Fowler PA-C [address] [address] Specialist Neurosurgery 02/25/22 Vinicius Fonseca [address] [address] Dermatology 03/10/23 Amador Funk MD [address] [address] Field Mechanic/Site Lead Cardiovascular Disease 03/10/23 Timoteo Mcfarland MD [address] [address] ORTHOPEDIC SURGERY 08/24/23 Marco Hunt MD [address] [address] Specialist Cardiology 10/09/23 Joy Brand, MAREK [address] [phone] Cardiology 10/09/23 [facility] urology Specialist Urology 08/24/23 documented as of this encounter
--- OUTSIDE RECORDS SUMMARY | 2025-03-17 10:50 | XMS_ITS | Clinical Summary ---
Author Organization [facility], Address [address] [place] [address] Phone Care Team Providers Care Director Of Undergraduate Admissions Name Role Phone Unavailable Primary Care Provider [...] 03/14/2019 Obstructive sleep apnea 12/17/2018 Overview (01/07/2022): [facility] Home Polysomnogram: Date 12/14/2018; AHI 19, Unclassified [...]
--- OUTSIDE RECORDS SUMMARY | 2025-03-17 10:50 | XMS_ITS | Clinical Summary ---
Author Organization [facility] Address [address] [place] [address] Care Team Providers Care Marriage And Family Therapist Name Role Phone Thierno Duvall MD, PHD Unavailable Unava ilable Lizbeth Parikh PA-C Unavailable [phone] Bin Fowler PA-C Unavailable [phone] Vinicius Fonseca Unavailable Unavailable Amador Funk MD Unavailable Timoteo Mcfarland MD Unavailable [phone] Marco Hunt MD Unavailable [phone] Joy Brand NP Unavailable [phone] [facility], Pcp Primary Care Provider Unavailabl e Allergies No known active allergies Medications Medication Sig Dispensed Refills Start Date End Date Status Testosterone 50 MG/5GM (1%) Gel Apply daily as directed 0 09/24/2018 Active metronidazole (METROCREAM) 0.75 % cream Apply topically 2 times daily. 0 Active acetaminophen (Acetaminophen 8 Hour) 650 MG CR tablet Take 1 Tablet by mouth every 8 hours as needed for Pain for up to 30 days. 60 Tablet 0 03/30/2023 Active rosuvastatin (CRESTOR) 10 MG tabletIndications:M ixed hyperlipidemia Take 0.5 Tablets by mouth daily. 90 Tablet 1 03/09/2024 Active metoprolol (TOPROL-XL) 50 MG 24 hr tablet Take 1 Tablet by mouth daily. 90 Tablet 2 07/08/2024 Active Jardiance 10 MG Tab TAKE 1 TABLET BY MOUTH DAILY 30 Tablet 5 09/08/2024 Active Sacubitril-Valsarta n (Entresto) 97-103 MG Tab Take 1 Tablet by mouth 2 times daily. 180 Tablet 1 09/08/2024 Active furosemide (LASIX) 20 MG tabletIndications:O bstructive sleep apnea,Mixed hyperlipidemia,Frannie schemic cardiomyopathy (HCC),Persistent atrial fibrillation (HCC) Take 1 Tablet by mouth daily. 30 Tablet 11 08/11/2023 03/09/20 24 Discontinued amiodarone (PACERONE) 200 MG tablet Take 1 Tablet by mouth daily. 90 Tablet 3 10/20/2023 03/09/20 24 Discontinued Active Problems Problem Noted Date History of cardiac radiofrequency ablati on 10/16/2023 Overview: Done on 09/23/2023 at [facility] w [facility] indications:Symptomatic drug refractory atrial fibrillation History of cardioversion 10/15/2023 Overview: Done on 05/18/2023 at [facility] CR indications:AFIB Elevated LDL cholesterol level 3 Overview: total cholesterol 272 with an LDL of 206 HDL of 50 and triglycerides of 82 Last Assessment & Plan: Continue efforts at weight loss and improve diet. Try and increase rosuvastatin as tolerated or consider alternatives. Nonischemic cardiomyopathy 04/27/2023 Last Assessment & Plan: Nonischemic cardiomyopathy with [...] and/or spironolactone after discussion with his primary leveler helper. Abnormal EKG 03/11/2023 Persistent atrial fibrillation 3 Last Assessment & Plan: 63-year-old male with [...] we will base that decision on his QAB5QT9-KFLm score. I encouraged him to continue efforts at weight loss although he is limited in his activity based on his back pain. I will likely start him on sotalol or Multaq depending on the QT interval at the time of his ablation after we convert him to sinus rhythm. Esophageal dysmotility 05/24/2019 Migraine equivalent syndrome 04/12/2019 Overview: On propronolol Class 2 obesity 03/14/2019 Obstructive sleep apnea moderate AHI 19 12/17/2018 Overview: [facility] Home Polysomnogram: Date 12/14/2018; AHI 19, Unclassified apneas 8; Obstructive apneas 17; Central apneas 3; Mixed apneas 0; hypopneas 43; average oxygen saturation 93% (lowest 79% without saturations <88% for 5% or more of study) - Obstructive Sleep Apnea - moderate; mostly hypopneas and obstructive apneas; without sleep related hypoventilation by 2018 home polysomnogram. Cervical stenosis of spine 03/19/2018 Hyperlipidemia 01/04/2018 Overview: Intol to simvastatin. Prescribed Pravastatin History of colon polyps 12/25/2017 Lumbar disc disease with radiculopathy 1 11/24/2016 Overview: S/p discectomy 2017- Dr Fritz [id number]-rt [...] next appointment. 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 Overview: Bilateral hands, less than feet Benign prostatic hyperplasia 07/09/2017 Overview: S/p TURP 2018- Dr Castillo Immunizations Name Administration Dates Next Due Influenza (> 6 Months) 08/18/2019 Influenza Vaccine-preservati ve Free-quadrivalent 4 Years 08/09/2020,09/17/2018 Influenza Vaccine-quadrivalent 4 Years Plus 07/11 Shingrix (Recombinant zoster vaccine) 01/12/2021 ,11/12/2020 Tdap 08/06/2017 Family History Medical History Relation Name Comments No Known Problems Aunt No Known Problems Brother CA Colon Father valve disease Macular Degeneration Father Other Father tumor behind ey e No Known Problems Maternal Grandfather No Known Problems Maternal Grandmother No Known Problems Mother No Known Problems Other No Known Problems Paternal Grandfather No Known Problems Paternal Grandmother No Known Problems Sister No Known Problems Uncle Blindness Negative Hx Cataract Negative Hx Glaucoma Negative Hx Strabismus Negative Hx Relation Name Status Comments Aunt Brother Father (Age 83) Maternal Grandfather Maternal Grandmother Mother Alive Other Paternal Grandfather Paternal Grandmother Sister Uncle Social History Tobacco Use Types Packs/Day Years Used Date Smoking Tobacco: Never Passive Smoke Exposure: Never Smokeless Tobacco: Never Tobacco Cessation:Counseling Given: Not Answered Alcohol Use Standard Drinks/Week Comments Not Currently 0 (1 standard drink = 0.6 oz pur e alcohol) Sex Assigned at Date Recorded Not on file Job Start Date Occupation Industry Not on file Not on file Not on file Last Filed Vital Signs Vital Sign Reading Time Taken Comments Blood Pressure 135/86 07/27/2024 8:38 AM EDT Pulse 63 06/15/2024 7:34 AM EDT Temperature 36.5 ??C (97.7 ??F) 12/25/2023 8:44 AM ES T Respiratory Rate 16 08/24/2023 3:58 PM EDT Oxygen Saturation 96% 06/15/2024 7:34 AM EDT Inhaled Oxygen Concentration - - Weight 126.6 kg (279 lb) 07/27/2024 8:38 AM EDT Height 188 cm (6' 2 ) 07/27/2024 8:38 AM EDT Body Mass Index 35.82 07/27/2024 8:38 AM EDT Plan of Treatment Health Maintenance Due Date Last Done Comments Covid-19 Vaccine (#1) 1960 DEPRESSION SCREEN 1970 COLON CANCER SCREENING 02/02/2023 02/02/2018 FALL RISK ASSESSMENT 2023 PNEUMOCOCCAL VACCINE (1 - PCV) 2023 BMI CHECK/ADVISE 11/09/2024 08/24/2023, , 04/27/2023, Additional history exists DEPRESSION SCREENING/FOLLOWUP 11/09/2024 08/24/2023 (Completed), 06/17/2019 INFLUENZA (Season Ended) 2025 020, 08/18/2019, 09/17/2018, Additional history exists DTAP/TDAP/TD (2 - Td or Tdap) 08/06/2027 08/06/2017 CHOLESTEROL SCREENING 12/25/2028 12/25/2023 , 03/10/2023, 11/05/2022, Additional history exists HEPATITIS C SCREENING Completed 12/25/2017 SHINGLES VACCINE Completed 01/12/2021, 11/12/2020 Care Teams Marriage And Family Therapist Relationship Specialty Start Date End Date Community, Pcp [address] [address] PCP - General Internal Medicine 09/06/24 Thierno Duvall MD, PHD Surgeon Neurosurgery 02/25/22 Lizbeth Parikh PA-C [address] [address] Specialist Neurosurgery 02/25/22 Bin Fowler PA-C [address] [address] Specialist Neurosurgery 02/25/22 Vinicius Fonseca [address] [address] Dermatology 03/10/23 Amador Funk MD 300 [facility] [address] [place] [address] Maintenance Worker Swimming Pool Cardiovascular Disease 03/10/23 Timoteo Mcfarland MD [address] [address] ORTHOPEDIC SURGERY 08/24/23 Marco Hunt MD [address] [address] Specialist Cardiology 10/09/23 Joy Brand NP [address] [phone] Cardiology 10/09/23 [facility] urology Specialist Urology 08/24/23
--- OUTSIDE RECORDS SUMMARY | 2025-03-17 10:50 | XMS_ITS | Encounter Summary ---
Author Organization [facility] Address [address] [place] [address] Care Team Providers Care Store Receiver Name Role Phone Papito Mann MD Primary Care Provider Unavailable Aym Wilkerson MD Primary Care Provider + [phone] Thierno Duvall MD, PHD Unavailable Unava ilable Lizbeth Parikh PA-C Unavailable +[phone] Bin Fowler PA-C Unavailable +[phone] Vinicius Fonseca Unavailable Unavailable Amador Funk MD Unavailable [phone] Daryl Dunn NP Unavailable [phone] Timoteo Mcfarland MD Unavailable [phone] Marco Hunt MD Unavailable [phone] Joy Brand NP Unavailable [phone] [facility], Pcp Primary Care Provider Unavailabl e Encounter Details Date Type Department Care Team Description 10/14/2019 Ends Breakage Clerk Report Medical Records [address] [place] [address] Henry Castillo MD Social History Tobacco Use [...] on filedocumented in this encounter Care Teams Store Receiver Relationship Specialty Start Date End Date Papito Mann MD PCP - General Internal Medicine 06/24/17 11/10/21 Amy Wilkerson MD 230 [place] [address] PCP - General Internal Medicine 11/11/21 09/05/24 [facility], Pcp [address] [address] PCP - General Internal Medicine 09/06/24 Thierno Duvall MD, PHD 230 [place] [address] Surgeon Neurosurgery 02/25/22 Lizbeth Parikh PA-C [address] [address] Specialist Neurosurgery 02/25/22 Bin Fowler PA-C [address] [address] Specialist Neurosurgery 02/25/22 Vinicius Fonseca [address] [address] Dermatology 03/10/23 Amador Funk MD [address] [address] Slp Cardiovascular Disease 03/10/23 Daryl Dunn NP [address] [address] Nurse Practitioner Cardiology 04/27/23 10/19/23 Timoteo Mcfarland MD [address] [address] ORTHOPEDIC SURGERY 08/24/23 Marco Hunt MD [address] [address] Specialist Cardiology 10/09/23 Joy Brand NP [address] [address] Cardiology 10/09/23 [facility] urology Specialist Urology 08/24/23 documented as of this encounter
--- OUTSIDE RECORDS SUMMARY | 2025-03-17 10:50 | XMS_ITS | Encounter Summary ---
Author Organization [facility] Address [address] [place] [address] Care Team Providers Care Clinical Trial Manager Name Role Phone Amy Wilkerson MD Primary Care Provider + [phone] Thierno Duvall MD, PHD Unavailable Unava ilable Lizbeth Parikh PA-C Unavailable +[phone] Bin Fowler PA-C Unavailable +[phone] Vinicius Fonseca Unavailable Unavailable Amador Funk MD Unavailable [phone] Daryl Dunn NP Unavailable [phone] Timoteo Mcfarland MD Unavailable [phone] Marco Hunt MD Unavailable [phone] Joy Brand NP Unavailable [phone] Replaced By [facility], Pcp Primary Care Provider Unavailabl e Reason for Visit * Reason Onset Date Comments Orders Call 12/11/2022 MRI Encounter Details Date Type Department Care Team Description 12/11/2022 Telephone [facility] 175 [facility] [address] [place] [address] Timoteo Mcfarland MD 175 [facility] [address] [place], [place] [id number] Orders Call (MRI) Social History Tobacco Use [...] on filedocumented in this encounter Care Teams Clinical Trial Manager Relationship Specialty Start Date End Date Aym Wilkerson MD 230 [place] [address] PCP - General Internal Medicine 11/11/21 09/05/24 Replaced By [facility], Pcp [address] [address] PCP - General Internal Medicine 09/06/24 Thierno Duvall MD, PHD [address] [place] [address] Surgeon Neurosurgery 02/25/22 Lizbeth Parikh PA-C [address] [address] Specialist Neurosurgery 02/25/22 Bin Fowler PA-C [address] [address] Specialist Neurosurgery 02/25/22 Vinicius Fonseca [address] [address] Dermatology 03/10/23 Amador Funk MD [address] [address] Grey Tender Cardiovascular Disease 03/10/23 Daryl Dunn NP [address] [address] Nurse Practitioner Cardiology 04/27/23 10/19/23 Timoteo Mcfarland MD [address] [address] ORTHOPEDIC SURGERY 08/24/23 Marco Hunt MD 175 [facility] [address] [place] [address] Specialist Cardiology 10/09/23 Joy Brand NP 300 [facility] [address] [place] [address] Cardiology 10/09/23 [facility] urology Specialist Urology 08/24/23 documented as of this encounter
--- OUTSIDE RECORDS SUMMARY | 2025-03-17 10:50 | XMS_ITS | Encounter Summary ---
Author Organization [facility] Address [address] [place] [address] Care Team Providers Care Senior Bookkeeper Name Role Phone Amy Wilkerson MD Primary Care Provider + [phone] Thierno Duvall MD, PHD Unavailable Unava ilable Lizbeth Parikh PA-C Unavailable [phone] Bin Fowler PA-C Unavailable [phone] Vinicius Fonseca Unavailable Unavailable Amador Funk MD Unavailable [phone] Daryl Dunn NP Unavailable [phone] Timoteo Mcfarland MD Unavailable [phone] Marco Hunt MD Unavailable [phone] Joy Brand NP Unavailable [phone] [facility], Pcp Primary Care Provider Unavailabl e Reason for Visit * Reason Onset Date Comments Advice 01/13/2023 Fall back/legs, pain/weakness Encounter Details Date Type Department Care Team Description 01/13/2023 Telephone [facility] Neurosurgery [place] [address] [address] Bin Fowler PA-C [address] [address] Advice (Fall back/legs, pain/weakness) Social [...] filedocumented in this encounter Care Teams Senior Bookkeeper Relationship Specialty Start Date End Date Amy Wilkerson MD 230 [place] [address] PCP - General Internal Medicine 11/11/21 09/05/24 [facility], [address] [address] PCP - General Internal Medicine 09/06/24 Thierno Duvall MD, PHD 230 [place] [address] Surgeon Neurosurgery 02/25/22 Lizbeth Parikh PA-C 175 [facility] [address] [place] [address] Specialist Neurosurgery 02/25/22 Bin Fowler PA-C 175 [facility] [address] [place] [address] Specialist Neurosurgery 02/25/22 Vinicius Fonseca 175 [facility] [address] [place] [address] Dermatology 03/10/23 Amador Funk MD [address] [place] [address] Technical Training Manager Cardiovascular Disease 03/10/23 Daryl Dunn NP 300 [facility] [address] [place] [address] Nurse Practitioner Cardiology 04/27/23 10/19/23 Timoteo Mcfarland MD 175 [facility] [address] [place] [address] ORTHOPEDIC SURGERY 08/24/23 Marco Hunt MD 175 [facility] 250 [place] [address] Specialist Cardiology 10/09/23 Joy Brand NP [address] [place] [address] Cardiology 10/09/23 [facility] urology Specialist Urology 08/24/23 documented as of this encounter
--- OUTSIDE RECORDS SUMMARY | 2025-03-17 10:50 | XMS_ITS | Encounter Summary ---
Author Organization [facility] Address [address] [place] [address] Care Team Providers Care Zipper Trimmer Hand Name Role Phone [facility], Pcp Primary Care Provider Unavailabl e Papito Mann MD Primary Care Provider Unavailable Amy Wilkerson MD Primary Care Provider Thierno Duvall MD, PHD Unavailable Unava ilable Lizbeth ParikhC Unavailable [phone] Bin FowlerC Unavailable [phone] Vinicius Fonseca Unavailable Unavailable Amador Funk MD Unavailable Daryl Dunn NP Unavailable [phone] Timoteo Mcfarland MD Unavailable [phone] Marco Hunt MD Unavailable [phone] Joy Brand NP Unavailable [phone] [facility], Pcp Primary Care Provider Unavailabl e Encounter Details Date Type Department Care Team Description 06/19/2010 SCAN Medical Records 4 [place] [address] Abstract, Provider Social History Tobacco Use Types [...] on filedocumented in this encounter Care Teams Zipper Trimmer Hand Relationship Specialty Start Date End Date [facility], Pcp PCP - General Internal Medicine 06/23/17 06/23/17 Papito Mann MD PCP - General Internal Medicine 06/24/17 11/10/21 Amy Wilkerson MD 230 [place] [address] PCP - General Internal Medicine 11/11/21 09/05/24 [facility], Pcp PCP - General Internal Medicine 09/06/24 Thierno Duvall MD, PHD [address] [place] [address] Surgeon Neurosurgery 02/25/22 Lizbeth Parikh PA-C [address] [address] Specialist Neurosurgery 02/25/22 Bin Fowler PA-C [address] [address] Specialist Neurosurgery 02/25/22 Vinicius Fonseca [address] [address] Dermatology 03/10/23 Amador Funk MD 300 [facility] 154 [place] [address] Nutritionist Public Health Cardiovascular Disease 03/10/23 Daryl Dunn NP 300 [facility] 154 [place] [address] Nurse Practitioner Cardiology 04/27/23 10/19/23 Timoteo Mcfarland MD 175 [facility] 250 [place] [address] ORTHOPEDIC SURGERY 08/24/23 Marco Hunt MD [address] [address] Specialist Cardiology 10/09/23 Joy Brand NP [address] [facility] 154 [place] [address] Cardiology 10/09/23 [facility] urology Specialist Urology 08/24/23 documented as of this encounter
--- OUTSIDE RECORDS SUMMARY | 2025-03-17 10:50 | XMS_ITS | Encounter Summary ---
Author Organization [facility] Address [address] [place] [address] Care Team Providers Care Application Support Name Role Phone Amy Wilkerson MD Primary Care Provider + [phone] Thierno Duvall MD, PHD Unavailable Unava ilable Lizbeth Parikh PA-C Unavailable [phone] Bin Fowler PA-C Unavailable [phone] Vinicius Fonseca Unavailable Unavailable Amador Funk MD Unavailable Timoteo Mcfarland MD Unavailable [phone] Marco Hunt MD Unavailable Joy Brand NP Unavailable [phone] [facility], Pcp Primary Care Provider Unavailabl e Reason for Visit * Reason Onset Date Comments LAB WORK 06/07/2024 Encounter Details Date Type Department Care Team Description 06/07/2024 Telephone Cardio PVC POC 154 300 [facility] [address] [place] [address] Joy Brand, MAREK [address] [place] [address] LAB WORK Social History Tobacco [...] on filedocumented in this encounter Care Teams Application Support Relationship Specialty Start Date End Date Amy Wilkerson MD 230 [place], [place] PCP - General Internal Medicine 11/11/21 09/05/24 [facility], Pcp [address] [place] [address] 154 [place] [address] PCP - General Internal Medicine 09/06/24 Thierno Duvall MD, PHD [address] [place], [place] Surgeon Neurosurgery 02/25/22 Lizbeth Parikh PA-C [address] [address] Specialist Neurosurgery 02/25/22 Bin Fowler PA-C [address] [address] Specialist Neurosurgery 02/25/22 Vinicius Fonseca 175 [facility] 300 [place] [address] Dermatology 03/10/23 Amador Funk MD 300 [facility] [address] [place] [address] Television Station Manager Cardiovascular Disease 03/10/23 Timoteo Mcfarland MD 175 [facility] 250 [place] [address] ORTHOPEDIC SURGERY 08/24/23 Marco Hunt MD 175 [facility] 250 [place] [address] Specialist Cardiology 10/09/23 Joy Brand NP 300 [facility] [address] [place] [address] Cardiology 10/09/23 [facility] urology Specialist Urology 08/24/23 documented as of this encounter
--- OUTSIDE RECORDS SUMMARY | 2025-03-17 10:50 | XMS_ITS | Encounter Summary ---
Author Organization [facility] Address [address] [place] [address] Care Team Providers Care Business Planning Director Name Role Phone Amy Wilkerson MD Primary Care Provider + [phone] Thierno Duvall MD, PHD Unavailable Unava ilable Lizbeth Parikh PA-C Unavailable [phone] Bin Fowler PA-C Unavailable [phone] Vinicius Fonseca Unavailable Unavailable Amador Funk MD Unavailable [phone] Daryl Dunn NP Unavailable [phone] Timoteo Mcfarland MD Unavailable [phone] Marco Hunt MD Unavailable [phone] Joy Brand NP Unavailable [phone] [facility], Pcp Primary Care Provider Unavailabl e Encounter Details Date Type Department Care Team Description 03/12/2023 SCAN Medical Records [address] [place] [address] [facility] Social History Tobacco Use Types Packs/Day Years [...] on filedocumented in this encounter Care Teams Business Planning Director Relationship Specialty Start Date End Date Amy Wilkerson MD 230 [place] [address] PCP - General Internal Medicine 11/11/21 09/05/24 [facility], Pcp [address] [address] PCP - General Internal Medicine 09/06/24 Thierno Duvall MD, PHD 230 [place] [address] Surgeon Neurosurgery 02/25/22 Lizbeth Parikh PA-C [address] [address] Specialist Neurosurgery 02/25/22 Bin Fowler PA-C [address] [address] Specialist Neurosurgery 02/25/22 Vinicius Fonseca [address] [address] Dermatology 03/10/23 Amador Funk MD [address] [address] Disabilities Caregiver Cardiovascular Disease 03/10/23 Daryl Dunn NP [address] [address] Nurse Practitioner Cardiology 04/27/23 10/19/23 Timoteo Mcfarland MD [address] [address] ORTHOPEDIC SURGERY 08/24/23 Marco Hunt MD [address] [address] Specialist Cardiology 10/09/23 Joy Brand NP [address] [phone] Cardiology 10/09/23 [facility] urology Specialist Urology 08/24/23 documented as of this encounter
--- OUTSIDE RECORDS SUMMARY | 2025-03-17 10:50 | XMS_ITS | Encounter Summary ---
Author Organization [facility] Address [address] [place] [address] Care Team Providers Care Armored Truck Driver Name Role Phone Amy Wilkerson MD Primary Care Provider + [phone] Thierno Duvall MD, PHD Unavailable Unava ilable Lizbeth Parikh PA-C Unavailable [phone] Bin Fowler PA-C Unavailable [phone] Vinicius Fonseca Unavailable Unavailable Amador Funk MD Unavailable [phone] Daryl Dunn NP Unavailable [phone] Timoteo Mcfarland MD Unavailable [phone] Marco Hunt MD Unavailable [phone] Joy Brand NP Unavailable [phone] [facility], Pcp Primary Care Provider Unavailabl e Reason for Visit * Reason Onset Date Comments Imaging Review 12/17/2022 R shoulder MRI Encounter Details Date Type Department Care Team Description 12/17/2022 Telephone [facility] Medical [facility] [address] [address] Timoteo Mcfarland MD [address] [id number] Imaging Review (R shoulder MRI ) Social History Tobacco Use Types Packs/Day [...] encounter Miscellaneous Notes * Telephone Encounter - Eri Burnette - 12/17/2022 11:55 AM EST Kev called in asking about him MRI results. I was going to schedule him an appt but there in nothing till january. Not sure if he can be called with the results or does he have to wait till january .Please let me know Thank you documented in this encounter Plan of Treatment Not on file documented as of this encounter Visit Diagnoses Not on filedocumented in this encounter Care Teams Armored Truck Driver Relationship Specialty Start Date End Date Amy Wilkerson MD 230 [place] [address] PCP - General Internal Medicine 11/11/21 09/05/24 [facility], Pcp [address] [address] PCP - General Internal Medicine 09/06/24 Thierno Duvall MD, PHD 230 [place] [address] Surgeon Neurosurgery 02/25/22 Lizbeth Parikh PA-C [address] [address] Specialist Neurosurgery 02/25/22 Bin Fowler PA-C [address] [address] Specialist Neurosurgery 02/25/22 Vinicius Fonseca [address] [address] Dermatology 03/10/23 Amador Funk MD [address] [address] Hydrographer Cardiovascular Disease 03/10/23 Daryl Dunn NP [address] [address] Nurse Practitioner Cardiology 04/27/23 10/19/23 Timoteo Mcfarland MD 175 [facility] [address] [place] [address] ORTHOPEDIC SURGERY 08/24/23 Marco Hunt MD 175 [facility] [address] [place] [address] Specialist Cardiology 10/09/23 Joy Brand NP [address] [address] Cardiology 10/09/23 [facility] urology Specialist Urology 08/24/23 documented as of this encounter
--- OUTSIDE RECORDS SUMMARY | 2025-03-17 10:50 | XMS_ITS | Encounter Summary ---
Author Organization [facility] Address [address] [place] [address] Care Team Providers Care Tare Weigher Name Role Phone Amy Wilkerson MD Primary Care Provider + [phone] Thierno Duvall MD, PHD Unavailable Unava ilable Lizbeth Parikh PA-C Unavailable +[phone] Bin Fowler PA-C Unavailable [phone] Vinicius Fonseca Unavailable Unavailable Amador Funk MD Unavailable [phone] Daryl Dunn NP Unavailable [phone] Timoteo Mcfarland MD Unavailable [phone] Marco Hunt MD Unavailable [phone] Joy Brand NP Unavailable [phone] [facility], Pcp Primary Care Provider Unavailabl e Encounter Details Date Type Department Care Team Description 05/18/2023 [facility] Medical Records [address] [place], [place] [id number] [place] [address] Social History Tobacco Use Types Packs/Day Years [...] on filedocumented in this encounter Care Teams Tare Weigher Relationship Specialty Start Date End Date Amy Wilkerson MD 230 [place] [address] PCP - General Internal Medicine 11/11/21 09/05/24 [facility], Pcp [address] [address] PCP - General Internal Medicine 09/06/24 Thierno Duvall MD, PHD [address] [place] [address] Surgeon Neurosurgery 02/25/22 Lizbeth Parikh PA-C [address] [address] Specialist Neurosurgery 02/25/22 Bin Fowler PA-C [address] [address] Specialist Neurosurgery 02/25/22 Vinicius Fonseca [address] [address] Dermatology 03/10/23 Amador Funk MD [address] [address] Fleece Tier Cardiovascular Disease 03/10/23 Daryl Dunn NP [address] [address] Nurse Practitioner Cardiology 04/27/23 10/19/23 Timoteo Mcfarland MD [address] [address] ORTHOPEDIC SURGERY 08/24/23 Marco Hunt MD [address] [address] Specialist Cardiology 10/09/23 Joy Brand NP [address] [phone] Cardiology 10/09/23 [facility] urology Specialist Urology 08/24/23 documented as of this encounter
--- OUTSIDE RECORDS SUMMARY | 2025-03-17 10:50 | XMS_ITS | Encounter Summary ---
Author Organization [facility] Address [address] [place] [address] Care Team Providers Care Wireless Development Manager Name Role Phone Papito Mann MD Primary Care Provider Unavailable Amy Wilkerson MD Primary Care Provider + [phone] Thierno Duvall MD, PHD Unavailable Unava ilable Lizbeth Parikh PA-C Unavailable +[phone] Bin Fowler PA-C Unavailable [phone] Vinicius Fonseca Unavailable Unavailable Amador Funk MD Unavailable +[phone] Daryl Dunn NP Unavailable [phone] Timoteo Mcfarland MD Unavailable [phone] Marco Hunt MD Unavailable [phone] Joy Brand NP Unavailable [phone] [facility] Primary Care Provider Unavailabl e Encounter Details Date Type Department Care Team Description 05/03/2019 Hospital Medical Records [address] [place] [address] Bin Fowler PA-C 175 [facility] [address] [place] [address] Social History Tobacco Use Types Packs/Day Years [...] on filedocumented in this encounter Care Teams Wireless Development Manager Relationship Specialty Start Date End Date Papito Mann MD PCP - General Internal Medicine 06/24/17 11/10/21 Amy Wilkerson MD 230 [place] [address] PCP - General Internal Medicine 11/11/21 09/05/24 [facility], Pcp [address] [address] PCP - General Internal Medicine 09/06/24 Thierno Duvall MD, PHD [address] [place] [address] Surgeon Neurosurgery 02/25/22 Lizbeth Parikh PA-C [address] [address] Specialist Neurosurgery 02/25/22 Bin Fowler PA-C [address] [address] Specialist Neurosurgery 02/25/22 Vinicius Fonseca [address] [address] Dermatology 03/10/23 Amador Funk MD [address] [address] Utilization Management Nurse Cardiovascular Disease 03/10/23 Daryl Dunn NP [address] [address] Nurse Practitioner Cardiology 04/27/23 10/19/23 Timoteo Mcfarland MD [address] [address] ORTHOPEDIC SURGERY 08/24/23 Marco Hunt MD [address] [address] Specialist Cardiology 10/09/23 Joy Brand NP [address] [phone] Cardiology 10/09/23 [facility] urology Specialist Urology 08/24/23 documented as of this encounter
--- OUTSIDE RECORDS SUMMARY | 2025-03-17 10:50 | XMS_ITS | Encounter Summary ---
Author Organization [facility] Address [address] [place] [address] Care Team Providers Care Internet Marketing Director Name Role Phone Ppaito Mann MD Primary Care Provider Unavailable Amy Wilkerson MD Primary Care Provider + [phone] Thierno Duvall MD, PHD Unavailable Unava ilable Lizbeth Parikh PA-C Unavailable +[phone] Bin Fowler PA-C Unavailable +[phone] Vinicius Fonseca Unavailable Unavailable Amador Funk MD Unavailable +[phone] Daryl Dunn NP Unavailable [phone] Timoteo Mcfarland MD Unavailable [phone] Marco Hunt MD Unavailable [phone] Joy Brand NP Unavailable [phone] [facility], Pcp Primary Care Provider Unavailabl e Encounter Details Date Type Department Care Team Description 05/04/2019 Hospital Medical Records [address] [place] [address] Thierno Duvall MD, PHD Social History Tobacco [...] on filedocumented in this encounter Care Teams Internet Marketing Director Relationship Specialty Start Date End Date Papito Mann MD PCP - General Internal Medicine 06/24/17 11/10/21 Amy Wilkerson MD 230 [place] [address] PCP - General Internal Medicine 11/11/21 09/05/24 [facility], Pcp [address] [address] PCP - General Internal Medicine 09/06/24 Thierno Duvall MD, PHD 230 [place] [address] Surgeon Neurosurgery 02/25/22 Lizbeth Parikh PA-C [address] [address] Specialist Neurosurgery 02/25/22 Bin Fowler PA-C [address] [address] Specialist Neurosurgery 02/25/22 Vinicius Fonseca [address] [address] Dermatology 03/10/23 Amador Funk MD [address] [address] Mattress Inspector Cardiovascular Disease 03/10/23 Daryl Dunn NP [address] [address] Nurse Practitioner Cardiology 04/27/23 10/19/23 Timoteo Mcfarland MD [address] [address] ORTHOPEDIC SURGERY 08/24/23 Marco Hunt MD [address] [address] Specialist Cardiology 10/09/23 Joy Brand NP [address] [phone] Cardiology 10/09/23 [facility] urology Specialist Urology 08/24/23 documented as of this encounter
--- OUTSIDE RECORDS SUMMARY | 2025-03-17 10:51 | XMS_ITS | Encounter Summary ---
Author Organization [facility] Address [address] [place] [address] Care Team Providers Care Dermatology Teacher Name Role Phone Papito Mann MD Primary Care Provider Unavailable Amy Wilkerson MD Primary Care Provider + [phone] Thierno Duvall MD, PHD Unavailable Unava ilable Lizbeth Parikh PA-C Unavailable +[phone] Bin Fowler PA-C Unavailable +[phone] Vinicius Fonseca Unavailable Unavailable Amador Funk MD Unavailable [phone] Daryl Dunn NP Unavailable Timoteo Mcfarland MD Unavailable [phone] Marco Hunt MD Unavailable Joy Brand NP Unavailable [phone] [facility], Pcp Primary Care Provider Unavailabl e Encounter Details Date Type Department Care Team Description 08/05/2017 Release of Information Medical Records [address] [place] [address] Abstract, Provider Social History Tobacco Use Types [...] on filedocumented in this encounter Care Teams Dermatology Teacher Relationship Specialty Start Date End Date Papito Mann MD PCP - General Internal Medicine 06/24/17 11/10/21 Amy Wilkerson MD 230 [place], [place] [phone] PCP - General Internal Medicine 11/11/21 09/05/24 [facility], Pcp [address] [address] PCP - General Internal Medicine 09/06/24 Thierno Duvall MD, PHD [address] [place] [address] Surgeon Neurosurgery 02/25/22 Lizbeth Parikh PA-C [address] [address] Specialist Neurosurgery 02/25/22 Bin Fowler PA-C [address] [address] Specialist Neurosurgery 02/25/22 Vinicius Fonseca [address] [address] Dermatology 03/10/23 Amador Funk MD [address] [address] Remote Control Assembler Cardiovascular Disease 03/10/23 Daryl Dunn NP [address] [address] Nurse Practitioner Cardiology 04/27/23 10/19/23 Timoteo Mcfarland MD [address] [address] ORTHOPEDIC SURGERY 08/24/23 Marco Hunt MD [address] [address] Specialist Cardiology 10/09/23 Joy Brand NP [address] [phone] Cardiology 10/09/23 [facility] urology Specialist Urology 08/24/23 documented as of this encounter
--- OUTSIDE RECORDS SUMMARY | 2025-03-17 10:51 | XMS_ITS | Encounter Summary ---
Author Organization [facility] Address [address] [place] [address] Care Team Providers Care Inside Wirer Name Role Phone Papito Mann MD Primary Care Provider Unavailable Amy Wilkerson MD Primary Care Provider + [phone] Thierno Duvall MD, PHD Unavailable Unava ilable Lizbeth Parikh PA-C Unavailable [phone] Bin Fowler PA-C Unavailable [phone] Vinicius Fonseca Unavailable Unavailable Amador Funk MD Unavailable +[phone] Daryl Dunn NP Unavailable [phone] Timoteo Mcfarland MD Unavailable [phone] Marco Hunt MD Unavailable [phone] Joy Brand NP Unavailable [phone] [facility], Pcp Primary Care Provider Unavailabl e Encounter Details Date Type Department Care Team Description 12/30/2019 Boat Loader Helper Report Medical Records [address] [place] [address] Henry Castillo MD Social History Tobacco Use [...] on filedocumented in this encounter Care Teams Inside Wirer Relationship Specialty Start Date End Date Papito Mann MD PCP - General Internal Medicine 06/24/17 11/10/21 Amy Wilkerson MD 230 [place] [address] PCP - General Internal Medicine 11/11/21 09/05/24 [facility], Pcp [address] [address] PCP - General Internal Medicine 09/06/24 Thierno Duvall MD, PHD [address] [place] [address] Surgeon Neurosurgery 02/25/22 Lizbeth Parikh PA-C [address] [address] Specialist Neurosurgery 02/25/22 Bin Fowler PA-C [address] [address] Specialist Neurosurgery 02/25/22 Vinicius Fonseca [address] [address] Dermatology 03/10/23 Amador Funk MD [address] [address] Sewer Cardiovascular Disease 03/10/23 Daryl Dunn NP [address] [address] Nurse Practitioner Cardiology 04/27/23 10/19/23 Timoteo Mcfarland MD [address] [address] ORTHOPEDIC SURGERY 08/24/23 Marco Hunt MD [address] [address] Specialist Cardiology 10/09/23 Joy Brand NP [address] [phone] Cardiology 10/09/23 [facility] urology Specialist Urology 08/24/23 documented as of this encounter
--- OUTSIDE RECORDS SUMMARY | 2025-03-17 10:51 | XMS_ITS | Encounter Summary ---
Author Organization [facility] Address [address] [place] [address] Care Team Providers Care Sash Finisher Name Role Phone Amy Wilkerson MD Primary Care Provider [phone] Thierno Duvall MD, PHD Unavailable Unava ilable Lizbeth Parikh PA-C Unavailable +[phone] Bin Fowler PA-C Unavailable [phone] Vinicius Fonseca Unavailable Unavailable Amador Funk MD Unavailable [phone] Daryl Dunn NP Unavailable [phone] Timoteo Mcfarland MD Unavailable [phone] Marco Hunt MD Unavailable Joy Brand NP Unavailable [phone] [facility], Pcp Primary Care Provider Unavailabl e Encounter Details Date Type Department Care Team Description 02/06/2022 [facility] Neurosurgery [address] [place] [address] Thierno Duvall MD, PHD Social [...] on filedocumented in this encounter Care Teams Sash Finisher Relationship Specialty Start Date End Date Amy Wilkerson MD 230 [place] [address] PCP - General Internal Medicine 11/11/21 09/05/24 [facility], Pcp 300 [facility] [address] [place] [address] PCP - General Internal Medicine 09/06/24 Thierno Duvall MD, PHD [address] [place] [address] Surgeon Neurosurgery 02/25/22 Lizbeth Parikh PA-C [address] [address] Specialist Neurosurgery 02/25/22 Bin Fowler PA-C [address] [address] Specialist Neurosurgery 02/25/22 Vinicius Fonseca [address] [address] Dermatology 03/10/23 Amador Funk MD [address] [address] Senior Controls Technician Cardiovascular Disease 03/10/23 Daryl Dunn NP [address] [address] Nurse Practitioner Cardiology 04/27/23 10/19/23 Timoteo Mcfarland MD [address] [address] ORTHOPEDIC SURGERY 08/24/23 aMrco Hunt MD [address] [address] Specialist Cardiology 10/09/23 Joy Brand NP [address] [phone] Cardiology 10/09/23 [facility] urology Specialist Urology 08/24/23 documented as of this encounter
--- OUTSIDE RECORDS SUMMARY | 2025-03-17 10:51 | XMS_ITS | Encounter Summary ---
Author Organization [facility] Address [address] [facility] 7 [place] [address] Care Team Providers Care Carpet Sewing Machine Operator Name Role Phone Unavailable Primary [...] Description 04/19/2025 8:30 AM EDT Office Visit [facility] [address] [place] [address] Yamel Healy documented as of this encounter Visit Diagnoses Not on filedocumented in this encounter
--- OUTSIDE RECORDS SUMMARY | 2025-03-17 10:51 | XMS_ITS | Encounter Summary ---
Author Organization [facility] Address [address] [place] [address] Care Team Providers Care Gem Technician Name Role Phone Amy Wilkerson MD Primary Care Provider + [phone] Thierno Duvall MD, PHD Unavailable Unava ilable Lizbeth Parikh PA-C Unavailable [phone] Bin Fowler PA-C Unavailable [phone] Vinicius Fonseca Unavailable Unavailable Amador Funk MD Unavailable [phone] Daryl Dunn NP Unavailable [phone] Timoteo Mcfarland MD Unavailable [phone] Marco Hunt MD Unavailable [phone] Joy Brand NP Unavailable [phone] [facility] Primary Care Provider Unavailabl e Encounter Details Date Type Department Care Team Description 02/05/2022 [facility] Medical Records [address] [place] [address] Thierno Duvall MD, PHD Social History Tobacco [...] on filedocumented in this encounter Care Teams Gem Technician Relationship Specialty Start Date End Date Amy Wilkerson MD 230 [place] [address] PCP - General Internal Medicine 11/11/21 09/05/24 [facility] Pcp [address] [address] PCP - General Internal Medicine 09/06/24 Thierno Duvall MD, PHD [address] [place] [address] Surgeon Neurosurgery 02/25/22 Lizbeth Parikh PA-C [address] [address] Specialist Neurosurgery 02/25/22 Bin Fowler PA-C [address] [address] Specialist Neurosurgery 02/25/22 Vinicius Fonseca [address] [address] Dermatology 03/10/23 Amador Funk MD [address] [address] Regional Facilities Manager Cardiovascular Disease 03/10/23 Daryl Dunn NP [address] [address] Nurse Practitioner Cardiology 04/27/23 10/19/23 Timoteo Mcfarland MD [address] [address] ORTHOPEDIC SURGERY 08/24/23 Marco Hunt MD [address] [address] Specialist Cardiology 10/09/23 Joy Brand NP [address] [phone] Cardiology 10/09/23 [facility] urology Specialist Urology 08/24/23 documented as of this encounter
--- OUTSIDE RECORDS SUMMARY | 2025-03-17 10:51 | XMS_ITS | Encounter Summary ---
Author Organization [facility] Address [address] [place] [address] Care Team Providers Care Surveillance Specialist Name Role Phone Papito Mann MD Primary Care Provider Unavailable Amy Wilkerson MD Primary Care Provider + [phone] Thierno Duvall MD, PHD Unavailable Unava ilable Lizbeth Parikh PA-C Unavailable [phone] Bin Fowler PA-C Unavailable [phone] Vinicius Fonseca Unavailable Unavailable Amador Funk MD Unavailable [phone] Daryl Dunn NP Unavailable [phone] Timoteo Mcfarland MD Unavailable [phone] Marco Hunt MD Unavailable [phone] Joy Brand NP Unavailable [phone] [facility], Pcp Primary Care Provider Unavailabl e Encounter Details Date Type Department Care Team Description 10/06/2017 Urban Planner Report Medical Records [address] [place] [address] Saul Fritz MD Social History Tobacco Use [...] on filedocumented in this encounter Care Teams Surveillance Specialist Relationship Specialty Start Date End Date Papito Mann MD PCP - General Internal Medicine 06/24/17 11/10/21 Amy Wilkerson MD 230 [place], [place] [phone] PCP - General Internal Medicine 11/11/21 09/05/24 [facility], Pcp [address] [address] PCP - General Internal Medicine 09/06/24 Thierno Duvall MD, PHD [address] [place] [address] Surgeon Neurosurgery 02/25/22 Lizbeth Parikh PA-C [address] [address] Specialist Neurosurgery 02/25/22 Bin Fowler PA-C [address] [address] Specialist Neurosurgery 02/25/22 Vinicius Fonseca [address] [address] Dermatology 03/10/23 Amador Funk MD [address] [address] Payment Rep Cardiovascular Disease 03/10/23 Daryl Dunn NP [address] [address] Nurse Practitioner Cardiology 04/27/23 10/19/23 Timoteo Mcfarland MD [address] [address] ORTHOPEDIC SURGERY 08/24/23 Marco Hunt MD [address] [address] Specialist Cardiology 10/09/23 Joy Brand NP [address] [phone] Cardiology 10/09/23 [facility] urology Specialist Urology 08/24/23 documented as of this encounter
--- OUTSIDE RECORDS SUMMARY | 2025-03-17 10:51 | XMS_ITS | Encounter Summary ---
Author Organization [facility] Address [address] [place] [address] Care Team Providers Care Carpet Layer Helper Name Role Phone Papito Mann MD Primary Care Provider Unavailable Amy Wilkerson MD Primary Care Provider + [phone] Thierno Duvall MD, PHD Unavailable Unava ilable Lizbeth Parikh PA-C Unavailable +[phone] Bin Fowler PA-C Unavailable [phone] Vinicius Fonseca Unavailable Unavailable Amador Funk MD Unavailable [phone] Daryl Dunn NP Unavailable [phone] Timoteo Mcfarland MD Unavailable [phone] Marco Hunt MD Unavailable [phone] Joy Brand NP Unavailable [phone] [facility], Pcp Primary Care Provider Unavailabl e Encounter Details Date Type Department Care Team Description 04/08/2018 Release of Information Medical Records [address] [place] [address] Abstract, Provider Social History Tobacco Use Types [...] on filedocumented in this encounter Care Teams Carpet Layer Helper Relationship Specialty Start Date End Date Papito Mann MD PCP - General Internal Medicine 06/24/17 11/10/21 Amy Wilkerson MD 230 [place], [place] [phone] PCP - General Internal Medicine 11/11/21 09/05/24 [facility], Pcp [address] [address] PCP - General Internal Medicine 09/06/24 Thierno Duvall MD, PHD [address] [place] [address] Surgeon Neurosurgery 02/25/22 Lizbeth Parikh PA-C [address] [address] Specialist Neurosurgery 02/25/22 Bin Fowler PA-C [address] [address] Specialist Neurosurgery 02/25/22 Vinicius Fonseca [address] [address] Dermatology 03/10/23 Amador Funk MD [address] [address] Wool Supplier Cardiovascular Disease 03/10/23 Daryl Dunn NP [address] [address] Nurse Practitioner Cardiology 04/27/23 10/19/23 Timoteo Mcfarland MD [address] [address] ORTHOPEDIC SURGERY 08/24/23 Marco Hunt MD [address] [address] Specialist Cardiology 10/09/23 Joy Brand NP [address] [phone] Cardiology 10/09/23 [facility] urology Specialist Urology 08/24/23 documented as of this encounter
--- OUTSIDE RECORDS SUMMARY | 2025-03-17 10:51 | XMS_ITS | Encounter Summary ---
Author Organization [facility] Address [address] [place] [address] Care Team Providers Care Vacuum System Tester Name Role Phone Amy Wilkerson MD Primary Care Provider [phone] Thierno Duvall MD, PHD Unavailable Unava ilable Lizbeth Parikh PA-C Unavailable +[phone] Bin Fowler PA-C Unavailable [phone] Vinicius Fonseca Unavailable Unavailable Amador Funk MD Unavailable [phone] Daryl Dunn NP Unavailable [phone] Timoteo Mcfarland MD Unavailable [phone] Marco Hunt MD Unavailable [phone] Joy Brand NP Unavailable [phone] [facility], Pcp Primary Care Provider Unavailabl e Encounter Details Date Type Department Care Team Description 04/29/2023 SCAN [facility] 175 [facility] [address] [place] [address] Timoteo Mcfarland MD 175 [facility] [address] [place], [place] [phone] Social History Tobacco Use Types Packs/Day Years [...] on filedocumented in this encounter Care Teams Vacuum System Tester Relationship Specialty Start Date End Date Amy Wilkerson MD 230 [place] [address] PCP - General Internal Medicine 11/11/21 09/05/24 [facility], Pcp [address] [address] PCP - General Internal Medicine 09/06/24 Thierno Duvall MD, PHD [address] [place] [address] Surgeon Neurosurgery 02/25/22 Lizbeth Parikh PA-C [address] [address] Specialist Neurosurgery 02/25/22 Bin Fowler PA-C [address] [address] Specialist Neurosurgery 02/25/22 Vinicius Fonseca [address] [address] Dermatology 03/10/23 Amador Funk MD [address] [address] Director Of Dance Cardiovascular Disease 03/10/23 Daryl Dunn NP [address] [address] Nurse Practitioner Cardiology 04/27/23 10/19/23 Timoteo Mcfarland MD [address] [address] ORTHOPEDIC SURGERY 08/24/23 Marco Hunt MD [address] [address] Specialist Cardiology 10/09/23 Joy Brand NP [address] [phone] Cardiology 10/09/23 [facility] urology Specialist Urology 08/24/23 documented as of this encounter
--- OUTSIDE RECORDS SUMMARY | 2025-03-17 10:51 | XMS_ITS | Encounter Summary ---
Author Organization [facility] Address [address] [place] [address] Care Team Providers Care Manufacturer'S Service Representative Name Role Phone Amy Wilkerson MD Primary Care Provider [phone] Thierno Duvall MD, PHD Unavailable Unava ilable Lizbeth Parikh PA-C Unavailable +[phone] Bin Fowler PA-C Unavailable +[phone] Vinicius Fonseca Unavailable Unavailable Amador Funk MD Unavailable Timoteo Mcfarland MD Unavailable [phone] Marco Hunt MD Unavailable Joy Brand NP Unavailable [phone] [facility], Pcp Primary Care Provider Unavailabl e Encounter Details Date Type Department Care Team Description 11/27/2023 Telephone Cardio PVCA Diag Testing 101 300 [facility] [address] [place], [place] [phone] Joy Brand NP [address] [facility] [address] [place] [address] Social History Tobacco Use Types [...] Telephone Encounter - Joy Brand NP - 11/27/2023 1:59 PM EST Left additional message for patient to call regarding lab work, titration of Entresto, diuretic etc. documented in this encounter Plan of Treatment Not on file documented as of this encounter Visit Diagnoses Not on filedocumented in this encounter Care Teams Manufacturer'S Service Representative Relationship Specialty Start Date End Date Amy Wilkerson MD 230 [place] [address] PCP - General Internal Medicine 11/11/21 09/05/24 [facility], Pcp [address] [address] PCP - General Internal Medicine 09/06/24 Thierno Duvall MD, PHD [address] [place] [address] Surgeon Neurosurgery 02/25/22 Lizbeth Parikh PA-C [address] [address] Specialist Neurosurgery 02/25/22 Bin Fowler PA-C [address] [address] Specialist Neurosurgery 02/25/22 Vinicius Fonseca [address] [address] Dermatology 03/10/23 Amador Funk MD [address] [address] Measuring Clerk Cardiovascular Disease 03/10/23 Timoteo Mcfarland MD [address] [address] ORTHOPEDIC SURGERY 08/24/23 Marco Hunt MD [address] [address] Specialist Cardiology 10/09/23 Joy Brand NP [address] [phone] Cardiology 10/09/23 [facility] urology Specialist Urology 08/24/23 documented as of this encounter
--- OUTSIDE RECORDS SUMMARY | 2025-03-17 10:51 | XMS_ITS | Encounter Summary ---
Author Organization [facility] Address [address] [place] [address] Care Team Providers Care Boiler Cleaner Name Role Phone Amy Wilkerson MD Primary Care Provider [phone] Thierno Duvall MD, PHD Unavailable Unava ilable Lizbeth Parikh PA-C Unavailable +[phone] Bin Fowler PA-C Unavailable [phone] Vinicius Fonseca Unavailable Unavailable Amador Funk MD Unavailable +[phone] Daryl Dunn NP Unavailable [phone] Timoteo Mcfarland MD Unavailable [phone] Marco Hunt MD Unavailable [phone] Joy Brand NP Unavailable [phone] [facility], Pcp Primary Care Provider Unavailabl e Encounter Details Date Type Department Care Team Description 07/10/2023 SCAN [facility] 175 [facility] [address] [place] [address] Timoteo Mcfarland MD 175 [facility] [address] [place], [place] [phone] Social History Tobacco Use Types Packs/Day Years [...] on filedocumented in this encounter Care Teams Boiler Cleaner Relationship Specialty Start Date End Date Amy Wilkerson MD 230 [place] [address] PCP - General Internal Medicine 11/11/21 09/05/24 [facility], Pcp [address] [address] PCP - General Internal Medicine 09/06/24 Thierno Duvall MD, PHD [address] [place] [address] Surgeon Neurosurgery 02/25/22 Lizbeth Parikh PA-C [address] [address] Specialist Neurosurgery 02/25/22 Bin Fowler PA-C [address] [address] Specialist Neurosurgery 02/25/22 Vinicius Fonseca [address] [address] Dermatology 03/10/23 Amador Funk MD [address] [address] Electrical Instrumentation Technician Cardiovascular Disease 03/10/23 Daryl Dunn NP [address] [address] Nurse Practitioner Cardiology 04/27/23 10/19/23 Timoteo Mcfarland MD [address] [address] ORTHOPEDIC SURGERY 08/24/23 Marco Hunt MD [address] [address] Specialist Cardiology 10/09/23 Joy Brand NP [address] [phone] Cardiology 10/09/23 [facility] urology Specialist Urology 08/24/23 documented as of this encounter
--- OUTSIDE RECORDS SUMMARY | 2025-03-17 10:51 | XMS_ITS | Clinical Summary ---
Author Organization [address] [place] [address] Address [address] [place] [address] Phone Care Team Providers Care Stave Jointer Name Role Phone Jc Myrick RENETTA Primary Care Provider [phone] Allergies No known active allergies Medications acetaminophen (TYLENOL 8 HOUR) 650 mg 8 hr tablet Take 1 Tablet by mouth every 8 hours as needed for Pain for up to 30 days. 03/30/20 23 Active empagliflozin (Jardiance) 10 mg tablet TAKE 1 TABLET BY MOUTH DAILY 03/22/20 24 Active metoprolol succinate (TOPROL-XL) 50 mg 24 hr tablet Take 1 Tablet by mouth daily. 07/08/20 24 Active metroNIDAZOLE (METROCREAM) 0.75 % cream Apply topically 2 times daily. Active rosuvastatin (CRESTOR) 10 mg tablet Take 0.5 Tablets by mouth daily. 03/09/20 24 Active testosterone 50 mg/5 gram (1 %) gel Apply daily as directed 09/24/20 18 Active sacubitriL-shayy sartan (Entresto) 97-103 mg per tablet TAKE 1 TABLET BY MOUTH TWICE DAILY 180 tablet 2 03/09/20 25 Active sacubitriL-shayy sartan (Entresto) 97-103 mg per tablet Take 1 Tablet by mouth 2 times daily. 12/25/19 24 025 Discontinued Active Problems Problem Noted Date Diagnosed Date [...] and/or spironolactone after discussion with his primary woodwork salvage inspector. Abnormal EKG 03/11/2023 Persistent atrial fibrillation [...] injury and catheter thrombus related stroke or VT. He understands that he may not necessarily build to come off of anticoagulation even if successful we will base that decision on his [id number] score. I encouraged him to continue efforts [...] 03/14/2019 Obstructive sleep apnea 12/17/2018 Overview (08/24/2024): [facility] Home Polysomnogram: Date 12/14/2018; AHI 19, Unclassified apneas 8; Obstructive apneas 17; Central apneas 3; Mixed apneas 0; hypopneas 43; average oxygen saturation 93% (lowest 79% without saturations <88% for 5% or more of study) - Obstructive Sleep Apnea - moderate; mostly hypopneas and obstructive apneas; without sleep related hypoventilation by 2019 home polysomnogram. Cervical stenosis of spine 03/19/2018 [...] Encounters Date Type Department Care Team Description 03/13/2025 Lab Requisition [facility] - Main Lab [address] [place] [address] Stephenie Arreguin PA Testicular hypofunction 03/03/2025 10:30 AM EDT Ancillary Procedure [facility] [address] [place] [address] Abnormal EKG (Primary Dx) 03/01/2025 Telephone [facility] [address] [place] [address] Amador Funk MD OTHER (Patient currently in afib) 02/23/[address] [place] [address] Jc Myrick FNP Medical Records [...] Comments COLONOSCOPY 10/19/2007 PROCEDURE: HISTORICAL COLONOSCOPY; COMMENT: [facility] [place]; [place]; multiple small tubular adenomas. COLONOSCOPY 02/02/2018 PROCEDURE: HISTORICAL COLONOSCOPY; COMMENT: Diminutive colonic polyps ? 3 : all tubular adenomas. OTHER SURGICAL HISTORY 08/2017 PROCEDURE: DECOMPRESS DISC RF LUMBAR; COMMENT: microlumbar discectomy L4-5 Lam TURP / TRANSURETHRAL INCISIO N / DRAINAGE PROSTATE 2017 PROCEDURE: HISTORICAL TURP UPPER GASTROINTESTINAL ENDOSCOPY 04/12/2020 PROCEDURE: LA UPPER GI ENDOSCOPY PERFORMED; COMMENT: normal on famotidine rx. OTHER SURGICAL HISTORY 02/05/2022 PROCEDURE: LA ARTHRODESIS POSTERIOR INTERBODY 1 NTRSPC LUMBAR; COMMENT: [...] 10/10/2024 2:34 PM EST Plan of Treatment Upcoming Encounters Date Type Department Care Team (Late st Contact Info) Description 05/01/2025 7:40 AM EDT Office Visit [facility] [address] [facility] [address] [place] [phone] Glenna Brown NP [address] [place] [address] Health Maintenance Due Date Last Done Comments RSV Immunization Adult Patients (1 - Risk 60-74 years 1-dose series) 2018 Depression Screening 10/18/2022 Medicare Annual Wellness Visit 10/18/2022 Social Influencers of Health Screening 10/18/2022 Colorectal Cancer Screening: Colonoscopy 02/02/2023 02/02/2018 Falls Risk Assessment 2023 COVID-19 Vaccine (2 - season) 2024 05/02/2021 Influenza Vaccine (Season [...] Procedure Name Priority Date/Time Associated Diagnosis Comments COMPLETE BLOOD COUNT Routine 03/13/2025 8:33 AM EDT Testicular hypofunction ECG 12-LEAD Routine 03/03/2025 10:42 AM EDT Abnormal EKG LIPID PANEL Routine 12/25/2023 COLONOSCOPY Routine 02/02/2018 HEPATITIS C SCREENING Routine 12/25/2017 from Last 3 Months or Most Recently Relevant to Health Maintenance Results * (ABNORMAL) Complete blood count (03/13/2025 8:33 AM EDT) WBC 4.7(L) 4.8 - 10.8 K/mcL LAB HEMETOLOGY METHOD 03/13/2025 1:49 PM EDT [facility] RBC 5.00 4.50 - 5.50 M/mcL LAB HEMETOLOGY METHOD 03/13/2025 1:49 PM EDT [facility] Hemoglobin 16.6 13.5 - 17.5 g/dL LAB HEMETOLOGY METHOD 03/13/2025 1:49 PM EDT [facility] Hematocrit 50.0 42.0 - 54.0 % LAB HEMETOLOGY METHOD 03/13/2025 1:49 PM EDT [facility] MCV 99.4(H) 79.0 - 98.0 FL LAB HEMETOLOGY METHOD 03/13/2025 1:49 PM EDT [facility] MCH 33.0(H) 27.0 - 32.0 pcg LAB HEMETOLOGY METHOD 03/13/2025 1:49 PM EDT [facility] MCHC 33.2 32.0 - 37.0 g/dL LAB HEMETOLOGY METHOD 03/13/2025 1:49 PM EDT [facility] RDW 13.1 11.0 - 15.0 % LAB HEMETOLOGY METHOD 03/13/2025 1:49 PM EDT [facility] Platelets 207 130 - 400 K/mcL LAB HEMETOLOGY METHOD 03/13/2025 1:49 PM EDT [facility] MPV 9.6 7.0 - 11.0 FL LAB HEMETOLOGY METHOD 03/13/2025 1:49 PM EDT [facility] NRBC 0.0 <1.0 % LAB HEMETOLOGY METHOD 03/13/2025 1:49 PM EDT [facility] NRBC Absolute 0.00 <0.10 K/mcL LAB HEMETOLOGY METHOD 03/13/2025 1:49 PM EDT [facility] Blood Venous blood specimen / Unknown 03/13/2025 8:33 AM EDT 03/13/2025 12:43 PM EDT Stephenie SIMMONS LAB BLOOD ORDERABLES Final Re sult [facility] [address] [place], [place] [address] [phone] * ECG 12 lead (03/03/2025 10:42 AM EDT) [facility] Ventricular Rate ECG 74 BPM GEMUSE Atrial Rate 74 BPM GEMUSE P-R Interval 164 ms GEMUSE QRS Duration 92 ms GEMUSE Q-T Interval 390 ms GEMUSE QTc 432 ms GEMUSE P Wave [place] 63 degrees GEMUSE R [place] -28 degrees GEMUSE T [place] 1 degrees GEMUSE ECG Interpretation Normal sinus rhythm Normal ECG When compared with ECG of 03-FEB-2022 08:00, Incomplete right bundle branch block is no longer Present Confirmed by MD Good, Amador ([id number]) on 03/03/2025 11:46:04 AM GEMUSE 03/03/2025 10:4 2 AM EDT 03/03/2025 11:46 AM EDT Amador Funk MD ECG ORDERABLES Final Res ult GEMUSE * (ABNORMAL) Lipid panel (12/25/2023) [facility] LDL/HDL Ratio 4 0 - 4 Triglycerides 77 0 - 150 mg/dL Cholesterol 207(A) 0 - 200 mg/dL HDL 53 >=40 mg/dL LDL Cholesterol 139(A) 0 - 100 mg/dL Blood Venous blood specimen / Unknown Result [facility] Historical Caterina ESTRELLA LAB BLOOD ORDERABLES Natalya l Result * Colonoscopy (02/02/2018) [facility] Colonoscopy No Interpretation , Abstracted Anatomical Region Laterality Modality Other Historical Caterina ESTRELLA HEALTH MAINTENANCE Final Result * Hepatitis C Screening (12/25/2017) [facility] Hepatitis C Screening Abstracted Historical Caterina ESTRELLA HEALTH MAINTENANCE Final Result from Last 3 Months or Most Recently Relevant to Health Maintenance Insurance [facility] MEDICARE [facility] [place] [id number] Care Teams Stave Jointer Relationship Specialty Start Date End Date Jc Myrick FNP [address] [place] [phone] PCP - General Family Medicine 03/16/25
--- OUTSIDE RECORDS SUMMARY | 2025-03-17 10:51 | XMS_ITS | Encounter Summary ---
Author Organization [facility] Address [address] [place] [address] Care Team Providers Care Shoe Salesperson Name Role Phone Jc Myrick RENETTA Primary Care Provider [phone] Encounter Details Date Type Department Care Team (Late Contact Info) Description 03/13/[address] [facility] - Main Lab [address] [place] [address] Stephenie Arreguin PA [address] [place], [place] [id number] Testicular hypofunction Social History Tobacco Use Types Packs/Day Years [...] Encounters Date Type Department Care Team (Late Contact Info) Description 05/01/2025 7:40 AM EDT Office Visit [facility] - [facility] [address] [facility] [address] [place] [address] Glenna Brown NP 300 [facility] [address] [place] [address] documented as of this encounter Procedures Procedure Name Priority Date/Time Associated Diagnosis Comments COMPLETE BLOOD COUNT Routine 03/13/2025 8:33 AM EDT Testicular hypofunction documented in this encounter Results * (ABNORMAL) Complete blood count (03/13/2025 8:33 AM EDT) WBC 4.7(L) 4.8 - 10.8 K/mcL LAB HEMETOLOGY METHOD 03/13/2025 1:49 PM [facility] RBC 5.00 4.50 - 5.50 M/mcL LAB HEMETOLOGY METHOD 03/13/2025 1:49 PM [facility] Hemoglobin 16.6 13.5 - 17.5 g/dL LAB HEMETOLOGY METHOD 03/13/2025 1:49 PM [facility] Hematocrit 50.0 42.0 - 54.0 % LAB HEMETOLOGY METHOD 03/13/2025 1:49 PM [facility] MCV 99.4(H) 79.0 - 98.0 FL LAB HEMETOLOGY METHOD 03/13/2025 1:49 PM [facility] MCH 33.0(H) 27.0 - 32.0 pcg LAB HEMETOLOGY METHOD 03/13/2025 1:49 PM [facility] MCHC 33.2 32.0 - 37.0 g/dL LAB HEMETOLOGY METHOD 03/13/2025 1:49 PM [facility] RDW 13.1 11.0 - 15.0 % LAB HEMETOLOGY METHOD 03/13/2025 1:49 PM [facility] Platelets 207 130 - 400 K/mcL LAB HEMETOLOGY METHOD 03/13/2025 1:49 PM [facility] MPV 9.6 7.0 - 11.0 FL LAB HEMETOLOGY METHOD 03/13/2025 1:49 PM [facility] NRBC 0.0 <1.0 % LAB HEMETOLOGY METHOD 03/13/2025 1:49 PM [facility] NRBC Absolute 0.00 <0.10 K/mcL LAB HEMETOLOGY METHOD 03/13/2025 1:49 PM EDT [facility] Blood Venous blood specimen / Unknown 03/13/2025 8:33 AM EDT 03/13/2025 12:43 PM EDT Stephenie SIMMONS LAB BLOOD ORDERABLES Final Re sult [facility] [address] [place] [address], documented in this encounter Visit Diagnoses Diagnosis Testicular hypofunction Other testicular hypofunction documented in this encounter Care Teams Shoe Salesperson Relationship Specialty Start Date End Date Jc Myrick FNP [address] [place] [phone] PCP - General Family Medicine 03/16/25 documented as of this encounter
--- OUTSIDE RECORDS SUMMARY | 2025-03-17 10:51 | XMS_ITS | Encounter Summary ---
Author Organization [facility] Address [address] [place] [address] Care Team Providers Care Flavoring Oil Filterer Name Role Phone Papito Mann MD Primary Care Provider Unavailable Amy Wilkerson MD Primary Care Provider + [phone] Thierno Duvall MD, PHD Unavailable Unava ilable Lizbeth Parikh PA-C Unavailable [phone] Bin Fowler PA-C Unavailable [phone] Vinicius Fonseca Unavailable Unavailable Amador Funk MD Unavailable [phone] Daryl Dunn NP Unavailable [phone] Timoteo Mcfarland MD Unavailable [phone] Marco Hunt MD Unavailable [phone] Joy Brand NP Unavailable [facility], Pcp Primary Care Provider Unavailabl e Reason for Visit * Reason Onset Date Comments Provider Call Back 08/02/2019 abdominal dis comfort , sour taste Encounter Details Date Type Department Care Team Description 08/02/2019 Telephone Gastroenterology [address] [place] [address] Timoteo Lopez MD Provider Call Back [...] Cough documented in this encounter Care Teams Flavoring Oil Filterer Relationship Specialty Start Date End Date Papito Mann MD PCP - General Internal Medicine 06/24/17 11/10/21 Amy Wilkerson MD [address] [place] [address] PCP - General Internal Medicine 11/11/21 09/05/24 [facility], Pcp [address] [address] PCP - General Internal Medicine 09/06/24 Thierno Duvall MD, PHD [address] [place] [address] Surgeon Neurosurgery 02/25/22 Lizbeth Parikh PA-C [address] [address] Specialist Neurosurgery 02/25/22 Bin Fowler PA-C [address] [address] Specialist Neurosurgery 02/25/22 Vinicius Fonseca [address] [address] Dermatology 03/10/23 Amador Funk MD 300 [facility] [address] [place] [address] Fiberglass Boat Maker Cardiovascular Disease 03/10/23 Daryl Dunn NP 300 [facility] [address] [place] [address] Nurse Practitioner Cardiology 04/27/23 10/19/23 Timoteo Mcfarland MD [address] [address] [place] [address] ORTHOPEDIC SURGERY 08/24/23 Marco Hunt MD 175 [facility] 250 [place] [address] Specialist Cardiology 10/09/23 Joy Brand NP [address] [address] Cardiology 10/09/23 [facility] urology Specialist Urology 08/24/23 documented as of this encounter
--- OUTSIDE RECORDS SUMMARY | 2025-03-17 10:51 | XMS_ITS | Encounter Summary ---
Author Organization [facility] Address [address] [place] [address] Care Team Providers Care Structural Ironworker Name Role Phone Amy Wilkerson MD Primary Care Provider + [phone] Thierno Duvall MD, PHD Unavailable Unava ilable Lizbeth Parikh PA-C Unavailable [phone] Bin Fowler PA-C Unavailable [phone] Vinicius Fonseca Unavailable Unavailable Amador Funk MD Unavailable [phone] Daryl Dunn NP Unavailable [phone] Timoteo Mcfarland MD Unavailable Marco Hunt MD Unavailable [phone] Joy Brand NP Unavailable [phone] [facility] Primary Care Provider Unavailabl e Encounter Details Date Type Department Care Team Description 02/05/2022 [facility] Medical Records [address] [place] [address] Thierno Duvall MD, PHD Social History Tobacco [...] on filedocumented in this encounter Care Teams Structural Ironworker Relationship Specialty Start Date End Date Amy Wilkerson MD [address] [place] [address] PCP - General Internal Medicine 11/11/21 09/05/24 [facility] Pcp [address] [address] PCP - General Internal Medicine 09/06/24 Thierno Duvall MD, PHD [address] [place] [address] Surgeon Neurosurgery 02/25/22 Lizbeth Parikh PA-C [address] [address] Specialist Neurosurgery 02/25/22 Bin Fowler PA-C [address] [address] Specialist Neurosurgery 02/25/22 Vinicius Fonseca [address] [address] Dermatology 03/10/23 Amador Funk MD [address] [address] Registered Private Duty Nurse Cardiovascular Disease 03/10/23 Daryl Dunn NP [address] [address] Nurse Practitioner Cardiology 04/27/23 10/19/23 Timoteo Mcfarland MD [address] [address] ORTHOPEDIC SURGERY 08/24/23 Marco Hunt MD [address] [address] Specialist Cardiology 10/09/23 Joy Brand NP [address] [phone] Cardiology 10/09/23 [facility] urology Specialist Urology 08/24/23 documented as of this encounter
--- OUTSIDE RECORDS SUMMARY | 2025-03-17 10:51 | XMS_ITS | Encounter Summary ---
Author Organization [facility] Address [address] [place] [address] Care Team Providers Care Crossing Gateman Name Role Phone Papito Mann MD Primary Care Provider Unavailable Amy Wilkerson MD Primary Care Provider + [phone] Thierno Duvall MD, PHD Unavailable Unava ilable Lizbeth Parikh PA-C Unavailable [phone] Bin Fowler PA-C Unavailable [phone] Vinicius Fonseca Unavailable Unavailable Amador Funk MD Unavailable [phone] Daryl Dunn NP Unavailable [phone] Timoteo Mcfarland MD Unavailable [phone] Marco Hunt MD Unavailable [phone] Joy Brand NP Unavailable [phone] [facility], Pcp Primary Care Provider Unavailabl e Encounter Details Date Type Department Care Team Description 01/04/2021 Entry Level Project Engineer Report Medical Records [address] [place] [address] Krish Lopez PA-C Social History Tobacco Use [...] on filedocumented in this encounter Care Teams Crossing Gateman Relationship Specialty Start Date End Date Papito Mann MD PCP - General Internal Medicine 06/24/17 11/10/21 Amy Wilkerson MD 230 [place] [address] PCP - General Internal Medicine 11/11/21 09/05/24 [facility], Pcp [address] [address] PCP - General Internal Medicine 09/06/24 Thierno Duvall MD, PHD [address] [place] [address] Surgeon Neurosurgery 02/25/22 Lizbeth Parikh PA-C [address] [address] Specialist Neurosurgery 02/25/22 Bin Fowler PA-C [address] [address] Specialist Neurosurgery 02/25/22 Vinicius Fonseca [address] [address] Dermatology 03/10/23 Amador Funk MD [address] [address] Window Shade Installer Cardiovascular Disease 03/10/23 Daryl Dunn NP [address] [address] Nurse Practitioner Cardiology 04/27/23 10/19/23 Timoteo Mcfarland MD [address] [address] ORTHOPEDIC SURGERY 08/24/23 Marco Hunt MD [address] [address] Specialist Cardiology 10/09/23 Joy Brand NP [address] [phone] Cardiology 10/09/23 [facility] urology Specialist Urology 08/24/23 documented as of this encounter
--- OUTSIDE RECORDS SUMMARY | 2025-03-17 10:51 | XMS_ITS | Encounter Summary ---
Author Organization [employer] Address [address] [address] Care Team Providers Care Curve Saw Operator Name Role Phone Unavailable Primary Care [...] Description 04/19/2025 8:30 AM EDT Office Visit [facility] [address] [place] [address] Yamel Healy documented as of this encounter Visit Diagnoses Not on filedocumented in this encounter
--- OUTSIDE RECORDS SUMMARY | 2025-03-17 10:51 | XMS_ITS | Encounter Summary ---
Author Organization [facility] Address [address] [place] [address] Care Team Providers Care Teacher Visually Impaired Name Role Phone Amy Wilkerson MD Primary Care Provider [phone] Thierno Duvall MD, PHD Unavailable Unava ilable Lizbeth Parikh PA-C Unavailable [phone] Bin Fowler PA-C Unavailable [phone] Vinicius Fonseca Unavailable Unavailable Amador Funk MD Unavailable [phone] Daryl Dunn NP Unavailable Timoteo Mcfarland MD Unavailable [phone] Marco Hunt MD Unavailable Joy Brand NP Unavailable [phone] [facility], Pcp Primary Care Provider Unavailabl e Encounter Details Date Type Department Care Team Description 02/24/2022 [facility] [place] [address] [place] [address] Thierno Duvall MD, PHD Social [...] on filedocumented in this encounter Care Teams Teacher Visually Impaired Relationship Specialty Start Date End Date Amy Wilkerson MD 230 [place] [address] PCP - General Internal Medicine 11/11/21 09/05/24 [facility]cp [address] [address] PCP - General Internal Medicine 09/06/24 Thierno Duvall MD, PHD [address] [place] [address] Surgeon Neurosurgery 02/25/22 Lizbeth Parikh PA-C [address] [address] Specialist Neurosurgery 02/25/22 Bin Fowler PA-C [address] [address] Specialist Neurosurgery 02/25/22 Vinicius Fonseca [address] [address] Dermatology 03/10/23 Amador Funk MD [address] [address] Loans Consultant Cardiovascular Disease 03/10/23 Daryl Dunn NP [address] [address] Nurse Practitioner Cardiology 04/27/23 10/19/23 Timoteo Mcfarland MD [address] [address] ORTHOPEDIC SURGERY 08/24/23 Marco Hunt MD [address] [address] Specialist Cardiology 10/09/23 Joy Brand NP [address] [phone] Cardiology 10/09/23 [facility] urology Specialist Urology 08/24/23 documented as of this encounter
--- OUTSIDE RECORDS SUMMARY | 2025-03-17 10:51 | XMS_ITS | Encounter Summary ---
Author Organization [employer] Address 75 [facility] 7 [place] [address] Care Team Providers Care Book Cleaner Name Role Phone Unavailable Primary Care Provider [...] Description 04/19/2025 8:30 AM EDT Office Visit [facility] [address] [place] [address] Yamel Healy documented as of this encounter Visit Diagnoses Not on filedocumented in this encounter
--- OUTSIDE RECORDS SUMMARY | 2025-03-17 10:51 | XMS_ITS | Encounter Summary ---
Author Organization [facility] Address [address] [place] [address] Care Team Providers Care Ticket Counter Name Role Phone Papito Mann MD Primary Care Provider Unavailable Amy Wilkerson MD Primary Care Provider + [phone] Thierno Duvall MD, PHD Unavailable Unava ilable Lizbeth Parikh PA-C Unavailable [phone] Bin Fowler PA-C Unavailable [phone] Vinicius Fonseca Unavailable Unavailable Amador Funk MD Unavailable [phone] Daryl Dunn NP Unavailable Timoteo Mcfarland MD Unavailable [phone] Marco Hunt MD Unavailable [phone] Joy Brand NP Unavailable [phone] [facility], Pcp Primary Care Provider Unavailabl e Encounter Details Date Type Department Care Team Description 01/23/2021 Old Medical Records Medical Records [address] [place] [address] Abstract, Provider Social History Tobacco Use Types [...] on filedocumented in this encounter Care Teams Ticket Counter Relationship Specialty Start Date End Date Papito Mann MD PCP - General Internal Medicine 06/24/17 11/10/21 Amy Wilkerson MD [address] [place] [phone] PCP - General Internal Medicine 11/11/21 09/05/24 [facility], Pcp [address] [address] PCP - General Internal Medicine 09/06/24 Thierno Duvall MD, PHD [address] [place] [address] Surgeon Neurosurgery 02/25/22 Lizbeth Parikh PA-C [address] [address] Specialist Neurosurgery 02/25/22 Bin Fowler PA-C [address] [address] Specialist Neurosurgery 02/25/22 Vinicius Fonseca [address] [address] Dermatology 03/10/23 Amador Funk MD [address] [address] Lsat Instructor Cardiovascular Disease 03/10/23 Daryl Dunn NP [address] [address] Nurse Practitioner Cardiology 04/27/23 10/19/23 Timoteo Mcfarland MD [address] [address] ORTHOPEDIC SURGERY 08/24/23 Marco Hunt MD [address] [address] Specialist Cardiology 10/09/23 Joy Brand NP [address] [phone] Cardiology 10/09/23 [facility] urology Specialist Urology 08/24/23 documented as of this encounter
--- OUTSIDE RECORDS SUMMARY | 2025-03-17 10:51 | XMS_ITS | Encounter Summary ---
Author Organization [facility] Address [address] [place] [address] Care Team Providers Care Workers' Compensation Hearings Officer Name Role Phone Amy Wilkerson MD Primary Care Provider + [phone] Thierno Duvall MD, PHD Unavailable Unava ilable Lizbeth Parikh PA-C Unavailable [phone] Bin Fowler PA-C Unavailable +[phone] Vinicius Fonseca Unavailable Unavailable Amador Funk MD Unavailable Daryl Dunn NP Unavailable [phone] Timoteo Mcfarland MD Unavailable [phone] Marco Hunt MD Unavailable [phone] Joy Brand NP Unavailable [phone] [facility], Pcp Primary Care Provider Unavailabl e Encounter Details Date Type Department Care Team Description 03/27/2023 Telephone Cardio PVC POC [address] [address] Amador Funk MD [address] [id number] Social History Tobacco Use Types Packs/Day Years [...] better rate control with HRs ~90-100s bpm. [place] if HR was staying <100 at time of surgery I think he would be ok to proceed though I would leave this in part to the discretion of the anesthesiologists at that time. Although he has a mod erate cardiomyopathy I suspect it is related at least in part to his prior rapid heart rates and his overall risk of perioperative [place] is low based on stress testing. Therefore [...] on filedocumented in this encounter Care Teams Workers' Compensation Hearings Officer Relationship Specialty Start Date End Date Amy Wilkerson MD [address] [place] [address] PCP - General Internal Medicine 11/11/21 09/05/24 [facility], Pcp [address] [place] [address] PCP - General Internal Medicine 09/06/24 Thierno Duvall MD, PHD 230 [place] [address] Surgeon Neurosurgery 02/25/22 Lizbeth Parikh PA-C [address] [address] Specialist Neurosurgery 02/25/22 Bin Fowler PA-C [address] [address] Specialist Neurosurgery 02/25/22 Vinicius Fonseca [address] [address] Dermatology 03/10/23 Amador Funk MD 300 [facility] [address] [place] [address] Vp Talent Management Cardiovascular Disease 03/10/23 Daryl Dunn NP 300 [facility] [address] [place] [address] Nurse Practitioner Cardiology 04/27/23 10/19/23 Timoteo Mcfarland MD [address] [address] ORTHOPEDIC SURGERY 08/24/23 Marco Hunt MD [address] [address] Specialist Cardiology 10/09/23 Joy Brand NP 300 [facility] 154 [place] [address] Cardiology 10/09/23 [facility] urology Specialist Urology 08/24/23 documented as of this encounter
--- OUTSIDE RECORDS SUMMARY | 2025-03-17 10:51 | XMS_ITS | Encounter Summary ---
Author Organization [facility] Address [address] [place] [address] Care Team Providers Care Burning Supervisor Name Role Phone Amy Wilkerson MD Primary Care Provider + [phone] Thierno Duvall MD, PHD Unavailable Unava ilable Lizbeth Parikh PA-C Unavailable +[phone] Bin Fowler PA-C Unavailable [phone] Vinicius Fonseca Unavailable Unavailable Amador Funk MD Unavailable [phone] Daryl Dunn NP Unavailable [phone] Timoteo Mcfarland MD Unavailable [phone] Marco Hunt MD Unavailable [phone] Joy Brand NP Unavailable [phone] [facility], Pcp Primary Care Provider Unavailabl e Encounter Details Date Type Department Care Team Description 02/06/2022 [facility] Medical Records [address] [place] [address] Bin Fowler PA-C 175 [facility] [address] [place], [place] [id number] Social History Tobacco Use Types Packs/Day Years [...] on filedocumented in this encounter Care Teams Burning Supervisor Relationship Specialty Start Date End Date Amy Wilkerson MD 230 [place] [address] PCP - General Internal Medicine 11/11/21 09/05/24 [facility], Pcp [address] [address] PCP - General Internal Medicine 09/06/24 Thierno Duvall MD, PHD 230 [place] [address] Surgeon Neurosurgery 02/25/22 Lizbeth Parikh PA-C [address] [address] Specialist Neurosurgery 02/25/22 Bin Fowler PA-C [address] [address] Specialist Neurosurgery 02/25/22 Vinicius Fonseca [address] [address] Dermatology 03/10/23 Amador Funk MD [address] [address] Part Time Cardiovascular Disease 03/10/23 Daryl Dunn NP [address] [address] Nurse Practitioner Cardiology 04/27/23 10/19/23 Timoteo Mcfarland MD [address] [address] ORTHOPEDIC SURGERY 08/24/23 Marco Hunt MD [address] [address] Specialist Cardiology 10/09/23 Joy Brand NP [address] [phone] Cardiology 10/09/23 [facility] urology Specialist Urology 08/24/23 documented as of this encounter
--- OUTSIDE RECORDS SUMMARY | 2025-03-17 10:51 | XMS_ITS | Encounter Summary ---
Author Organization [facility] Address [address] [place] [address] Care Team Providers Care Postpartum Rn Name Role Phone Amy Wilkerson MD Primary Care Provider + [phone] Thierno Duvall MD, PHD Unavailable Unava ilable Lizbeth Parikh PA-C Unavailable +[phone] Bin Fowler PA-C Unavailable [phone] Vinicius Fonseca Unavailable Unavailable Amador Funk MD Unavailable [phone] Daryl Dunn NP Unavailable [phone] Timoteo Mcfarland MD Unavailable [phone] Marco Hunt MD Unavailable [phone] Joy Brand NP Unavailable [phone] [facility], Pcp Primary Care Provider Unavailabl e Encounter Details Date Type Department Care Team Description 09/10/2023 [facility] Medical Records [address] [place] [address] Abstract, Provider Social History Tobacco Use Types [...] on filedocumented in this encounter Care Teams Postpartum Rn Relationship Specialty Start Date End Date Amy Wilkerson MD 230 [place] [address] PCP - General Internal Medicine 11/11/21 09/05/24 [facility], Pcp [address] [address] PCP - General Internal Medicine 09/06/24 Thierno Duvall MD, PHD 230 [place] [address] Surgeon Neurosurgery 02/25/22 Lizbeth Parikh PA-C [address] [address] Specialist Neurosurgery 02/25/22 Bin Fowler PA-C [address] [address] Specialist Neurosurgery 02/25/22 Vinicius Fonseca [address] [address] Dermatology 03/10/23 Amador Funk MD [address] [address] Chain Link Fence Installer Cardiovascular Disease 03/10/23 Daryl Dunn NP [address] [address] Nurse Practitioner Cardiology 04/27/23 10/19/23 Timoteo Mcfarland MD [address] [address] ORTHOPEDIC SURGERY 08/24/23 Mraco Hunt MD [address] [address] Specialist Cardiology 10/09/23 Joy Brand NP [address] [facility] 154 [place] [address] Cardiology 10/09/23 [facility] urology Specialist Urology 08/24/23 documented as of this encounter
--- OUTSIDE RECORDS SUMMARY | 2025-03-17 10:51 | XMS_ITS | Encounter Summary ---
Author Organization [facility] Address [address] [place] [address] Care Team Providers Care Metalsmith Apprentice Name Role Phone Amy Wilkerson MD Primary Care Provider + [phone] Thierno Duvall MD, PHD Unavailable Unava ilable Lizbeth Parikh PA-C Unavailable [phone] Bin Fowler PA-C Unavailable [phone] Vinicius Fonseca Unavailable Unavailable Amador Funk MD Unavailable [phone] Daryl Dunn NP Unavailable [phone] Timoteo Mcfarland MD Unavailable [phone] Marco Hunt MD Unavailable [phone] Joy Brand NP Unavailable [phone] [facility], Pcp Primary Care Provider Unavailabl e Encounter Details Date Type Department Care Team Description 06/26/2023 SCAN Medical Records [address] [place] [address] Abstract, Provider Social History Tobacco Use Types [...] suspected to have Coronavirus/COVID-19? No / Unsure 06/16/2023 11:23 AM EDT documented as of this encounter Plan of Treatment Not on file documented as of this encounter Procedures Procedure Name Priority Date/Time Associated Diagnosis Comments OUTSIDE LAB Routine 06/26/2023 documented in this encounter Results * OUTSIDE LAB (06/26/2023) Provider Default LAB documented in this encounter Visit Diagnoses Not on filedocumented in this encounter Care Teams Metalsmith Apprentice Relationship Specialty Start Date End Date Amy Wilkerson MD 230 [place] [address] PCP - General Internal Medicine 11/11/21 09/05/24 [facility], Pcp [address] [address] PCP - General Internal Medicine 09/06/24 Thierno Duvall MD, PHD [address] [place] [address] Surgeon Neurosurgery 02/25/22 Lizbeth Parikh PA-C [address] [address] Specialist Neurosurgery 02/25/22 Bin Fowler PA-C [address] [address] Specialist Neurosurgery 02/25/22 Vinicius Fonseca [address] [address] Dermatology 03/10/23 Amador Funk MD [address] [address] Slot Operations Manager Cardiovascular Disease 03/10/23 Daryl Dunn NP [address] [address] Nurse Practitioner Cardiology 04/27/23 10/19/23 Timoteo Mcfarland MD [address] [address] ORTHOPEDIC SURGERY 08/24/23 Marco Hunt MD [address] [address] Specialist Cardiology 10/09/23 Joy Brand NP 300 [facility] 154 [place] [address] Cardiology 10/09/23 [facility] urology Specialist Urology 08/24/23 documented as of this encounter
--- OUTSIDE RECORDS SUMMARY | 2025-03-17 10:51 | XMS_ITS | Encounter Summary ---
Author Organization [facility] Address [address] [place] [address] Care Team Providers Care Perfusionist Name Role Phone Papito Mann MD Primary Care Provider Unavailable Amy Wilkerson MD Primary Care Provider + [phone] Thierno Duvall MD, PHD Unavailable Unava ilable Lizbeth ParikhC Unavailable [phone] Bin FowlerC Unavailable [phone] Vinicius Fonseca Unavailable Unavailable Amador Funk MD Unavailable [phone] Daryl Dunn NP Unavailable Timoteo Mcfarland MD Unavailable [phone] Marco Hunt MD Unavailable Joy Brand NP Unavailable [facility], Pcp Primary Care Provider Unavailabl e Reason for Visit * Reason Onset Date Comments Testing 05/13/2018 MRI lumbar spine CPT-25607 Encounter Details Date Type Department Care Team Description 05/13/2018 Telephone Adult Medicine - [address] [address] Papito Mann MD Testing (MRI lumbar spine CPT-37142) Social History Tobacco Use Types Packs/Day Years [...] encounter Miscellaneous Notes * Telephone Encounter - Papito Mann MD - 05/13/2018 3:01 PM EDT No problem. * Telephone Encounter - Deepa Cline - 05/13/2018 2:49 PM EDT So sorry to have bothered you. Forwarded to Dr. Chase * Telephone Encounter - Papito Mann MD - 05/13/2018 9:39 AM EDT This was ordered by Dr Chase. * Telephone Encounter - Deepa Cline - 05/13/2018 9:34 AM EDT [facility], we cannot approve this request. Advanced imaging may be supported following a plain x-ray and a failed 6 week trial of physician-directed treatment and/or observation followed by a clinical re-evaluation. This must have been completed after the current episode of symptoms started or changed, and it needs to be within the last 3 months. The trial of physician-directed treatment may include education, activity modification, NSAIDs (non-steroidal anti-inflammatory drugs), narcotic and non- narcotic analgesic medications, oral or injectable corticosteroids, a physician directed home exercise/stretching program, cross-training, avoidance of aggravating activities, physical/occupational therapy, spinal manipulation, interventional pain procedures, and other pain management techniques. The clinical information provided does not meet these criteria and,therefore, the request is not indicated at this time. For peer to peer reconsideration please call option #4 Case # [id number] Please advise Thank you documented in this encounter Plan of Treatment Not on file documented as of this encounter Visit Diagnoses Not on filedocumented in this encounter Care Teams Perfusionist Relationship Specialty Start Date End Date Papito Mann MD PCP - General Internal Medicine 06/24/17 11/10/21 Amy Wilkerson MD 230 [place] [address] PCP - General Internal Medicine 11/11/21 09/05/24 [facility], Pcp [address] [address] PCP - General Internal Medicine 09/06/24 Thierno Duvall MD, PHD 230 [place] [address] Surgeon Neurosurgery 02/25/22 Lizbeth Parikh PA-C [address] [address] Specialist Neurosurgery 02/25/22 Bin Fowler PA-C [address] [address] Specialist Neurosurgery 02/25/22 Vinicius Fonseca [address] [address] Dermatology 03/10/23 Amador Funk MD [address] [address] Oem Sales Manager Cardiovascular Disease 03/10/23 Daryl Dunn NP [address] [address] Nurse Practitioner Cardiology 04/27/23 10/19/23 Timoteo Mcfarland MD [address] [address] ORTHOPEDIC SURGERY 08/24/23 Marco Hunt MD [address] [address] Specialist Cardiology 10/09/23 Joy Brand NP [address] [phone] Cardiology 10/09/23 [facility] urology Specialist Urology 08/24/23 documented as of this encounter
--- OUTSIDE RECORDS SUMMARY | 2025-03-17 10:51 | XMS_ITS | Encounter Summary ---
Author Organization [facility] Address [address] [place] [address] Care Team Providers Care Spot Washer Name Role Phone Papito Mann MD Primary Care Provider Unavailable Amy Wilkerson MD Primary Care Provider + [phone] Thierno Duvall MD, PHD Unavailable Unava ilable Lizbeth Parikh PA-C Unavailable [phone] Bin Fowler PA-C Unavailable [phone] Vinicius Fonseca Unavailable Unavailable Amador Funk MD Unavailable [phone] Daryl Dunn NP Unavailable [phone] Timoteo Mcfarland MD Unavailable [phone] Marco Hunt MD Unavailable [phone] Joy Brand NP Unavailable [phone] [facility], Pcp Primary Care Provider Unavailabl e Encounter Details Date Type Department Care Team Description 12/04/2020 Slot Floorman Report Medical Records [address] [place] [address] Social History Tobacco Use Types Packs/Day Years Used Date Smoking Tobacco: Never Smokeless Tobacco: Never Alcohol Use Standard Drinks/Week Comments Yes 0 (1 standard drink = 0.6 oz pur e alcohol) occasional beer Sex Assigned at Date Recorded Not on file Job Start Date Occupation Industry Not on file Not on file Not on file COVID-19 Exposure Response Date Recorded In the last month, have you been in contact with someone who was confirmed or suspected to have Coronavirus / COVID-19? No / Unsure 11/29/2020 1:04 PM EST documented as of this encounter Plan of Treatment Not on file documented as of this encounter Visit Diagnoses Not on filedocumented in this encounter Care Teams Spot Washer Relationship Specialty Start Date End Date Papito Mann MD PCP - General Internal Medicine 06/24/17 11/10/21 Amy Wilkerson MD 230 [place] [address] PCP - General Internal Medicine 11/11/21 09/05/24 [facility], Pcp [address] [address] PCP - General Internal Medicine 09/06/24 Thierno Duvall MD, PHD 230 [place] [address] Surgeon Neurosurgery 02/25/22 Lizbeth Parikh PA-C [address] [address] Specialist Neurosurgery 02/25/22 Bin Fowler PA-C [address] [address] Specialist Neurosurgery 02/25/22 Vinicius Fonseca [address] [address] Dermatology 03/10/23 Amador Funk MD [address] [address] Imaging Clerk Cardiovascular Disease 03/10/23 Daryl Dunn NP [address] [address] Nurse Practitioner Cardiology 04/27/23 10/19/23 Timoteo Mcfarland MD [address] [address] ORTHOPEDIC SURGERY 08/24/23 Marco Hunt MD [address] [address] Specialist Cardiology 10/09/23 Joy Brand NP [address] [address] Cardiology 10/09/23 [facility] urology Specialist Urology 08/24/23 documented as of this encounter
--- OUTSIDE RECORDS SUMMARY | 2025-03-17 10:51 | XMS_ITS | Encounter Summary ---
Author Organization [facility] Address [address] [place] [address] Care Team Providers Care Ranch Helper Name Role Phone Papito Mann MD Primary Care Provider Unavailable Amy Wilkerson MD Primary Care Provider + [phone] Thierno Duvall MD, PHD Unavailable Unava ilable Lizbeth Parikh PA-C Unavailable [phone] Bin Fowler PA-C Unavailable [phone] Vinicius Fonseca Unavailable Unavailable Amador Funk MD Unavailable [phone] Daryl Dunn NP Unavailable [phone] Timoteo Mcfarland MD Unavailable Marco Hunt MD Unavailable [phone] Joy Brand NP Unavailable [phone] [facility], Pcp Primary Care Provider Unavailabl e Encounter Details Date Type Department Care Team Description 01/25/2018 Rn Relief Charge Report Medical Records [address] [place] [address] Henry Castillo MD Social History Tobacco Use [...] on filedocumented in this encounter Care Teams Ranch Helper Relationship Specialty Start Date End Date Papito Mann MD PCP - General Internal Medicine 06/24/17 11/10/21 Amy Wilkerson MD 230 [place], [place] [phone] PCP - General Internal Medicine 11/11/21 09/05/24 [facility], Pcp [address] [address] PCP - General Internal Medicine 09/06/24 Thierno Duvall MD, PHD 230 [place] [address] Surgeon Neurosurgery 02/25/22 Lizbeth Parikh PA-C [address] [address] Specialist Neurosurgery 02/25/22 Bin Fowler PA-C [address] [address] Specialist Neurosurgery 02/25/22 Vinicius Fonseca [address] [address] Dermatology 03/10/23 Amador Funk MD [address] [address] Crackling Press Operator Cardiovascular Disease 03/10/23 Daryl Dunn NP [address] [address] Nurse Practitioner Cardiology 04/27/23 10/19/23 Timoteo Mcfarland MD [address] [address] ORTHOPEDIC SURGERY 08/24/23 Marco Hunt MD [address] [address] Specialist Cardiology 10/09/23 Joy Brand NP [address] [phone] Cardiology 10/09/23 [facility] urology Specialist Urology 08/24/23 documented as of this encounter
--- OUTSIDE RECORDS SUMMARY | 2025-03-17 10:51 | XMS_ITS | Encounter Summary ---
Author Organization [facility] Address [address] [place] [address] Care Team Providers Care Electrician'S Helper Name Role Phone Papito Mann MD Primary Care Provider Unavailable Amy Wilkerson MD Primary Care Provider + [phone] Thierno Duvall MD, PHD Unavailable Unava ilable Lizbeth Parikh PA-C Unavailable +[phone] Bin Folwer PA-C Unavailable [phone] Vinicius oFnseca Unavailable Unavailable Amador Funk MD Unavailable [phone] Daryl Dunn NP Unavailable [phone] Timoteo Mcfarland MD Unavailable [phone] Marco Hunt MD Unavailable [phone] Joy Brand NP Unavailable [phone] [facility], Pcp Primary Care Provider Unavailabl e Encounter Details Date Type Department Care Team Description 08/29/2018 Stripe Marker Report Medical Records [address] [place] [address] Henry Castillo MD Social History Tobacco Use [...] on filedocumented in this encounter Care Teams Electrician'S Helper Relationship Specialty Start Date End Date Papito Mann MD PCP - General Internal Medicine 06/24/17 11/10/21 Amy Wilkerson MD 230 [place] [address] PCP - General Internal Medicine 11/11/21 09/05/24 [facility], Pcp [address] [address] PCP - General Internal Medicine 09/06/24 Thierno Duvall MD, PHD [address] [place] [address] Surgeon Neurosurgery 02/25/22 Lizbeth Parikh PA-C [address] [address] Specialist Neurosurgery 02/25/22 Bin Fowler PA-C [address] [address] Specialist Neurosurgery 02/25/22 Vinicius Fonseca [address] [address] Dermatology 03/10/23 Amador Funk MD [address] [address] Securities Dealer Cardiovascular Disease 03/10/23 Daryl Dunn NP [address] [address] Nurse Practitioner Cardiology 04/27/23 10/19/23 Timoteo Mcfarland MD [address] [address] ORTHOPEDIC SURGERY 08/24/23 Marco Hunt MD [address] [address] Specialist Cardiology 10/09/23 Joy Brand NP [address] [phone] Cardiology 10/09/23 [facility] urology Specialist Urology 08/24/23 documented as of this encounter
--- OUTSIDE RECORDS SUMMARY | 2025-03-17 10:51 | XMS_ITS | Encounter Summary ---
Author Organization [facility] Address [address] [place] [address] Care Team Providers Care Folded Towel Machine Operator Name Role Phone Aym Wilkerson MD Primary Care Provider + [phone] Thierno Duvall MD, PHD Unavailable Unava ilable Lizbeth Praikh PA-C Unavailable [phone] Bin Fowler PA-C Unavailable [phone] Vinicius Fonseca Unavailable Unavailable Amador Funk MD Unavailable [phone] Daryl Dunn NP Unavailable [phone] Timoteo Mcfarland MD Unavailable Marco Hunt MD Unavailable [phone] Joy Brand NP Unavailable [phone] [facility], Pcp Primary Care Provider Unavailabl e Encounter Details Date Type Department Care Team Description 05/25/2023 Orders Only Medical Records [address] [place] [address] Abstract, Provider Social History Tobacco Use Types [...] on filedocumented in this encounter Care Teams Folded Towel Machine Operator Relationship Specialty Start Date End Date Amy Wilkerson MD 230 [place] [address] PCP - General Internal Medicine 11/11/21 09/05/24 [facility], Pcp [address] [address] PCP - General Internal Medicine 09/06/24 Thierno Duvall MD, PHD 230 [place] [address] Surgeon Neurosurgery 02/25/22 Lizbeth Parikh PA-C [address] [address] Specialist Neurosurgery 02/25/22 Bin Fowler PA-C [address] [address] Specialist Neurosurgery 02/25/22 Vinicius Fonseca [address] [address] Dermatology 03/10/23 Amador Funk MD [address] [address] Coffee Maker Servicer Cardiovascular Disease 03/10/23 Daryl Dunn NP [address] [address] Nurse Practitioner Cardiology 04/27/23 10/19/23 Timoteo Mcfarland MD [address] [address] ORTHOPEDIC SURGERY 08/24/23 Marco Hunt MD [address] [address] Specialist Cardiology 10/09/23 Joy Brand NP 300 [facility] [address] [place] [phone] Cardiology 10/09/23 [facility] urology Specialist Urology 08/24/23 documented as of this encounter
--- OUTSIDE RECORDS SUMMARY | 2025-03-17 10:51 | XMS_ITS | Encounter Summary ---
Author Organization [facility] Address [address] [place] [address] Care Team Providers Care Impregnating Tank Operator Name Role Phone Papito Mann MD Primary Care Provider Unavailable Amy Wilkerson MD Primary Care Provider + [phone] Thierno Duvall MD, PHD Unavailable Unava ilable Lizbeth ParikhC Unavailable +[phone] Bin Fowler PA-C Unavailable +[phone] Vinicius Fonseca Unavailable Unavailable Amador Funk MD Unavailable +[phone] Daryl Dunn NP Unavailable [phone] Timoteo Mcfarland MD Unavailable [phone] Marco Hunt MD Unavailable [phone] Joy Brand NP Unavailable [phone] [facility], Pcp Primary Care Provider Unavailabl e Reason for Visit * Reason Onset Date Comments Medication 01/14/2018 Encounter Details Date Type Department Care Team Description 01/14/2018 Telephone Gastroenterology - [address] [id number] Timoteo Lopez MD Medication Social History Tobacco [...] on filedocumented in this encounter Care Teams Impregnating Tank Operator Relationship Specialty Start Date End Date Papito Mann MD PCP - General Internal Medicine 06/24/17 11/10/21 Amy Wilkerson MD [address] [place] [address] PCP - General Internal Medicine 11/11/21 09/05/24 [facility], Pcp [address] [address] PCP - General Internal Medicine 09/06/24 Thierno Duvall MD, PHD 230 [place] [address] Surgeon Neurosurgery 02/25/22 Lizbeth Parikh PA-C [address] [address] Specialist Neurosurgery 02/25/22 Bin Fowler PA-C [address] [address] Specialist Neurosurgery 02/25/22 Vinicius Fonseca 175 [facility] 300 [place] [address] Dermatology 03/10/23 Amador Funk MD 300 [facility] 154 [place] [address] Aircraft Assembler Cardiovascular Disease 03/10/23 Daryl Dunn NP 300 [facility] 154 [place] [address] Nurse Practitioner Cardiology 04/27/23 10/19/23 Timoteo Mcfarland MD [address] [address] ORTHOPEDIC SURGERY 08/24/23 Marco Hunt MD 175 [facility] [address] [place] [address] Specialist Cardiology 10/09/23 Joy Brand NP 300 [facility] 154 [place] [address] Cardiology 10/09/23 [facility] urology Specialist Urology 08/24/23 documented as of this encounter
--- OUTSIDE RECORDS SUMMARY | 2025-03-17 10:51 | XMS_ITS | Encounter Summary ---
Author Organization [facility] Address [address] [place] [address] Care Team Providers Care Inspector Final Assembly Conveyor Line Name Role Phone Amy Wilkerson MD Primary Care Provider + [phone] Thierno Duvall MD, PHD Unavailable Unava ilable Lizbeth Parikh PA-C Unavailable +[phone] Bin Fowler PA-C Unavailable [phone] Vinicius Fonseca Unavailable Unavailable Amador Funk MD Unavailable [phone] Timoteo Mcfarland MD Unavailable [phone] Marco Hunt MD Unavailable [phone] Joy Brand NP Unavailable [phone] [facility], Pcp Primary Care Provider Unavailabl e Encounter Details Date Type Department Care Team Description 12/31/2023 [facility] Medical Records [address] [place] [address] Abstract, Provider Social History Tobacco Use Types [...] Name Priority Date/Time Associated Diagnosis Comments OUTSIDE PFT Routine 12/31/2023 documented in this encounter Results * OUTSIDE PFT (12/31/2023) Provider Default PULMONOLOGY documented in this encounter Visit Diagnoses Not on filedocumented in this encounter Care Teams Inspector Final Assembly Conveyor Line Relationship Specialty Start Date End Date Amy iWlkerson MD 230 [place] [address] PCP - General Internal Medicine 11/11/21 09/05/24 [facility], Pcp [address] [address] PCP - General Internal Medicine 09/06/24 Thierno Duvall MD, PHD 230 [place] [address] Surgeon Neurosurgery 02/25/22 Lizbeth Parikh PA-C [address] [address] Specialist Neurosurgery 02/25/22 Bin Fowler PA-C [address] [address] Specialist Neurosurgery 02/25/22 Vinicius Fonseca [address] [address] Dermatology 03/10/23 Amador Funk MD [address] [address] Oven Unloader Cardiovascular Disease 03/10/23 Timoteo Mcfarland MD [address] [address] ORTHOPEDIC SURGERY 08/24/23 Marco Hunt MD [address] [address] Specialist Cardiology 10/09/23 Joy Brand, MAREK [address] [address] Cardiology 10/09/23 [facility] urology Specialist Urology 08/24/23 documented as of this encounter
--- OUTSIDE RECORDS SUMMARY | 2025-03-17 10:51 | XMS_ITS | Encounter Summary ---
Author Organization [facility] Address [address] [place] [address] Care Team Providers Care Branch Account Manager Name Role Phone Papito Mann MD Primary Care Provider Unavailable Amy Wilkerson MD Primary Care Provider + [phone] Thierno Duvall MD, PHD Unavailable Unava ilable Lizbeth Parikh PA-C Unavailable +[phone] Bin Fowler PA-C Unavailable [phone] Vinicius Fonseca Unavailable Unavailable Amador Funk MD Unavailable [phone] Daryl Dunn NP Unavailable [phone] Timoteo Mcfarland MD Unavailable [phone] Marco Hunt MD Unavailable [phone] Joy Brand NP Unavailable [phone] [facility], Pcp Primary Care Provider Unavailabl e Encounter Details Date Type Department Care Team Description 07/05/2021 Front Worker Report Medical Records [address] [place] [address] Elbert Alba Social History Tobacco Use Types [...] on filedocumented in this encounter Care Teams Branch Account Manager Relationship Specialty Start Date End Date Papito Mann MD PCP - General Internal Medicine 06/24/17 11/10/21 Amy Wilkerson MD 230 [place], [place] [phone] PCP - General Internal Medicine 11/11/21 09/05/24 [facility], Pcp [address] [address] PCP - General Internal Medicine 09/06/24 Thierno Duvall MD, PHD 230 [place] [address] Surgeon Neurosurgery 02/25/22 Lizbeth Parikh PA-C [address] [address] Specialist Neurosurgery 02/25/22 Bin Fowler PA-C [address] [address] Specialist Neurosurgery 02/25/22 Vinicius Fonseca [address] [address] Dermatology 03/10/23 Amador Funk MD [address] [address] Entrepreneurial Finance Professor Cardiovascular Disease 03/10/23 Daryl Dunn NP [address] [address] Nurse Practitioner Cardiology 04/27/23 10/19/23 Timoteo Mcfarland MD [address] [address] ORTHOPEDIC SURGERY 08/24/23 Marco Hunt MD [address] [address] Specialist Cardiology 10/09/23 Joy Brand NP [address] [phone] Cardiology 10/09/23 [facility] urology Specialist Urology 08/24/23 documented as of this encounter
--- OUTSIDE RECORDS SUMMARY | 2025-03-17 10:51 | XMS_ITS | Encounter Summary ---
Author Organization [facility] Address [address] [place] [address] Care Team Providers Care Athletic Trainer Name Role Phone Amy Wilkerson MD Primary Care Provider + [phone] Thierno Duvall MD, PHD Unavailable Unava ilable Lizbeth Parikh PA-C Unavailable +[phone] Bin Fowler PA-C Unavailable [phone] Vinicius Fonseca Unavailable Unavailable Amador Funk MD Unavailable [phone] Daryl Dunn NP Unavailable [phone] Timoteo Mcfarland MD Unavailable [phone] Marco Hunt MD Unavailable [phone] Joy Brand NP Unavailable [phone] [facility], Pcp Primary Care Provider Unavailabl e Encounter Details Date Type Department Care Team Description 09/16/2023 SCAN Medical Records [address] [place] [address] Abstract, Provider Social History Tobacco Use Types [...] on filedocumented in this encounter Care Teams Athletic Trainer Relationship Specialty Start Date End Date Amy Wilkerson MD 230 [place] [address] PCP - General Internal Medicine 11/11/21 09/05/24 [facility], Pcp [address] [address] PCP - General Internal Medicine 09/06/24 Thierno Duvall MD, PHD 230 [place] [address] Surgeon Neurosurgery 02/25/22 Lizbeth Parikh PA-C [address] [address] Specialist Neurosurgery 02/25/22 Bin Fowler PA-C [address] [address] Specialist Neurosurgery 02/25/22 Vinicius Fonseca [address] [address] Dermatology 03/10/23 Amador Funk MD [address] [address] Traffic Signal Mechanic Cardiovascular Disease 03/10/23 Daryl Dunn NP 300 [facility] 154 [place] [address] Nurse Practitioner Cardiology 04/27/23 10/19/23 Timoteo Mcfarland MD [address] [address] ORTHOPEDIC SURGERY 08/24/23 Marco Hunt MD [address] [address] Specialist Cardiology 10/09/23 Joy Brand NP 300 [facility] 154 [place] [address] Cardiology 10/09/23 [facility] urology Specialist Urology 08/24/23 documented as of this encounter
--- OUTSIDE RECORDS SUMMARY | 2025-03-17 10:51 | XMS_ITS | Encounter Summary ---
Author Organization [facility] Address [address] [place] [address] Care Team Providers Care Electron Beam Welding Machine Operator Name Role Phone Amy Wilkerson MD Primary Care Provider [phone] Thierno Duvall MD, PHD Unavailable Unava ilable Lizbeth Parikh PA-C Unavailable +[phone] Bin Fowler PA-C Unavailable +[phone] Vinicius Fonseca Unavailable Unavailable Amador Funk MD Unavailable +[phone] Daryl Dunn NP Unavailable [phone] Timoteo Mfcarland MD Unavailable [phone] Marco Hunt MD Unavailable [phone] Joy Brand NP Unavailable [phone] [facility], Pcp Primary Care Provider Unavailabl e Encounter Details Date Type Department Care Team Description 07/08/2023 SCAN [facility] 175 [facility] [address] [place] [address] Timoteo Mcfarland MD 175 [facility] [address] [place], [place] [id number] Social History Tobacco Use Types Packs/Day Years [...] on filedocumented in this encounter Care Teams Electron Beam Welding Machine Operator Relationship Specialty Start Date End Date Amy Wilkerson MD 230 [place] [address] PCP - General Internal Medicine 11/11/21 09/05/24 [facility], Pcp [address] [address] PCP - General Internal Medicine 09/06/24 Thierno Duvall MD, PHD [address] [place] [address] Surgeon Neurosurgery 02/25/22 Lizbeth Parikh PA-C [address] [address] Specialist Neurosurgery 02/25/22 Bin Fowler PA-C [address] [address] Specialist Neurosurgery 02/25/22 Vinicius Fonseca [address] [address] Dermatology 03/10/23 Amador Funk MD [address] [address] Gem Technician Cardiovascular Disease 03/10/23 Daryl Dunn NP [address] [address] Nurse Practitioner Cardiology 04/27/23 10/19/23 Timoteo Mcfarland MD [address] [address] ORTHOPEDIC SURGERY 08/24/23 Marco Hunt MD [address] [address] Specialist Cardiology 10/09/23 Joy Brand NP [address] [phone] Cardiology 10/09/23 [facility] urology Specialist Urology 08/24/23 documented as of this encounter
--- OUTSIDE RECORDS SUMMARY | 2025-03-17 10:51 | XMS_ITS | Encounter Summary ---
Author Organization [facility] Address 75 [facility] 7 [place] [address] Care Team Providers Care Sheet Metal Foreman Name Role Phone Unavailable Primary Care Provider [...] Description 04/19/2025 8:30 AM EDT Office Visit [place] [facility] [address] [place] [address] Yamel Healy documented as of this encounter Visit Diagnoses Not on filedocumented in this encounter
--- OUTSIDE RECORDS SUMMARY | 2025-03-17 10:51 | XMS_ITS | Encounter Summary ---
Author Organization [facility] Address [address] [place] [address] Care Team Providers Care Photo Journalist Name Role Phone Papito Mann MD Primary Care Provider Unavailable Amy Wilkerson MD Primary Care Provider + [phone] Thierno Duvall MD, PHD Unavailable Unava ilable Lizbeth ParikhC Unavailable +[phone] Bin FowlerC Unavailable [phone] Vinicius Fonseca Unavailable Unavailable Amador Funk MD Unavailable [phone] Daryl Dunn NP Unavailable [phone] Timoteo Mcfarland MD Unavailable [phone] Marco Hunt MD Unavailable [phone] Joy Brand NP Unavailable [phone] [facility], Pcp Primary Care Provider Unavailabl e Reason for Visit * Reason Comments E-prescribe Rx Request Encounter Details Date Type Department Care Team Description 02/10/2020 [facility] Gastroenterology [address] [place] [address] Timoteo Lopez MD E-prescribe Rx Request Social History Tobacco Use [...] encounter Miscellaneous Notes * Telephone Encounter - Angeles Solomon M.A. - 02/10/2020 10:50 AM EDT PADMAJA - 12/06/2019 documented in this encounter Plan of Treatment Not on file documented as of this encounter Visit Diagnoses Not on filedocumented in this encounter Care Teams Photo Journalist Relationship Specialty Start Date End Date Papito Mann MD PCP - General Internal Medicine 06/24/17 11/10/21 Amy Wilkerson MD 230 [place] [address] PCP - General Internal Medicine 11/11/21 09/05/24 [facility], Pcp [address] [address] PCP - General Internal Medicine 09/06/24 Thierno Duvall MD, PHD 230 [place] [address] Surgeon Neurosurgery 02/25/22 Lizbeth Parikh PA-C [address] [address] Specialist Neurosurgery 02/25/22 Bin Fowler PA-C [address] [address] Specialist Neurosurgery 02/25/22 Vinicius Fonseca [address] [address] Dermatology 03/10/23 Amador Funk MD 300 [facility] 154 [place] [address] Cotton Factor Cardiovascular Disease 03/10/23 Daryl Dunn NP 300 [facility] 154 [place] [address] Nurse Practitioner Cardiology 04/27/23 10/19/23 Timoteo Mcfarland MD 175 [facility] 250 [place] [address] ORTHOPEDIC SURGERY 08/24/23 Marco Hunt MD 175 [facility] 250 [place] [address] Specialist Cardiology 10/09/23 Joy Brand NP [address] [phone] Cardiology 10/09/23 [facility] urology Specialist Urology 08/24/23 documented as of this encounter
--- OUTSIDE RECORDS SUMMARY | 2025-03-17 10:51 | XMS_ITS | Encounter Summary ---
Author Organization [facility] Address [address] [place] [address] Care Team Providers Care Doffer Name Role Phone Papito Mann MD Primary Care Provider Unavailable Amy Wilkerson MD Primary Care Provider + [phone] Thierno Duvall MD, PHD Unavailable Unava ilable Lizbeth Parikh PA-C Unavailable [phone] Bin Fowler PA-C Unavailable [phone] Vinicius Fonseca Unavailable Unavailable Amador Funk MD Unavailable [phone] Daryl Dunn NP Unavailable [phone] Timoteo Mcfarland MD Unavailable [phone] Marco Hunt MD Unavailable [phone] Joy Brand NP Unavailable [phone] [facility], Pcp Primary Care Provider Unavailabl e Encounter Details Date Type Department Care Team Description 07/14/2019 Concrete Building Assembler Report Medical Records [address] [place] [address] Thierno Duvall MD, PHD Social History Tobacco [...] on filedocumented in this encounter Care Teams Doffer Relationship Specialty Start Date End Date Papito Mann MD PCP - General Internal Medicine 06/24/17 11/10/21 Amy Wilkerson MD 230 [place] [address] PCP - General Internal Medicine 11/11/21 09/05/24 [facility], Pcp [address] [address] PCP - General Internal Medicine 09/06/24 Thierno Duvall MD, PHD 230 [place] [address] Surgeon Neurosurgery 02/25/22 Lizbeth Parikh PA-C [address] [address] Specialist Neurosurgery 02/25/22 Bin Fowler PA-C [address] [address] Specialist Neurosurgery 02/25/22 Vinicius Fonseca [address] [address] Dermatology 03/10/23 Amador Funk MD [address] [address] News Reporter Cardiovascular Disease 03/10/23 Daryl Dunn NP [address] [address] Nurse Practitioner Cardiology 04/27/23 10/19/23 Timoteo Mcfarland MD [address] [address] ORTHOPEDIC SURGERY 08/24/23 Marco Hunt MD [address] [address] Specialist Cardiology 10/09/23 Joy Brand NP [address] [phone] Cardiology 10/09/23 [facility] urology Specialist Urology 08/24/23 documented as of this encounter
--- OUTSIDE RECORDS SUMMARY | 2025-03-17 10:52 | XMS_ITS | Encounter Summary ---
Author Organization [facility] Address [address] [place] [address] Care Team Providers Care Tool Grinder Operator External Name Role Phone Papito Mann MD Primary Care Provider Unavailable Amy Wilkerson MD Primary Care Provider + [phone] Thierno Duvall MD, PHD Unavailable Unava ilable Lizbeth Parikh PA-C Unavailable +[phone] Bin Fowler PA-C Unavailable [phone] Vinicius Fonseca Unavailable Unavailable Amador Funk MD Unavailable [phone] Daryl Dunn NP Unavailable [phone] Timoteo Mcfarland MD Unavailable [phone] Marco Hunt MD Unavailable [phone] Joy Brand NP Unavailable [facility], Pcp Primary Care Provider Unavailabl e Encounter Details Date Type Department Care Team Description 11/05/2018 Roller Turner Report Medical Records [address] [place] [address] Lm Gomez, PA-C Social History Tobacco Use [...] on filedocumented in this encounter Care Teams Tool Grinder Operator External Relationship Specialty Start Date End Date Papito Mann MD PCP - General Internal Medicine 06/24/17 11/10/21 Amy Wilkerson MD 230 [place] [address] PCP - General Internal Medicine 11/11/21 09/05/24 [facility], Pcp [address] [address] PCP - General Internal Medicine 09/06/24 Thierno Duvall MD, PHD 230 [place] [address] Surgeon Neurosurgery 02/25/22 Lizbeth Parikh PA-C [address] [address] Specialist Neurosurgery 02/25/22 Bin Fowler PA-C [address] [address] Specialist Neurosurgery 02/25/22 Vinicius Fonseca [address] [address] Dermatology 03/10/23 Amador Funk MD [address] [address] Resident Athletic Trainer Cardiovascular Disease 03/10/23 Daryl Dunn NP [address] [address] Nurse Practitioner Cardiology 04/27/23 10/19/23 Timoteo Mcfarland MD [address] [address] ORTHOPEDIC SURGERY 08/24/23 Marco Hunt MD [address] [address] Specialist Cardiology 10/09/23 Joy Brand NP [address] [phone] Cardiology 10/09/23 [facility] urology Specialist Urology 08/24/23 documented as of this encounter
--- OUTSIDE RECORDS SUMMARY | 2025-03-17 10:52 | XMS_ITS | Encounter Summary ---
Author Organization [facility] Address [address] [place] [address] Care Team Providers Care Mammography Supervisor Name Role Phone Amy Wilkerson MD Primary Care Provider [phone] Thierno Duvall MD, PHD Unavailable Unava ilable Lizbeth Parikh PA-C Unavailable +[phone] Bin Fowler PA-C Unavailable [phone] Vinicius Fonseca Unavailable Unavailable Amador Funk MD Unavailable Daryl Dunn NP Unavailable Timoteo Mcfarland MD Unavailable [phone] Marco Hunt MD Unavailable Joy Brand NP Unavailable [phone] [facility], Pcp Primary Care Provider Unavailabl e Encounter Details Date Type Department Care Team Description 02/04/2022 SCAN [facility] Neurosurgery [place] [address] [place] [address] Thierno Duvall MD, PHD Social [...] on filedocumented in this encounter Care Teams Mammography Supervisor Relationship Specialty Start Date End Date Amy Wilkerson MD 230 [place] [address] PCP - General Internal Medicine 11/11/21 09/05/24 [facility], Pcp [address] [address] PCP - General Internal Medicine 09/06/24 Thierno Duvall MD, PHD [address] [place] [address] Surgeon Neurosurgery 02/25/22 Lizbeth Parikh PA-C [address] [address] Specialist Neurosurgery 02/25/22 Bin Fowler PA-C [address] [address] Specialist Neurosurgery 02/25/22 Vinicius Fonseca [address] [address] Dermatology 03/10/23 Amador Funk MD [address] [address] Smoking Pipe Liner Cardiovascular Disease 03/10/23 Daryl Dunn NP [address] [address] Nurse Practitioner Cardiology 04/27/23 10/19/23 Timoteo Mcfarland MD [address] [address] ORTHOPEDIC SURGERY 08/24/23 Marco Hunt MD [address] [address] Specialist Cardiology 10/09/23 Joy Brand NP [address] [phone] Cardiology 10/09/23 [facility] urology Specialist Urology 08/24/23 documented as of this encounter
--- OUTSIDE RECORDS SUMMARY | 2025-03-17 10:52 | XMS_ITS | Encounter Summary ---
Author Organization [facility] Address [address] [place] [address] Care Team Providers Care Hoop Coiling Machine Operator Name Role Phone Amy Wilkerson MD Primary Care Provider + [phone] Thierno Duvall MD, PHD Unavailable Unava ilable Lizbeth Parikh PA-C Unavailable +[phone] Bin oFwler PA-C Unavailable +[phone] Vinicius Fonseca Unavailable Unavailable Amador Funk MD Unavailable [phone] Timoteo Mcfarland MD Unavailable [phone] Marco Hunt MD Unavailable [phone] Joy Brand NP Unavailable [phone] [facility], Pcp Primary Care Provider Unavailabl e Reason for Visit * Reason Onset Date Comments Follow-up 01/14/2024 Pt needs F/U hakeem ointment Encounter Details Date Type Department Care Team Description 01/14/2024 Telephone Cardio PVCA Diag Testing 101 300 [facility] [address] [place] [address] Joy Brand, MAREK [address] [place] [phone] Follow-up (Pt needs F/U appointment) Social History Tobacco Use Types Packs/Day Years [...] encounter Miscellaneous Notes * Telephone Encounter - Kathya Maria - 01/14/2024 3:34 PM EST Left message for patient to call and schedule appointment. * Telephone Encounter - Ange Watson R.N. - 01/14/2024 12:46 PM EST Pt began wearing ROCT monitor per Joy Brand, Per OV notes 10/20/23, pt needs follow up after testing is completed. ROCT 01/14/24- 01/28/24 Please schedule after 02/01/24 so ROCT Summary will be complete. Thank you. documented in this encounter Plan of Treatment Not on file documented as of this encounter Visit Diagnoses Not on filedocumented in this encounter Care Teams Hoop Coiling Machine Operator Relationship Specialty Start Date End Date mAy Wilkerson MD 230 [place] [address] PCP - General Internal Medicine 11/11/21 09/05/24 [facility], Pcp [address] [address] PCP - General Internal Medicine 09/06/24 Thierno Duvall MD, PHD 230 [place] [address] Surgeon Neurosurgery 02/25/22 Lizbeth Parikh PA-C [address] [address] Specialist Neurosurgery 02/25/22 Bin Fowler PA-C [address] [address] Specialist Neurosurgery 02/25/22 Vinicius Fonseca 175 [facility] 300 [place] [address] Dermatology 03/10/23 Amador Funk MD 300 [facility] 154 [place] [address] Police Lieutenant Cardiovascular Disease 03/10/23 Timoteo Mcfarland MD [address] [address] ORTHOPEDIC SURGERY 08/24/23 Marco Hunt MD 175 [facility] [address] [place] [address] Specialist Cardiology 10/09/23 Joy Brand NP [address] [address] Cardiology 10/09/23 [facility] urology Specialist Urology 08/24/23 documented as of this encounter
--- OUTSIDE RECORDS SUMMARY | 2025-03-17 10:52 | XMS_ITS | Encounter Summary ---
Author Organization [facility] Address [address] [place] [address] Care Team Providers Care Cement Side Laster Name Role Phone Amy Wilkerson MD Primary Care Provider + [phone] Thierno Duvall MD, PHD Unavailable Unava ilable Lizbeth Parikh PA-C Unavailable [phone] Bin Fowler PA-C Unavailable [phone] Vinicius Fonseca Unavailable Unavailable Amador Funk MD Unavailable [phone] Daryl Dunn NP Unavailable [phone] Timoteo Mcfarland MD Unavailable [phone] Marco Hunt MD Unavailable [phone] Joy Brand NP Unavailable [phone] [facility], [facility] Primary Care Provider Unavailabl e Encounter Details Date Type Department Care Team Description 02/05/2022 [facility] Medical Records [address] [place] [address] Bon Bedoya MD Social History Tobacco Use Types Packs/Day [...] on filedocumented in this encounter Care Teams Cement Side Laster Relationship Specialty Start Date End Date Amy Wilkerson MD [address] [place] [address] PCP - General Internal Medicine 11/11/21 09/05/24 [facility] Pcp [address] [address] PCP - General Internal Medicine 09/06/24 Thierno Duvall MD, PHD [address] [place] [address] Surgeon Neurosurgery 02/25/22 Lizbeth Parikh PA-C [address] [address] Specialist Neurosurgery 02/25/22 Bin Fowler PA-C [address] [address] Specialist Neurosurgery 02/25/22 Vinicius Fonseca [address] [address] Dermatology 03/10/23 Amador Funk MD [address] [address] Behavioral Health Care Manager Cardiovascular Disease 03/10/23 Daryl Dunn NP [address] [address] Nurse Practitioner Cardiology 04/27/23 10/19/23 Timoteo Mcfarland MD [address] [address] ORTHOPEDIC SURGERY 08/24/23 Marco Hunt MD [address] [address] Specialist Cardiology 10/09/23 Joy Brand NP [address] [phone] Cardiology 10/09/23 [facility] urology Specialist Urology 08/24/23 documented as of this encounter
--- OUTSIDE RECORDS SUMMARY | 2025-03-17 10:52 | XMS_ITS | Encounter Summary ---
Author Organization [facility] Address [address] [place] [address] Care Team Providers Care Boating Safety Officer Name Role Phone Papito Mann MD Primary Care Provider Unavailable Amy Wilkerson MD Primary Care Provider + [phone] Thierno Duvall MD, PHD Unavailable Unava ilable Lizbeth Parikh PA-C Unavailable [phone] Bin Fowler PA-C Unavailable [phone] Vinicius Fonseca Unavailable Unavailable Amador Funk MD Unavailable [phone] Daryl Dunn NP Unavailable [phone] Timoteo Mcfarland MD Unavailable [phone] Marco Hunt MD Unavailable [phone] Joy Brand NP Unavailable [phone] [facility], Pcp Primary Care Provider Unavailabl e Encounter Details Date Type Department Care Team Description 10/27/2018 Report Analyst Report Medical Records [address] [place] [address] Alex Baez MD Social History Tobacco Use [...] on filedocumented in this encounter Care Teams Boating Safety Officer Relationship Specialty Start Date End Date Papito Mann MD PCP - General Internal Medicine 06/24/17 11/10/21 Amy Wilkerson MD [address] [place] [address] PCP - General Internal Medicine 11/11/21 09/05/24 [facility], Pcp [address] [address] PCP - General Internal Medicine 09/06/24 Thierno Duvall MD, PHD [address] [place] [address] Surgeon Neurosurgery 02/25/22 Lizbeth Parikh PA-C [address] [address] Specialist Neurosurgery 02/25/22 Bin Fowler PA-C [address] [address] Specialist Neurosurgery 02/25/22 Vinicius Fonseca [address] [address] Dermatology 03/10/23 Amador Funk MD [address] [address] Supervisor Ordnance Truck Installation Cardiovascular Disease 03/10/23 Daryl Dunn NP [address] [address] Nurse Practitioner Cardiology 04/27/23 10/19/23 Timoteo Mcfarland MD [address] [address] ORTHOPEDIC SURGERY 08/24/23 Marco Hunt MD [address] [address] Specialist Cardiology 10/09/23 Joy Brand NP [address] [phone] Cardiology 10/09/23 [facility] urology Specialist Urology 08/24/23 documented as of this encounter
--- OUTSIDE RECORDS SUMMARY | 2025-03-17 10:52 | XMS_ITS | Encounter Summary ---
Author Organization [facility] Address [address] [place] [address] Care Team Providers Care Billboard Installer Name Role Phone Amy Wilkerson MD Primary Care Provider [phone] Thierno Duvall MD, PHD Unavailable Unava ilable Lizbeth Parikh PA-C Unavailable [phone] Bin Fowler PA-C Unavailable [phone] Vinicius Fonseca Unavailable Unavailable Amador Funk MD Unavailable [phone] Timoteo Mcfarland MD Unavailable [phone] Marco Hunt MD Unavailable [phone] Joy Brand NP Unavailable [phone] [facility], Pcp Primary Care Provider Unavailabl e Reason for Visit * Reason Onset Date Comments Testing 03/31/2024 VENOUS BILAT ON 04/19/24 Encounter Details Date Type Department Care Team Description 03/31/2024 Telephone Cardio PVCA Diag Testing 101 300 [facility] [address] [place] [address] Joy Brand NP [address] [facility] [address] [place] [address] Testing (VENOUS BILAT ON 04/19/24) [...] on filedocumented in this encounter Care Teams Billboard Installer Relationship Specialty Start Date End Date Amy Wilkerson MD [facility] [place] [address] PCP - General Internal Medicine 11/11/21 09/05/24 [facility], Pcp [address] [address] PCP - General Internal Medicine 09/06/24 Thierno Duvall MD, PHD [address] [place] [address] Surgeon Neurosurgery 02/25/22 Lizbeth Parikh PA-C [address] [address] Specialist Neurosurgery 02/25/22 Bin Fowler PA-C [address] [address] Specialist Neurosurgery 02/25/22 Vinicius Fonseca [address] [address] Dermatology 03/10/23 Amador Funk MD [address] [address] Spinning Mule Operator Cardiovascular Disease 03/10/23 Timoteo Mcfarland MD [address] [address] ORTHOPEDIC SURGERY 08/24/23 Marco Hunt MD [address] [address] Specialist Cardiology 10/09/23 Joy Brand, MAREK [address] [phone] Cardiology 10/09/23 [facility] urology Specialist Urology 08/24/23 documented as of this encounter
--- OUTSIDE RECORDS SUMMARY | 2025-03-17 10:52 | XMS_ITS | Encounter Summary ---
Author Organization [facility] Address [address] [place] [address] Care Team Providers Care Income Tax Investigator Name Role Phone Papito Mann MD Primary Care Provider Unavailable Amy Wilkerson MD Primary Care Provider + [phone] Thierno Duvall MD, PHD Unavailable Unava ilable Lizbeth Parikh PA-C Unavailable [phone] Bin Fowler PA-C Unavailable [phone] Vinicius Fonseca Unavailable Unavailable Amador Funk MD Unavailable [phone] Daryl Dunn NP Unavailable [phone] Timoteo Mcfarland MD Unavailable [phone] Marco Hunt MD Unavailable [phone] Joy Brand NP Unavailable [phone] [facility], Pcp Primary Care Provider Unavailabl e Encounter Details Date Type Department Care Team Description 03/31/2019 Swatcher Report Medical Records [address] [place] [address] Lm Gomez, PA-C Social History Tobacco Use [...] on filedocumented in this encounter Care Teams Income Tax Investigator Relationship Specialty Start Date End Date Papito Mann MD PCP - General Internal Medicine 06/24/17 11/10/21 Amy Wilkerson MD 230 [place] [address] PCP - General Internal Medicine 11/11/21 09/05/24 [facility], Pcp [address] [address] PCP - General Internal Medicine 09/06/24 Thierno Duvall MD, PHD 230 [place] [address] Surgeon Neurosurgery 02/25/22 Lizbeth Parikh PA-C [address] [address] Specialist Neurosurgery 02/25/22 Bin Fowler PA-C [address] [address] Specialist Neurosurgery 02/25/22 Vinicius Fonseca [address] [address] Dermatology 03/10/23 Amador Funk MD [address] [address] Culinary Internship Cardiovascular Disease 03/10/23 Daryl Dunn NP [address] [address] Nurse Practitioner Cardiology 04/27/23 10/19/23 Timoteo Mcfarland MD [address] [address] ORTHOPEDIC SURGERY 08/24/23 Marco Hunt MD [address] [address] Specialist Cardiology 10/09/23 Joy Brand NP [address] [phone] Cardiology 10/09/23 [facility] urology Specialist Urology 08/24/23 documented as of this encounter
--- OUTSIDE RECORDS SUMMARY | 2025-03-17 10:52 | XMS_ITS | Clinical Summary ---
Author Organization [facility] Address [address] [facility] 7 [place] [address] Care Team Providers Care Piano Case Maker Name Role Phone Unavailable Primary Care Provider [...] Upcoming Encounters Date Type Department Care Team ([facility] st Contact Info) Description 04/19/2025 8:30 AM EDT Office Visit [facility] DENTAL [address] [place] [address] Yamel Healy Health Maintenance Due Date Last Done Comments CT Colonography 1958 Colonoscopy 1958 Colorectal Cancer Screening 1958 Depression Screening 1958 FIT DNA/Cologuard 1958 FIT 1958 FOBT 1958 Lipid Panel 1958 SDOH Screening 1958 Sigmoidoscopy 1958 Alcohol/Substance Use Screening 1970 Hepatitis C Screening 1976 Dental X-Ray: [facility]wings 06/21/2023 06/20/20 22, 06/13/2021, 06/03/2019 COVID-19 Vaccine (2 - season) [...]
--- OUTSIDE RECORDS SUMMARY | 2025-03-17 10:52 | XMS_ITS | Encounter Summary ---
Author Organization [facility] Address [address] [place] [address] Care Team Providers Care Tray Packer Name Role Phone Amy Wilkerson MD Primary Care Provider [phone] Thierno Duvall MD, PHD Unavailable Unava ilable Lizbeth Parikh PA-C Unavailable [phone] Bin Fowler PA-C Unavailable [phone] Vinicius Fonseca Unavailable Unavailable Amador Funk MD Unavailable Daryl Dunn NP Unavailable Timoteo Mcfarland MD Unavailable [phone] Marco Hunt MD Unavailable oJy Brand NP Unavailable [phone] [facility], Pcp Primary Care Provider Unavailabl e Encounter Details Date Type Department Care Team Description 06/05/2022 SCAN [facility] Neurosurgery [place] [address] [place] [address] Thierno Duvall MD, PHD Social [...] on filedocumented in this encounter Care Teams Tray Packer Relationship Specialty Start Date End Date Amy Wilkerson MD [address] [place] [address] PCP - General Internal Medicine 11/11/21 09/05/24 [facility], Pcp [address] [address] PCP - General Internal Medicine 09/06/24 Thierno Duvall MD, PHD [address] [place] [address] Surgeon Neurosurgery 02/25/22 Lizbeth Parikh PA-C [address] [address] Specialist Neurosurgery 02/25/22 Bin Fowler PA-C [address] [address] Specialist Neurosurgery 02/25/22 Vinicius Fonseca [address] [address] Dermatology 03/10/23 Amador Funk MD [address] [address] Patient Information Coordinator Cardiovascular Disease 03/10/23 Daryl Dunn NP [address] [address] Nurse Practitioner Cardiology 04/27/23 10/19/23 Timoteo Mcfarland MD [address] [address] ORTHOPEDIC SURGERY 08/24/23 Marco Hunt MD [address] [address] Specialist Cardiology 10/09/23 Joy Brand NP [address] [phone] Cardiology 10/09/23 [facility] urology Specialist Urology 08/24/23 documented as of this encounter
--- OUTSIDE RECORDS SUMMARY | 2025-03-17 10:52 | XMS_ITS | Encounter Summary ---
Author Organization [facility] Address [address] [place] [address] Care Team Providers Care Information Manager Name Role Phone Papito Mann MD Primary Care Provider Unavailable Amy Wilkerson MD Primary Care Provider + [phone] Thierno Duvall MD, PHD Unavailable Unava ilable Lizbeth Parikh PA-C Unavailable [phone] Bin Fowler PA-C Unavailable [phone] Vinicius Fonseca Unavailable Unavailable Amador Funk MD Unavailable [phone] Daryl Dunn NP Unavailable [phone] Timoteo Mcfarland MD Unavailable [phone] Marco Hunt MD Unavailable [phone] Joy Brand NP Unavailable [phone] [facility], Pcp Primary Care Provider Unavailabl e Encounter Details Date Type Department Care Team Description 02/11/2019 Senior Datastage Developer Report Medical Records [address] [place] [address] Lm Gomez, PA-C Social History Tobacco Use [...] on filedocumented in this encounter Care Teams Information Manager Relationship Specialty Start Date End Date Papito Mann MD PCP - General Internal Medicine 06/24/17 11/10/21 Amy Wilkerson MD 230 [place] [address] PCP - General Internal Medicine 11/11/21 09/05/24 [facility], Pcp [address] [address] PCP - General Internal Medicine 09/06/24 Thierno Duvall MD, PHD [address] [place] [address] Surgeon Neurosurgery 02/25/22 Lizbeth Parikh PA-C [address] [address] Specialist Neurosurgery 02/25/22 Bin Fowler PA-C [address] [address] Specialist Neurosurgery 02/25/22 Vinicius Fonseca [address] [address] Dermatology 03/10/23 Amador Funk MD [address] [address] Multimedia Editor Cardiovascular Disease 03/10/23 Daryl Dunn NP [address] [address] Nurse Practitioner Cardiology 04/27/23 10/19/23 Timoteo Mcfarland MD [address] [address] ORTHOPEDIC SURGERY 08/24/23 Marco Hunt MD [address] [address] Specialist Cardiology 10/09/23 Joy Brand NP [address] [phone] Cardiology 10/09/23 [facility] urology Specialist Urology 08/24/23 documented as of this encounter
--- OUTSIDE RECORDS SUMMARY | 2025-03-17 10:52 | XMS_ITS | Encounter Summary ---
Author Organization [facility] Address [address] [place] [address] Care Team Providers Care State Fire Marshal Name Role Phone Amy Wilkerson MD Primary Care Provider + [phone] Thierno Duvall MD, PHD Unavailable Unava ilable Lizbeth Parikh PA-C Unavailable [phone] Bin Fowler PA-C Unavailable [phone] Vinicius Fonseca Unavailable Unavailable Amador Funk MD Unavailable [phone] Daryl Dunn NP Unavailable [phone] Timoteo Mcfarland MD Unavailable [phone] Marco Hunt MD Unavailable [phone] Joy Brand NP Unavailable [phone] [facility], Pcp Primary Care Provider Unavailabl e Encounter Details Date Type Department Care Team Description 06/11/2022 SCAN Medical Records [address] [place] [address] Abstract, Provider Social History Tobacco Use Types [...] on filedocumented in this encounter Care Teams State Fire Marshal Relationship Specialty Start Date End Date Amy Wilkerson MD 230 [place] [address] PCP - General Internal Medicine 11/11/21 09/05/24 [facility], Pcp [address] [address] PCP - General Internal Medicine 09/06/24 Thierno Duvall MD, PHD [address] [place] [address] Surgeon Neurosurgery 02/25/22 Lizbeth Parikh PA-C [address] [address] Specialist Neurosurgery 02/25/22 Bin Fowler PA-C [address] [address] Specialist Neurosurgery 02/25/22 Vinicius Fonseca [address] [address] Dermatology 03/10/23 Amador Funk MD [address] [address] National Flatbed Truck Driver Cardiovascular Disease 03/10/23 Daryl Dunn NP [address] [address] Nurse Practitioner Cardiology 04/27/23 10/19/23 Timoteo Mcfarland MD [address] [address] ORTHOPEDIC SURGERY 08/24/23 Marco Hunt MD [address] [address] Specialist Cardiology 10/09/23 Joy Brand NP [address] [phone] Cardiology 10/09/23 [facility] urology Specialist Urology 08/24/23 documented as of this encounter
== END 2025-03-17 11:25 | disposition home or self-care (01) ==
PROVIDERS: PCP Nurse Practitioner Family; Visit Provider Internal Medicine
DX: M96.1 Postlaminectomy syndrome, not elsewhere classified (principal); Z96.89 Presence of other specified functional implants
CPT/HCPCS: 99213

== ENCOUNTER → 2025-03-17 10:21 | Outpatient (BNVA) | payer OTHER, SELFPAY | PROVIDERS: PCP Nurse Practitioner Family; Visit Provider Internal Medicine | DX: M96.1 Postlaminectomy syndrome, not elsewhere classified (principal); Z96.89 Presence of other specified functional implants | CPT/HCPCS: 99212 ==

== ENCOUNTER 2025-03-31 09:44 | Outpatient (AMB) | payer OTHER, SELFPAY ==
--- NOTE | 2025-03-31 10:07 | A.OFFVIS_ITS ---
Vital Signs 03/31/25 10:08 Height 6 ft 2 in Weight 268 lb BMI 34.4 BP 133/89 Blood Pressure Location Lt brachial Position Sitting Respiration 15 Pulse 77 Pulse Source Pulse Oximeter Pulse Oximetry (%) 96 Oxygen Delivery Method Room Air Intake Visit Reasons: Follow Up Piercing Specialist Required: No Allergies No Known Allergies Allergy (Verified 03/31/25 10:09) Medication List - Last Reconciled 03/31/25 by Gege Burgess LPN empagliflozin (Jardiance) 10 mg PO DAILY ibuprofen 600 mg PO Q8H PRN metoprolol succinate ER 50 mg PO DAILY metronidazole 0.75% 1 appl topical DAILY rosuvastatin 20 mg PO DAILY 30 days sacubitril-valsartan 97-103 mg (Entresto) 1 tab PO BID testosterone 1 tube topical ONCE HPI HPI Follow Up: Details: History of Present Illness The patient is a 64-year-old male presenting for wound check. He describes mild tenderness. Despite this, there is no significant pain. The patient reports gradual improvement and no active signs of infection or significant physical limitation. Monitoring and routine evaluations have been initiated to ensure resolution without complications. Pain Description - Onset and Timing: Mild tenderness at the incision site, ongoing observation for approximately one month. - Quality and Character: Mild tenderness noted at the site of the incision. - Primary Location: Femoral surgical incision site. - Radiation: No radiation noted. - Exacerbating Factors: Visibility of suture at incision site. - Relieving Factors: The patient notes no specific relieving factors. - Impact on Activities: No significant interference with daily activities noted. Physical Exam - Musculoskeletal- Mild tenderness at the site of the midline incision without active signs of infection. Slight extrusion of one of the deep dermal sutures. Pain Management - Affect: The patient is coping well psychologically with the mild tenderness and cosmetic impression of the suture. - Analgesia: No specific pain medications were discussed. - Adverse Effects: No reported side effects from any medications. - Activities of Daily Living: The suture exposure causes mild tenderness, but there's no significant impact on daily activities. - Aberrant Drug Related Behaviors: The patient showed no aberrant drug-related behaviors. [facility] Medical History (Updated 02/24/25 @ 11:22 by Rosalva Pollard RN) Neuropathy Lumbar disc disease Cervical spinal stenosis BPH (benign prostatic hyperplasia) Ascending aorta dilation Hyperlipidemia HTN (hypertension) NELLY (obstructive sleep apnea) Dilated cardiomyopathy Neuropathy A-fib Lumbar radiculopathy Surgical History (Updated 03/28/25 @ 08:58 by Jett Ojeda MD) S/P insertion of spinal cord stimulator Status post cryoablation S/P placement of nerve stimulator H/O eye surgery History of bladder surgery History of shoulder surgery History of lumbar fusion Social History (Updated 02/14/25 @ 08:40 by Sofy Martines MA) Housing: House Alcohol intake: former Patient Tobacco Use Status: Never used Tobacco e-Cigarette/Vaping Use: Never Used Second Hand Smoke Exposure: No service: No Current occupational status: retired and disabled Current occupational exposures/hazards: No Cognitive needs: No Hearing needs: No Vision needs: No Physical Exam Vital Signs: Last Vital Signs Pulse 77 03/31/25 10:08 Resp 15 03/31/25 10:08 BP 133/89 03/31/25 10:08 Pulse Ox 96 03/31/25 10:08 Oxygen Delivery Method Room Air 03/31/25 10:08 BMI result Body Mass Index 34.4 Assessment & Plan Assessment & Plan (1) S/P insertion of spinal cord stimulator: Comment: ShareGroveis Code(s): Z96.89 - Presence of other specified functional implants Category: Surgical Plan Plan - Coordination has been made for weekly visits with nurse for assessment and monitoring of extruded suture. - Continuous photographic documentation will be conducted to track healing progress at each assessment. - The surgical site will be observed for signs of infection, although currently no infection signs are present. - Reassessment and adjustment of care plan will be based on observed changes during nurse visits. Patient was informed and verbally consented to the use of an ambient scribe for clinic note documentation during this visit. Discussion Notes I discussed with the patient the current status of their femoral incision, emphasizing the presence of an exposed but dissolvable suture. The patient is advised that the suture is projected to dissolve in approximately one month. We reviewed the importance of monitoring for infection, agreeing that weekly nurse visits are essential to ensure proper healing and to avoid further complications. I clarified the rationale behind the periodic observation plan and encouraged him to report any changes. We also addressed the patient's understanding and comfort with postoperative variations. Patient Instructions - Attend weekly visits with nurse Arthur, primarily on Tuesdays. - Monitor the incision site for any signs of infection such as redness, swelling, or pus. - Take note of any new symptoms or changes at the incision site and inform healthcare provider if they arise. - Follow up as needed and continue regular assessments until the suture resolves or advised otherwise. Coding Level of Care Code Est Pt Level 3 (92617) Diagnoses S/P insertion of spinal cord stimulator Z96.89
[2025-03-31 10:08] VITALS: BP 133/89; PULSE 77; RESP 15; O2SAT 96; BMI 34.4
== END 2025-03-31 10:28 | disposition home or self-care (01) ==
LOC: HO.PMC 09:45
PROVIDERS: PCP Nurse Practitioner Family; Visit Provider Internal Medicine
DX: M96.1 Postlaminectomy syndrome, not elsewhere classified (principal); Z96.89 Presence of other specified functional implants
CPT/HCPCS: 99213

== ENCOUNTER → 2025-03-31 09:44 | Outpatient (BNVA) | payer OTHER, SELFPAY | PROVIDERS: PCP Nurse Practitioner Family; Visit Provider Internal Medicine | DX: Z96.89 Presence of other specified functional implants (principal) | CPT/HCPCS: 99212 ==

== ENCOUNTER → 2025-04-05 13:37 | Outpatient (BNVA) | payer OTHER, SELFPAY | PROVIDERS: PCP Nurse Practitioner Family; Visit Provider Internal Medicine ==

== ENCOUNTER 2025-06-05 07:59 | Outpatient (REF) | payer OTHER, SELFPAY ==
--- OUTSIDE RECORDS SUMMARY | 2025-06-05 08:01 | XMS_ITS ---
Author Name [facility] Organization Unknown Care Team Organization Name Specialty Phone Email Start Date End Da kt [facility] Dimitry Silva Primary Care 04/17/2023 024
--- OUTSIDE RECORDS SUMMARY | 2025-06-05 08:01 | XMS_ITS | Encounter Summary ---
Author Organization [employer] Address [address] [place] [address] Care Team Providers Care Customer Service Driver Name Role Phone Unavailable Primary Care [...] Care Team (Late st Contact Info) Description 10/20/2025 8:00 AM EST Office Visit [facility] DENTAL [address] [place] [address] Yamel Healy documented as of this encounter Visit Diagnoses Not on filedocumented in this encounter
--- OUTSIDE RECORDS SUMMARY | 2025-06-05 08:01 | XMS_ITS | Encounter Summary ---
Author Organization [facility] Address [id number] [place] [phone] Care Team Providers Care Patron Attendant Name Role Phone Jc Myrick RENETTA Primary Care Provider [phone] Encounter Details Date Type Department Care Team (Late Contact Info) Description 03/13/2025 Lab Requisition [facility] - Main Lab [address] [facility] [place] [address] Stephenie Arreguin PA [address] [place], [place] [phone] Testicular hypofunction Social History Tobacco Use Types [...] Department Care Team (Late Contact Info) Description 07/04/2025 8:40 AM EDT Consult [facility] Cardiology [facility] 154 300 [facility] 154 [place] [phone] Marco Hunt MD 300 [facility] 154 [place] [address] 04/16/2026 8:00 AM EDT Ancillary Procedure [facility] Cardiology [facility] 101 300 [facility] 101 [place] [phone] documented as of this encounter Procedures Procedure Name Priority Date/Time Associated Diagnosis Comments COMPLETE BLOOD COUNT Routine 03/13/2025 8:33 AM EDT Testicular hypofunction documented in this encounter Results * (ABNORMAL) Complete blood count (03/13/2025 8:33 AM EDT) WBC 4.7(L) 4.8 - 10.8 K/mcL LAB HEMETOLOG[facility] RBC 5.00 4.50 - 5.50 M/mcL LAB HEMETOLOGY METHOD 03/13/2025 1:49 PM EDT [facility] Hemoglobin 16.6 13.5 - 17.5 g/dL LAB HEMETOLOGY METHOD 03/13/2025 1:[address] [facility] Hematocrit 50.0 42.0 - 54.0 % LAB HEMETOLOGY METHOD 03/13/2025 1:[address] [facility] MCV 99.4(H) 79.0 - 98.0 FL LAB HEMETOLOGY METHOD [facility] MCH 33.0(H) 27.0 - 32.0 pcg LAB HEMETOLOGY METHOD 03/13/2025 1:[address] [facility] MCHC 33.2 32.0 - 37.0 g/dL LAB HEMETOLOGY METHOD 03/13/2025 1:[address] [facility] RDW 13.1 11.0 - 15.0 % LAB HEMETOLOGY METHOD 03/13[facility]2025 [facility] Platelets 207 130 - 400 K/mcL LAB HEMETOLOGY METHOD 03/13/2025 1:[address] [facility] MPV 9.6 7.0 - 11.0 FL LAB HEMETOLOGY METHOD 03/13[facility]25 [facility] NRBC 0.0 <1.0 % LAB HEMETOLOGY METHOD 03/13/2025 1:49 PM EDT [facility] NRBC Absolute 0.00 <0.10 K/mcL LAB HEMETOLOGY METHOD 03/13/2025 1:49 PM EDT [facility] Blood Venous blood specimen / Unknown 03/13/2025 8:33 AM EDT 03/13/2025 12:43 PM EDT us Stephenie SIMMONS LAB BLOOD ORDERABLES Final Re sult [facility] [address] [place] [address], documented in this encounter Visit Diagnoses Diagnosis Testicular hypofunction Other testicular hypofunction documented in this encounter Care Teams Patron Attendant Relationship Specialty Start Date End Date Jc Myrick FNP [address] [place] [address] PCP - General Family Medicine 03/16/25 documented as of this encounter
--- OUTSIDE RECORDS SUMMARY | 2025-06-05 08:01 | XMS_ITS | Clinical Summary ---
Author Organization [facility], Address [address] [place] [address] Phone Care Team Providers Care Home Fire Alarm Installer Name Role Phone Unavailable Primary Care Provider [...] 03/14/2019 Obstructive sleep apnea 12/17/2018 Overview (01/07/2022): [facility] Home Polysomnogram: Date 12/14/2018; AHI [...] 85 01/07/2022 2:47 PM EST Temperature 36 C (96.8 F) 01/07/2022 2:47 PM EST Respiratory Rate - [...] of 1 - PCV) 2008 Influenza Vaccine (#1) 2025 0, 08/18/2019, 09/17/2018, Additional history exists Hepatitis B Vaccine Aged Out No longe r eligible based on patient's age to complete this topic Insurance Medicare Medicaid [place]
[2025-06-05 12:06] LABS: Cholesterol 177 mg/dL (<200); HDL Cholesterol 48 mg/dL (>40); Triglycerides 124 mg/dL (<150)
[2025-06-05 15:10] LABS: Appearance Urine Clear; Glucose Urine UA >=1000 mg/dL (Negative); PH 5.5 (5.0-9.0); Specific Gravity - Urine >= 1.030 (1.005-1.025); UMIC TRIGGER UACC YES
== END 2025-06-05 08:00 | disposition home or self-care (01) ==
LOC: HO.WFDLDS 07:59
PROVIDERS: Visit Provider Nurse Practitioner Family
DX: Z00.00 Encounter for general adult medical examination without abnormal findings (principal); E78.5 Hyperlipidemia, unspecified
CPT/HCPCS: 36415; 80061; 81001; 81003

== ENCOUNTER 2025-06-13 10:18 | Outpatient (AMB) | payer OTHER, SELFPAY ==
--- NOTE | 2025-06-13 10:36 | MHC.PC.OV ---
Vital Signs 06/13/25 10:40 Height 6 ft 2 in Weight 273 lb 8 oz BMI 35.1 BP 122/78 Blood Pressure Location Lt brachial Position Sitting Respiration 16 Pulse 77 Pulse Source Pulse Oximeter Temp 97.1 F Temp Source Temporal Artery Scan Pulse Oximetry (%) 97 Oxygen Delivery Method Room Air Intake Visit Reasons: f/u 3 mos HTN, HLD - see comments Intake Note: Kev presents in the office for a 3 month follow up. Allergies No Known Allergies Allergy (Verified 06/13/25 11:01) Medication List - Last Reconciled 06/13/25 by Jc Myrick CNP empagliflozin (Jardiance) 10 mg PO DAILY 30 days ibuprofen 600 mg PO Q8H PRN metoprolol succinate ER 50 mg PO DAILY metronidazole 0.75% 1 appl topical DAILY rosuvastatin 20 mg PO DAILY 30 days sacubitril-valsartan 97-103 mg (Entresto) 1 tab PO BID testosterone 1 tube topical ONCE Tobacco use date assessed: 06/13/25 Dental Screening Dental Screen Date: 06/13/25 Did you have a dental visit in the last 12 months?: Yes Did you have a dental problem in the last 6 months where you did not have access to dental care?: No Was dental information given to patient?: Patient has dentist HPI HPI Comments History of Present Illness Details 65-year-old male presents for hypertension and hyperlipidemia follow-up. He admits to taking his medications as prescribed without adverse reactions. He notes that he has been making healthy lifestyle changes. He notes that he has appointment with Cardiology, Dr. Moore, at [facility], to have watchman device placed for a-fib. He usually follows Dr. Funk, [employer]. No acute symptoms at this time. [facility] Medical History (Updated 02/24/25 @ 11:22 by Rosalva Pollard RN) Neuropathy Lumbar disc disease Cervical spinal stenosis BPH (benign prostatic hyperplasia) Ascending aorta dilation Hyperlipidemia HTN (hypertension) NELLY (obstructive sleep apnea) Dilated cardiomyopathy Neuropathy A-fib Lumbar radiculopathy Surgical History (Updated 03/28/25 @ 08:58 by Jett Ojeda MD) S/P insertion of spinal cord stimulator Status post cryoablation S/P placement of nerve stimulator H/O eye surgery History of bladder surgery History of shoulder surgery History of lumbar fusion Social History (Updated 06/13/25 @ 10:40 by Sofy Martines MA) Housing: House Alcohol intake: former Patient Tobacco Use Status: Never used Tobacco e-Cigarette/Vaping Use: Never Used Second Hand Smoke Exposure: No service: No Current occupational status: retired and disabled Current occupational exposures/hazards: No Cognitive needs: No Hearing needs: No Vision needs: No Questionnaire Thrive Questionnaire Date Thrive assessed: 11/15/24 I am a: Patient What is your living situation today?: I have a steady place to live Within the past 12 months, did the food you bought not last and you didn't have the money to get more?: Never true Within the past 12 months, did you worry whether your food would run out before you got money to buy more?: Never true Do you have trouble paying for medicines?: No Do you have trouble getting transportation to medical appointments?: No Do you have trouble paying your heating and electricity bill?: No Do you have trouble taking care of your child, family member or friend?: No Do you have trouble with day-to-day activities such as bathing, preparing meals, shopping, managing finances, etc.?: No Are you currently unemployed and looking for a job?: No Are you interested in more education?: No Please select the resources that you would like help with: None Currently or been in a relationship where the following occur: No concerns reported THRIVE Score: 0 LESLIE-7 AMB Questionnaire LESLIE-7 Date LESLIE - 7 assessed: 02/14/25 Source: Developed by Drs. Juan Toribio, Sheri Colunga, Micheal Escobar and colleagues, with an educational maynor from [email or web address]. Review of Systems Const Details: Const Denies chills, Denies fatigue, Denies fever(s), Denies headache(s) and Denies weakness ENT Denies dizziness and Denies headache(s) Card Denies chest pain, Denies lightheadedness, Denies dyspnea and Denies other (Palpitations) Resp Denies cough, Denies dyspnea, Denies wheezing and Denies other ( shortness of breath) GI Denies abdominal pain, Denies melena, Denies hematochezia, Denies change in bowel habits, Denies dyspepsia and Denies nausea Denies hematuria and Denies dysuria Musc Denies abnormal gait, Denies myalgias, Denies arthralgias, Denies numbness and Denies tingling Skin/Breast Denies rash, Denies unusual bruising and Denies wounds Neuro Denies abnormal gait, Denies dizziness, Denies headache(s), Denies memory loss, Denies numbness, Denies Sensory deficit (Neuro), Denies tingling and Denies weakness Psych Denies anxiety, Denies depression, Denies memory loss Endo Denies cold intolerance, Denies fatigue, Denies heat intolerance, Denies polydipsia and Denies polyuria Aller/Immun Denies wheezing Physical exam (Primary Care) Vital Signs: Last Vital Signs Temp 97.1 F 06/13/25 10:40 Pulse 77 06/13/25 10:40 Resp 16 06/13/25 10:40 BP 122/78 06/13/25 10:40 Pulse Ox 97 06/13/25 10:40 Oxygen Delivery Method Room Air 06/13/25 10:40 BMI result Body Mass Index 35.1 Tobacco/Smoking Status: Tobacco use Status Tobacco use date assessed 06/13/25 06/13/25 10:43 Patient Tobacco Use Status Never used Tobacco 06/13/25 10:40 e-Cigarette/Vaping Use Never Used 06/13/25 10:40 Thrive Assessment: Date of Thrive Assessment Date Thrive assessed 11/15/24 06/13/25 10:38 Currently or been in a relationship where the following occur: No concerns reported Const Other: General: no acute distress and well developed Nutritional Appearance: well nourished Orientation/consciousness: patient oriented x3 HENMT Head: Yes normocephalic and Yes atraumatic Eyes General: appearance normal, both eyes and all related structures Pupils: Equal, round and reactive pupils present EOM: EOMs intact bilaterally Resp Effort & Inspection: normal respiratory effort Auscultation: clear to auscultation bilaterally Cardio Rate: regular rate Rhythm: regular rhythm Heart sounds: S1 normal heart sound present, S2 normal heart sound present, no gallops, no murmurs and no rubs GI Palpation (GI): No Abdominal aortic bruit present, Soft to palpation, nontender, No hepatosplenomegaly present and No Rebound tenderness present Auscultation: normal bowel sounds General: Yes no CVA tenderness Back/Spine/Pelvis Back: no CVA tenderness Cervical Spine: cervical ROM normal and No Cervical spine tenderness Thoracic/Lumbar Spine: thoraco-lumbar ROM normal, No pain with thoraco-lumbar ROM, No thoracic spinal tenderness and No lumbar spinal tenderness Extrem General: Yes normal to inspection, No edema and No calf tenderness Skin General: warm and dry. Normal skin color. Normal skin turgor Neuro General: patient oriented x3, gait normal and no focal neuro deficit Cranial nerves: Yes Equal, round and reactive pupils present Cognition (Neuro): normal cognition Gait exam (Neuro): Normal gait present Sensory Exam: No Sensory deficit (Neuro) Psych Appearance: grossly normal Affect: normal affect Attitude: cooperative Thought process: Normal thought process present Coding Level of Care Code Est Pt Level 3 (86179) Diagnoses Hypertension I10 Hyperlipidemia E78.5 Laboratory tests ordered as part of a complete physical exam (CPE) Z00.00 Assessment & Plan Assessment & Plan (1) Hypertension: Code(s): I10 - Essential (primary) hypertension Category: Medical Plan: Blood pressure is 122/70, within goal of less than 130/80. Continue current treatment regimen. Low-sodium diet encouraged. Perform lab work a few days before next visit. Follow-up for an extended physical exam in 3 months. Return sooner with symptoms or concerns. Verbalized understanding and agreed with the plan. (2) Hyperlipidemia: Code(s): E78.5 - Hyperlipidemia, unspecified Category: Medical Plan: Recent LDL level is slightly elevated, 105. Triglycerides, total cholesterol, and HDL levels are normal. Continue current treatment regimen. Advised to limit foods high in saturated fat and avoid foods high in trans fat. Routine exercise encouraged. Fast for 10-12 hours, may drink water, and perform lipid panel blood work a few days before next visit. Verbalized understanding and agreed with the plan. (3) Laboratory tests ordered as part of a complete physical exam (CPE): Code(s): Z00.00 - Encounter for general adult medical examination without abnormal findings Category: Medical Plan: Fasting labs ordered as part of a complete physical exam. Advised to fast for at least 10 hours before getting labs drawn. May drink water Verbalized understanding and agreed with treatment plan. Orders: Orders Complete Blood Count Auto Diff 3 Months Z00.00 - Encounter for general adult medical examination without abnormal findings PSA, Ultra Sensitive 3 Months Z00.00 - Encounter for general adult medical examination without abnormal findings UA CC w/rflx Micro + Cult 3 Months Z00.00 - Encounter for general adult medical examination without abnormal findings Vitamin D 25-OH Total 3 Months Z00.00 - Encounter for general adult medical examination without abnormal findings Comprehensive Somers. Panel Fast 3 Months Z00.00 - Encounter for general adult medical examination without abnormal findings Lipid Panel 3 Months Z00.00 - Encounter for general adult medical examination without abnormal findings Microalbumin, Random (w Creat) 3 Months Z00.00 - Encounter for general adult medical examination without abnormal findings TSH reflex Free T4 3 Months Z00.00 - Encounter for general adult medical examination without abnormal findings
[2025-06-13 10:40] VITALS: BP 122/78; PULSE 77; RESP 16; TEMP 36.2; O2SAT 97; BMI 35.1
--- OUTSIDE RECORDS SUMMARY | 2025-06-13 10:54 | XMS_ITS | Encounter Summary ---
Author Organization [facility] Address [address] [place] [address] Care Team Providers Care Correctional Supervisor Lieutenant Name Role Phone Amy Wilkerson MD Primary Care Provider [phone] Thierno Duvall MD, PHD Unavailable Unava ilable Lizbeth Parikh PA-C Unavailable [phone] Bin Fowler PA-C Unavailable [phone] Vinicius Fonseca Unavailable Unavailable Amador Funk MD Unavailable [phone] Daryl Dunn NP Unavailable [phone] Timoteo Mcfarland MD Unavailable [phone] Marco Hunt MD Unavailable [phone] Joy Brand NP Unavailable [phone] [facility], Pcp Primary Care Provider Unavailabl e Encounter Details Date Type Department Care Team Description 11/04/2022 Telephone Internal Medicine [address], [address] [place] [address] Dimitry Silva MD [address] [place] [phone] Social History Tobacco Use Types Packs/Day [...] on filedocumented in this encounter Care Teams Correctional Supervisor Lieutenant Relationship Specialty Start Date End Date Amy Wilkerson MD [address] [place] [address] PCP - General Internal Medicine 11/11/21 09/05/24 [facility], Pcp [address] [address] PCP - General Internal Medicine 09/06/24 Thierno Duvall MD, PHD [address] [place] [address] Surgeon Neurosurgery 02/25/22 Lizbeth Parikh PA-C [address] [address] Specialist Neurosurgery 02/25/22 Bin Fowler PA-C [address] [address] Specialist Neurosurgery 02/25/22 Vinicius Fonseca [address] [address] Dermatology 03/10/23 Amador Funk MD [address] [address] Vegetable Tester Cardiovascular Disease 03/10/23 Daryl Dunn NP 300 [facility] 154 [place] [address] Nurse Practitioner Cardiology 04/27/23 10/19/23 Timoteo Mcfarland MD 175 [facility] [address] [place] [address] ORTHOPEDIC SURGERY 08/24/23 Marco Hunt MD 175 [facility] [address] [place] [address] Specialist Cardiology 10/09/23 Joy Brand, MAREK [address] [place] [address] Cardiology 10/09/23 [facility] urology Specialist Urology 08/24/23 documented as of this encounter
--- OUTSIDE RECORDS SUMMARY | 2025-06-13 10:55 | XMS_ITS | Clinical Summary ---
Author Organization [address] [place] [address] Address [address] [place] [address] Phone Care Team Providers Care Machinist Linotype Name Role Phone Jc Myrick VIDEO SYSTEMS ENGINEER Primary Care Provider [phone] Allergies No known active allergies Medications acetaminophen (TYLENOL 8 HOUR) 650 mg 8 hr tablet Take 1 Tablet by mouth every 8 hours as needed for Pain for up to 30 days. 03/30/20 23 Active metroNIDAZOLE (METROCREAM) 0.75 % cream Apply topically 2 times daily. Active rosuvastatin (CRESTOR) 10 mg tablet Take 0.5 Tablets by mouth daily. 03/09/20 24 Active testosterone 50 mg/5 gram (1 %) gel Apply daily as directed 09/24/20 18 Active sacubitriL-shayy sartan (Entresto) 97-103 mg per tablet TAKE 1 TABLET BY MOUTH TWICE DAILY 180 tablet 2 03/09/20 25 Active empagliflozin (Jardiance) 10 mg tablet TAKE 1 TABLET BY MOUTH DAILY 30 tablet 5 04/07/20 25 Active B complex-vitami n C tablet Take 1 tablet by mouth 1 (one) time each day. Active metoprolol succinate (TOPROL-XL) 50 mg 24 hr tablet TAKE 1 TABLET BY MOUTH DAILY 90 tablet 3 05/17/20 25 Active metoprolol succinate (TOPROL-XL) 50 mg 24 hr tablet Take 1 Tablet by mouth daily. 07/08/20 24 025 Discontinued Active Problems Problem Noted Date Diagnosed Date Dilation of aorta (CMS/HCC V24) 05/01/2025 Overview (05/01/2025): - dilated aorta at the sinus 4.3 and ascending aorta 4.4, similar to 2022 Assessment & Plan (05/01/2025 8:12 AM EDT): Patient has a mildly dilated aorta at the sinus and ascending aorta. Update his echocardiogram prior to his next visit in about a year's time. Paroxysmal atrial fibrillation (CMS/HCC V24, CMS /HCC V28) 05/01/2025 Overview (05/01/2025): - Cryoballoon PVI ablation 10/2023, some fractionated signals in the lower anterior septum and posterior high near the right veins, the rest of the high fairly healthy and so no substrate modification performed -Without recurrence - low [id number] score, not currently anticoagulated Assessment & Plan (05/01/2025 8:10 AM EDT): The patient had an EKG confirming atrial fibrillation in 02/2025 in the perioperative time frame of his back stimulator implantation. He was asymptomatic at the time of his atrial fibrillation in 02/2025. He is back in sinus rhythm on EKG in office today. We discussed how post ablation, he does not have any symptoms referable to his atrial fibrillation. While this is neither good nor bad, it does mean that he is not reliable at telling us when he is back in atrial fibrillation to help direct anticoagulation therapy. We discussed how every year, his stroke risk in general increases, especially in light of his prior atrial fibrillation. At this time though, he continues with a low [id number] score. In keeping with prior conversations with Dr. Funk and Joy, he has a preference to remain off of medication if able. As such, we will arrange consultation Dr. Hunt to discuss possibility of watchman implantation for long-term stroke prevention while acknowledging his desire for ongoing simplification of his medication regimen. He does understand that should he be a candidate, he would need to be on anticoagulation and then DAPT for period of time, though finite. For now, remain off of anticoagulation. Continue beta-nancy at current dose. Nonischemic cardiomyopathy (CMS/HCC V24, CMS/HCC V28) 04/27/2023 Overview (05/01/2025): - Historical LVEF 40% -Most recent echocardiogram 07/2024 LVEF low normal 50-55%, no wall motion abnormalities, normal diastolic function, mildly dilated left atrium, normal right atrial size, without hemodynamically significant valve disease, dilated aorta at the sinus 4.3 and ascending aorta 4.4, similar to 2022 Assessment & Plan (05/01/2025 8:11 AM EDT): Patient's LVEF is low normal, likely with confucianist of sinus rhythm. Continue GDMT for his myopathy with beta-nancy, SGLT2 and Arni. He appears euvolemic and does not have any concerning cardiorespiratory symptoms. Update his echocardiogram prior to his next visit to follow his LVEF and dilation of his aorta. Abnormal EKG 03/11/2023 Persistent atrial fibrillation (CMS/HCC [...] injury and catheter thrombus related stroke or MN. He understands that he may not necessarily build to come off of anticoagulation even if successful we will base that decision on his [id number] score. I encouraged him to continue efforts [...] 03/14/2019 Obstructive sleep apnea 12/17/2018 Overview (08/24/2024): [facility] Home Polysomnogram: Date 12/14/2018; AHI [...] stenosis of spine 03/19/2018 Hyperlipidemia 01/04/2018 Overview (05/01/2025): Intol to simvastatin Assessment & Plan (05/01/2025 8:10 AM EDT): The patient's LDL is somewhat robust from 12/2023. Continue Crestor at current dose. Update his lipid profile following his next visit if it is not already done by his PCP in the interim Lumbar disc disease with radiculopathy 7 Overview (08/24/2024): S/p discectomy 2017- Dr Fritz 2019-rtL5- S1-rt laminotomy,discectomy and posterolateral fusion Last Assessment & Plan: Patient is 1 month s/p L5-S1 ALIF and posterior fusion with pedicle screw fixation, and he had previous noninstrumented fusion and right L5 decompression in 2019. He came [...] Overview (08/24/2024): Bilateral hands, less than feet Resolved Problems Problem Noted Date Diagnosed Date Resolved Date Elevated LDL cholesterol level 08/11/2023 05/01/2025 Overview (08/24/2024): total cholesterol 272 with an LDL of 206 HDL of 50 and triglycerides of 82 Last Assessment & Plan: Continue efforts at weight loss and improve diet. Try and increase rosuvastatin as tolerated or consider alternatives. Encounters Date Type Department Care Team Description 05/15/2025 Telephone [facility] Cardiology [facility] [address] [facility] [address] [place] [address] Jc Myrick FNP Medical Records 05/01/2025 7:40 AM EDT Office Visit [facility] Cardiology [facility] [address] [facility] [address] [place] [address] Glenna Brown NP Abnormal EKG (Primary Dx); Nonischemic cardiomyopathy (CMS/HCC V24, CMS/HCC V28); Pure hypercholesterolemia; Dilation of aorta (CMS/HCC V24); Paroxysmal atrial fibrillation (CMS/HCC V24, CMS/HCC V28) 03/13/2025 Lab Requisition [facility] - Main Lab [address] [facility] [place] [address] Stephenie Arreguin PA Testicular hypofunction from Last 3 Months Immunizations Name Administration [...] Comments COLONOSCOPY 10/19/2007 PROCEDURE: HISTORICAL COLONOSCOPY; COMMENT: [facility]; [place]; multiple small tubular adenomas. COLONOSCOPY 02/02/2018 PROCEDURE: HISTORICAL COLONOSCOPY; COMMENT: Diminutive colonic polyps 3: all tubular adenomas. OTHER SURGICAL HISTORY 08/2017 PROCEDURE: DECOMPRESS DISC RF LUMBAR; COMMENT: microlumbar discectomy L4-5 Lam TURP / TRANSURETHRAL INCISIO N / DRAINAGE PROSTATE 2017 PROCEDURE: HISTORICAL TURP UPPER GASTROINTESTINAL ENDOSCOPY 04/12/2020 PROCEDURE: DE UPPER GI ENDOSCOPY PERFORMED; COMMENT: normal on famotidine rx. OTHER SURGICAL HISTORY 02/05/2022 PROCEDURE: DE ARTHRODESIS POSTERIOR INTERBODY 1 NTRSPC LUMBAR; COMMENT: [...] Sign Reading Time Taken Comments Blood Pressure 124/70 05/01/2025 7:37 AM EDT Pulse 73 05/01/2025 7:37 AM EDT Temperature - - Respiratory Rate - - Oxygen Saturation 95% 05/01/2025 7:37 AM EDT Inhaled Oxygen Concentration - - Weight 124 kg (273 lb) 05/01/2025 7:37 AM EDT Height 188 cm (6' 2 ) 05/01/2025 7:37 AM EDT Body Mass Index 35.05 05/01/2025 7:37 AM EDT Plan of Treatment Upcoming Encounters Date Type Department Care Team (Late st Contact Info) Description 07/04/2025 8:40 AM EDT Consult [facility] [address] [facility] [address] [place] [address] Marco Hunt MD [address] [facility] [address] [place] [address] 04/16/2026 8:00 AM EDT Ancillary Procedure [facility] Cardiology [facility] [address] [facility] [address] [place] [address] Health Maintenance Due Date Last Done Comments RSV Immunization Adult Patients (1 - Risk 60-74 years 1-dose series) 2018 Medicare Annual Wellness Visit 10/18/2022 Social Influencers of Health Screening 10/18/2022 Colorectal Cancer Screening: Colonoscopy 02/02/2023 02/02/2018 Falls Risk Assessment 2023 COVID-19 Vaccine (2 - season) 2024 05/02/2021 Depression Screening 11/09/2024 Influenza Vaccine (#1) 2025 , 08/18/2019, 09/17/2018, Additional history exists DTaP,Tdap,and Td [...] Date/Time Associated Diagnosis Comments ECG 12-LEAD Routine 05/01/2025 8:12 AM EDT Abnormal EKG COMPLETE BLOOD COUNT Routine 03/13/2025 8:33 AM EDT Testicular hypofunction LIPID PANEL Routine 12/25/2023 COLONOSCOPY Routine 02/02/2018 HEPATITIS C SCREENING Routine 12/25/2017 from Last 3 Months or Most Recently Relevant to Health Maintenance Results * ECG 12 lead (05/01/2025 8:12 AM EDT) Ventricular Rate ECG 61 BPM GEMUSE Atrial Rate 61 BPM GEMUSE P-R Interval 146 ms GEMUSE QRS Duration 88 ms GEMUSE Q-T Interval 414 ms GEMUSE QTc 416 ms GEMUSE P Wave [place] 51 degrees GEMUSE R [place] -21 degrees GEMUSE T [place] 10 degrees GEMUSE ECG Interpretation Normal sinus rhythm Low voltage QRS Borderline ECG When compared with ECG of 03-MAR-2025 10:42, No significant change was found hx p afib Confirmed by FELICE BARRETT ([id number]) on 05/01/2025 9:27:28 AM GEMUSE 05/01/2025 7:47 AM EDT 05/01/2025 9:27 AM EDT us Glenna Brown NP ECG ORDERABLES Edited Result - Final GEMUSE * (ABNORMAL) Complete blood count (03/13/2025 8:33 AM EDT) Pathologist [facility] [place] WBC 4.7(L) 4.8 - 10.8 K/mcL LAB HEMETOLOGY METHOD 03/13/2025 1:49 PM EDT [facility] RBC 5.00 4.50 - 5.50 M/mcL LAB HEMETOLOGY METHOD 03/13/2025 1:49 PM EDT [facility] Hemoglobin 16.6 13.5 - 17.5 g/dL LAB HEMETOLOGY METHOD 03/13/2025 1:49 PM EDT [facility] Hematocrit 50.0 42.0 - 54.0 % LAB HEMETOLOGY METHOD 03/13/2025 1:49 PM EDT [facility] MCV 99.4(H) 79.0 - 98.0 FL LAB HEMETOLOGY METHOD 03/13/2025 1:49 PM EDT [facility] MCH 33.0(H) 27.0 - 32.0 pcg LAB HEMETOLOGY METHOD 03/13/2025 1:49 PM EDT [facility] MCHC 33.2 32.0 - 37.0 g/dL LAB HEMETOLOGY METHOD 03/13/2025 1:49 PM EDT [facility] RDW 13.1 11.0 - 15.0 % LAB HEMETOLOGY METHOD 03/13/2025 1:49 PM EDT [facility] Platelets 207 130 - 400 K/mcL LAB HEMETOLOGY METHOD 03/13/2025 1:49 PM EDT [facility] MPV 9.6 7.0 - 11.0 FL LAB HEMETOLOGY METHOD 03/13/2025 1:49 PM EDT [facility] NRBC 0.0 <1.0 % LAB HEMETOLOGY METHOD 03/13/2025 1:49 PM EDT [facility] NRBC Absolute 0.00 <0.10 K/mcL LAB HEMETOLOGY METHOD 03/13/2025 1:49 PM EDT [facility] Blood Venous blood specimen / Unknown 03/13/2025 8:33 AM EDT 03/13/2025 12:43 PM EDT us Stephenie SIMMONS LAB BLOOD ORDERABLES Final Re sult [facility] [address] [place] [address], * (ABNORMAL) Lipid panel (12/25/2023) LDL/HDL Ratio [...] to Health Maintenance Insurance [employer] [place] [address] [facility] [place]SE [place] [id number] Care Teams Machinist Linotype Relationship Specialty Start Date End Date Jc Myrick FNP [address] [place] [address] PCP - General Family Medicine 03/16/25
--- OUTSIDE RECORDS SUMMARY | 2025-06-13 10:55 | XMS_ITS | Clinical Summary ---
Author Organization [facility], Address [address] [place] [address] Phone Care Team Providers Care Sock Mender Name Role Phone Unavailable Primary Care Provider [...] 03/14/2019 Obstructive sleep apnea 12/17/2018 Overview (01/07/2022): [facility] Home Polysomnogram: Date 12/14/2018; AHI [...]
--- OUTSIDE RECORDS SUMMARY | 2025-06-13 10:55 | XMS_ITS | Encounter Summary ---
Author Organization [employer] Address [address] [place] [address] Care Team Providers Care Type Cutter Name Role Phone Unavailable Primary Care Provider [...] Description 10/20/2025 8:00 AM EST Office Visit [facility] [address] [place] [address] Yamel Healy documented as of this encounter Visit Diagnoses Not on filedocumented in this encounter
== END 2025-06-13 11:10 | disposition home or self-care (01) ==
LOC: HO.HMCFM 10:19
PROVIDERS: PCP Nurse Practitioner Family; Visit Provider Nurse Practitioner Family
DX: I10 Essential (primary) hypertension (principal); E78.5 Hyperlipidemia, unspecified; Z00.00 Encounter for general adult medical examination without abnormal findings

== ENCOUNTER → 2025-06-13 10:18 | Outpatient (BNVA) | payer OTHER, SELFPAY | PROVIDERS: PCP Nurse Practitioner Family; Visit Provider Nurse Practitioner Family | DX: I10 Essential (primary) hypertension (principal); E78.5 Hyperlipidemia, unspecified | CPT/HCPCS: 99212 ==

== ENCOUNTER 2025-07-11 12:46 | Outpatient (AMB) | payer OTHER, SELFPAY ==
--- OUTSIDE RECORDS SUMMARY | 2025-07-04 08:40 | XMS_ITS | Encounter Summary ---
Author Organization [facility] Address [address] [place] [address] Care Team Providers Care Photographic Printer Name Role Phone Jc Myrick RENETTA Primary Care Provider [phone] Reason for Visit * Reason Comments WATCHMAN TALK Encounter Details Date Type Department Care Team (Late st Contact Info) Description 07/04/2025 8:40 AM EDT Consult [facility] - [facility] [address] [facility] [address] [place] [address] Reginaldo Hunt MD [address] [place] [address] [place] [address] Paroxysmal atrial fibrillation (CMS/HCC V24, CMS/HCC V28) (Primary Dx) Social History Tobacco Use Types [...] on file documented as of this encounter Last Filed Vital Signs Vital Sign Reading Time Taken Comments Blood Pressure 90/60 07/04/2025 8:54 AM EDT Pulse 107 07/04/2025 8:54 AM EDT Temperature - - Respiratory Rate - - Oxygen Saturation 97% 07/04/2025 8:54 AM EDT Inhaled Oxygen Concentration - - Weight 123 kg (272 lb) 07/04/2025 8:54 AM EDT Height 188 cm (6' 2 ) 07/04/2025 8:54 AM EDT Body Mass Index 34.92 07/04/2025 8:54 AM EDT documented in this encounter Ordered Prescriptions Prescription Sig Dispense Quantity Refills Last Filled Start Date End Date metoprolol succinate (TOPROL-XL) 50 mg 24 hr tablet Take 1.5 tablets (75 mg total) by mouth 1 (one) time each day. Do not crush or chew. 135 tablet 3 07/04/2025 documented in this encounter Progress Notes * Reginaldo Hunt MD - 07/04/2025 8:40 AM EDT Dear RENETTA Pandey: Thank you for requesting cardiology consultation on your patient, Kev Smith. As you know, he is a 65-year-old male with a complex cardiac history that includes a dilated nonischemic cardiomyopathy with an LVEF of 40% and aortic dilatation with a aortic maximum diameter 4.4. He has a long history of atrial fibrillation and underwent cryoballoon ablation in 2022. He was found to be back in atrial fibrillation earlier this year and is now referred for possible left atrial appendage closure.His [id number] score appears to be 3 for age congestive heart failure and hypertension. His heart failure is managed with guideline directed medical therapy which he is tolerating well albeit not at m aximal doses. He is rate controlled using carvedilol but the resting heart rate today is 107 bpm. He denies palpitations. He has no history of hyperthyroidism. He is not someone abuses alcohol. He has obstructive sleep apnea which is treated. He does have a spinal stimulator which he uses for back pain. He has suffered falls due to the degree of his back issues and peripheral neuropathy and sustained some trauma particularly to his right shoulder. He bruises very easily and has been frustrated by difficulty getting the bleeding to stop. PAST MEDICAL HISTORY: Patient Active Problem List Diagnosis Date Noted Dilation of aorta (CMS/HCC V24) 05/01/2025 Paroxysmal atrial fibrillation (CMS/HCC V24, CMS/HCC V28) 05/01/2025 Nonischemic cardiomyopathy (CMS/HCC V24, CMS/HCC V28) 04/27/2023 Abnormal EKG 03/11/2023 Persistent atrial fibrillation (CMS/HCC V24, CMS/HCC V28) 03/11/2023 Esophageal dysmotility 05/24/2019 Migraine equivalent syndrome 04/12/2019 Class 2 obesity 03/14/2019 Obstructive sleep apnea 12/17/2018 Cervical stenosis of spine 03/19/2018 Hyperlipidemia 01/04/2018 Lumbar disc disease with radiculopathy 09/24/2017 Fibromyalgia 08/06/2017 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 Benign prostatic hyperplasia 07/09/2017 Neuropathy of both feet 07/09/2017 Neuropathy of hand 07/09/2017 FAMILY HISTORY: \F2 Family History Problem Relation Name Age of Onset Colon cancer Father 70.00 valve disease Macular degeneration Father Other (Other: Other) Father tumor behind eye No Known Problems Mother No Known Problems Brother No Known Problems Sister No Known Problems Maternal Grandfather No Known Problems Maternal Grandmother No Known Problems Paternal Grandfather No Known Problems Paternal Grandmother No Known Problems Aunt No Known Problems Uncle No Known Problems Other Blindness Neg Hx Cataracts Neg Hx Glaucoma Neg Hx Strabismus Neg Hx SOCIAL HISTORY: Social History Tobacco Use Smoking status: Never Smokeless tobacco: Never Substance Use Topics Alcohol use: Not Currently ACTIVE MEDICATIONS: Outpatient Medications Marked as Taking for the 07/04/25 encounter (Consult) with Reginaldo Hunt MD Medication Sig Dispense Refill acetaminophen (TYLENOL 8 HOUR) 650 mg 8 hr tablet Take 1 Tablet by mouth every 8 hours as needed for Pain for up to 30 days. B complex-vitamin C tablet Take 1 tablet by mouth 1 (one) time each day. empagliflozin (Jardiance) 10 mg tablet TAKE 1 TABLET BY MOUTH DAILY 30 tablet 5 metoprolol succinate (TOPROL-XL) 50 mg 24 hr tablet TAKE 1 TABLET BY MOUTH DAILY 90 tablet 3 metroNIDAZOLE (METROCREAM) 0.75 % cream Apply topically 2 times daily. rosuvastatin (CRESTOR) 20 mg tablet Take 1 tablet (20 mg total) by mouth 1 (one) time each day. sacubitriL-valsartan (Entresto) 97-103 mg per tablet TAKE 1 TABLET BY MOUTH TWICE DAILY 180 tablet 2 testosterone 50 mg/5 gram (1 %) gel Apply daily as directed [DISCONTINUED] apixaban (Eliquis) 5 mg tablet Take 1 tablet (5 mg total) by mouth 2 times daily. ALLERGIES: No Known Allergies PHYSICAL EXAM: Vitals: 07/04/25 0854 BP: 90/60 Pulse: 107 SpO2: 97% Weight: 123 kg (272 lb) Height: 1.88 m (74 ) APPEARANCE: Alert and in no acute distress EYES: PERRL, conjunctiva and sclera normal NECK: Neck supple, 2+ carotid pulses, No bruits. HEART: RRR with normal S1 and S2, no murmurs, no gallops, no JVD appreciated LUNG: clear to auscultation ABDOMEN: Bowel sounds normoactive, no bruits, soft, non-tender, without organomegaly or palpable masses, no abdominal bruits EXTREMITIES: Extremities warm and well perfused without clubbing, cyanosis, or edema NEURO: Awake, alert and oriented x 3, Cranial nerves II-XII grossly intact SKIN: Skin color, texture, turgor normal. No rashes or lesions. PSYCH: Mood and affect are appopriate. MSK: Moves all extremities EKG: Atrial fibrillation 107 bpm TESTING: Lab Results Component Value Date CHOL 207 (A) 12/25/2023 LDL 139 (A) 12/25/2023 HDL 53 12/25/2023 TRIG 77 12/25/2023 No results found for: NA , K , CO2 , CL , BUN , GLU Lab Results Component Value Date WBC 4.7 (L) 03/13/2025 HGB 16.6 03/13/2025 HCT 50.0 03/13/2025 MCV 99.4 (H) 03/13/2025 ASSESSMENT/PLAN: Problem List Items Addressed This Visit Paroxysmal atrial fibrillation (CMS/HCC V24, CMS/HCC V28) - Primary Relevant Medications rosuvastatin (CRESTOR) 20 mg tablet Other Relevant Orders ECG 12 lead (Completed) Orders Placed This Encounter Procedures ECG 12 lead 1. Persistent atrial fibrillation 2. Nonischemic dilated cardiomyopathy patient This 65-year-old gentleman with a [id number] score of 3 and persistent atrial fibrillation presents for management of his atrial fibrillation. He is struggling with multiple falls and I believe that anticoagulation long-term is is contraindicated. I discussed the left atrial appendage closure procedure and he would like to proceed. I will get a CT scan to look at the anatomy and be sure that heis suitable. He is in persistent atrial fibrillation and there is multiple studies showing the benefit of trying to maintain sinus rhythm and heart failure patients. While he has been in this rhythm for some time and his success rate may be modest I would like to see if we can get approval for repeat pulmonary vein isolation using pulsed field ablation and performing posterior wall isolation. I described the procedure with him. We went through the potential procedural complications in detail. He understands the need for Eliquis for at least 6 weeks after a watchman implant and the need for a follow- up transesophageal echocardiogram. He understands that he may have recurrent atrial fibrillation and that we will need to do some postop monitoring. He is in agreement to proceed. I am going toincrease his metoprolol to 75 mg daily given the resting heart rate is 107 bpm this morning in the office. He agreed to monitor his pulse at home and let us know if he does not achieve an average hear t rate less than 100. Thank you for requesting cardiology consultation on this interesting patient. Sincerely, cc: Jc Myrick FNP documented in this encounter Plan of Treatment Upcoming Encounters Date Type Department Care Team (Late st Contact Info) Description 04/16/2026 8:00 AM EDT Ancillary Procedure [facility] - [address] [place] [address] Scheduled Procedures Name Priority Associated Diagnoses Date/Ti me LEFT ATRIAL APPENDAGE CLOSUR E (OTHER) Paroxysmal atrial fibrillation (CMS/HCC V24, CMS/HCC V28) ABLATION A-FIB Paroxysmal atrial fibrillation (CMS/HCC V24, CMS/HCC V28) documented as of this encounter Procedures Procedure Name Priority Date/Time Associated Diagnosis Comments ECG 12-LEAD Routine 07/04/2025 9:21 AM EDT Paroxysmal atrial fibrillation (CMS/HCC V24, CMS/HCC V28) documented in this encounter Results * ECG 12 lead (07/04/2025 9:21 AM EDT) Ventricular Rate ECG 107 BPM GEMUSE Atrial Rate 86 BPM GEMUSE QRS Duration 94 ms GEMUSE Q-T Interval 346 ms GEMUSE QTc 461 ms GEMUSE R [place] -31 degrees GEMUSE T [place] 10 degrees GEMUSE ECG Interpretation Atrial fibrillation with rapid ventricular response Left axis deviation Abnormal ECG When compared with ECG of 01-MAY-2025 07:47, Atrial fibrillation has replaced Sinus rhythm Vent. rate has increased BY 46 BPM Confirmed by Hemal HUNT, REGINALDO ([id number]) on 07/09/2025 4:58:36 PM GEMUSE 07/04/2025 9:01 AM EDT 07/09/2025 4:58 PM EDT us Reginaldo Hunt MD ECG ORDERABLES Edited Result - Final GEMUSE documented in this encounter Visit Diagnoses Diagnosis Paroxysmal atrial fibrillation (CMS/HCC V24, CMS/HCC V28)- Primary Atrial fibrillation documented in this encounter Discontinued Medications Medication Sig Discontinue Reason Start Date End Da te apixaban (Eliquis) 5 mg tablet Take 1 tablet (5 mg total) by mouth 2 times daily. Discontinued by another clinician 06/13/2024 07/04/2025 rosuvastatin (CRESTOR) 10 mg tablet Take 2 tablets (20 mg total) by mouth at bedtime. Dose adjustment 03/09/2024 07/04/2025 metoprolol succinate (TOPROL-XL) 50 mg 24 hr tablet TAKE 1 TABLET BY MOUTH DAILY Reorder 05/17/2025 07/04/2025 documented as of this encounter Historical Medications * This list may reflect changes made after this encounter. rosuvastatin (CRESTOR) 20 mg tablet Take 1 tablet (20 mg total) by mouth 1 (one) time each day. apixaban (Eliquis) 5 mg tablet Take 1 tablet (5 mg total) by mouth 2 times daily. 06/13/2024 07/04/2025 added in this encounter Orders Case Request Count Last Ordered Date First Orde red Date CASE REQUEST EP LAB 1 07/04/2025 documented in this encounter Care Teams Photographic Printer Relationship Specialty Start Date End Date Jc Myrick FNP [address] [place] [address] PCP - General Family Medicine 03/16/25 documented as of this encounter
[2025-07-11 12:49] VITALS: BP 102/76; PULSE 109; BMI 34.8
--- NOTE | 2025-07-11 12:49 | A.OFFVIS_ITS ---
Vital Signs 3 07/11/25 12:49 Height 6 ft 2 in Weight 270 lb 11.642 oz BMI 34.8 BP 102/76 Blood Pressure Location Lt brachial Position Sitting Pulse 109 H Intake Visit Reasons: colo screening Intake Note: New patient in office today for colonoscopy screening. CC: Patient states that he had a spinal stimulator surgery back in February and went A-Fib. He states that he will have an ablation done by Dr. Hunt, but Dr. Amador Funk is his joiner helper. He states that once in a while he gets hard stools or diarrhea. Denies other GI symptoms today. Tool Room Machinist Required: No Accompanied by: Self / Same As Patient Allergies No Known Allergies Allergy (Verified 07/11/25 12:59) HPI HPI colo screening: Details: 65-year-old male here for preprocedural meeting to discuss a screening colonoscopy. He is referred by Jc Myrick. PMX Obesity NELLY Hypertension High cholesterol Dilated cardiomyopathy/AFib Lumbar degenerative disc disease with radiculopathy/post-laminectomy syndrome Neuropathy Hypogonadism Varicose veins * SURGICAL HISTORY Spinal cord stimulator Pulmonary cryoablation Eye surgery - cataracts Bladder surgery growth removed Shoulder surgery s/p fall, and fx Lumbar fusion Colonoscopy-2018, Kaley@ [facility]= 3 small TA is * ALLERGIES: NKDA * Spor Chargers LABS: None recent TODAY'S VISIT His last colonoscopy was in [address] Roche and 3 small TA is removed at [facility]. No bowel or upper GI problems. He tells us that he has a history of AFib with a prior cardiac ablation but apparently this has failed and he will be going for repeat ablation in the recent future. Because of this we will need Cardiology clearance. He has NELLY if it denies any other respiratory problems. There are no prior problems with anesthesia or sedation. There are no infectious disease problems. FHX: his father of metastatic CRC age 83, and the pt has had TA's. [facility] Medical History (Updated 07/11/25 @ 13:16 by SUMIT Reece) Colon cancer screening Laboratory tests ordered as part of a complete physical exam (CPE) Encounter for routine adult physical exam with abnormal findings Neuropathy Lumbar disc disease Cervical spinal stenosis BPH (benign prostatic hyperplasia) Ascending aorta dilation Hyperlipidemia HTN (hypertension) NELLY (obstructive sleep apnea) Dilated cardiomyopathy Neuropathy A-fib Lumbar radiculopathy Surgical History (Updated 07/11/25 @ 13:14 by SUMIT Reece) History of esophagogastroduodenoscopy (EGD) H/O colonoscopy S/P insertion of spinal cord stimulator Status post cryoablation S/P placement of nerve stimulator H/O eye surgery History of bladder surgery History of shoulder surgery History of lumbar fusion Family History (Updated 07/11/25 @ 13:00 by BLANK Curry) Father Colon cancer Social History (Updated 06/13/25 @ 10:40 by Sofy Martines MA) Housing: House Alcohol intake: former Patient Tobacco Use Status: Never used Tobacco e-Cigarette/Vaping Use: Never Used Second Hand Smoke Exposure: No service: No Current occupational status: retired and disabled Current occupational exposures/hazards: No Cognitive needs: No Hearing needs: No Vision needs: No Review of Systems Const Reports fatigue, Denies fever(s), Denies night sweats, Denies poor appetite and Denies weight loss ENT Reports Normal hearing present, Denies dental pain, Denies dysphagia, Denies hearing loss, Denies mouth pain, Denies odynophagia, Denies throat swelling, Denies tongue swelling and Reports other (Dentition adequate) Card Reports no additional complaints Resp Reports no additional complaints GI Details: Denies abdominal pain, Denies melena, Denies bloating, Denies hematochezia, Denies constipation, Denies GI cramping, Denies dysphagia, Denies excessive flatus, Denies early satiety, Denies heartburn, Denies diarrhea, Denies nausea, Denies odynophagia, Denies vomiting and Denies hematemesis Musc Reports abnormal gait and Reports back pain Skin/Breast Denies pruritus, Denies lesions, Denies rash and Denies jaundice Neuro Reports Normal hearing present, Denies Abnormal speech present and Reports abnormal gait Endo Reports fatigue Aller/Immun Denies throat swelling and Denies tongue swelling Physical Exam Vital Signs: Last Vital Signs Pulse 109 H 07/11/25 12:49 BP 102/76 07/11/25 12:49 BMI result Body Mass Index 34.8 Const General: cooperative, no acute distress, well developed and well groomed Nutritional Appearance: well nourished and obese Orientation/consciousness: oriented to person, oriented to place and oriented to time Limitations: No language barrier and ambulation with cane HEENT Head: Yes normocephalic and Yes atraumatic Eyes General: appearance normal, both eyes and all related structures Pupils: Equal, round and reactive pupils present Neck Neck: Yes normal visual inspection and Yes no lymphadenopathy Thyroid: Thyroid normal Resp Effort & Inspection: normal respiratory effort and able to speak in complete sentences Auscultation: clear to auscultation bilaterally Cardio Rate: regular rate Rhythm: abnormal rhythm with ectopic beats Heart sounds: Normal, physiologic split S2 sound present Peripheral pulses: radial pulses present and posterior tibial pulses present GI Inspection: No distended, No Abdominal panniculus present, Yes obesity and Yes scar Palpation (GI): Soft to palpation, nontender, no guarding, not rigid and No hepatosplenomegaly present Percussion: Yes normal to percussion Auscultation: normal bowel sounds Rectal Exam - Male: Yes deferred Abdomen image: 2 1. surgical scar Skin General skin exam: no rashes or lesions noted, turgor normal, skin not dry, no jaundice, No spider nevi and no striae Rashes: no rashes Nails: normal Neuro General: oriented to person, oriented to place and oriented to time Cranial nerves: Yes Equal, round and reactive pupils present and Yes Normal hearing present Speech: No Abnormal speech present Extrem General: Yes normal to inspection, No clubbing, No cyanosis and No edema Psych Appearance: grossly normal and well kempt Mental Status: mental status grossly normal Speech and movement: Normal speech and movement present Affect: normal affect Attitude: cooperative Thought process: Normal thought process present and not confabulating Thought content: Normal thought content present Insight: Good insight present (Psych) Judgement: Good judgement present (Psych) Assessment & Plan Assessment & Plan (1) A-fib: Comment: follows w/[facility] Code(s): I48.91 - Unspecified atrial fibrillation Category: Medical (2) Dilated cardiomyopathy: Comment: follows w/[facility]-taking Entresto & Jardiance Code(s): I42.0 - Dilated cardiomyopathy Category: Medical (3) NELLY (obstructive sleep apnea): Comment: wears dental appliance Code(s): G47.33 - Obstructive sleep apnea (adult) (pediatric) Category: Medical (4) Tubular adenoma of colon: Comment: 2017 Kaley@ [facility]= 3 small TA is Code(s): D12.6 - Benign neoplasm of colon, unspecified Category: Medical (5) Heart failure with reduced ejection fraction: Comment: EF 40% at last echo Code(s): I50.20 - Unspecified systolic (congestive) heart failure Category: Medical Plan His last colonoscopy was in [address] Roche and 3 small TA is removed at [facility]. No bowel or upper GI problems. He tells us that he has a history of AFib with a prior cardiac ablation but apparently this has failed and he will be going for repeat ablation in the recent future. Because of this we will need Cardiology clearance. He is seen at [facility]. He has NELLY if it denies any other respiratory problems. There are no prior problems with anesthesia or sedation. There are no infectious disease problems. FHX: his father of metastatic CRC age 83, and the pt has had TA's. COLONOSCOPY BIOPSY Orders: Orders 2 Colonoscopy - GI Use Only Today D12.6 - Benign neoplasm of colon, unspecified, Z01.818 - Encounter for other preprocedural examination Comprehensive Met. Panel Today D12.6 - Benign neoplasm of colon, unspecified, Z01.818 - Encounter for other preprocedural examination Complete Blood Count Auto Diff Today D12.6 - Benign neoplasm of colon, unspecified, Z01.818 - Encounter for other preprocedural examination Medications: New 2 peg 3350-electrolytes 236-22.74-6.74 -5.86 gram (Golytely) until fecal effluent is clear; do not exceed a total volume of 2,000 mL 240 mL PO Q10M 4,000 mL 0RF 1 day Z12.11 - Encounter for screening for malignant neoplasm of colon bisacodyl (Dulcolax (bisacodyl)) 10 mg (2 x 5 mg) PO BEDTIME 4 tabs 0RF 2 days Coding Level of Care Code New Pt Level 3 (44942) Diagnoses A-fib I48.91 Dilated cardiomyopathy I42.0 NELLY (obstructive sleep apnea) G47.33 Tubular adenoma of colon D12.6 Heart failure with reduced ejection fraction I50.20
--- OUTSIDE RECORDS SUMMARY | 2025-07-11 14:01 | XMS_ITS | Clinical Summary ---
Author Organization [employer] Address [address] [facility] 7 [place] [address] Care Team Providers Care Service Desk Agent Name Role Phone Unavailable Primary Care Provider Unavailabl e Allergies No known active allergies Medications metroNIDAZOLE (Metrocream) 0.75 % cream APPLY TOPICALLY TO FACE TWICE DAILY 3 Active testosterone (Androgel) 25 MG/2.5GM (1%) gel Apply daily as directed 8 Active Eliquis 5 MG tablet Take 1 tablet by mouth 2 times daily. 4 Active metoprolol succinate XL (Toprol-XL) 50 MG 24 hr tablet Take 50 mg by mouth Once per day. Active rosuvastatin (Crestor) 20 MG tablet Take 20 mg by mouth at bedtime. 5 Active Entresto 97-103 MG tablet Take 1 tablet by mouth 2 times daily. Active empagliflozin (Jardiance) 10 MG Take 1 tablet by mouth Once per day. 4 Active Encounters Date Type Department Care Team Description 04/19/2025 8:30 AM EDT Office Visit [facility] [address] [place] [id number] [address] Healy Encounter for dental examination (Primary Dx); Tooth abrasion from Last 3 Months Social History Tobacco [...] not to disclose 2022 9:17 AM EDT Last Filed Vital Signs Vital Sign Reading Time Taken Comments Blood Pressure 166/96 04/19/2025 8:34 AM EDT Pulse 62 04/19/2025 8:34 AM EDT Temperature - - Respiratory Rate - - Oxygen Saturation - - Inhaled Oxygen Concentration - - Weight - - Height - - Body Mass Index - - Plan of Treatment Upcoming Encounters Date Type Department Care Team (Late st Contact Info) Description 10/20/2025 8:00 AM EST Office Visit [facility] [address] [place] [address] Yamel Healy Health Maintenance Due Date Last Done Comments CT Colonography 1958 Colonoscopy 1958 Colorectal Cancer Screening 1958 Depression Screening 1958 FIT DNA/Cologuard 1958 FIT 1958 FOBT 1958 Lipid Panel 1958 SDOH Screening 1958 Sigmoidoscopy 1958 Alcohol/Substance Use Screening 1970 Hepatitis C Screening 1976 RSV Patients and Patients Aged 60 years or older (1 - Risk 60-74 years 1-dose series) 2018 COVID-19 Vaccine ( - season) 2024 05/02/2021 Dental X-Ray: Full Mouth 06/21/2025 06/20/2022, 05/10 Influenza Vaccine (#1) 2025 , 08/18/2019, 09/17/2018, Additional history exists Dental Oral Exam 10/20/2025 04/19/2025, 04/2024, 02/26/2024, Additional history exists Dental Prophylaxis 10/20/2025 04/19/2025, 1 12/15/2023, 02/26/2024, Additional history exists Tobacco Screening 04/19/2026 04/19/2025 Dental X-Ray: Bitewings 04/20/2026 04/19/20 25, 06/20/2022, 06/13/2021, Additional history exists DTaP/Tdap/Td Vaccines (2 - Td or Tdap) [...] Procedure Name Priority Date/Time Associated Diagnosis Comments CASE PRESENTATION, DETAILED AND EXTENSIVE TREATMENT PLANNING Routine 04/19/2025 8:30 AM EDT ORAL HYGIENE INSTRUCTIONS Routine 2024 8:30 AM EDT BITEWINGS - 4 RADIOGRAPHIC IMAGES Routine 04/19/2025 8:30 AM EDT Full PROPHYLAXIS - ADULT Routine 025 8:30 AM EDT PERIODIC ORAL EVALUATION - ESTABLISHED PATIENT Routine 04/19/2025 8:30 AM EDT INTRAORAL - COMPLETE SERIES OF RADIOGRAPHIC IMAGES Routine 06/20/2022 12:00 AM EDT from Last 3 Months or Most Recently Relevant to Health Maintenance Insurance D[facility]AL-[facility] MEDICAID STAND ADULT DENTAL - [facility] D[facility] - [facility] FULL (MEDICAID)
--- OUTSIDE RECORDS SUMMARY | 2025-07-11 14:01 | XMS_ITS | Clinical Summary ---
Author Organization [address] [place] [address] Address [address] [place] [address] Phone Care Team Providers Care Pesticide Use Medical Coordinator Name Role Phone Jc Myrick RENETTA Primary Care Provider Allergies No known active allergies Medications acetaminophen (TYLENOL 8 HOUR) 650 mg 8 hr tablet Take 1 Tablet by mouth every 8 hours as needed for Pain for up to 30 days. 3 Active metroNIDAZOLE (METROCREAM) 0.75 % cream Apply topically 2 times daily. Active testosterone 50 mg/5 gram (1 %) gel Apply daily as directed 8 Active sacubitriL-shayy sartan (Entresto) 97-103 mg per tablet TAKE 1 TABLET BY MOUTH TWICE DAILY 180 tablet 2 5 Active empagliflozin (Jardiance) 10 mg tablet TAKE 1 TABLET BY MOUTH DAILY 30 tablet 5 5 Active B complex-vitami n C tablet Take 1 tablet by mouth 1 (one) time each day. Active rosuvastatin (CRESTOR) 20 mg tablet Take 1 tablet (20 mg total) by mouth 1 (one) time each day. Active metoprolol succinate (TOPROL-XL) 50 mg 24 hr tablet Take 1.5 tablets (75 mg total) by mouth 1 (one) time each day. Do not crush or chew. 135 tablet 3 5 Active rosuvastatin (CRESTOR) 10 mg tablet Take 2 tablets (20 mg total) by mouth at bedtime. 4 07/04/20 25 Discontinue d(Dose adjustment) metoprolol succinate (TOPROL-XL) 50 mg 24 hr tablet TAKE 1 TABLET BY MOUTH DAILY 90 tablet 3 5 07/04/20 25 Discontinue d(Reorder) apixaban (Eliquis) 5 mg tablet Take 1 tablet (5 mg total) by mouth 2 times daily. 4 07/04/20 25 Discontinue d(Discontin ued by another clinician) Active Problems Problem Noted Date Diagnosed Date Dilation of aorta ([facility] V24) 05/01/2025 Overview (05/01/2025): - dilated aorta at the sinus 4.3 and ascending aorta 4.4, similar to 2022 Assessment & Plan (05/01/2025 8:12 AM EDT): Patient has a mildly dilated aorta at the sinus and ascending aorta. Update his echocardiogram prior to his next visit in about a year's time. Paroxysmal atrial fibrillation (CMS/[facility] V24, CMS /[facility] V28) 05/01/2025 Overview (05/01/2025): - Cryoballoon PVI ablation 10/2023, some fractionated signals in the lower anterior septum and posterior high near the right veins, the rest of the high fairly healthy and so no substrate modification performed -Without recurrence - low [id number] score, not currently anticoagulated Assessment & Plan [...] time though, he continues with a low [id number] score. In keeping with prior conversations with [...] Patient's LVEF is low normal, likely with hoahaoism of sinus rhythm. Continue GDMT for his [...] injury and catheter thrombus related stroke or [place]. He understands that he may not necessarily build to come off of anticoagulation even if successful we will base that decision on his [id number]-EVBw score. I encouraged him to continue efforts [...] 03/14/2019 Obstructive sleep apnea 12/17/2018 Overview (08/24/2024): [facility] Home Polysomnogram: Date 12/14/2018; AHI [...] Encounters Date Type Department Care Team Description 07/05/2025 Episode Changes [facility] Structural Heart [address] [place] [address] Carmen Waldron RN 07/05/2025 Telephone [facility] [address] [place] [phone] Marco Hunt MD 07/04/2025 8:40 AM EDT Consult [facility] - [address] [facility] [address] [place] [phone] Marco Hunt MD Paroxysmal atrial fibrillation (CMS/HCC V24, CMS/HCC V28) (Primary Dx) 05/15/2025 Telephone [facility] [address] [facility] [address] [place] [phone] Jc Myrick FNP 05/01/2025 7:40 AM EDT Office Visit [facility] - [address] [facility] [address] [place] [address] Glenna Brown NP Abnormal EKG (Primary Dx); Nonischemic cardiomyopathy (CMS/HCC V24, CMS/HCC V28); Pure hypercholesterolemia; Dilation of aorta (CMS/HCC V24); Paroxysmal atrial fibrillation (CMS/HCC V24, CMS/HCC V28) from Last 3 Months Immunizations Name Administration [...] Comments COLONOSCOPY 10/19/2007 PROCEDURE: HISTORICAL COLONOSCOPY; COMMENT: [facility]; Kaley; multiple small tubular adenomas. COLONOSCOPY 02/02/2018 PROCEDURE: HISTORICAL COLONOSCOPY; COMMENT: Diminutive colonic polyps 3: all tubular adenomas. OTHER SURGICAL HISTORY 08/2017 PROCEDURE: DECOMPRESS DISC RF LUMBAR; COMMENT: microlumbar discectomy L4-5 Lam TURP / TRANSURETHRAL INCISIO N / DRAINAGE PROSTATE 2017 PROCEDURE: HISTORICAL TURP UPPER GASTROINTESTINAL ENDOSCOPY 04/12/2020 PROCEDURE: [place] UPPER GI ENDOSCOPY PERFORMED; COMMENT: normal on famotidine rx. OTHER SURGICAL HISTORY 02/05/2022 PROCEDURE: [place] ARTHRODESIS POSTERIOR INTERBODY 1 NTRSPC LUMBAR; COMMENT: [...] , CMS/HCC V28) 03/11/2023 DX:New onset a-fib ([facility]) Family History Medical History Relation Name Comments [...] Mass Index 34.92 07/04/2025 8:54 AM EDT Plan of Treatment Upcoming Encounters Date Type Department Care Team (Late st Contact Info) Description 04/16/2026 8:00 AM EDT Ancillary Procedure [facility] - [address] [place] [address] Scheduled Procedures Name Priority Associated Diagnoses Date/Ti me LEFT ATRIAL APPENDAGE CLOSUR E (OTHER) Paroxysmal atrial fibrillation (CMS/HCC V24, CMS/HCC V28) ABLATION A-FIB Paroxysmal atrial fibrillation (CMS/HCC V24, CMS/HCC V28) Health Maintenance Due Date Last Done Comments RSV Immunization Adult Patients (1 - Risk 60-74 years 1-dose series) 2018 Medicare Annual Wellness Visit 10/18/2022 Social Influencers of Health Screening 10/18/2022 Colorectal Cancer Screening: Colonoscopy 02/02/2023 02/02/2018 Falls Risk Assessment 2023 Depression Screening 11/09/2024 COVID-19 Vaccine (2 - 2024- season) 2025 05/02/2021 Influenza Vaccine (#1) 2025 , 08/18/2019, 09/17/2018, [...] Paroxysmal atrial fibrillation (CMS/HCC V24, CMS/HCC V28) ECG 12-LEAD Routine 05/01/2025 8:12 AM EDT Abnormal EKG LIPID PANEL Routine 12/25/2023 HM COLONOSCOPY Routine 02/02/2018 HEPATITIS C SCREENING Routine 12/25/2017 from Last 3 Months or Most Recently Relevant to Health Maintenance Results * ECG 12 lead (07/04/2025 9:21 AM EDT) Only the most recent of2 resultswithin the time period is included. Ventricular Rate ECG 107 BPM GEMUSE Atrial Rate 86 BPM GEMUSE QRS Duration 94 ms GEMUSE Q-T Interval 346 ms GEMUSE QTc 461 ms GEMUSE R [place] -31 degrees GEMUSE T [place] 10 degrees GEMUSE ECG Interpretation Atrial fibrillation with rapid ventricular response Left axis deviation Abnormal ECG When compared with ECG of 01-MAY-2025 07:47, Atrial fibrillation has replaced Sinus rhythm Vent. rate has increased BY 46 BPM Confirmed by Hemal HUNT JOHN ([id number]) on 07/09/2025 4:58:36 PM GEMUSE 07/04/2025 9:01 AM EDT 07/09/2025 4:58 PM EDT Marco Hunt MD ECG ORDERABLES Edited Result - Final AGUSTÍN * (ABNORMAL) Lipid panel (12/25/2023) Pathologist [facility] LDL/HDL Ratio 4 0 - 4 Triglycerides 77 0 - 150 mg/dL Cholesterol 207(A) 0 - 200 mg/dL HDL 53 >=40 mg/dL LDL Cholesterol 139(A) 0 - 100 mg/dL Blood Venous blood specimen / Unknown Historical Provider LAB BLOOD ORDERABLES Natalya l Result * Colonoscopy (02/02/2018) Pathologist [facility] Colonoscopy No Interpretation , Abstracted Anatomical Region Laterality Modality Other Historical Provider HEALTH MAINTENANCE Final Result * Hepatitis C Screening (12/25/2017) Pathologist [facility] Hepatitis C Screening Abstracted Historical Provider HEALTH MAINTENANCE Final Result from Last 3 Months or Most Recently Relevant to Health Maintenance Insurance [employer] MEDICARE MEDICAID - [place] Care Teams Pesticide Use Medical Coordinator Relationship Specialty Start Date End Date Jc Myrick FNP [address] [place] [address] PCP - General Family Medicine 03/16/25
--- OUTSIDE RECORDS SUMMARY | 2025-07-11 14:01 | XMS_ITS | Encounter Summary ---
Author Organization [employer] Address [address] [place] [address] Care Team Providers Care Materials Planner Name Role Phone Unavailable Primary Care [...] Description 10/20/2025 8:00 AM EST Office Visit [place] [facility] [address] [place] [address] Yamel Healy documented as of this encounter Visit Diagnoses Not on filedocumented in this encounter
--- OUTSIDE RECORDS SUMMARY | 2025-07-11 14:01 | XMS_ITS | Encounter Summary ---
Author Organization [employer] Address [address] [place] [address] Care Team Providers Care Women'S Lacrosse Coach Name Role Phone Unavailable Primary Care Provider [...] Description 10/20/2025 8:00 AM EST Office Visit [place] [facility] [address] [place] [address] Yamel Healy documented as of this encounter Visit Diagnoses Not on filedocumented in this encounter
--- OUTSIDE RECORDS SUMMARY | 2025-07-11 14:01 | XMS_ITS | Clinical Summary ---
Author Organization [facility], Address [address] [place] [address] Phone Care Team Providers Care Supervisor Carding Name Role Phone Unavailable Primary Care Provider [...] 03/14/2019 Obstructive sleep apnea 12/17/2018 Overview (01/07/2022): [facility] Home Polysomnogram: Date 12/14/2018; AHI 19, [...]
--- OUTSIDE RECORDS SUMMARY | 2025-07-11 14:01 | XMS_ITS | Encounter Summary ---
Author Organization [employer] Address [address] [place] [address] Care Team Providers Care Pneumatic Tester Name Role Phone Unavailable Primary Care Provider [...] Description 10/20/2025 8:00 AM EST Office Visit [place] [facility] [address] [place] [address] Yamel Healy documented as of this encounter Visit Diagnoses Not on filedocumented in this encounter
--- OUTSIDE RECORDS SUMMARY | 2025-07-11 14:01 | XMS_ITS | Encounter Summary ---
[facility] Organization [facility] Address [address] [place] [address] Care Team Providers Care Finishing Range Feeder Name Role Phone Jc Myrick DIRECTOR OF FRONT OFFICE Primary Care Provider [phone] Reason for Visit * Reason Onset Date Comments Procedure 07/05/2025 Watchman with PF A Afib Ablation w/ Dr. Hunt at [facility] Encounter Details Date Type Department Care Team (Late st Contact Info) Description 07/05/2025 Telephone [facility] - [facility] [address] [facility] [address] [place] [address] Marco Hunt MD [address] [place] [address] Dr Byrnes [address] [place] [phone] Social History Tobacco Use Types Packs/Day Years [...] as of this encounter Progress Notes * Nichol Ramires - 07/05/2025 10:56 AM EDT No prior authorization is required for cpt code 33421, prior auth reference number is [id number]. Prior authorization submitted for cpt codes 56536 and 26417 for a tentative date of 08/17/25. Request is currently pending for medical review. Pending case number is [id number]. * Maximilian Morfin - 07/05/2025 8:46 AM EDT Watchman [id number] & Afib Ablation 27855 Dx Afib I48.11 w/ Dr. Hunt at [facility] on 08.17.25 (attentively) CTA Heart 21281 Dx Afib I48.11 w/ JPM at [facility] Dr. Hunt wants to see what gets approved for [facility] if both or one or the other * Maximilian Morfin - 07/05/2025 8:46 AM EDT Images from the original note were not included. MD Maximilian Bishop Please schedule watchman and atrial fibrillation ablation at [place] if can be approved by insurance. I would like him to get a CTA prior to the procedure. documented in this encounter Plan of Treatment Upcoming Encounters Date Type Department Care Team (Late st Contact Info) Description 04/16/2026 8:00 AM EDT Ancillary Procedure [facility] - [address] [place] [address] Scheduled Procedures Name Priority Associated Diagnoses Date/Ti me LEFT ATRIAL APPENDAGE CLOSUR E (OTHER) Paroxysmal atrial fibrillation (CMS/HCC V24, CMS/HCC V28) ABLATION A-FIB Paroxysmal atrial fibrillation (CMS/HCC V24, CMS/HCC V28) documented as of this encounter Visit Diagnoses Not on filedocumented in this encounter Care Teams Finishing Range Feeder Relationship Specialty Start Date End Date Jc Myrick FNP [address] [place] [address] PCP - General Family Medicine 03/16/25 documented as of this encounter
--- OUTSIDE RECORDS SUMMARY | 2025-07-11 14:01 | XMS_ITS | Encounter Summary ---
Author Organization [employer] Address [address] [place] [address] Care Team Providers Care Cold Patcher Name Role Phone Unavailable Primary Care Provider [...] Description 10/20/2025 8:00 AM EST Office Visit [place] [facility] [address] [place] [address] Yamel Healy documented as of this encounter Visit Diagnoses Not on filedocumented in this encounter
--- OUTSIDE RECORDS SUMMARY | 2025-07-11 14:01 | XMS_ITS | Encounter Summary ---
Author Organization [facility] Address [address] [place] [address] Care Team Providers Care Printing Film Stripper Name Role Phone Jc Myrick RENETTA Primary Care Provider [phone] Encounter Details Date Type Department Care Team (Late Contact Info) Description 03/13/2025 Lab Requisition [facility] - Main Lab 299 [facility] [place] [address] Stephenie Arreguin PA [address] [place] [address] [phone] Testicular hypofunction Social History Tobacco Use Types [...] Department Care Team (Late Contact Info) Description 04/16/2026 8:00 AM EDT Ancillary Procedure [facility] - [facility] [address] [facility] [address] [place] [phone] Scheduled Procedures Name Priority Associated Diagnoses Date/Ti [...] Complete blood count (03/13/2025 8:33 AM EDT) [facility] WBC 4.7(L) 4.8 - 10.8 K/mcL LAB HEMETOLOGY METHOD 03/13/2025 1:49 PM [facility] RBC 5.00 4.50 - 5.50 M/mcL LAB HEMETOLOGY METHOD 03/13/2025 1:49 PM [facility] Hemoglobin 16.6 13.5 - 17.5 g/dL LAB HEMETOLOGY METHOD 03/13/2025 1:49 PM [facility] Hematocrit 50.0 42.0 - 54.0 % LAB HEMETOLOGY METHOD 03/13/2025 1:49 PM [facility] MCV 99.4(H) 79.0 - 98.0 FL LAB HEMETOLOGY METHOD 03/13/2025 1:49 PM [facility] MCH 33.0(H) 27.0 - 32.0 pcg LAB HEMETOLOGY METHOD 03/13/2025 1:49 PM [facility] MCHC 33.2 32.0 - 37.0 g/dL LAB HEMETOLOGY METHOD 03/13/2025 1:49 PM [facility] RDW 13.1 11.0 - 15.0 % LAB HEMETOLOGY METHOD 03/13/2025 1:49 PM [facility] Platelets 207 130 - 400 K/mcL LAB HEMETOLOGY METHOD 03/13/2025 1:49 PM [facility] MPV 9.6 7.0 - 11.0 FL LAB HEMETOLOGY METHOD 03/13/2025 1:49 PM [facility] NRBC 0.0 <1.0 % LAB HEMETOLOGY METHOD 03/13/2025 1:49 PM [facility] NRBC Absolute 0.00 <0.10 K/mcL LAB HEMETOLOGY METHOD 03/13/2025 1:49 PM EDT [facility] Blood Venous blood specimen / Unknown 03/13/2025 8:33 AM EDT 03/13/2025 12:43 PM EDT Stephenie SIMMONS LAB BLOOD ORDERABLES Final Re sult [facility] [address] [place] [address], documented in this encounter Visit Diagnoses Diagnosis Testicular hypofunction Other testicular hypofunction documented in this encounter Care Teams Printing Film Stripper Relationship Specialty Start Date End Date Jc Myrick FNP [address] [place] [phone] PCP - General Family Medicine 03/16/25 documented as of this encounter
== END 2025-07-11 13:39 | disposition home or self-care (01) ==
LOC: HO.HGI 12:47
PROVIDERS: PCP Nurse Practitioner Family; Visit Provider Nurse Practitioner
DX: I48.91 Unspecified atrial fibrillation (principal); I42.0 Dilated cardiomyopathy; G47.33 Obstructive sleep apnea (adult) (pediatric); D12.6 Benign neoplasm of colon, unspecified; I50.20 Unspecified systolic (congestive) heart failure
CPT/HCPCS: 99203

== ENCOUNTER → 2025-07-11 12:46 | Outpatient (BNVA) | payer OTHER, SELFPAY | PROVIDERS: PCP Nurse Practitioner Family; Visit Provider Nurse Practitioner | DX: D12.6 Benign neoplasm of colon, unspecified (principal); I50.20 Unspecified systolic (congestive) heart failure; G47.33 Obstructive sleep apnea (adult) (pediatric); I42.0 Dilated cardiomyopathy; I48.91 Unspecified atrial fibrillation; I11.0 Hypertensive heart disease with heart failure | CPT/HCPCS: 99202 ==

== ENCOUNTER 2025-07-12 08:18 | Outpatient (AMB) | payer OTHER, SELFPAY ==
--- OUTSIDE RECORDS SUMMARY | 2025-07-04 08:40 | XMS_ITS | Encounter Summary ---
Author Organization [facility] Address [address] [place] [address] Care Team Providers Care Online Content Developer Name Role Phone Jc Myrick RENETTA Primary Care Provider [phone] Reason for Visit * Reason Comments WATCHMAN TALK Encounter Details Date Type Department Care Team (Late st Contact Info) Description 07/04/2025 8:40 AM EDT Consult [facility] [address] [facility] [address] [place] [address] Reginaldo Hunt MD [address] [place] [address] [place] [address] Paroxysmal atrial fibrillation (CMS/HCC V24, CMS/HCC V28) [...] referred for possible left atrial appendage closure.His [id number] score appears to be 3 for age [...] cardiomyopathy patient This 65-year-old gentleman with a [id number]-BQSp score of 3 and persistent atrial fibrillation [...] Description 04/16/2026 8:00 AM EDT Ancillary Procedure [facility] - [address] [place] [address] Scheduled Procedures Name Priority Associated Diagnoses Date/Ti [...] ms GEMUSE QTc 461 ms GEMUSE R [place] -31 degrees GEMUSE T [place] 10 degrees GEMUSE ECG Interpretation Atrial fibrillation [...] 07/04/2025 documented in this encounter Care Teams Online Content Developer Relationship Specialty Start Date End Date Jc Myrick FNP [address] [place] [address] PCP - General Family Medicine 03/16/25 documented as of this encounter
[2025-07-12 08:36] VITALS: BMI 34.6
--- NOTE | 2025-07-12 08:36 | MHC.AMNUTRGE ---
VS Expanded 07/12/25 08:36 Height 6 ft 2 in Weight 269 lb 2.951 oz BMI 34.6 Intake Visit Reasons: Obesity Allergies No Known Allergies Allergy (Verified 07/11/25 12:59) Nutrition Presentation Details: Pt presents for MNT f/u for obesity Pt reports gradually working on diet modifications, reducing empty calorie foods food frequency fruits:1-2/d fish: 1-2/wk dairy :3-4 serving/d veg: daily (mostly starchy veg) reducing on amount of caffeine consumptions to 3 c coffee/d 24 hr food recall typically has 2 meals/d and 1 snack) coffee 3 x/w milk 2%, no sugar banana or egg sandwich with cheese on white bread may skip lunch or may have peanut butter and jelly sand and 2% milk or ham/cheese on white bread Dinner: potato/chicken/corn physical activity: ADL etoh/smoking Denies BS Monitoring Most Recent Diabetes Results: Cholesterol, (<200) 177 mg/dL 06/05/25 HDL Cholesterol, (>40) 48 mg/dL 06/05/25 Triglycerides, (<150) 124 mg/dL 06/05/25 [facility] Medical History (Updated 07/12/25 @ 08:55 by Lolis Buck, RD, LDN) Colon cancer screening Laboratory tests ordered as part of a complete physical exam (CPE) Encounter for routine adult physical exam with abnormal findings Neuropathy Lumbar disc disease Cervical spinal stenosis BPH (benign prostatic hyperplasia) Ascending aorta dilation Hyperlipidemia HTN (hypertension) NELLY (obstructive sleep apnea) Dilated cardiomyopathy Neuropathy A-fib Lumbar radiculopathy Surgical History (Updated 07/11/25 @ 13:14 by SUMIT Reece) History of esophagogastroduodenoscopy (EGD) H/O colonoscopy S/P insertion of spinal cord stimulator Status post cryoablation S/P placement of nerve stimulator H/O eye surgery History of bladder surgery History of shoulder surgery History of lumbar fusion Family History (Updated 07/11/25 @ 13:00 by BLANK Curry) Father Colon cancer Social History (Updated 06/13/25 @ 10:40 by Sofy Martines MA) Housing: House Alcohol intake: former Patient Tobacco Use Status: Never used Tobacco e-Cigarette/Vaping Use: Never Used Second Hand Smoke Exposure: No service: No Current occupational status: retired and disabled Current occupational exposures/hazards: No Cognitive needs: No Hearing needs: No Vision needs: No Assessment & Plan Assessment & Plan (1) Obesity (BMI 30-39.9): Code(s): E66.9 - Obesity, unspecified Category: Medical Plan: Wt: 124 Kg ( 10/02 ), 120 KG (01/03), 122kg (08/03) Est kcal needs as per MSJ: 2500 (40% carb, 30% protein/fat) Est fluid needs as per 25-30 ml/d: 3700 Est prot per day as per 1 g/kg bw: 124 Recommend fiber intake : 8-10 g per day and gradually increase to 25-28 g per day for women and 35-38 g for men or as tolerated Recommend sodium intake per day : g less than 2300 mg Educated patient on: ( R = reviewed V = verbalizes understanding N/R = needs review N/A = not applicable Food sources of carbohydrate, adequate serving sizes and its role in various health conditions: R Differences between complex carbohydrates a simple carbohydrates, role of fiber in diet: R Lean protein sources of foods: R Differences between types of fats and role in diet (mono on saturated fat fatty acids, saturated fatty acids, trans fats): R Food sources of sodium in salt and healthy modifications for heart health in kidney health: R Vitamins and minerals via foods : R V Healthy plate method concept: R Physical activity: Benefits a precaution: R and start physical activity when cleared by MD Patient Instructions: Include foods with probiotic/prebiotic Have yogurt at least once a day Switch to fiber rich bread, cereal Coding Level of Care Code Nutr Indiv Subseq (20254) Diagnoses Obesity (BMI 30-39.9) E66.9 Time Spent (min) 30
--- OUTSIDE RECORDS SUMMARY | 2025-07-12 08:45 | XMS_ITS | Clinical Summary ---
Author Organization [employer] Address 75 [facility] 7 [place] [address] Care Team Providers Care Resistor Winder Name Role Phone Unavailable Primary Care Provider [...] 8:30 AM EDT Office Visit [facility] [address] [place] [address] Yamel Healy Encounter for dental examination (Primary [...] 10/20/2025 8:00 AM EST Office Visit [facility] [address] [place] [address] Yamel Healy Health Maintenance Due Date Last [...] Recently Relevant to Health Maintenance Insurance [facility]AL-[facility] MEDICAID STAND ADULT DENTAL - [facility] DENTAL - HSN FULL (MEDICAID)
--- OUTSIDE RECORDS SUMMARY | 2025-07-12 08:45 | XMS_ITS | Encounter Summary ---
Author Organization [employer] Address [address] [place] [address] Care Team Providers Care Wallpaper Hanger Helper Name Role Phone Unavailable Primary Care Provider [...] Description 10/20/2025 8:00 AM EST Office Visit [place] [facility] D[facility] [address] [place] [address] Yamel Healy documented as of this encounter Visit Diagnoses Not on filedocumented in this encounter
--- OUTSIDE RECORDS SUMMARY | 2025-07-12 08:45 | XMS_ITS | Clinical Summary ---
Author Organization [address] [place] [address] Address [address] [place] [address] Phone Care Team Providers Care Worsted Winder Name Role Phone Jc Myrick RENETTA Primary Care Provider [phone] Allergies No known active allergies Medications acetaminophen [...] Noted Date Diagnosed Date Dilation of aorta ([facility] V24) 05/01/2025 Overview (05/01/2025): - dilated aorta at the sinus 4.3 and ascending aorta 4.4, similar to 2022 Assessment & Plan (05/01/2025 8:12 AM EDT): Patient has a mildly dilated aorta at the sinus and ascending aorta. Update his echocardiogram prior to his next visit in about a year's time. Paroxysmal atrial fibrillation (CMS/[facility] V24, CMS /[facility] V28) 05/01/2025 Overview (05/01/2025): - Cryoballoon PVI ablation 10/2023, some fractionated signals in the lower anterior septum and posterior high near the right veins, the rest of the high fairly healthy and so no substrate modification performed -Without recurrence - low [id number] score, not currently anticoagulated Assessment & Plan [...] time though, he continues with a low [id number] score. In keeping with prior conversations with [...] Patient's LVEF is low normal, likely with advent of sinus rhythm. Continue GDMT for his [...] injury and catheter thrombus related stroke or NC. He understands that he may not necessarily build to come off of anticoagulation even if successful we will base that decision on his [id number] score. I encouraged him to continue efforts [...] 03/14/2019 Obstructive sleep apnea 12/17/2018 Overview (08/24/2024): [facility] Home Polysomnogram: Date 12/14/2018; AHI [...] Department Care Team Description 07/05/2025 Episode Changes [facility] Structural Heart [address] [place] [address] Carmen Waldron RN 07/05/2025 Telephone [facility] [place] - [address] [place] [phone] Marco Hunt MD 07/04/2025 8:40 AM EDT Consult [facility] [place] - [address] [facility] [address] [place] [phone] Marco Hunt MD Paroxysmal atrial fibrillation (CMS/HCC V24, CMS/HCC V28) (Primary Dx) 05/15/2025 Telephone [facility] [place] - [facility] Dr [facility]ales [facility] [address] [place] [phone] Jc Myrick FNP 05/01/2025 7:40 AM EDT Office Visit [facility] - [address] [facility] [address] [place] [address] Glenna Brown NP Abnormal EKG [...] Comments COLONOSCOPY 10/19/2007 PROCEDURE: HISTORICAL COLONOSCOPY; COMMENT: [facility]; [place]; multiple small tubular adenomas. COLONOSCOPY 02/02/2018 PROCEDURE: HISTORICAL COLONOSCOPY; COMMENT: Diminutive colonic polyps 3: all tubular adenomas. OTHER SURGICAL HISTORY 08/2017 PROCEDURE: DECOMPRESS DISC RF LUMBAR; COMMENT: microlumbar discectomy L4-5 Lam TURP / TRANSURETHRAL INCISIO N / DRAINAGE PROSTATE 2017 PROCEDURE: HISTORICAL TURP UPPER GASTROINTESTINAL ENDOSCOPY 04/12/2020 PROCEDURE: AK UPPER GI ENDOSCOPY PERFORMED; COMMENT: normal on famotidine rx. OTHER SURGICAL HISTORY 02/05/2022 PROCEDURE: AK ARTHRODESIS POSTERIOR INTERBODY 1 NTRSPC LUMBAR; COMMENT: [...] , CMS/HCC V28) 03/11/2023 DX:New onset a-fib ([facility]) Family History Medical History Relation [...] Description 04/16/2026 8:00 AM EDT Ancillary Procedure [facility] - [address] [place] [address] Scheduled Procedures Name Priority Associated [...] ms GEMUSE QTc 461 ms GEMUSE R Hugo -31 degrees GEMUSE T Hugo 10 degrees GEMUSE ECG Interpretation Atrial fibrillation [...] AGUSTÍN * (ABNORMAL) Lipid panel (12/25/2023) Pathologist [facility] LDL/HDL Ratio 4 0 - 4 Triglycerides 77 0 - 150 mg/dL Cholesterol 207(A) 0 - 200 mg/dL HDL 53 >=40 mg/dL LDL Cholesterol 139(A) 0 - 100 mg/dL Blood Venous blood specimen / Unknown Historical Provider LAB BLOOD ORDERABLES Natalya l Result * Colonoscopy (02/02/2018) Pathologist [facility] Colonoscopy No Interpretation , Abstracted Anatomical Region Laterality Modality Other Historical Provider HEALTH MAINTENANCE Final Result * Hepatitis C Screening (12/25/2017) Pathologist [facility] Hepatitis C Screening Abstracted Historical Provider HEALTH MAINTENANCE Final Result from Last 3 Months or Most Recently Relevant to Health Maintenance Insurance [place] [address] MEDICAID - [place] Care Teams Worsted Winder Relationship Specialty Start Date End Date Jc Myrick FNP [address] [place] [address] PCP - General Family Medicine 03/16/25
--- OUTSIDE RECORDS SUMMARY | 2025-07-12 08:45 | XMS_ITS | Encounter Summary ---
Author Organization [employer] Address [address] [place] [address] Care Team Providers Care Creative Writing Teacher Name Role Phone Unavailable Primary Care Provider [...] Description 10/20/2025 8:00 AM EST Office Visit [place] [facility] D[facility] [address] [place] [address] Yamel Healy documented as of this encounter Visit Diagnoses Not on filedocumented in this encounter
--- OUTSIDE RECORDS SUMMARY | 2025-07-12 08:45 | XMS_ITS | Encounter Summary ---
Author Organization [facility] Address [address] [place] [address] Care Team Providers Care Basic Acoustic Analyst Name Role Phone Jc Myrick OPERATOR CONTROL ROOM Primary Care Provider [phone] Reason for Visit * Reason Onset Date Comments Procedure 07/05/2025 Watchman with PF A Afib Ablation w/ Dr. Hunt at [facility] Encounter Details Date Type Department Care Team (Late st Contact Info) Description 07/05/2025 Telephone [facility] - [facility] [address] [facility] [address] [place] [address] Marco Hunt MD [address] [place] [address] Dr Byrnes [address] [place] [phone] Social History Tobacco Use Types Packs/Day Years [...] prior authorization is required for cpt code 51839, prior auth reference number is [id number]. Prior authorization submitted for cpt codes 62863 and 37531 for a tentative date of 08/17/25. Request is currently pending for medical review. Pending case number is [id number]. * Maximilian Morfin - 07/05/2025 8:46 AM EDT Watchman [id number] & Afib Ablation [address]452 Dx Afib I48.11 w/ Dr. Hunt at [facility] on 08.17.25 (attentively) CTA Heart [address]8044 Dx Afib I48.11 w/ JPM at [facility] Dr. Hunt wants to see what gets approved for [facility] if both or one or the other * Maximilian Morfin - 07/05/2025 8:46 AM EDT Images from the original note were not included. MD Maximilian Bishop Please schedule watchman and atrial fibrillation ablation at [place] if can be approved by insurance. I would like him to get a CTA prior to the procedure. documented in this encounter Plan of Treatment Upcoming Encounters Date Type Department Care Team (Late st Contact Info) Description 04/16/2026 8:00 AM EDT Ancillary Procedure [facility] - [address] [place] [address] Scheduled Procedures Name Priority Associated Diagnoses Date/Ti me LEFT ATRIAL APPENDAGE CLOSUR E (OTHER) Paroxysmal atrial fibrillation (CMS/HCC V24, CMS/HCC V28) ABLATION A-FIB Paroxysmal atrial fibrillation (CMS/HCC V24, CMS/HCC V28) documented as of this encounter Visit Diagnoses Not on filedocumented in this encounter Care Teams Basic Acoustic Analyst Relationship Specialty Start Date End Date Jc Myrick FNP [address] [place] [address] PCP - General Family Medicine 03/16/25 documented as of this encounter
--- OUTSIDE RECORDS SUMMARY | 2025-07-12 08:45 | XMS_ITS | Encounter Summary ---
Author Organization Address [address] [place] [address] Care Team Providers Care Certified Court Interpreter Name Role Phone Jc Myrick RENETTA Primary Care Provider [phone] Encounter Details Date Type Department Care Team (Late Contact Info) Description 03/13/2025 Lab Requisition [facility] - Main Lab [address] [facility] [place] [address] Stephenie Arreguin PA [address] [place] [address] [phone] Testicular hypofunction Social History Tobacco Use Types [...] Description 04/16/2026 8:00 AM EDT Ancillary Procedure [facility] - [facility] [address] [facility] [address] [place] [phone] Scheduled Procedures Name Priority Associated Diagnoses Date/Ti [...] Complete blood count (03/13/2025 8:33 AM EDT) [facility] WBC 4.7(L) 4.8 - 10.8 K/mcL LAB HEMETOLOGY METHOD 03/13/2025 1:49 PM [facility] RBC 5.00 4.50 - 5.50 M/mcL LAB HEMETOLOGY METHOD 03/13/2025 1:49 PM [facility] Hemoglobin 16.6 13.5 - 17.5 g/dL LAB HEMETOLOGY METHOD 03/13/2025 1:49 PM [facility] Hematocrit 50.0 42.0 - 54.0 % LAB HEMETOLOGY METHOD 03/13/2025 1:49 PM [facility] MCV 99.4(H) 79.0 - 98.0 FL LAB HEMETOLOGY METHOD 03/13/2025 1:49 PM [facility] MCH 33.0(H) 27.0 - 32.0 pcg LAB HEMETOLOGY METHOD 03/13/2025 1:49 PM [facility] MCHC 33.2 32.0 - 37.0 g/dL LAB HEMETOLOGY METHOD 03/13/2025 1:49 PM [facility] RDW 13.1 11.0 - 15.0 % LAB HEMETOLOGY METHOD 03/13/2025 1:49 PM [facility] Platelets 207 130 - 400 K/mcL LAB HEMETOLOGY METHOD 03/13/2025 1:49 PM [facility] MPV 9.6 7.0 - 11.0 FL LAB HEMETOLOGY METHOD 03/13/2025 1:49 PM [facility] NRBC 0.0 <1.0 % LAB HEMETOLOGY METHOD 03/13/2025 1:49 PM [facility] NRBC Absolute 0.00 <0.10 K/mcL LAB HEMETOLOGY METHOD 03/13/2025 1:49 PM EDT [facility] Blood Venous blood specimen / Unknown 03/13/2025 8:33 AM EDT 03/13/2025 12:43 PM EDT Stephenie SIMMONS LAB BLOOD ORDERABLES Final Re sult [facility] [address] [place] [address], documented in this encounter Visit Diagnoses Diagnosis Testicular hypofunction Other testicular hypofunction documented in this encounter Care Teams Certified Court Interpreter Relationship Specialty Start Date End Date Jc Myrick FNP [address] [place] [phone] PCP - General Family Medicine 03/16/25 documented as of this encounter
--- OUTSIDE RECORDS SUMMARY | 2025-07-12 08:45 | XMS_ITS | Clinical Summary ---
Author Organization [facility], Address [address] [place] [address] Phone Care Team Providers Care Oral Therapist Name Role Phone Unavailable Primary Care [...] 03/14/2019 Obstructive sleep apnea 12/17/2018 Overview (01/07/2022): [facility] Home Polysomnogram: Date 12/14/2018; AHI 19, [...]
--- OUTSIDE RECORDS SUMMARY | 2025-07-12 08:45 | XMS_ITS | Encounter Summary ---
Author Organization [employer] Address [address] [place] [address] Care Team Providers Care Coal And Ash Supervisor Name Role Phone Unavailable Primary Care Provider [...] Description 10/20/2025 8:00 AM EST Office Visit [place] [facility] [address] [place] [address] Yamel Healy documented as of this encounter Visit Diagnoses Not on filedocumented in this encounter
--- OUTSIDE RECORDS SUMMARY | 2025-07-12 08:45 | XMS_ITS | Encounter Summary ---
Author Organization [employer] Address [address] [place] [address] Care Team Providers Care Cable Worker Helper Name Role Phone Unavailable Primary Care [...] Description 10/20/2025 8:00 AM EST Office Visit [place] [facility] [address] [place] [address] Yamel Healy documented as of this encounter Visit Diagnoses Not on filedocumented in this encounter
== END 2025-07-13 08:51 | disposition home or self-care (01) ==
LOC: HO.ENCR 08:19
PROVIDERS: PCP Nurse Practitioner Family; Visit Provider Dietitian, Registered
DX: E66.9 Obesity, unspecified (principal)

== ENCOUNTER → 2025-07-12 08:18 | Outpatient (BNVA) | payer OTHER, SELFPAY | PROVIDERS: PCP Nurse Practitioner Family; Visit Provider Dietitian, Registered | DX: E66.9 Obesity, unspecified (principal); Z71.3 Dietary counseling and surveillance | CPT/HCPCS: 97803 ==

== ENCOUNTER 2025-09-11 08:29 | Outpatient (REF) | payer OTHER, SELFPAY ==
--- OUTSIDE RECORDS SUMMARY | 2025-09-11 08:52 | XMS_ITS | Clinical Summary ---
Author Organization [facility], Address [address] [place] [address] Phone Care Team Providers Care Councilperson Name Role Phone Unavailable Primary Care Provider [...] 03/14/2019 Obstructive sleep apnea 12/17/2018 Overview (01/07/2022): [facility] Home Polysomnogram: Date 12/14/2018; AHI [...]
--- OUTSIDE RECORDS SUMMARY | 2025-09-11 08:52 | XMS_ITS | Encounter Summary ---
Author Organization [facility] Address [address] [place] [address] Care Team Providers Care Siding Coreboard Inspector Name Role Phone Unavailable Primary Care Provider [...] Description 10/20/2025 8:00 AM EST Office Visit [place] [facility] [address] [place] [address] Yamel Healy documented as of this encounter Visit Diagnoses Not on filedocumented in this encounter
--- OUTSIDE RECORDS SUMMARY | 2025-09-11 08:52 | XMS_ITS | Clinical Summary ---
Author Organization [address] [place] [address] Address [address] [place] [address] Phone Care Team Providers Care Tufter Operator Name Role Phone Jc Myrick ELECTRICAL MAINTENANCE ENGINEER Primary Care Provider [phone] Allergies No known active allergies Medications acetaminophen (TYLENOL 8 HOUR) 650 mg 8 hr tablet Take 1 Tablet by mouth every 8 hours as needed for Pain for up to 30 days. 3 Active metroNIDAZOLE (METROCREAM) 0.75 % cream Apply topically 2 times daily. Active testosterone 50 mg/5 gram (1 %) gel Apply daily as directed 8 Active sacubitriL-vals melva (Entresto) 97-103 mg per tablet TAKE 1 TABLET BY MOUTH TWICE DAILY 180 tablet 2 5 Active empagliflozin (Jardiance) 10 mg tablet TAKE 1 TABLET BY MOUTH DAILY 30 tablet 5 5 Active B complex-vitamin C tablet Take 1 tablet [...] or chew. 135 tablet 3 5 Active Active Problems Problem Noted Date Diagnosed [...] substrate modification performed -Without recurrence - low SNB1KA4-DFYc score, not currently anticoagulated Assessment & Plan [...] time though, he continues with a low [id number] score. In keeping with prior conversations with [...] Patient's LVEF is low normal, likely with jew of sinus rhythm. Continue GDMT for his [...] we will base that decision on his SOQ2RO2-ZMIu score. I encouraged him to continue efforts [...] 03/14/2019 Obstructive sleep apnea 12/17/2018 Overview (08/24/2024): [facility] Home Polysomnogram: Date 12/14/2018; AHI 19, [...] Encounters Date Type Department Care Team Description 08/31/2025 Results Follow-Up [facility]iology [facility] [address] [place] [phone] Marco Hunt MD 08/22/2025 7:46 AM EDT - 08/22/2025 11:59 PM EDT Hospital Encounter [facility] CT Scan [address] [place] [address] Atrial fibrillation, unspecified type (CMS/HCC V24, CMS/HCC V28) Discharge Disposition: Home or Self Care 08/14/2025 Telephone [facility] [address] [place] [phone] Shyanne Rios RN 08/04/2025 Telephone [facility] [address] [place] [phone] Perla Machado, RENA 07/07/2025 Telephone [facility] [address] [facility] [address] [place] [phone] Jc Myrick FNP 07/05/2025 Episode Changes [facility] [address] [place] [phone] Carmen Waldron RN 07/05/2025 Telephone [facility] [address] [place] [phone] Marco Hunt MD 07/04/2025 8:40 AM EDT Consult [facility] [address] [facility] [address] [place] [address] Marco Hunt MD Paroxysmal atrial fibrillation (CMS/HCC V24, CMS/HCC V28) (Primary Dx) from Last 3 Months Immunizations Immunization Administration Dates Next Due Influenza Quadravalent, MDCK [...] Comments COLONOSCOPY 10/19/2007 PROCEDURE: HISTORICAL COLONOSCOPY; COMMENT: [facility]; [place]; multiple small tubular adenomas. COLONOSCOPY 02/02/2018 PROCEDURE: HISTORICAL COLONOSCOPY; COMMENT: Diminutive colonic polyps 3: all tubular adenomas. OTHER SURGICAL HISTORY 08/2017 PROCEDURE: DECOMPRESS DISC RF LUMBAR; COMMENT: microlumbar discectomy L4-5 Lam TURP / TRANSURETHRAL INCISIO N / DRAINAGE PROSTATE 2017 PROCEDURE: HISTORICAL TURP UPPER GASTROINTESTINAL ENDOSCOPY 04/12/2020 PROCEDURE: [facility] UPPER GI ENDOSCOPY PERFORMED; COMMENT: normal on famotidine rx. OTHER SURGICAL HISTORY 02/05/2022 PROCEDURE: [facility] ARTHRODESIS POSTERIOR INTERBODY 1 NTRSPC LUMBAR; COMMENT: [...] Value Date Recorded Sex Assigned at Male 08/22/2025 7:48 AM EDT Legal Sex Male 1:35 AM EST Gender Identity Male 08/22/2025 7:48 AM EDT Sexual Orientation Straight 08/22/2025 7: 48 AM EDT Obstetrics History Last Filed Vital Signs Vital [...] Description 04/16/2026 8:00 AM EDT Ancillary Procedure [facility] [address] [place] [address] Scheduled Procedures Name Priority Associated Diagnoses Date/Ti me LEFT ATRIAL APPENDAGE CLOSUR E (OTHER) Paroxysmal atrial fibrillation (CMS/HCC V24, CMS/HCC V28) ABLATION A-FIB Paroxysmal atrial fibrillation (CMS/HCC V24, CMS/HCC V28) Health Maintenance Due Date Last Done Comments RSV Immunization Adult Patients (1 - Risk 50-74 years 1-dose series) 2008 Medicare Annual Wellness Visit 10/18/2022 Social Influencers of Health Screening 10/18/2022 Colorectal Cancer Screening: Colonoscopy 02/02/2023 02/02/2018 Falls Risk Assessment 2023 Depression Screening 11/09/2024 COVID-19 Vaccine (2 - season) 2025 05/02/2021 Influenza Vaccine (#1) 2025 [...] Procedure Name Priority Date/Time Associated Diagnosis Comments CT ANGIO HEART W 3D IMAGING/FUNCTION Routine 08/22/2025 8:39 AM EDT Atrial fibrillation, unspecified type (CMS/HCC V24, CMS/HCC V28) POCT CREATININE BLOOD Routine 08/22/2025 8:16 AM EDT ECG 12-LEAD Routine 07/04/2025 9:21 AM EDT Paroxysmal atrial fibrillation (CMS/HCC V24, CMS/HCC V28) LIPID PANEL Routine 12/25/2023 COLONOSCOPY Routine 02/02/2018 HEPATITIS C SCREENING Routine 12/25/2017 from Last 3 Months or Most Recently Relevant to Health Maintenance Results * CT Angio Heart w 3D Imaging/Function (08/22/2025 8:39 AM EDT) Anatomical Region Laterality Modality Body Computed Tomogra phy 08/27/2025 2:27 PM EDT Impressions 08/28/2025 11:50 AM EDT Impression: Non-obstructing calcified multivessel coronary artery disease, as described. No thrombus in the left atrial appendage. Coronary circulation is right dominant. Dilated ascending thoracic aorta without dissection. Thank you very much for the referral. -------- FINAL REPORT -------- Dictated By: Moshe Delgado Dictated Date: 08/27/2025 14:27 ET Assigned Physician: Moshe Delgado Reviewed and Electronically Signed By: Moshe Delgado Signed Date: 08/28/2025 11:50 ET Workstation ID: [id number] Transcribed By: Self Edit Transcribed Date: 08/27/2025 14:46 ET Narrative 08/28/2025 11:50 AM EDT Diagnosis: atrial fibrillation Pre-Watchman CT. CARDIAC CT ANGIOGRAPHY Technique: ECG gated CT angiography the heart was acquired with 120 Kv technique following IV administration of 100 CC's of Isovue 370. The Kv technique was chosen based on the patient's body habitus. Images were reconstructed multiplanar and reviewed in 2D, 3-D, curved MPR and MIP. If indicated, the patient may have received sublingual nitroglycerin and a beta nancy. Findings: The study quality: Diagnostic. Coronary circulation is right dominant. Left main coronary artery: The left main coronary artery is of average length and large caliber. No plaques in the left main. The left main trifurcates in to the LAD, ramus intermedius and left circumflex coronary artery. Left anterior descending coronary artery: The LAD is a long artery of moderate caliber. It gives origin to diagonal and septal database modeler branches. Mild amount of eccentric calcified plaque in the proximal mid left anterior descending causing 10-20% obstruction. No additional plaques in the rest of the left anterior descending. Small non-obstructing punctate calcified plaque in the mid segment of the 1st diagonal branch. Left circumflex coronary artery: The left circumflex is a moderate caliber artery of average length. It gives origin to obtuse marginal branches. Mild amount of spotty eccentric calcified plaque in the proximal circumflex causing 10% or less obstruction. No additional plaques in these branches. Right coronary artery: The RCA is a long artery of large caliber. It gives origin to acute marginal branches, the posterior descending artery and posterolateral ventricular branch. Moderate amount of spotty calcified plaques in the proximal mid RCA causing obstruction in the range of 20-40%. No plaques noted in the distal RCA/PDA. Ramus intermedius artery: Ramus is a small caliber branch and without disease. No cardiomegaly. No thrombus in the left atrial appendage which has cactus shape. The base of the appendage measures in the range of 2.5 cm. No hypertrophy of the left ventricle. Dilatation of the ascending thoracic aorta measuring the range of 3.9 cm and without dissection. Mild spotty calcifications in the aortic annulus. No pericardial effusion. Adjacent lungs are free of infiltrates. Implanted thoracic cord stimulator. Procedure Note Moshe Delgado MD - 08/28/2025 Diagnosis: atrial fibrillation Pre-Watchman CT. CARDIAC CT ANGIOGRAPHY Technique: ECG gated CT angiography the heart was acquired with 120 Kv techniquefollowing IV administration of 100 CC's of Isovue 370. The Kv technique was chosen based on the patient's body habitus. Images were reconstructed multiplanar and reviewed in 2D, 3-D, curved MPRand MIP. If indicated, the patient may have received sublingual nitroglycerin and abeta nancy. Findings: The study quality: Diagnostic. Coronary circulation is right dominant. Left main coronary artery: The left main coronary artery is of average length and large caliber. No plaques in the left main. The left main trifurcates in to the LAD, ramus intermedius and leftcircumflex coronary artery. Left anterior descending coronary artery: The LAD is a long artery of moderate caliber. It gives origin to diagonaland septal database modeler branches. Mild amount of eccentric calcified plaque in the proximal mid leftanterior descending causing 10-20% obstruction. No additional plaques inthe rest of the left anterior descending. Small non-obstructing punctatecalcified plaque in the mid segment of the 1st diagonal branch. Left circumflex coronary artery: The left circumflex is a moderate caliber artery of average length. Itgives origin to obtuse marginal branches. Mild amount of spotty eccentric calcified plaque in the proximalcircumflex causing 10% or less obstruction. No additional plaques in these branches. Right coronary artery: The RCA is a long artery of large caliber. It gives origin to acutemarginal branches, the posterior descending artery and posterolateralventricular branch. Moderate amount of spotty calcified plaques in the proximal mid RCAcausing obstruction in the range of 20-40%. No plaques noted in thedistal RCA/PDA. Ramus intermedius artery: Ramus is a small caliber branch and without disease. No cardiomegaly. No thrombus in the left atrial appendage which hascactus shape. The base of the appendage measures in the range of 2.5cm. No hypertrophy of the left ventricle. Dilatation of the ascending thoracic aorta measuring the range of 3.9 cmand without dissection. Mild spotty calcifications in the aortic annulus. No pericardial effusion. Adjacent lungs are free of infiltrates. Implanted thoracic cord stimulator. IMPRESSION: Impression: Non-obstructing calcified multivessel coronary artery disease, asdescribed. No thrombus in the left atrial appendage. Coronary circulation is right dominant. Dilated ascending thoracic aorta without dissection. Thank you very much for the referral. -------- FINAL REPORT -------- Dictated By: Moshe Delgado Dictated Date: 08/27/2025 14:27 ET Assigned Physician: Moshe Delgado Reviewed and Electronically Signed By: Moshe Delgado Signed Date: 08/28/2025 11:50 ET Workstation ID: [id number] Transcribed By: Self Edit Transcribed Date: 08/27/2025 14:46 ET us Marco Hunt MD IMG CT PROCEDURES Final Result * POCT Creatinine, blood (08/22/2025 8:16 AM EDT) [facility] Creatinine POCT 1.1 0.7 - 1.3 mg/dL 08/22/2025 10:21 AM EDT [facility] eGFR 69 mL/min/1.7 3m2 08/22/2025 10:21 AM EDT [facility] Blood Venous blood specimen / Unknown 08/22/2025 8:16 AM EDT 08/22/2025 10:23 AM EDT us Generic Provider Poct LAB POINT OF CARE TEST DOCKED DEVICE UNSOLICITED RESULTS Final Result [facility] [address] [place] [address], [place] [phone] * ECG 12 lead (07/04/2025 9:21 AM EDT) Ventricular Rate ECG 107 BPM GEMUSE Atrial Rate 86 BPM GEMUSE QRS Duration 94 ms GEMUSE Q-T Interval 346 ms GEMUSE QTc 461 ms GEMUSE R Zuni -31 degrees GEMUSE T Zuni 10 degrees GEMUSE ECG Interpretation Atrial fibrillation [...] Edited Result - Final GEMUSE * (ABNORMAL) Lipid panel (12/25/2023) [facility] LDL/HDL Ratio 4 0 - 4 Triglycerides 77 0 - 150 mg/dL Cholesterol 207(A) 0 - 200 mg/dL HDL 53 >=40 mg/dL LDL Cholesterol 139(A) 0 - 100 mg/dL Blood Venous blood specimen / Unknown Result [facility] Historical Provider LAB BLOOD ORDERABLES Natalya l Result * Colonoscopy (02/02/2018) [facility] Colonoscopy No Interpretation , Abstracted Anatomical Region Laterality Modality Other Historical Caterina ESTRELLA HEALTH MAINTENANCE Final Result * Hepatitis C Screening (12/25/2017) [facility] Hepatitis C Screening Abstracted Historical Provider HEALTH MAINTENANCE Final Result from Last 3 Months or Most Recently Relevant to Health Maintenance Insurance [employer] MEDICARE MEDICAID - [place] Care Teams Tufter Operator Relationship Specialty Start Date End Date Jc Myrick FNP [address] [place] [phone] PCP - General Family Medicine 03/16/25
--- OUTSIDE RECORDS SUMMARY | 2025-09-11 08:52 | XMS_ITS | Encounter Summary ---
Author Organization [facility] Address [address] [place] [address] Care Team Providers Care Field Crop I Farmworker Name Role Phone Jc Myrick RENETTA Primary Care Provider Encounter Details Date Type Department Care Team (Late st Contact Info) Description 03/13/2025 Lab Requisition [facility] - Main Lab [address] [facility] [place] [address] Stephenie Arreguin PA [address] [place] [address] Testicular hypofunction Social History Tobacco Use Types [...] Orientation Straight 08/22/2025 7: 48 AM EDT documented as of this encounter Plan of Treatment Upcoming Encounters Date Type Department Care Team (Late st Contact Info) Description 04/16/2026 8:00 AM EDT Ancillary Procedure [facility] [address] [place] [address] Scheduled Procedures Name Priority Associated [...] K/mcL LAB HEMETOLOGY [facility] RBC 5.00 4.50 - 5.50 M/mcL LAB HEMETOLOGY METHOD [facility]25 [facility] Hemoglobin 16.6 13.5 - 17.5 g/dL LAB HEMETOLOGY METHOD 03/13/2025 1:49 PM [facility] Hematocrit 50.0 42.0 - 54.0 % LAB HEMETOLOGY METHOD 03/13/2025 1:49 PM [facility] MCV 99.4(H) 79.0 - 98.0 FL LAB HEMETOLOGY METHOD 03/13/2025 1:49 PM [facility] MCH 33.0(H) 27.0 - 32.0 pcg LAB HEMETOLOGY METHOD 03/13/2025 1:49 PM [facility] MCHC 33.2 32.0 - 37.0 g/dL LAB HEMETOLOGY METHOD 03/13/2025 1:49 PM [facility] RDW 13.1 11.0 - 15.0 % LAB HEMETOLOGY METHOD 03/13/2025 1:49 PM [facility] Platelets 207 130 - 400 K/mcL LAB HEMETOLOGY METHOD 03/13/2025 1:49 PM [facility] MPV 9.6 7.0 - 11.0 FL LAB HEMETOLOGY METHOD 03/13[facility]2025 [facility] NRBC 0.0 <1.0 % LAB HEMETOLOGY METHOD 03/13/2025 1:49 PM EDT [facility] NRBC Absolute 0.00 <0.10 K/mcL LAB HEMETOLOGY METHOD 03/13/2025 1:49 PM EDT [facility] Blood Venous blood specimen / Unknown 03/13/2025 8:33 AM EDT 03/13/2025 12:43 PM EDT us Setphenie SIMMONS LAB BLOOD ORDERABLES Final Re sult [facility] [address] [place] [address], documented in this encounter Visit Diagnoses Diagnosis Testicular hypofunction Other testicular hypofunction documented in this encounter Care Teams Field Crop I Farmworker Relationship Specialty Start Date End Date Jc Myrick FNP [address] [place] [phone] PCP - General Family Medicine 03/16/25 documented as of this encounter
--- OUTSIDE RECORDS SUMMARY | 2025-09-11 08:52 | XMS_ITS | Encounter Summary ---
[facility] Organization [facility] Address [address] [place] [phone] Care Team Providers Care Recruiter Manager Name Role Phone Jc Myrick Primary Care Provider [phone] Encounter Details Date Type Department Care Team (Late Contact Info) Description 08/31/2025 Results Follow-Up [facility] - [place] [address] [address] [address] Marco Hunt MD [address] [place] [address] Dr [place] [address] [place] [phone] Social History Tobacco Use Types Packs/Day Years [...] Description 04/16/2026 8:00 AM EDT Ancillary Procedure [facility] Cardiology [facility] [address] [address] Scheduled Procedures Name Priority Associated Diagnoses Date/Ti me LEFT ATRIAL APPENDAGE CLOSUR E (OTHER) Paroxysmal atrial fibrillation (CMS/HCC V24, CMS/HCC V28) ABLATION A-FIB Paroxysmal atrial fibrillation (CMS/HCC V24, CMS/HCC V28) documented as of this encounter Visit Diagnoses Not on filedocumented in this encounter Care Teams Recruiter Manager Relationship Specialty Start Date End Date Jc Myrick FNP [address] [facility] [place] [address] PCP - General Family Medicine 03/16/25 documented as of this encounter
--- OUTSIDE RECORDS SUMMARY | 2025-09-11 08:52 | XMS_ITS | Encounter Summary ---
Author Organization [employer] Address [address] [place] [address] Care Team Providers Care Hand Brim Ironer Name Role Phone Unavailable Primary Care Provider [...] Description 10/20/2025 8:00 AM EST Office Visit [place] [facility] [address] [place] [address] Yamel Healy documented as of this encounter Visit Diagnoses Not on filedocumented in this encounter
--- OUTSIDE RECORDS SUMMARY | 2025-09-11 08:52 | XMS_ITS | Clinical Summary ---
Author Organization [employer] Address [address] [facility] [address] [place] [address] Care Team Providers Care Neon Tube Bender Name Role Phone Unavailable Primary Care Provider [...] by mouth Once per day. 4 Active Social History Tobacco Use Types Packs/Day [...] 10/20/2025 8:00 AM EST Office Visit [place] [facility] [address] [place] [address] Yamel Healy Health Maintenance Due Date Last Done Comments CT Colonography 1958 Colonoscopy 1958 Colorectal Cancer Screening 1958 Depression Screening 1958 FIT DNA/Cologuard 1958 FIT 1958 FOBT 1958 Lipid Panel 1958 SDOH Screening 1958 Sigmoidoscopy 1958 Alcohol/Substance Use Screening 1970 Hepatitis C Screening 1976 RSV Patients and Patients Aged 60 years or older (1 - Risk 60-74 years 1-dose series) 2018 Dental X-Ray: Full Mouth 06/21/2025 06/20/2022, 05/10 COVID-19 Vaccine ( - season) 2025 05/02/2021 Influenza Vaccine (#1) [...] Diagnosis Comments Full PROPHYLAXIS - ADULT Routine 025 8:30 AM EDT BITEWINGS - 4 RADIOGRAPHIC IMAGES Routine 04/19/2025 8:30 AM EDT PERIODIC ORAL EVALUATION - ESTABLISHED PATIENT Routine 04/19/2025 8:30 AM EDT INTRAORAL - COMPLETE SERIES OF RADIOGRAPHIC IMAGES Routine 06/20/2022 12:00 AM EDT from Last 3 Months or Most Recently Relevant to Health Maintenance Insurance [facility] ST[place] ADULT DENTAL [facility] - [facility] FULL (MEDICAID)
--- OUTSIDE RECORDS SUMMARY | 2025-09-11 08:52 | XMS_ITS | Encounter Summary ---
Author Organization [employer] Address [address] [place] [address] Care Team Providers Care Manager Finance Name Role Phone Unavailable Primary Care Provider [...] Description 10/20/2025 8:00 AM EST Office Visit [place] [facility] [address] [place] [address] Yamel Healy documented as of this encounter Visit Diagnoses Not on filedocumented in this encounter
--- OUTSIDE RECORDS SUMMARY | 2025-09-11 08:52 | XMS_ITS | Encounter Summary ---
Author Organization [employer] Address [address] [place] [address] Care Team Providers Care As400 Consultant Name Role Phone Unavailable Primary Care [...] Description 10/20/2025 8:00 AM EST Office Visit [place] [facility] [address] [place] [address] Yamel Healy documented as of this encounter Visit Diagnoses Not on filedocumented in this encounter
[2025-09-11 11:27] LABS: Appearance Urine Clear; Glucose Urine UA >=1000 mg/dL (Negative); PH 5.5 (5.0-9.0); Specific Gravity - Urine 1.025 (1.005-1.025); UMIC TRIGGER UACC YES
[2025-09-11 11:28] LABS: MANUAL DIFF FLAG NO
[2025-09-11 11:45] LABS: Hematocrit 50.5 % (42.0-52.0); Hematocrit 51.5 % (42.0-52.0); Hemoglobin 16.4 g/dl (14.0-18.0); Hemoglobin 16.5 g/dl (14.0-18.0); Imm Gran Abs Auto 0.02 X10*3/uL (0.00-0.03); Imm Gran Pct Auto 0.4 % (0.0-0.4); Imm Gran Pct Auto 0.5 % (0.0-0.4); Lymphocytes Absolute Auto 0.8 X10*3/uL (1.2-4.9); Lymphocytes Absolute Auto 1.0 X10*3/uL (1.2-4.9); Mean Corpuscular HGB Conc 32.0 g/dl (31.0-36.0); Mean Corpuscular HGB Conc 32.5 g/dl (31.0-36.0); Mean Corpuscular Hemoglobin 32.7 pg (27.0-33.0); Mean Corpuscular Hemoglobin 32.9 pg (27.0-33.0); Mean Corpuscular Volume 101.4 fL (80.0-98.0); Mean Corpuscular Volume 102.0 fL (80.0-98.0); NRBC Abs Auto 0.000 X10*3/uL (0.0-0.012); NRBC Pct Auto 0.0 /100WBC (0.0-0.2); Platelet Count 175 X10*3/uL (160-400); Platelet Count 177 X10*3/uL (160-400); Red Blood Count 4.98 X10*6/uL (4.60-5.80); Red Blood Count 5.05 X10*6/uL (4.60-5.80); White Blood Count 4.3 X10*3/uL (4.8-10.8); White Blood Count 4.6 X10*3/uL (4.8-10.8)
[2025-09-11 12:18] LABS: Microalbum/Creatinine Ratio Ur 5.2 ug/mg cr (<30)
[2025-09-11 12:33] LABS: Alanine Aminotransferase 28 U/L (0-40); Albumin Level 4.3 g/dL (3.5-5.0); Alkaline Phosphatase 58 U/L (39-117); Anion Gap 9 (12-20); Aspartate Amino Transferase 26 U/L (5-37); Blood Urea Nitrogen 18 mg/dL (9-16); Calcium 9.5 mg/dL (8.4-10.2); Carbon Dioxide 30 mmol/L (22-29); Chloride 107 mmol/L (96-108); Cholesterol 176 mg/dL (<200); Estimated Glomerular Filt Rate > 60; HDL Cholesterol 50 mg/dL (>40); Potassium 4.4 mmol/L (3.3-5.1); Sodium 142 mmol/L (135-145); Total Protein 7.0 g/dL (6.5-8.0); Triglycerides 87 mg/dL (<150)
[2025-09-15 21:09] LABS: PSA, Ultra Sensitive 0.38 ng/mL
== END 2025-09-11 08:30 | disposition home or self-care (01) ==
LOC: HO.WFDLDS 08:29
PROVIDERS: Nurse Practitioner; Visit Provider Nurse Practitioner Family
DX: Z00.00 Encounter for general adult medical examination without abnormal findings (principal); D12.6 Benign neoplasm of colon, unspecified; I10 Essential (primary) hypertension; M81.0 Age-related osteoporosis without current pathological fracture; Z12.5 Encounter for screening for malignant neoplasm of prostate; Z79.899 Other long term (current) drug therapy
CPT/HCPCS: 36415; 80053; 80061; 81001; 82043; 82306; 82570; 84153; 84443; 85025; 96127; 99397

== ENCOUNTER 2025-09-11 09:58 | Outpatient (AMB) | payer OTHER, SELFPAY ==
--- NOTE | 2025-09-11 10:04 | A.OFFPC_ITS ---
Vital Signs 09/11/25 10:09 09/11/25 10:38 Height 6 ft 2 in Weight 267 lb 4 oz BMI 34.3 BP 91/51 L 90/58 L Blood Pressure Location Rt brachial Rt brachial Position Sitting Sitting Respiration 16 Pulse 64 Pulse Source Pulse Oximeter Temp 98.0 F Temp Source Oral Pulse Oximetry (%) 97 Oxygen Delivery Method Room Air Intake Visit Reasons: Physical - see comments Intake Note: patient here for CPE Leather Seasoner Required: No Allergies No Known Allergies Allergy (Verified 09/11/25 10:29) Medication List - Last Reconciled 09/11/25 by Jc Myrick CNP apixaban (Eliquis) 5 mg PO BID bisacodyl (Dulcolax (bisacodyl)) 10 mg (2 x 5 mg) PO BEDTIME 2 days empagliflozin (Jardiance) 10 mg PO DAILY 30 days ibuprofen 600 mg PO Q8H PRN metoprolol succinate ER 75 mg PO DAILY metronidazole 0.75% 1 appl topical DAILY peg 3350-electrolytes 236-22.74-6.74 -5.86 gram (Golytely) 240 mL PO Q10M 1 day rosuvastatin 20 mg PO DAILY 30 days sacubitril-valsartan 97-103 mg (Entresto) 1 tab PO BID testosterone 1 tube topical ONCE Tobacco use date assessed: 09/11/25 Fall risk assessment: No Falls in past year Last assessed Fall Risk: 09/11/25 Dental Screening Dental Screen Date: 09/11/25 Did you have a dental visit in the last 12 months?: Yes Did you have a dental problem in the last 6 months where you did not have access to dental care?: No Was dental information given to patient?: Patient has dentist HPI HPI Comments History of Present Illness Details 65-year-old male presents for an extende d physical exam and review of recent lab results. He admits to taking his medications as prescribed without adverse reactions. He is waiting to be scheduled for cardiac ablation and Watchman device implant. He forgot to perform lab work before this visit as planned but did so this morning. Acute issue(s) - None Past Medical History - A-fib, HTN, HLD, cataract both eyes (h ad surgery on both), Lumbar radic ulopathy, BPH, rosacea Social History - Nonsmoker. Does not vape. Does not dri nk alcohol. Denies recreational drug use - Has been making healthy dietary choice s. Active but does not exercise. Generally sleep well Health maintenance - Last eye exam was 6 months ago with [facility]. Encouraged to sign a release for his PCP to obtain his ophthalmology record - Last dental visit was 2 months ago - Last Tdap was 3 years ago - He was vaccinated for PNA - He notes that he is up-to-date on the shingles vaccines - Has not been vaccinated for the flu ; declines vaccination - His last colonoscopy was in [address] Roche and 3 small TA is removed at [facility]. He is awaiting cardiology clearance after upcoming ablation/inplant of watchman device, to have colonoscopy with [facility] gastroenterology - He has never had a dexa scan. Dexa sca n ordered Specialists - Dr Funk at [facility] Cardiology - Dr Duvall at [facility] neuro spine - [facility] pain management - Dr Alba at [facility] - [facility] Medical History Colon cancer screening Laboratory tests ordered as part of a complete physical exam (CPE) Encounter for routine adult physical exam with abnormal findings Neuropathy Lumbar disc disease Cervical spinal stenosis BPH (benign prostatic hyperplasia) Ascending aorta dilation Hyperlipidemia HTN (hypertension) NELLY (obstructive sleep apnea) Dilated cardiomyopathy Neuropathy A-fib Lumbar radiculopathy Surgical History History of esophagogastroduodenoscopy (EGD) H/O colonoscopy S/P insertion of spinal cord stimulator Status post cryoablation S/P placement of nerve stimulator H/O eye surgery History of bladder surgery History of shoulder surgery History of lumbar fusion Family History Father Colon cancer Social History (Updated 06/13/25 @ 10:40 by Sofy Martines MA) Housing: House Alcohol intake: former Patient Tobacco Use Status: Never used Tobacco e-Cigarette/Vaping Use: Never Used Second Hand Smoke Exposure: No service: No Current occupational status: retired and disabled Current occupational exposures/hazards: No Cognitive needs: No Hearing needs: No Vision needs: No Questionnaire PHQ-9 Over the last 2 weeks, how often have you been bothered by any of the following problems? 1. Little interest or pleasure in doing things: not at all 2. Feeling down, depressed, or hopeless: not at all 3. Trouble falling or staying asleep, or sleeping too much: not at all 4. Feeling tired or having little energy: not at all 5. Poor appetite or overeating: nearly every day 6. Feeling bad about yourself - or that you are a failure or have let yourself or your family down: not at all 7. Trouble concentrating on things, such as reading the newspaper or watching television: not at all 8. Moving or speaking so slowly that other people could have noticed. Or the opposite - being so fidgety or restless that you have been moving around a lot more than usual: nearly every day 9. Thoughts that you would be better off or of hurting yourself in some way: not at all Total score: 6 Depression Screening Interpretation: Positive Depression Screening Done: Yes 43358 - PHQ-9 Billing: Yes Source: Developed by Drs. Juan Toribio, Sheri Colunga, Micheal Escobar and colleagues, with an educational maynor from [employer]. Thrive Questionnaire Date Thrive assessed: 09/11/25 I am a: Patient What is your living situation today?: I have a steady place to live Within the past 12 months, did the food you bought not last and you didn't have the money to get more?: Never true Within the past 12 months, did you worry whether your food would run out before you got money to buy more?: Never true Do you have trouble paying for medicines?: No Do you have trouble getting transportation to medical appointments?: No Do you have trouble paying your heating and electricity bill?: No Do you have trouble taking care of your child, family member or friend?: No Do you have trouble with day-to-day activities such as bathing, preparing meals, shopping, managing finances, etc.?: No Are you currently unemployed and looking for a job?: No Are you interested in more education?: No Please select the resources that you would like help with: None Currently or been in a relationship where the following occur: No concerns reported THRIVE Score: 0 AUDIT C Alcohol Use Questionnaire (AUDIT-C) 1. How often do you have a drink containing alcohol?: Never 3. How often do you have six or more drinks on one occasion?: Never Total Score: 0 Score Reviewed/Action Taken: Yes LESLIE-7 AMB Questionnaire LESLIE-7 Date LESLIE - 7 assessed: 09/11/25 Feeling nervous, anxious, or on edge: 0 = Not at all Not being able to stop or control worryin = Not at all Worrying too much about different things: 0 = Not at all Trouble relaxin = Not at all Being so restless that it is hard to sit still: 0 = Not at all Becoming easily annoyed or irritable: 0 = Not at all Feeling afraid as if something awful might happen: 0 = Not at all Total LESLIE-7 score (0-4 normal; 5-9 mild; 10-14 moderate; 15-21 severe): 0 Source: Developed by Drs. Juan Toribio, Sheri Colunga, Micheal Escobar and colleagues, with an educational maynor from [employer]. LESLIE-7 Assessment Billing LESLIE-7 Assessment Tool: LESLIE-7 Assessment 72483 Review of Systems Const Details: Denies chills, Denies fatigue, Denies fever(s), Denies headache(s) and Denies weakness HEENT Denies change in vision, Denies dizziness, Denies headache(s), Denies hearing loss, Denies nasal congestion, Denies sinus pain, Denies sinus pressure and Denies sore throat Card Denies chest pain, Denies lightheadedness, Denies dyspnea and Denies other (palpitations) Resp Denies cough, Denies dyspnea and Denies wheezing GI Denies abdominal pain, Denies melena, Denies hematochezia, Denies change in bowel habits, Denies dyspepsia and Denies nausea Denies hematuria and Denies dysuria Musc Denies abnormal gait, Denies myalgias, Denies arthralgias, Denies numbness and Denies tingling Skin/Breast Denies rash, Denies unusual bruising and Denies wounds Neuro Denies abnormal gait, Denies dizziness, Denies headache(s), Denies memory loss, Denies numbness, Denies Sensory deficit (Neuro), Denies tingling and Denies weakness Psych Denies anxiety, Denies depression and Denies memory loss Endo Denies cold intolerance, Denies fatigue, Denies heat intolerance, Denies polydipsia and Denies polyuria Danilo/Lymph Denies easy bleeding and Denies easy bruising Aller/Immun Denies wheezing Physical exam (Primary Care) Vital Signs: Last Vital Signs Temp 98.0 F 09/11/25 10:09 Pulse 64 09/11/25 10:09 Resp 16 09/11/25 10:09 BP 90/58 L 09/11/25 10:38 Pulse Ox 97 09/11/25 10:09 Oxygen Delivery Method Room Air 09/11/25 10:09 BMI result Body Mass Index 34.3 Tobacco/Smoking Status: Tobacco use Status Tobacco use date assessed 09/11/25 09/11/25 10:14 Patient Tobacco Use Status Never used Tobacco 09/11/25 10:14 e-Cigarette/Vaping Use Never Used 09/11/25 10:14 PHQ-9: PHQ-9 Score PHQ-9: Total score 6 09/11/25 15:55 Depression Screening Interpretation: Positive Thrive Assessment: Date of Thrive Assessment Date Thrive assessed 09/11/25 09/11/25 10:14 Currently or been in a relationship where the following occur: No concerns reported Const Other: General: no acute distress, well developed, alert and awake Nutritional Appearance: well nourished Orientation/consciousness: patient oriented x3 HENMT Head: Yes normocephalic and Yes atraumatic Ears: hearing grossly normal bilaterally and TM's normal bilaterally General nose exam: Normal external nose present and Normal nares present Mouth: Normal oral and palatal mucosa present and moist mucous membranes Teeth and gingiva: dentition normal Throat: Yes oropharynx normal Eyes Pupils: Equal, round and reactive pupils present and Pupil accommodation reflex normal EOM: EOMs intact bilaterally Neck Neck: Yes normal visual inspection, Yes no lymphadenopathy and Yes trachea midline Thyroid: Thyroid normal Carotids: no bruits Lymphatic: no lymphadenopathy noted Chest Chest palpation & inspection: normal inspection of the chest Resp Effort & Inspection: normal respiratory effort Auscultation: clear to auscultation bilaterally Cardio Rate: regular rate Rhythm: regular rhythm Heart sounds: S1 normal heart sound present, S2 normal heart sound present, no gallops, no murmurs and no rubs Bruits: no abdominal aortic bruits and no carotid bruits GI Palpation (GI): No Abdominal aortic bruit present, Soft to palpation, nontender, No hepatosplenomegaly present and No Rebound tenderness present Auscultation: normal bowel sounds General: Yes no CVA tenderness Back/Spine/Pelvis Back: no CVA tenderness Cervical Spine: cervical ROM normal and No Cervical spine tenderness Thoracic/Lumbar Spine: thoraco-lumbar ROM normal, No pain with thoraco-lumbar ROM, No thoracic spinal tenderness and No lumbar spinal tenderness Skin General: warm and dry. Normal skin color. Normal skin turgor Lesions: no lesions Rashes: no rashes Trauma: no lacerations or abrasions Wounds: no wounds Nails: normal Neuro General: patient oriented x3, gait normal and CN's II-XI intact bilaterally Cranial nerves: Yes Equal, round and reactive pupils present Cognition (Neuro): normal cognition Gait exam (Neuro): Normal gait present Motor exam (neuro): 5/5 motor strength present throughout Sensory Exam: No Sensory deficit (Neuro) Deep tendon reflexes (DTR's): Right patellar reflex intensity grade: 2+ and Left patellar reflex intensity grade: 2+ Extrem General: Yes normal to inspection, No edema and No calf tenderness Psych Appearance: grossly normal Affect: normal affect Attitude: cooperative Thought process: Normal thought process present Coding Level of Care Code Est Pt Level 3 (80408) Est Pt Prev Care >65y(83817) Diagnoses Normal physical examination, routine Z00.00 Hypertension I10 Additional Codes LESLIE-7 Assessment Billing - LESLIE-7 Assessment Tool: LESLIE-7 Assessment 68991 ([id number]) PHQ-9 - 07351 - PHQ-9 Billing: Yes ([id number]) Assessment & Plan Assessment & Plan (1) Normal physical examination, routine: Code(s): Z00.00 - Encounter for general adult medical examination without abnormal findings Category: Medical Plan: Normal physical exam except for slight abnormal tandem gait with cane. Continue current treatment regimen. Healthy diet and routine exercise encouraged. Instructed on safety to prevent fall. Follow-up 1-2 weeks for HTN and labs review. Return sooner with symptoms or concerns. Verbalized understanding and agreed with the treatment plan. (2) Hypertension: Code(s): I10 - Essential (primary) hypertension Category: Medical Plan: Resting blood pressure is 90/58, within goal of less than 130/80 but less than 60/90. HR is 64. Denies episodes of dizziness or lightheadedness. Per pharmacy, patient is currently on Metoprolol ER 75mg daily/1 and a half tab of 50mg daily. Metoprolol decreased to 50mg daily; advised to take as prescribed. Continue current treatment regimen. Follow-up in 1-2 weeks for HTN and labs review. Verbalized understanding and agreed with the plan. Orders: Orders XR DEXA axial skeleton 09/11/25 M81.0 - Age-related osteoporosis without current pathological fracture
[2025-09-11 10:09] VITALS: BP 91/51; PULSE 64; RESP 16; TEMP 36.7; O2SAT 97; BMI 34.3
[2025-09-11 10:38] VITALS: BP 90/58
== END 2025-09-11 10:56 | disposition home or self-care (01) ==
LOC: HO.HMCFM 10:00
PROVIDERS: PCP Nurse Practitioner Family; Visit Provider Nurse Practitioner Family
DX: Z00.00 Encounter for general adult medical examination without abnormal findings (principal); I10 Essential (primary) hypertension

== ENCOUNTER 2025-10-02 13:36 | Outpatient (AMB) | payer OTHER, SELFPAY ==
--- NOTE | 2025-10-02 13:39 | A.OFFPC_ITS ---
Vital Signs 10/02/25 13:46 Height 6 ft 2 in Weight 259 lb 8 oz BMI 33.3 BP 107/62 Blood Pressure Location Rt brachial Position Sitting Respiration 16 Pulse 71 Pulse Source Pulse Oximeter Temp 98 F Temp Source Oral Pulse Oximetry (%) 95 Oxygen Delivery Method Room Air Intake Visit Reasons: HTN /Labs Intake Note: patient here for follow up on HTN and labs Brand Marketing Intern Required: No Allergies No Known Allergies Allergy (Verified 10/02/25 13:45) Tobacco use date assessed: 09/11/25 Fall risk assessment: No Falls in past year Last assessed Fall Risk: 10/02/25 Dental Screening Dental Screen Date: 10/02/25 Did you have a dental visit in the last 12 months?: Yes Did you have a dental problem in the last 6 months where you did not have access to dental care?: No Was dental information given to patient?: Patient has dentist HPI HPI Comments History of Present Illness Details 65-year-old male presents for hypertensi on and review of recent lab results. He admits to taking his medications as prescribed without adverse reactions. He is having cardiac ablation and Watchman device implants [place] [facility] No acute symptoms at this time. [facility] Medical History Colon cancer screening Laboratory tests ordered as part of a complete physical exam (CPE) Encounter for routine adult physical exam with abnormal findings Neuropathy Lumbar disc disease Cervical spinal stenosis BPH (benign prostatic hyperplasia) Ascending aorta dilation Hyperlipidemia HTN (hypertension) NELLY (obstructive sleep apnea) Dilated cardiomyopathy Neuropathy A-fib Lumbar radiculopathy Surgical History History of esophagogastroduodenoscopy (EGD) H/O colonoscopy S/P insertion of spinal cord stimulator Status post cryoablation S/P placement of nerve stimulator H/O eye surgery History of bladder surgery History of shoulder surgery History of lumbar fusion Family History Father Colon cancer Social History (Updated 06/13/25 @ 10:40 by Sofy Martines MA) Housing: House Alcohol intake: former Patient Tobacco Use Status: Never used Tobacco e-Cigarette/Vaping Use: Never Used Second Hand Smoke Exposure: No service: No Current occupational status: retired and disabled Current occupational exposures/hazards: No Cognitive needs: No Hearing needs: No Vision needs: No Questionnaire Thrive Questionnaire Date Thrive assessed: 11/15/24 I am a: Patient What is your living situation today?: I have a steady place to live Within the past 12 months, did the food you bought not last and you didn't have the money to get more?: Never true Within the past 12 months, did you worry whether your food would run out before you got money to buy more?: Never true Do you have trouble paying for medicines?: No Do you have trouble getting transportation to medical appointments?: No Do you have trouble paying your heating and electricity bill?: No Do you have trouble taking care of your child, family member or friend?: No Do you have trouble with day-to-day activities such as bathing, preparing meals, shopping, managing finances, etc.?: No Are you currently unemployed and looking for a job?: No Are you interested in more education?: No Please select the resources that you would like help with: None Currently or been in a relationship where the following occur: No concerns reported THRIVE Score: 0 LESLIE-7 AMB Questionnaire LESLIE-7 Date LESLIE - 7 assessed: 09/11/25 Source: Developed by Drs. Juan Toribio, Sheri Colunga, Micheal Escobar and colleagues, with an educational maynor from [employer]. Review of Systems Const Details: Const Denies chills, Denies fatigue, Denies fever(s), Denies headache(s) and Denies weakness ENT Denies dizziness and Denies headache(s) Card Denies chest pain, Denies lightheadedness, Denies dyspnea and Denies other (Palpitations) Resp Denies cough, Denies dyspnea, Denies wheezing and Denies other ( shortness of breath) GI Denies abdominal pain, Denies melena, Denies hematochezia, Denies change in bowel habits, Denies dyspepsia and Denies nausea Denies hematuria and Denies dysuria Musc Denies abnormal gait, Denies myalgias, Denies arthralgias, Denies numbness and Denies tingling Skin/Breast Denies rash, Denies unusual bruising and Denies wounds Neuro Denies abnormal gait, Denies dizziness, Denies headache(s), Denies memory loss, Denies numbness, Denies Sensory deficit (Neuro), Denies tingling and Denies weakness Psych Denies anxiety, Denies depression, Denies memory loss Endo Denies cold intolerance, Denies fatigue, Denies heat intolerance, Denies polydipsia and Denies polyuria Aller/Immun Denies wheezing Physical exam (Primary Care) Vital Signs: Last Vital Signs Temp 98 F 10/02/25 13:46 Pulse 71 10/02/25 13:46 Resp 16 10/02/25 13:46 BP 107/62 10/02/25 13:46 Pulse Ox 95 10/02/25 13:46 Oxygen Delivery Method Room Air 10/02/25 13:46 BMI result Body Mass Index 33.3 Tobacco/Smoking Status: Tobacco use Status Tobacco use date assessed 09/11/25 10/02/25 13:42 Patient Tobacco Use Status Never used Tobacco 10/02/25 13:42 e-Cigarette/Vaping Use Never Used 10/02/25 13:42 Thrive Assessment: Date of Thrive Assessment Date Thrive assessed 11/15/24 10/02/25 13:42 Currently or been in a relationship where the following occur: No concerns reported Const Other: General: no acute distress and well developed Nutritional Appearance: well nourished Orientation/consciousness: patient oriented x3 [facility] Head: Yes normocephalic and Yes atraumatic Eyes General: appearance normal, both eyes and all related structures Pupils: Equal, round and reactive pupils present EOM: EOMs intact bilaterally Resp Effort & Inspection: normal respiratory effort Auscultation: clear to auscultation bilaterally Cardio Rate: regular rate Rhythm: regular rhythm Heart sounds: S1 normal heart sound present, S2 normal heart sound present, no gallops, no murmurs and no rubs Extrem General: Yes normal to inspection, No edema and No calf tenderness Skin General: warm and dry. Normal skin color. Normal skin turgor Neuro General: patient oriented x3, gait normal and no focal neuro deficit Cranial nerves: Yes Equal, round and reactive pupils present Cognition (Neuro): normal cognition Gait exam (Neuro): Normal gait present Sensory Exam: No Sensory deficit (Neuro) Psych Appearance: grossly normal Affect: normal affect Attitude: cooperative Thought process: Normal thought process present Coding Level of Care Code Est Pt Level 4 (23078) Diagnoses Hypertension I10 Hyperlipidemia E78.5 Vitamin D deficiency E55.9 Assessment & Plan Assessment & Plan (1) Hypertension: Code(s): I10 - Essential (primary) hypertension Category: Medical Plan: Blood pressure is 107/62, within goal of less than 130/80. Continue current treatment regimen. Low-sodium diet encouraged. Follow-up in 2 months for transfer of care with a new provider within the practice, hypertension, and vitamin-D deficiency. Return sooner with symptoms or concerns. Verbalized understanding and agreed with the plan. (2) Hyperlipidemia: Code(s): E78.5 - Hyperlipidemia, unspecified Category: Medical Plan: Recent LDL level is slightly elevated, 109, above goal of less than 70. Triglycerides, total cholesterol, and HDL levels are normal. Rosuvastatin increased to 40 mg daily at bedtime; advised to take as prescribed. Advised to limit foods high in saturated fat and avoid foods high in trans fat. Routine exercise encouraged. Fast for 10-12 hours, may drink water, and perform lipid panel blood work a few days before next visit. Follow-up in 2 months. Verbalized understanding and agreed with the plan. (3) Vitamin D deficiency: Code(s): E55.9 - Vitamin D deficiency, unspecified Category: Medical Plan: Recent vitamin-D level is slightly low, 25.5. Vitamin D3 1000 units daily ordered; advised to take as prescribed. Recheck vitamin-D level in 2 months. Verbalized understanding and agreed with the plan. Orders: Orders Lipid Panel 2 Months E78.5 - Hyperlipidemia, unspecified Medications: New rosuvastatin 40 mg PO BEDTIME 30 tabs 3RF 30 days Discontinued rosuvastatin Daily at bedtime Discontinued Reason: Doctor's Order 20 mg PO DAILY 30 days 30 tabs 3RF
[2025-10-02 13:46] VITALS: BP 107/62; PULSE 71; RESP 16; TEMP 36.6; O2SAT 95; BMI 33.3
--- OUTSIDE RECORDS SUMMARY | 2025-10-02 18:25 | XMS_ITS | Clinical Summary ---
Author Organization [employer] Address [address] [facility] [address] [place] [address] Care Team Providers Care Spot Man Name Role Phone Unavailable Primary Care Provider [...] AM EST Office Visit [facility] [address] [place] [address] [facility] Health Maintenance Due Date Last Done Comments CT Colonography 1958 Colonoscopy 1958 Colorectal Cancer Screening 1958 Depression Screening 1958 FIT DNA/Cologuard 1958 FIT 1958 FOBT 1958 Lipid Panel 1958 SDOH Screening 1958 Sigmoidoscopy 1958 Alcohol/Substance Use Screening 1970 Hepatitis C Screening 1976 Dental X-Ray: Full Mouth 06/21/2025 06/20/2022, 05/10 COVID-19 Vaccine ( season) 2025 05/02/2021 Influenza Vaccine (#1) 2025 [...] Maintenance Insurance [place] AD[place] DENTAL [facility] FULL (MEDICAID)
--- OUTSIDE RECORDS SUMMARY | 2025-10-02 18:25 | XMS_ITS | Encounter Summary ---
Author Organization [employer] Address [address] [place] [address] Care Team Providers Care Gusset Edger Name Role Phone Unavailable Primary Care Provider [...] Description 10/20/2025 8:00 AM EST Office Visit [place] [facility] [address] [place] [address] Yamel Healy documented as of this encounter Visit Diagnoses Not on filedocumented in this encounter
--- OUTSIDE RECORDS SUMMARY | 2025-10-02 18:25 | XMS_ITS | Encounter Summary ---
Author Organization [facility] Address [address] [place] [address] Care Team Providers Care Inclusion Specialist Name Role Phone Jc Myrick RENETTA Primary Care Provider [phone] Encounter Details Date Type Department Care Team (Late st Contact Info) Description 03/13/2025 Lab Requisition [facility] - Main Lab [address] [place] [address] Stephenie Arreguin PA [address] [place] [address] [phone] Testicular hypofunction Social History Tobacco Use Types [...] Upcoming Encounters Date Type Department Care Team (Latest Contact Info) Description 10/23/2025 7:30 AM EST Hospital Encounter [facility] EP Lab [address] [place] [address] Marco Hunt MD [place] [phone] Paroxysmal atrial fibrillation (CMS/HCC V24, CMS/HCC V28) 10/23/2025 7:30 AM EST - 10/23/2025 9:50 AM EST Surgery [facility] EP Lab [address] [place] [address] Marco Hunt MD [address] [place] [address] Dr Byrnes [address] [place] [address] Left atrial appendage closure (other) w/ KAREEM (Dr Jones 04/16/2026 8:00 AM EDT Ancillary Procedure [facility] - [address] [facility] [address] [place] [address] documented as of this encounter Procedures Procedure Name Priority Date/Time Associated Diagnosis Comments COMPLETE BLOOD COUNT Routine 03/13/2025 8:33 AM EDT Testicular hypofunction documented in this encounter Results * (ABNORMAL) Complete blood count (03/13/2025 8:33 AM EDT) WBC 4.7(L) 4.8 - 10.8 K/mcL LAB HEMETOLOGY METHOD 03/13/2025 1:49 PM [facility] RBC 5.00 4.50 - 5.50 M/mcL LAB HEM[facility]OLOG[facility] Hemoglobin 16.6 13.5 - 17.5 g/dL LAB HEMETOLOGY METHOD 03/13/2025 1:49 PM [facility] Hematocrit 50.0 42.0 - 54.0 % LAB HEMETOLOGY METHOD [facility] MCV 99.4(H) 79.0 - 98.0 FL LAB HEMETOLOGY METHOD 03/13/2025 1:49 PM [facility] MCH 33.0(H) 27.0 - 32.0 pcg LAB HEMETOLOGY METHOD 03/13/2025 1:49 PM [facility] MCHC 33.2 32.0 - 37.0 g/dL LAB HEMETOLOGY METHOD 03/13/2025 1:49 PM [facility] RDW 13.1 11.0 - 15.0 % LAB HEMETOLOGY METHOD 03/13/2025 1:49 PM EDT [facility] Platelets 207 130 - 400 K/mcL LAB HEMETOLOGY METHOD 03/13/2025 1:49 PM EDT [facility] MPV 9.6 7.0 - 11.0 FL LAB HEMETOLOGY METHOD 03/13/2025 1:49 PM EDT [facility] NRBC 0.0 <1.0 % LAB HEMETOLOGY METHOD 03/13/2025 1:49 PM EDT [facility] NRBC Absolute 0.00 <0.10 K/mcL LAB HEMETOLOGY METHOD 03/13/2025 1:49 PM EDT [facility] Blood Venous blood specimen / Unknown 03/13/2025 8:33 AM EDT 03/13/2025 12:43 PM EDT Stephenie SIMMONS LAB BLOOD ORDERABLES Final Re sult [facility] [address] [place] [address], documented in this encounter Visit Diagnoses Diagnosis Testicular hypofunction Other testicular hypofunction Paroxysmal atrial fibrillation (CMS/HCC V24, CMS/HCC V28)- Primary Atrial fibrillation Paroxysmal atrial fibrillation (CMS/HCC V24, CMS/HCC V28) Atrial fibrillation documented in this encounter Care Teams Inclusion Specialist Relationship Specialty Start Date End Date Jc Myrick FNP [address] [place] [phone] PCP - General Family Medicine 03/16/25 documented as of this encounter
--- OUTSIDE RECORDS SUMMARY | 2025-10-02 18:25 | XMS_ITS | Encounter Summary ---
Author Organization [employer] Address [address] [place] [address] Care Team Providers Care Hand Inspector Name Role Phone Unavailable Primary Care [...] Description 10/20/2025 8:00 AM EST Office Visit [place] [facility] [address] [place] [address] Yamel Healy documented as of this encounter Visit Diagnoses Not on filedocumented in this encounter
--- OUTSIDE RECORDS SUMMARY | 2025-10-02 18:25 | XMS_ITS | Encounter Summary ---
Author Organization [employer] Address [address] [place] [address] Care Team Providers Care Technician Anatomic Pathology Name Role Phone Unavailable Primary Care Provider [...] Description 10/20/2025 8:00 AM EST Office Visit [place] [facility] [address] [place] [address] Yamel Healy documented as of this encounter Visit Diagnoses Not on filedocumented in this encounter
--- OUTSIDE RECORDS SUMMARY | 2025-10-02 18:25 | XMS_ITS | Clinical Summary ---
Author Organization [address] [place] [address] Address [address] [place] [address] Phone Care Team Providers Care Manager Hardware Name Role Phone Jc Myrick [employer]PER[employer] Primary Care Provider [phone] Allergies No known active allergies Medications acetaminophen [...] substrate modification performed -Without recurrence - low [id number] score, not currently anticoagulated Assessment & Plan [...] time though, he continues with a low [id number] score. In keeping with prior conversations with [...] Patient's LVEF is low normal, likely with presybeterian of sinus rhythm. Continue GDMT for his [...] we will base that decision on his [id number] score. I encouraged him to continue efforts [...] 03/14/2019 Obstructive sleep apnea 12/17/2018 Overview (08/24/2024): [facility] Home Polysomnogram: Date 12/14/2018; AHI [...] Encounters Date Type Department Care Team Description 09/14/2025 Telephone [facility] Cardiology [facility] [address] [place] [phone] Amador Funk MD 09/12/[address] [phone] Shyanne Rios, RN 08/31/2025 Results Follow-Up [facility] Cardiology [facility] [address] [place] [phone] Marco Hunt MD 08/22/2025 7:46 AM EDT - 08/22/2025 11:59 PM EDT Hospital Encounter [facility] CT Scan [address] [place] [phone] Atrial fibrillation, unspecified type (CMS/HCC V24, CMS/HCC V28) Discharge Disposition: Home or Self Care 08/14/[address] [phone] Shyanne Rios RN 08/04/[address] [address] Perla Machado RN 07/07/2025 Telephone [facility] Cardiology [facility] [address] [place] [phone] Jc Myrick FNP 07/05/2025 Episode Changes [facility] Structural Heart [address] [place] [phone] Carmen Waldron RN 07/05/2025 Telephone [facility] Cardiology [facility] [address] [facility] [address] [place] [phone] Marco Hunt MD 07/04/2025 8:40 AM EDT Consult [facility] Cardiology [facility] [address] [place] [phone] Marco Hunt MD Paroxysmal atrial fibrillation (CMS/HCC [...] Comments COLONOSCOPY 10/19/2007 PROCEDURE: HISTORICAL COLONOSCOPY; COMMENT: [facility] Surgery Alger; Kaley; multiple small tubular adenomas. COLONOSCOPY 02/02/2018 PROCEDURE: HISTORICAL COLONOSCOPY; COMMENT: Diminutive colonic polyps 3: all tubular adenomas. OTHER SURGICAL HISTORY 08/2017 PROCEDURE: DECOMPRESS DISC RF LUMBAR; COMMENT: microlumbar discectomy L4-5 Lam TURP / TRANSURETHRAL INCISIO N / DRAINAGE PROSTATE 2017 PROCEDURE: HISTORICAL TURP UPPER GASTROINTESTINAL ENDOSCOPY 04/12/2020 PROCEDURE: AL UPPER GI ENDOSCOPY PERFORMED; COMMENT: normal on famotidine rx. OTHER SURGICAL HISTORY 02/05/2022 PROCEDURE: AL ARTHRODESIS POSTERIOR INTERBODY 1 NTRSPC LUMBAR; COMMENT: [...] Description 10/23/2025 7:30 AM EST Hospital Encounter [facility] EP Lab [address] [place] [phone] Marco Hunt MD Medical [facility] Dr Byrnes [address] [place] [phone] Paroxysmal atrial fibrillation (CMS/HCC V24, CMS/HCC V28) 10/23/2025 7:30 AM EST - 10/23/2025 9:50 AM EST Surgery [facility] EP Lab [address] [place] [phone] Marco Hunt MD [address] [place] [address] Dr Byrnes [address] [place] [phone] Left atrial appendage closure (other) w/ KAREEM (Dr Jones 04/16/2026 8:00 AM EDT Ancillary Procedure [facility] [address] [facility] [address] [place] [phone] Health Maintenance Due Date Last Done Comments [...] Delgado Reviewed and Electronically Signed By: Moshe eDlgado Signed Date: 08/28/2025 11:50 ET Workstation ID: [id number] Transcribed By: Self Edit Transcribed Date: 08/27/2025 [...] It gives origin to diagonal and septal regulatory submissions specialist branches. Mild amount of eccentric calcified plaque [...] caliber. It gives origin to diagonaland septal regulatory submissions specialist branches. Mild amount of eccentric calcified plaque [...] Signed Date: 08/28/2025 11:50 ET Workstation ID: [id number] Transcribed By: Self Edit Transcribed Date: 08/27/2025 14:46 ET us Marco Hunt MD IM CT PROCEDURES Final Result * POCT Creatinine, blood (08/22/2025 8:16 AM EDT) Creatinine POCT 1.1 0.7 - 1.3 mg/dL 08/22/2025 10:21 AM EDT [facility] eGFR 69 mL/min/1.7 3m2 08/22/2025 10:21 AM EDT [facility] Blood Venous blood specimen / Unknown 08/22/2025 8:16 AM EDT 08/22/2025 10:23 AM EDT Generic Provider Poct LAB POINT OF CARE TEST DOCKED DEVICE UNSOLICITED RESULTS Final Result [facility] [address] [place] [address], [place] [phone] * ECG 12 lead (07/04/2025 9:21 AM EDT) Ventricular Rate ECG 107 BPM GEMUSE Atrial Rate 86 BPM GEMUSE QRS Duration 94 ms GEMUSE Q-T Interval 346 ms GEMUSE QTc 461 ms GEMUSE R [place] -31 degrees GEMUSE T [place] 10 degrees GEMUSE ECG Interpretation Atrial fibrillation [...] Final GEMUSE * (ABNORMAL) Lipid panel (12/25/2023) LDL/HDL Ratio [...] to Health Maintenance Insurance [place] [address] MEDICAID - [place] Care Teams Manager Hardware Relationship Specialty Start Date End Date Jc Myrick FNP [address] [place] [phone] PCP - General Family Medicine 03/16/25
--- OUTSIDE RECORDS SUMMARY | 2025-10-02 18:25 | XMS_ITS | Encounter Summary ---
Author Organization [employer] Address [address] [place] [address] Care Team Providers Care Director Of Education Name Role Phone Unavailable Primary Care Provider [...] Description 10/20/2025 8:00 AM EST Office Visit [place] [facility] [address] [place] [address] Yamel Healy documented as of this encounter Visit Diagnoses Not on filedocumented in this encounter
--- OUTSIDE RECORDS SUMMARY | 2025-10-02 18:25 | XMS_ITS | Encounter Summary ---
Author Organization [facility] Address [address] [place] [phone] Care Team Providers Care High School Music Instructor Name Role Phone Jc Myrick RENETTA Primary Care Provider [phone] Encounter Details Date Type Department Care Team (Late st Contact Info) Description 08/31/2025 Results Follow-Up [facility] - [address] [place] [address] Marco Hunt MD [address] [place] [address] Dr Byrnes [address] [place] [phone] Social History Tobacco Use Types Packs/Day Years [...] Description 10/23/2025 7:30 AM EST Hospital Encounter [facility] EP Lab [address] [place] [phone] Marco Hunt MD [address] [place] [address] Dr Byrnes [address] [place] [phone] Paroxysmal atrial fibrillation (CMS/HCC V24, CMS/HCC V28) 10/23/2025 7:30 AM EST - 10/23/2025 9:50 AM EST Surgery [facility] EP Lab [address] [place] [phone] Marco Hunt MD [address] [place] [address] Dr Byrnes [address] [place] [phone] Left atrial appendage closure (other) w/ KAREEM (Dr Jones 04/16/2026 8:00 AM EDT Ancillary Procedure [facility] - [address] [place] [address] documented as of this encounter Visit Diagnoses Not on filedocumented in this encounter Care Teams High School Music Instructor Relationship Specialty Start Date End Date Jc Myrick FNP [address] [place] [phone] PCP - General Family Medicine 03/16/25 documented as of this encounter
== END 2025-10-02 14:22 | disposition home or self-care (01) ==
LOC: HO.HMCFM 13:37
PROVIDERS: PCP Nurse Practitioner Family; Visit Provider Nurse Practitioner Family
DX: I10 Essential (primary) hypertension (principal); E78.5 Hyperlipidemia, unspecified; E55.9 Vitamin D deficiency, unspecified

== ENCOUNTER → 2025-10-02 13:36 | Outpatient (BNVA) | payer OTHER, SELFPAY | PROVIDERS: PCP Nurse Practitioner Family; Visit Provider Nurse Practitioner Family | DX: I10 Essential (primary) hypertension (principal); E78.5 Hyperlipidemia, unspecified; E55.9 Vitamin D deficiency, unspecified | CPT/HCPCS: 99212 ==

== ENCOUNTER 2025-10-17 08:18 | Outpatient (AMB) | payer OTHER, SELFPAY ==
--- NOTE | 2025-10-17 08:24 | MHC.PC.OV ---
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 Allergies No Known Allergies Allergy (Verified 10/17/25 08:42) Medication List - Last Reconciled 10/17/25 by Jc Myrick CNP apixaban (Eliquis) 5 mg PO BID bisacodyl (Dulcolax (bisacodyl)) 10 mg (2 x 5 mg) PO BEDTIME 2 days empagliflozin (Jardiance) 10 mg PO DAILY 30 days ibuprofen 600 mg PO Q8H PRN metoprolol succinate ER 75 mg PO DAILY metronidazole 0.75% 1 appl topical DAILY peg 3350-electrolytes 236-22.74-6.74 -5.86 gram (Golytely) 240 mL PO Q10M 1 day rosuvastatin 40 mg PO BEDTIME 30 days sacubitril-valsartan 97-103 mg (Entresto) 1 tab PO BID testosterone 1 tube topical ONCE Tobacco use date assessed: 10/17/25 Fall risk assessment: No Falls in past year Last assessed Fall Risk: 10/17/25 Dental Screening Dental Screen Date: 10/17/25 Did you have a dental visit in the last 12 months?: Yes Did you have a dental problem in the last 6 months where you did not have access to dental care?: No Was dental information given to patient?: Patient has dentist HPI HPI Comments History of Present Illness Details 65-year-old male presents with complaints of a lump to the left side of his neck. He noticed the lump a week ago. He states that the lump was significantly tender large but has reduced in size after cool compresses. The area is now only mildly tender to touch. He did not take any medication for his symptoms. He denies associated headache, body ache, fever, chills, fatigue, or weakness. [facility] Medical History Colon cancer screening Laboratory tests ordered as part of a complete physical exam (CPE) Encounter for routine adult physical exam with abnormal findings Neuropathy Lumbar disc disease Cervical spinal stenosis BPH (benign prostatic hyperplasia) Ascending aorta dilation Hyperlipidemia HTN (hypertension) NELLY (obstructive sleep apnea) Dilated cardiomyopathy Neuropathy A-fib Lumbar radiculopathy Surgical History History of esophagogastroduodenoscopy (EGD) H/O colonoscopy S/P insertion of spinal cord stimulator Status post cryoablation S/P placement of nerve stimulator H/O eye surgery History of bladder surgery History of shoulder surgery History of lumbar fusion Family History Father Colon cancer Social History (Updated 06/13/25 @ 10:40 by Sofy Martines MA) Housing: House Alcohol intake: former Patient Tobacco Use Status: Never used Tobacco e-Cigarette/Vaping Use: Never Used Second Hand Smoke Exposure: No service: No Current occupational status: retired and disabled Current occupational exposures/hazards: No Cognitive needs: No Hearing needs: No Vision needs: No Questionnaire Thrive Questionnaire Date Thrive assessed: 11/15/24 I am a: Patient What is your living situation today?: I have a steady place to live Within the past 12 months, did the food you bought not last and you didn't have the money to get more?: Never true Within the past 12 months, did you worry whether your food would run out before you got money to buy more?: Never true Do you have trouble paying for medicines?: No Do you have trouble getting transportation to medical appointments?: No Do you have trouble paying your heating and electricity bill?: No Do you have trouble taking care of your child, family member or friend?: No Do you have trouble with day-to-day activities such as bathing, preparing meals, shopping, managing finances, etc.?: No Are you currently unemployed and looking for a job?: No Are you interested in more education?: No Please select the resources that you would like help with: None Currently or been in a relationship where the following occur: No concerns reported THRIVE Score: 0 LESLIE-7 AMB Questionnaire LESLIE-7 Date LESLIE - 7 assessed: 09/11/25 Source: Developed by Drs. Juan Toribio, Sheri Colunga, Micheal Escobar and colleagues, with an educational maynor from [employer]. Review of Systems Const Details: Const Denies chills, Denies fatigue, Denies fever(s), Denies headache(s) and Denies weakness ENT Reports as per HPI Card Denies chest pain, Denies lightheadedness, Denies dyspnea and Denies other (Palpitations) Resp Denies cough, Denies dyspnea, Denies wheezing and Denies other ( shortness of breath) GI Denies abdominal pain, Denies melena, Denies hematochezia, Denies change in bowel habits, Denies dyspepsia and Denies nausea Denies hematuria and Denies dysuria Musc Denies abnormal gait, Denies myalgias, Denies arthralgias, Denies numbness and Denies tingling Skin/Breast Denies rash, Denies unusual bruising and Denies wounds Neuro Denies abnormal gait, Denies dizziness, Denies headache(s), Denies memory loss, Denies numbness, Denies Sensory deficit (Neuro), Denies tingling and Denies weakness Psych Denies anxiety, Denies depression, Denies memory loss Endo Denies cold intolerance, Denies fatigue, Denies heat intolerance, Denies polydipsia and Denies polyuria Aller/Immun Denies wheezing Physical exam (Primary Care) Vital Signs: Last Vital Signs Temp 98.0 F 10/17/25 08:28 Pulse 66 10/17/25 08:28 Resp 16 10/17/25 08:28 BP 108/68 10/17/25 08:28 Pulse Ox 96 10/17/25 08:28 Oxygen Delivery Method Room Air 10/17/25 08:28 BMI result Body Mass Index 34.3 Tobacco/Smoking Status: Tobacco use Status Tobacco use date assessed 10/17/25 10/17/25 08:32 Patient Tobacco Use Status Never used Tobacco 10/17/25 08:26 e-Cigarette/Vaping Use Never Used 10/17/25 08:26 Thrive Assessment: Date of Thrive Assessment Date Thrive assessed 11/15/24 10/17/25 08:26 Currently or been in a relationship where the following occur: No concerns reported Const Other: General: no acute distress and well developed Nutritional Appearance: well nourished Orientation/consciousness: patient oriented x3 HENMT Head: Yes normocephalic and Yes atraumatic Neck: Mild tenderness to palpation to a small area of the left lateral neck below the ear, area is slightly firm with no defined mass, no overt injury or infection Eyes General: appearance normal, both eyes and all related structures Pupils: Equal, round and reactive pupils present EOM: EOMs intact bilaterally Resp Effort & Inspection: normal respiratory effort Auscultation: clear to auscultation bilaterally Cardio Rate: regular rate Rhythm: regular rhythm Heart sounds: S1 normal heart sound present, S2 normal heart sound present, no gallops, no murmurs and no rubs Extrem General: Yes normal to inspection, No edema and No calf tenderness Skin General: warm and dry. Normal skin color. Normal skin turgor Neuro General: patient oriented x3, gait normal and no focal neuro deficit Cranial nerves: Yes Equal, round and reactive pupils present Cognition (Neuro): normal cognition Gait exam (Neuro): Normal gait present Sensory Exam: No Sensory deficit (Neuro) Psych Appearance: grossly normal Affect: normal affect Attitude: cooperative Thought process: Normal thought process present Coding Level of Care Code Est Pt Level 3 (83952) Diagnoses Neck pain on left side M54.2 Assessment & Plan Assessment & Plan (1) Neck pain on left side: Code(s): M54.2 - Cervicalgia Category: Medical Plan: Patient reports a lump to the left side of his neck. He noticed the lump a week ago. He states that the lump was significantly tender large but has reduced in size after cool compresses. The area is now only mildly tender to touch. He did not take any medication for his symptoms. He denies associated headache, body ache, fever, chills, fatigue, or weakness. Mild tenderness to palpation to a small area of the left lateral neck below the ear, area is slightly firm with no defined mass, no overt injury or infection. Likely due to inflammation of the muscle. May take Tylenol ibuprofen as needed. Warm/cool compresses encouraged. Follow-up with worsening or new symptoms. Verbalized understanding and agreed with the plan.
[2025-10-17 08:28] VITALS: BP 108/68; PULSE 66; RESP 16; TEMP 36.7; O2SAT 96; BMI 34.3
== END 2025-10-17 08:55 | disposition home or self-care (01) ==
LOC: HO.HMCFM 08:19
PROVIDERS: PCP Nurse Practitioner Family; Visit Provider Nurse Practitioner Family
DX: M54.2 Cervicalgia (principal)

== ENCOUNTER → 2025-10-17 08:18 | Outpatient (BNVA) | payer OTHER, SELFPAY | PROVIDERS: PCP Nurse Practitioner Family; Visit Provider Nurse Practitioner Family | DX: M54.2 Cervicalgia (principal) | CPT/HCPCS: 99212 ==